=== PATIENT | female | born 1950 | race Caucasian/White ===

== ENCOUNTER 2022-09-27 14:12 | Emergency (ER) | payer MEDICARE, SELFPAY ==
[2022-09-27 14:19] VITALS: BP 157/81; PULSE 74; RESP 16; TEMP 36.3; O2SAT 100; BMI 39.0
--- NOTE | 2022-09-27 15:34 | ED_ITS ---
HPI - General Adult General Chief complaint: Unspecified Complaint, Adult Stated complaint: Sent from Urgent care, Concerned about EKG Time Seen by Provider: 09/27/22 14:20 History of Present Illness HPI narrative: This 72-year-old female comes here from urgent care. She presented to urgent care because of a rash in the right hip region. For some reason she had an EKG done, possibly because her blood pressure was elevated at that visit. She was sent here for further evaluation. The patient states that she feels normal and has no chest pain, no shortness of breath, no nausea, vomiting, lightheadedness, or diaphoresis. She does not report any exercise intolerance. There was no phone call from urgent care in regard to the reason for presenting to the emergency department. I did attempt to look for a copy of the EKG that was done and this was not available. 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 She had a thorough battery of tests the returned negative. I did look back in her record and saw an EKG 6 years ago that showed a right bundle sera block. Related Data Home Medications Medication Instructions Recorded Confirmed albuterol sulfate 90 mcg/actuation 2 inh inhalation Q4H PRN 02/11/22 09/27/22 breath activated powder inhaler aspirin 81 mg tablet,delayed 81 mg PO QDAY 02/11/22 09/27/22 release (Adult Low Dose Aspirin) cholecalciferol (vitamin D3) 125 125 mcg PO QDAY 02/11/22 09/27/22 mcg (5,000 unit) capsule cyanocobalamin (vitamin B-12) 1,000 mcg PO QDAY 02/11/22 09/27/22 1,000 mcg capsule fluticasone propionate 110 1 puff inhalation BID 02/11/22 09/27/22 mcg/actuation HFA aerosol inhaler hydroxychloroquine 200 mg tablet 200 mg PO QDAY 02/11/22 09/27/22 levothyroxine 150 mcg tablet 150 mcg PO QDAY 02/11/22 09/27/22 (Synthroid) linaclotide 145 mcg capsule 145 mcg PO QAM 02/11/22 09/27/22 (Linzess) omega-3 fatty acids 1,250 mg 1,250 mg PO QDAY 02/11/22 09/27/22 capsule rosuvastatin 10 mg tablet (Crestor) 10 mg PO QDAY 02/11/22 09/27/22 triamcinolone acetonide 0.1 % 1 applic topical TID 02/11/22 09/27/22 topical ointment atogepant 30 mg tablet (Qulipta) 30 mg PO QDAY 09/27/22 09/27/22 enoxaparin 60 mg/0.6 mL 60 mg subcut Q24H PRN 09/27/22 09/27/22 subcutaneous syringe Allergies Allergy/AdvReac Type Severity Reaction Status Date / Time galcanezumab-gnlm Allergy Severe Palpitation Verified 09/27/22 14:23 s tramadol Allergy Severe migraines Verified 09/27/22 14:23 butterbur Allergy Intermediate gi upset Verified 09/27/22 14:23 midazolam Allergy Intermediate paradoxial Verified 09/27/22 14:23 agitation cephalexin Allergy Mild Rash Verified 09/27/22 14:23 latex Allergy Mild dermatitis Verified 09/27/22 14:23 erythromycin base Allergy Unknown Verified 09/27/22 14:23 Penicillins Allergy Unknown Verified 09/27/22 14:23 timolol Allergy Unknown Verified 09/27/22 14:23 gabapentin Allergy Verified 09/27/22 14:23 Common paper wasp venom Allergy Uncoded 09/27/22 13:04 protein Review of Systems Status of ROS: Reports: 10 or more systems reviewed and unremarkable except as noted in History and below Narrative: Constitutional: No fevers, no weight gain or loss. Eyes: No discharge. No vision changes. HENT: No congestion, no sore throat, no ear pain. Cardiovascular: No chest pain, no palpitations. Respiratory: No shortness of breath, no wheezes, no cough. Gastrointestinal: No abdominal pain, no vomiting, no diarrhea. Genitourinary: No dysuria, no hematuria. Musculoskeletal: Normal range of motion. Skin: No pruritis. She reports a rash on her right hip. Neurological: No dizziness, weakness, sensory change, speech change. Endo/Heme/Allergies: No bruising or bleeding. No polydipsia. Pysch: no suicidality, no anxiety, no insomnia. All other systems reviewed and are negative. [facility] Medical History (Updated 09/27/22 @ 15:42 by Ken Gandara MD) Encounter for follow-up Hypertension Surgical History (Updated 03/05/22 @ 13:46 by Myra Martinez) History of bunionectomy of both great toes History of hysterectomy History of repair of hiatal hernia History of sinus surgery History of tonsillectomy History of total bilateral knee replacement Status post hysterectomy Family History (Updated 01/28/22 @ 15:54 by Myra Martinez) Father Stroke Other Cardiovascular disease Diabetes Psychiatric disorder Social History (Updated 01/28/22 @ 15:54 by Myra Martinez) Narrative: Non-smoker Smoking Status: Never smoker How often do you have a drink containing alcohol: monthly or less AUDIT-C Alcohol total score: 1 Non-prescribed substance use: denies use Exam Narrative: Exam Narrative: Constitutional: Well-developed, well-nourished, no acute distress. HEENT: Normocephalic, atraumatic. Neck: Normal range of motion. Nontender. Supple. Heart: Regular. No murmurs. Normal rate. Intact distal pulses. Lungs: Clear to auscultation. No chest discomfort. No wheezes, rhonchi, or rales. Abdomen: Normal bowel sounds. Nontender. No rebound tenderness. Genitalia: Deferred. Back: No midline tenderness. Normal range of motion. Extremities: Normal range of motion. No injury. She is wearing bracing on both ankles. Skin: Intact. No rash. Warm. No erythema or pallor. Neurologic: No altered sensation. No weakness. Alert and oriented. Psychiatric: No suicidality. No anxiety or depression. No insomnia. Nursing notes and vitals signs are reviewed. Const: Vital Signs, click to edit/add: Vital Signs - 24 hr 09/27/22 14:19 Temperature 97.3 F L Pulse Rate [Left P ulse Oximeter] 74 Respiratory Rate 16 Blood Pressure [Ri ght Upper Arm] 157/81 H Pulse Oximetry 100 Oxygen Delivery Me thod Room Air Course Vital Signs Vital signs: Initial Vital Signs Temperature 97.3 F L 09/27/22 14:19 Temperature Source Temporal Artery Scan 09/27/22 14:19 Pulse Rate 74 09/27/22 14:19 Respiratory Rate 16 09/27/22 14:19 Blood Pressure 157/81 H 09/27/22 14:19 Blood Pressure Mean 106 09/27/22 14:19 Blood Pressure Position Sitting 09/27/22 14:19 Pulse Oximetry 100 09/27/22 14:19 Oxygen Delivery Method 09/27/22 14:19 Vital Signs Temperature 97.3 F L 09/27/22 14:19 Pulse Rate 74 09/27/22 14:19 Respiratory Rate 16 09/27/22 14:19 Blood Pressure 157/81 H 09/27/22 14:19 Pulse Oximetry 100 09/27/22 14:19 Oxygen Delivery Method 09/27/22 14:19 Temperature 97.3 F L 09/27/22 14:19 Pulse Rate 74 09/27/22 14:19 Respiratory Rate 16 09/27/22 14:19 Blood Pressure 157/81 H 09/27/22 14:19 Pulse Oximetry 100 09/27/22 14:19 Oxygen Delivery Method 09/27/22 14:19 Medical Decision Making MDM Narrative Medical decision making narrative: This patient states that she feels normal and was sent here for evaluation of elevated blood pressure which was reported to be initially at around 190-200 for systolic value. Repeat blood pressure decreased to around 160. Her EKG today shows normal sinus rhythm with no ST or T-wave abnormalities. She does have a right bundle branch block. This is very similar to what was seen on EKG in her record from about 6 years ago. I did discuss diagnostic and treatment parameters regarding blood pressure and indicated importance of following up with her primary physician in this regard. She will be able to check her blood pressure at home and record these readings. At the time of discharge the patient appears safe for outpatient management. The treatment plan is reviewed along with written and verbal return precautions. Reasons to return and the importance of close followup were also reviewed. ECG Data Attestation: I personally reviewed and interpreted this ECG as follows: Interpretation: Normal sinus rhythm. Rate is 74 beats per minute. There are no ST or T-wave abnormalities. Right bundle branch block. Discharge Plan Discharge Clinical Impression: Elevated blood pressure reading Patient Disposition: Home, Self-Care Condition: Stable Additional Instructions: Continue current plans. Check blood pressure and record these for follow-up appointment with primary physician. Return if worsening Prescriptions: No Action hydroxychloroquine 200 mg tablet 200 mg PO QDAY rosuvastatin [Crestor] 10 mg tablet 10 mg PO QDAY albuterol sulfate 90 mcg/actuation aerosol powdr breath activated 2 inh inhalation Q4H PRN cholecalciferol (vitamin D3) 125 mcg (5,000 unit) capsule 125 mcg PO QDAY Linzess 145 mcg capsule 145 mcg PO QAM omega-3 fatty acids 1,250 mg capsule 1,250 mg PO QDAY triamcinolone acetonide 0.1 % ointment 1 applic topical TID aspirin [Adult Low Dose Aspirin] 81 mg tablet,delayed release (DR/EC) 81 mg PO QDAY cyanocobalamin (vitamin B-12) 1,000 mcg capsule 1,000 mcg PO QDAY levothyroxine [Synthroid] 150 mcg tablet 150 mcg PO QDAY fluticasone propionate 110 mcg/actuation HFA aerosol inhaler 1 puff inhalation BID enoxaparin 60 mg/0.6 mL syringe 60 mg subcut Q24H PRN Qulipta 30 mg tablet 30 mg PO QDAY Follow Up/Referrals: Meka Perez MD [Primary Care Provider] - Stand Alone Forms: [facility] Info Instructions
== END 2022-09-27 16:12 | disposition home or self-care (01) ==
PROVIDERS: Emergency Provider Emergency Medicine Emergency Medical Services; PCP Family Medicine
DX: I10 Essential (primary) hypertension (principal)
CPT/HCPCS: 93005; 99283; 99284

== ENCOUNTER 2022-11-09 12:58 | Emergency (ER) | payer MEDICARE, SELFPAY ==
[2022-11-09 13:07] VITALS: BP 194/93; PULSE 85; TEMP 36.2; O2SAT 98; BMI 41.1
--- NOTE | 2022-11-09 13:11 | ED.ABDPAIN ---
HPI - Abdominal Pain General Time Seen by Provider: 13:11 Date Seen: 11/09/22 Chief Complaint: Abdominal Pain Stated Complaint: Abdominal Pain Time Seen by Provider: 11/09/22 12:59 Source: patient and RN notes reviewed Mode of arrival: ambulatory Limitations: no limitations History of Present Illness HPI narrative: Patient is a 72-year-old female with onset of intermittent severe left-sided abdominal pain. She feels it from the left upper quadrant down to about the mid left abdomen. When it comes it is severe. She states she cannot eat anything, feels as if she ate anything she would explode. She is feeling bloated. No fevers. Denies any nausea or vomiting however. She has a history of constipation. She states in August she was having some right-sided abdominal pain, worked with Dr. Perez. She did MiraLax 3 times a day for 3 days, had had minimal clean out. Did a 2 day colonoscopy prep for clean out with mild improvement per report. She is on Linzess as well. She does not want any pain medicines as she states will just make her constipation worse. She is wondering if this is constipation. She has had a hiatal hernia repair, hysterectomy. 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 No urinary symptoms. Patient notes she has been burping a lot today. Related Data Patient : No Home Medications Medication Instructions Recorded Confirmed albuterol sulfate 90 mcg/actuation 2 inh inhalation Q4H PRN 02/11/22 09/27/22 breath activated powder inhaler aspirin 81 mg tablet,delayed 81 mg PO QDAY 02/11/22 09/27/22 release (Adult Low Dose Aspirin) cholecalciferol (vitamin D3) 125 125 mcg PO QDAY 02/11/22 09/27/22 mcg (5,000 unit) capsule cyanocobalamin (vitamin B-12) 1,000 mcg PO QDAY 02/11/22 09/27/22 1,000 mcg capsule levothyroxine 150 mcg tablet 150 mcg PO QDAY 02/11/22 09/27/22 (Synthroid) linaclotide 145 mcg capsule 145 mcg PO QAM 02/11/22 09/27/22 (Linzess) omega-3 fatty acids 1,250 mg 1,250 mg PO QDAY 02/11/22 09/27/22 capsule rosuvastatin 10 mg tablet (Crestor) 10 mg PO QDAY 02/11/22 09/27/22 triamcinolone acetonide 0.1 % 1 applic topical TID 02/11/22 09/27/22 topical ointment atogepant 30 mg tablet (Qulipta) 30 mg PO QDAY 09/27/22 09/27/22 enoxaparin 60 mg/0.6 mL 60 mg subcut Q24H PRN 09/27/22 09/27/22 subcutaneous syringe Allergies Allergy/AdvReac Type Severity Reaction Status Date / Time galcanezumab-gnlm Allergy Severe Palpitation Verified 09/27/22 14:23 s tramadol Allergy Severe migraines Verified 09/27/22 14:23 butterbur Allergy Intermediate gi upset Verified 09/27/22 14:23 midazolam Allergy Intermediate paradoxial Verified 09/27/22 14:23 agitation cephalexin Allergy Mild Rash Verified 09/27/22 14:23 latex Allergy Mild dermatitis Verified 09/27/22 14:23 erythromycin base Allergy Unknown Verified 09/27/22 14:23 Penicillins Allergy Unknown Verified 09/27/22 14:23 timolol Allergy Unknown Verified 09/27/22 14:23 gabapentin Allergy Verified 09/27/22 14:23 Common paper wasp venom Allergy Uncoded 09/27/22 13:04 protein Review of Systems Status of ROS Reports: 6 or more systems reviewed and unremarkable except as noted in History and below PFSH PFS Medical History (Updated 11/09/22 @ 17:38 by Rebeca Rodriguez MD) Encounter for follow-up ?Z09 - Encounter for follow-up examination after completed treatment for conditions other than malignant neoplasm (ICD-10) Hypertension ?I10 - Essential (primary) hypertension (ICD-10) Surgical History (Updated 03/05/22 @ 13:46 by Myra Martinez) History of bunionectomy of both great toes ?Z98.890 - Other specified postprocedural states (ICD-10) History of hysterectomy ?Z90.710 - Acquired absence of both cervix and uterus (ICD-10) History of repair of hiatal hernia ?Z98.890 - Other specified postprocedural states (ICD-10) ?Z87.19 - Personal history of other diseases of the digestive system (ICD-10) History of sinus surgery ?Z98.890 - Other specified postprocedural states (ICD-10) History of tonsillectomy ?Z90.89 - Acquired absence of other organs (ICD-10) History of total bilateral knee replacement ?Z96.653 - Presence of artificial knee joint, bilateral (ICD-10) Status post hysterectomy ?Z90.710 - Acquired absence of both cervix and uterus (ICD-10) Family History (Updated 01/28/22 @ 15:54 by Myra Martinez) Father Stroke Other Cardiovascular disease Diabetes Psychiatric disorder Social History (Updated 01/28/22 @ 15:54 by Myra Martinez) Narrative: Non-smoker Smoking Status: Never smoker How often do you have a drink containing alcohol: monthly or less AUDIT-C Alcohol total score: 1 Non-prescribed substance use: denies use Exam Const: Vital Signs, click to edit/add: Vital Signs - 24 hr 11/09/22 13:07 11/09/22 14:20 11/09/22 16:00 Temperature 97.2 F L Pulse Rate [Pulse Oximeter] 85 77 87 Blood Pressure [Ri ght Upper Arm] 194/93 H 192/97 H 185/83 H Pulse Oximetry 98 99 98 Oxygen Delivery Me thod Room Air Room Air Room Air Documenting provider has reviewed patient's vital signs: yes Other: Patient was initially on the edge of the bed time her gown when I came in. She did have a wave of pain that happened while I was in there that was certainly short-lived, probably maybe 30 seconds. She hunched over further when she had the pain. After pain abated, was able to lie back on the ER cart without any difficulty. Baseline, she is alert interactive no apparent distress. Overweight. Well kept. HENMT: Common normals: normocephalic, head/scalp atraumatic and hearing grossly normal bilaterally Head and scalp: normocephalic and atraumatic Eye: Common normals: PERRL, EOMs intact bilaterally, conjunctivae normal and no scleral icterus Conjunctiva: conjunctiva(e) normal Pupil: PERRL Neck & C-Spine: Common normals: full ROM, no lymphadenopathy and supple Resp: Common normals: normal respiratory effort, no retractions, no use of accessory muscles and clear to auscultation bilaterally Auscultation: clear to auscultation bilaterally Cardio: Common normals: regular rate, regular rhythm, S1 normal heart sound, S2 normal heart sound, no gallops, no clicks and no murmurs Rate: regular rate Rhythm: regular rhythm Heart sounds: S1 normal and S2 normal GI: Common normals: Normal to inspection, nondistended, normoactive bowel sounds present, soft to palpation, non-tender, no hepatosplenomegaly and no masses Palpation: soft and no hepatosplenomegaly Other: Note patient's abdomen was palpated when she was not having any discomfort. Really has a soft benign palpating abdomen and at this time. Course Course Hospital Course: Patient is declining any pain medicine. Will start with basic lab work and a flat and upright. She understands that we may need to proceed with more advanced imaging depending outcome of testing. Certainly constipation is well within the differential, need to consider other entities such as possibly diverticulitis. Seems not to be consistent with such as disease as gastritis or stomach problems. We will see where her labs and plain films lead us. Reevaluation(s) Reevaluation #1: Reviewed lab results and x-ray results with patient. She states right now she is feeling okay but the pain is still coming and going, quite severe when it does come. This certainly could be contractions of her bowel. We discussed cyst next steps. She ultimately decided to proceed with CT imaging to ensure that we are not missing any underlying pathology. If CT comes back without any other etiology, will likely proceed with constipation as our diagnosis. Time: 15:05 Reevaluation #2: Reviewed CT findings. Patient thinks that she has had this right ovarian cyst monitored before. Have asked her to just take the CT report back to her primary care doctor Dr. Perez just to ensure that no further workup is needed. As for her constipation, she would like to try something here. Will order Enemeez. Time: 16:36 Reevaluation #3: Patient has absolutely no urge for defecation despite the Enemeez awhile ago. Unfortunately, I think she is going to need to work from above as she did before earlier this year. She is in no distress, no significant pain at this time. We are going to allow her to discharge to home with oral clears and she can start with MiraLax tonight, consider obtaining GoLYTELY for a clean out tomorrow. Time: 17:35 Vital Signs Vital signs: Initial Vital Signs Temperature 97.2 F L 11/09/22 13:07 Temperature Source Temporal Artery Scan 11/09/22 13:07 Pulse Rate 85 11/09/22 13:07 Blood Pressure 194/93 H 11/09/22 13:07 Blood Pressure Mean 126 11/09/22 13:07 Blood Pressure Position Sitting 11/09/22 13:07 Pulse Oximetry 98 11/09/22 13:07 Oxygen Delivery Method Room Air 11/09/22 13:07 Vital Signs Temperature 97.2 F L 11/09/22 13:07 Pulse Rate 85 11/09/22 13:07 Blood Pressure 194/93 H 11/09/22 13:07 Pulse Oximetry 98 11/09/22 13:07 Oxygen Delivery Method Room Air 11/09/22 13:07 Temperature 97.2 F L 11/09/22 13:07 Pulse Rate 87 11/09/22 16:00 Blood Pressure 185/83 H 11/09/22 16:00 Pulse Oximetry 98 11/09/22 16:00 Oxygen Delivery Method Room Air 11/09/22 16:00 MDM - Abdominal Pain Lab Data Attestation: I reviewed the patient's lab results. Labs: Lab Results 11/09/22 Range/Units 13:40 WBC 5.09 (4.50-11.00) K/uL RBC 3.80 L (4.00-5.20) m/uL Hgb 11.9 L (12.0-16.0) gm/dL Hct 37.0 (33.0-51.0) % MCV 97 (80-100) fL MCH 31 (26-34) pg MCHC 32 (32-36) gm/dL RDW Coeff of Boaz 11.9 (11.5-15.5) % Plt Count 192 (140-440) K/uL Neut % (Auto) 52.5 (42.0-72.0) % Lymph % (Auto) 32.4 (20-44) % [place] % (Auto) 10.2 (0.0-11.0) % Eos % (Auto) 4.5 (0.0-7.0) % Baso % (Auto) 0.4 (0.0-3.0) % Neut # (Auto) 2.67 (1.7-7.0) K/uL Lymph # (Auto) 1.65 (0.90-2.90) K/uL [place] # (Auto) 0.50 (0.00-0.90) K/UL Eos # (Auto) 0.23 (0.00-0.50) K/uL Baso # (Auto) 0.02 (0.00-0.30) K/uL Sodium 136 (135-149) mmol/L Potassium 4.0 (3.6-5.1) mmol/L Chloride 107 (96-114) mmol/L Carbon Dioxide 27 (20-32) mmol/L BUN 15 (7-30) mg/dL Creatinine 0.5 (0.5-1.5) mg/dL Estimated Creat Clear 40.83 Estimated GFR 98 ml/min Glucose 101 (60-115) mg/dL Lactate 0.6 (0.5-1.9) mmol/L Calcium 9.5 (8.4-10.6) mg/dL Total Bilirubin 0.6 (0.1-1.5) mg/dL AST 24 (12-35) U/L ALT 20 (4-35) U/L Alkaline Phosphatase 71 (40-150) U/L C-Reactive Protein < 0.5 L (0.5-1.0) mg/dL Total Protein 6.8 (6.0-8.3) g/dL Albumin 4.0 (3.3-5.0) g/dL Lipase 64 (23-300) U/L Imaging Data Abdominal x-ray: Attestation: I have reviewed the pertinent imaging results. Radiologist's impression: Patient: PAOLA MORFIN Facility:?[facility] Patient ID:?[id number] Site Patient ID:?[id number]. Site :?[id number] Study:?XRay Abdomen 2V-11/09/2022 1:57:20 PM Ordering Physician:Joe Jose Final Report: Indication: Constipation Technique: Three view KUB Comparison: No comparison Findings: Abundant stool in the colon. The bowel gas pattern is nonobstructive. Mild gas osseous distension of the colon. Dictated by Chrissy Alcantara MD @ 11/09/2022 2:22:59 PM (Electronic Signature) CT scan - abdomen: Attestation: I have reviewed the pertinent imaging results. Radiologist's impression: Patient: PAOLA MORFIN Facility:?[facility] Patient ID:?[id number] Site Patient ID:?[id number]. Site :?[id number] Study:?CT Abdomen/Pelvis 98cc ISOVUE 370-11/09/2022 3:48:42 PM Ordering Physician:Joe Jose Final Report: HISTORY: Abdominal pain. TECHNIQUE: Intravenous contrast enhanced CT of the abdomen and pelvis. 98 mL Isovue-370 intravenous contrast administered. COMPARISON: 08/25/2018. FINDINGS: Sub cm probable cyst within the lateral segment left hepatic lobe on image #38 appears mildly enlarged from the prior CT. No other focal liver parenchymal abnormality. No biliary ductal dilatation. Gallbladder does not appear excessively distended. The spleen and adrenal glands are normal. There are a few low-density renal lesions on the right which are too small to characterize but likely represent small cysts. 2 mm intrarenal calculus within the interpolar region right kidney is unchanged. No hydronephrosis. No ureteral calculus. The urinary bladder is mildly distended. Small locule of gas within urinary bladder could relate to recent catheterization. Patient is status post hysterectomy. 2.7 cm cystic right adnexal structure on image #96 of series 2 has enlarged from prior CT where it measured approximately 1.8 cm in size. Pelvic calcifications likely represent phleboliths. - Patient maybe status post fundoplication procedure. There is no small bowel obstruction. No diverticulitis or definite colitis. The appendix is not definitively seen. Note is made of a probable rectocele, unchanged. - No abdominal aortic aneurysm. No adenopathy. - No consolidation within the lung bases nor pleural effusion. - Degenerative changes of the spine. No acute fractures. Degenerative changes of the sacroiliac joints and hips. IMPRESSION: 1. No specific identified cause of the patient`s abdominal pain. 2. Enlargement of a cystic right adnexal lesion which could reflect a non functional postmenopausal cyst. Given the relatively mild enlargement, continued surveillance could be performed. 3. No bowel obstruction, diverticulitis or colitis. 4. Nonobstructive calculus right kidney. No ureteral calculus or hydronephrosis. Dictated by Andrew Banda MD @ 11/09/2022 4:19:04 PM Please note that all CT scans at this facility use dose modulation, iterative reconstruction, and/or weight-based dosing when appropriate to reduce radiation dose to as low as reasonably achievable. Dictated by: Andrew Banda MD @ 11/09/2022 16:19:08 (Electronic Signature) Critical Care Time Critical Care Time Critical Care Time: No Discharge Plan Discharge Clinical Impression: Constipation Patient Disposition: Home, Self-Care Condition: Stable Instructions: Constipation (ED), High Fiber Diet (ED) Additional Instructions: Need to try to stay with clear liquids until you have had some stool results. Consider increasing back up on your MiraLax until you can get GoLYTELY prep. Would recommend consideration of GoLYTELY prep tomorrow to work from above to clean out the constipation. 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 If you should have severe increasing your abdominal pain, have vomiting or fevers associated with it, need to be re-evaluated. Prescriptions: No Action rosuvastatin [Crestor] 10 mg tablet 10 mg PO QDAY albuterol sulfate 90 mcg/actuation aerosol powdr breath activated 2 inh inhalation Q4H PRN cholecalciferol (vitamin D3) 125 mcg (5,000 unit) capsule 125 mcg PO QDAY Linzess 145 mcg capsule 145 mcg PO QAM omega-3 fatty acids 1,250 mg capsule 1,250 mg PO QDAY triamcinolone acetonide 0.1 % ointment 1 applic topical TID aspirin [Adult Low Dose Aspirin] 81 mg tablet,delayed release (DR/EC) 81 mg PO QDAY cyanocobalamin (vitamin B-12) 1,000 mcg capsule 1,000 mcg PO QDAY levothyroxine [Synthroid] 150 mcg tablet 150 mcg PO QDAY enoxaparin 60 mg/0.6 mL syringe 60 mg subcut Q24H PRN Qulipta 30 mg tablet 30 mg PO QDAY Follow Up/Referrals: Meka Perez MD [Primary Care Provider] - Stand Alone Forms: [employer] Info Instructions
--- NOTE | 2022-11-09 13:19 | CRLHL7_ITS ---
For Patients: As a result of the Century Cures Act, medical imaging exams and procedure reports are released immediately into your electronic medical record. You may view this report before your referring provider. If you have questions, please contact your health care provider. Indication: Constipation Technique: Three view KUB Comparison: No comparison Findings: Abundant stool in the colon. The bowel gas pattern is nonobstructive. Mild gas osseous distension of the colon. Dictated by Chrissy Alcantara MD @ 11/09/2022 2:22:59 PM (Electronically Signed)
[2022-11-09 13:43] LABS: Lactate* 0.6 mmol/L (0.5-1.9)
[2022-11-09 13:44] LABS: Basophils Absolute Auto 0.02 K/uL (0.00-0.30); Basophils Percent Auto 0.4 % (0.0-3.0); Eosinophils Absolute Auto 0.23 K/uL (0.00-0.50); Eosinophils Percent Auto 4.5 % (0.0-7.0); Hemoglobin* 11.9 gm/dL (12.0-16.0); Lymphocytes Absolute Auto 1.65 K/uL (0.90-2.90); Lymphocytes Percent Auto 32.4 % (20-44); Mean Corpuscular HGB Conc 32 gm/dL (32-36); Mean Corpuscular Hemoglobin 31 pg (26-34); Mean Corpuscular Volume 97 fL (80-100); Monocytes Percent Auto 10.2 % (0.0-11.0); Neutrophils Absolute Auto 2.67 K/uL (1.7-7.0); Neutrophils Percent Auto 52.5 % (42.0-72.0); Platelet Count* 192 K/uL (140-440); RDW Coefficient of Variation % 11.9 % (11.5-15.5); White Blood Count* 5.09 K/uL (4.50-11.00)
[2022-11-09 13:45] LABS: Slide Review Reflex No
[2022-11-09 14:09] LABS: Chloride* 107 mmol/L (96-114); Sodium* 136 mmol/L (135-149)
[2022-11-09 14:12] LABS: Alkaline Phosphatase* 71 U/L (40-150); Aspartate Amino Transferase* 24 U/L (12-35); Bilirubin Total* 0.6 mg/dL (0.1-1.5); Carbon Dioxide* 27 mmol/L (20-32); Creatinine* 0.5 mg/dL (0.5-1.5); Est. Creatinine Clearance* 40.83; Estimated Glomerular Filt Rate 98 ml/min; Total Protein* 6.8 g/dL (6.0-8.3)
[2022-11-09 14:13] LABS: Alanine Aminotransferase* 20 U/L (4-35); Blood Urea Nitrogen* 15 mg/dL (7-30); Calcium* 9.5 mg/dL (8.4-10.6); Glucose* 101 mg/dL (60-115); Lipase* 64 U/L (23-300)
[2022-11-09 14:17] LABS: C Reactive Protein* < 0.5 mg/dL (0.5-1.0)
[2022-11-09 14:20] VITALS: BP 192/97; PULSE 77; O2SAT 99
--- NOTE | 2022-11-09 15:06 | CRLHL7_ITS ---
For Patients: As a result of the Century Cures Act, medical imaging exams and procedure reports are released immediately into your electronic medical record. You may view this report before your referring provider. If you have questions, please contact your health care provider. HISTORY: Abdominal pain. TECHNIQUE: Intravenous contrast enhanced CT of the abdomen and pelvis. 98 mL Isovue-370 intravenous contrast administered. COMPARISON: 08/25/2018. FINDINGS: Sub cm probable cyst within the lateral segment left hepatic lobe on image #38 appears mildly enlarged from the prior CT. No other focal liver parenchymal abnormality. No biliary ductal dilatation. Gallbladder does not appear excessively distended. The spleen and adrenal glands are normal. There are a few low-density renal lesions on the right which are too small to characterize but likely represent small cysts. 2 mm intrarenal calculus within the interpolar region right kidney is unchanged. No hydronephrosis. No ureteral calculus. The urinary bladder is mildly distended. Small locule of gas within urinary bladder could relate to recent catheterization. Patient is status post hysterectomy. 2.7 cm cystic right adnexal structure on image #96 of series 2 has enlarged from prior CT where it measured approximately 1.8 cm in size. Pelvic calcifications likely represent phleboliths. - Patient maybe status post fundoplication procedure. There is no small bowel obstruction. No diverticulitis or definite colitis. The appendix is not definitively seen. Note is made of a probable rectocele, unchanged. - No abdominal aortic aneurysm. No adenopathy. - No consolidation within the lung bases nor pleural effusion. - Degenerative changes of the spine. No acute fractures. Degenerative changes of the sacroiliac joints and hips. IMPRESSION: 1. No specific identified cause of the patient`s abdominal pain. 2. Enlargement of a cystic right adnexal lesion which could reflect a non functional postmenopausal cyst. Given the relatively mild enlargement, continued surveillance could be performed. 3. No bowel obstruction, diverticulitis or colitis. 4. Nonobstructive calculus right kidney. No ureteral calculus or hydronephrosis. Dictated by Andrew Banda MD @ 11/09/2022 4:19:04 PM Please note that all CT scans at this facility use dose modulation, iterative reconstruction, and/or weight-based dosing when appropriate to reduce radiation dose to as low as reasonably achievable. Dictated by: Andrew Banda MD @ 11/09/2022 16:19:08 (Electronically Signed)
[2022-11-09 16:00] VITALS: BP 185/83; PULSE 87; O2SAT 98
[2022-11-09] MEDS: DOCUSATE SODIUM/BENZOCAINE 5 ML ENEMA PR (16:50)
--- NOTE | 2022-11-09 17:33 | ED.NURSE ---
is sitting on the commode. [facility] aware.
--- NOTE | 2022-11-09 17:50 | ED.NURSE ---
did have results on commode. had small brown stool with more constipated returns. did want to go home. understands dc instructions. is able to ambulate well.
== END 2022-11-09 17:55 | disposition home or self-care (01) ==
PROVIDERS: Emergency Provider Family Medicine; PCP Family Medicine
DX: K59.00 Constipation, unspecified (principal)
CPT/HCPCS: 36415; 74019; 74177; 80053; 83605; 83690; 85025; 86140; 99283; 99284; A9270; Q9967

== ENCOUNTER 2022-11-17 09:28 | Outpatient (CLI) | payer MEDICARE, SELFPAY ==
--- NOTE | 2022-11-17 11:21 | P.ANES_ITS ---
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
== END 2022-11-17 09:29 | disposition home or self-care (01) ==
PROVIDERS: PCP Family Medicine; Visit Provider Internal Medicine Gastroenterology
DX: R13.10 Dysphagia, unspecified (principal); K31.89 Other diseases of stomach and duodenum; Z98.890 Other specified postprocedural states
CPT/HCPCS: 00731; 43239; 88305; 99100; J2704; J3490

== ENCOUNTER 2023-04-30 10:21 | Outpatient (CLI) | payer MEDICARE, SELFPAY ==
--- OUTSIDE RECORDS SUMMARY | 2023-05-02 16:07 | XMS_ITS | Continuity of Care Document ---
Author Name [facility] Care Team Providers Care Cook Fishing Vessel Name Role Phone [facility] Unavailable Unavailable Consultation Notes Results Value Date [...] Cap, Refills: 0, Route to Pharmacy Electronically, [facility] [id number] predniSONE 20 mg oral tablet, 2 Tab Tab, PO, qDay, 5 Day, Qty: 10 Tab, Route to Pharmacy Electronically, [facility] [id number] Problem List/Past Medical History Chronic Arthritis Chronic [...] Employment/School Retired Exercise Exercise duration: 0. Home/Environment Sabianist restrictions/concerns: None. Lives with Significant other. Living [...] Co Signature By: Modified Signature By: 08/19/2017 [facility]
--- OUTSIDE RECORDS SUMMARY | 2023-05-02 16:07 | XMS_ITS | Continuity of Care Document ---
Author Name Unknown Organization [facility] Address [address] [address] [place] [address] Phone Care Team Providers Care Financial Cost Analyst Name Role Phone Avelino Angel MD, Micky Unavailable Unavailabl e Allergies, Adverse Reactions, Alerts Substance Reaction Status Criticality erythromycin base inflammation of liver Active N o Information ampicillin Rash Active No Information erythromycin base toxic hepatitis Active No Info rmation PROPRANOLOL HCL agitation Active No Informati on adhesive tape Rash Active No Information latex Rash Active No Information erythromycin base Adverse reaction Active No Inf ormation PENICILLIN RashJoint pain Active No Informatio n Medications Medication Instructions Dosage Effective Dates (start - stop) Status Comments Linzess 145 mcg capsule take 1 capsule b y oral route every day on an empty stomach at least 30 minutes before 1st meal of the day 145 MCG - Active Vitamin B-12 1,000 mcg tablet take 1 by Oral route every day 1 - Active Flovent HFA 110 mcg/actuation aerosol inhaler inhale 2 puff by inhalation route 2 times every day 220 MCG - Active Ubrelvy 100 mg tablet take 1 tablet by oral route once may repeat dose once after 2 hours if needed, not to exceed 200 mg in24 hours 100 MG - Active enoxaparin 60 mg/0.6 mL subcutaneous syringe inject (1MG/KG) by subcutaneous route every 12 hours 1 MG/KG - Active polyethylene glycol 3350 17 gram oral powder packet take 1 packet by oral route every day mixed with 8 oz. water, juice, soda, coffee or tea as needed 17 G - Active Linzess 72 mcg capsule take 1 capsule by oral route every day on an empty stomach at least 30 minutes before 1st meal of the day 72 MCG - Active omeprazole 20 mg capsule,delayed release take 1 capsule (20MG) by ORAL route every day before a meal - Active Needs office visit for further refill. albuterol sulfate HFA 90 mcg/actuation aerosol inhaler inhale 2 puff by inhalation route every 4 - 6 hours as needed - Active prednisone 10 mg tablet take 3 Tablet by oral route every day for seven days as needed - Active estradiol 0.01% (0.1 mg/gram) vaginal cream insert (0.5 G) by vaginal route two times a week - Active Flonase Allergy Relief 50 mcg/actuation nasal spray,suspension inhale 2 spray by intranasal route every day in each nostril 100 MCG - Active Synthroid 125 mcg tablet take 1 tablet b y oral route every day 125 MCG - Active triamcinolone acetonide 0.1 % topical ointment apply by topical route 2 times every day a thin layer to the affected area(s) 0.00 - Active prochlorperazine maleate 5 mg tablet take 1 tablet by oral route every 4 hours as needed for nausea and vomiting 5 MG - Active aspirin 81 mg chewable tablet chew 1 tablet by oral route every morning 81 MG - Active Fish Oil Concentrate 1,000 mg capsule take 2 tablet by oral route every day 2 tablet - Active Vitamin D3 125 mcg (5,000 unit) tablet take 1 Capsule by Oral route every day 1 Capsule - Active Co Q-10 100 mg capsule take 1 Capsule by Oral route every day 1 Capsule - Active hydroxychloroquine 400 mg tablet take 1 tablet by oral route every day 400 MG - Active rosuvastatin 10 mg tablet take 1 tablet by oral route every day 10 MG - Active Nurtec ODT [address] 1 tablet by translingual route on top of tongue, allow to dissolve then swallow once as needed for migraine; max 1 dose/24 hrs 75 MG - Active Procedures Procedure Date Established Level 4 Colonoscopy Flex; Dx (sep Pro) Established Level 3 Offic/outpt E&m Estab Mod-hi 2 Offic/outpt E&m Estab Mod-hi 4 Telephone E&M III 21-30 Min RODRIGO Advance Directives Directive Yes / No Effective Date File Name No Information Encounters Encounter Description Practice Location Reason(s) For Visit Diagnoses Date Provider Providers Copied on Encounter [facility], [address] [address], [place], [place], [id number], [place] tel:[phone] [facility] No Information 2 Avelino Weeks. [address] [facility], [facility] [address], [facility] [place], [address] , [place]. tel: [phone] Established Level 4 [facility], [address] [address], [place], [place], [address], [place] tel:[phone] [facility] GI Symptoms or Concerns (chief complaint) Slow transit constipationConst ipation, unspecified 2 Candido Roth. [address] [facility], [facility] [place], [address] , [place]. tel: [phone] Referring Provider: Referral Self. [facility], [address] [address], [place], [place], [address], [place] tel:[phone] [facility] No Information 2 Avelino Weeks. [address] [facility], [address], [facility] [place], [place], [id number] , [place]. tel: [phone] [facility], [address] [address], [place], [address], [place] tel:[phone] [facility] GI Symptoms or Concerns (chief complaint) Constipation, unspecifiedDivert iculosis of colon without diverticulitisCon stipation, unspecified 2 Candido Roth. [address] [facility], [place], [place], [address] , [place]. tel: [phone] Referring Provider: Referral Self. [facility], [address] [address], [place], [address], [place] tel:[phone] [facility] No Information 2 Efren Rendon. [address] [facility], [address], [place], [place], [address] , [place]. tel: [phone] Established Level 3 [facility], [address] [address], [place], [address], [place] tel:[phone] [facility] GI Symptoms or Concerns (chief complaint) Constipation, unspecified constipation type 2 Efren Rendon. [address] [facility], [address], [place], [address] , [place]. tel: [phone] Referring Provider: Referral Self. [facility], [address] [address], [place], [address], [place] tel:[phone] [facility] No Information 2 Avelino Weeks. [address] [facility], [place], [place], [address] , [place]. tel: [phone] [facility], [address] [address], [place], [place], [address], [place] tel:[phone] [facility] No Information 2 Candido Roth. [address] [facility], [address], [place], [address] , [place]. tel: [phone] Offic/outpt E&m Estab Mod-hi 2 [facility], [address] [address], [place], [address], [place] tel:[phone] [facility] GI Symptoms or Concerns (chief complaint) Constipation, unspecified constipation typeChest pain, unspecified type 1 Candido Roth. [address] [facility], [place], [address] , [place]. tel: [phone] Referring Provider: Referral Self. [facility], [address] [address], [place], [place], [address], [place] tel:[phone] [facility] GI Symptoms or Concerns (chief complaint) No Information 1 Candido Roth. [address] [place] [address] [address], [place], [place], [address] , [place]. tel: [phone] [facility], [address] [address], [place], [place], [address], [place] tel:[phone] [facility] No Information 1 Candido Roth. [address] [place] [address], [place], [address] , [place]. tel: [phone] Offic/outpt E&m Estab Mod-hi 4 [facility], [address] [address], [place], [address], [place] tel:[phone] [facility] GI Symptoms or Concerns (chief complaint) Constipation, unspecified constipation type 1 Candido Roth. [address] [place] [address], [place], [address] , [place]. tel: [phone] Referring Provider: Mandi Palacios, [address] [facility], [place], [address]. tel:[phone] Telephone E&M III 21-30 Min RODRIGO [facility], [address] [address], [place], [place], [address], [place] tel:[phone] [facility] GI Symptoms or Concerns (chief complaint) Slow transit constipation 1 Live Deleon. [address] [place] [address], [facility] [address], [place], [place], [address] , [place]. tel: [phone] Referring Provider: Referral Self. [facility], [address] [address], [place], [address], [place] tel:[phone] [facility] No Information 1 Live ERNESTO Adrienne. [address] [facility], [address], [place], [id number] , [place]. tel: [phone] [facility], [address] [address], [place], [id number], [place] tel:[phone] [facility] No Information 0 Kaye Lui. [address] [facility], [place], [address] , [place]. tel: [phone] Family History Family Member Type Diagnosis Age At Onset Daughter Problem (finding) asthma Father Problem (finding) Pancreatitis Father Problem (finding) gallbladder disease Sister Problem (finding) gallbladder disease Mother Problem (finding) gallbladder disease Sister Problem (finding) malignant neop lasm of breast in first degree relative Sister Problem (finding) Thyroid disorder Father Problem (finding) Pancreatitis Mother Problem (finding) Thyroid disorder Sister Problem (finding) asthma Mother Problem (finding) asthma Mother Problem (finding) Colon polyps Daughter Problem (finding) Thyroid disorder Daughter Problem (finding) GERD Sister Problem (finding) malignant neoplasm of c ervix uteri Sister Problem (finding) GERD Mother Problem (finding) cancer of colon Daughter Problem (finding) gallbladder disease Son Problem (finding) asthma Immunizations Vaccine Date Status Comments influenza, seasonal vaccine, quadrivalent, adjuvanted, .5mL dose, preservative free administered Note: [facility] bi-di rectional interface ; Source: Other Registry SARS-COV-2 (COVID-19) vaccin e, mRNA, spike protein, LNP, bivalent booster, preservative free, 50 mcg/0.5 mL or 25 mcg/0.25 mL dose administered Note: [facility] bi-direct ional interface ; Source: Other Registry tetanus toxoid, reduced diphtheria toxoid, and acellular pertussis vaccine, adsorbed administered Note: [facility] b i-directional interface ; Source: Other Registry SARS-COV-2 (COVID-19) vaccin e, mRNA, spike protein, LNP, preservative free, 100 mcg/0.5mL dose or 50 mcg/0.25mL dose administered Note: [facility] bi -directional interface ; Source: Other Registry SARS-COV-2 (COVID-19) vaccin e, mRNA, spike protein, LNP, preservative free, 100 mcg/0.5mL dose or 50 mcg/0.25mL dose administered Note: [facility] bi -directional interface ; Source: Other Registry influenza, high-dose seasona l, quadrivalent, .7mL dose, preservative free administered Note: [facility] bi-direct ional interface ; Source: Other Registry SARS-COV-2 (COVID-19) vaccin e, mRNA, spike protein, LNP, preservative free, 30 mcg/0.3mL dose administered Note: [facility] bi-direct ional interface ; Source: Other Registry SARS-COV-2 (COVID-19) vaccin e, mRNA, spike protein, LNP, preservative free, 30 mcg/0.3mL dose administered Note: [facility] bi-direct ional interface ; Source: Other Registry SARS-COV-2 (COVID-19) vaccin e, mRNA, spike protein, LNP, preservative free, 30 mcg/0.3mL dose administered Note: [facility] bi-direct ional interface ; Source: Other Registry influenza, seasonal vaccine, quadrivalent, adjuvanted, .5mL dose, preservative free administered Note: [facility] bi-di rectional interface ; Source: Other Registry zoster vaccine recombinant administered N ote: [facility] bi-directional interface ; Source: Other Registry Seasonal trivalent influenza vaccine, adjuvanted, preservative free administered Note: [facility] bi-direct ional interface ; Source: Other Registry zoster vaccine recombinant administered N ote: [facility] bi-directional interface ; Source: Other Registry influenza, high dose seasona l, preservative-free administered Note: [facility] bi-direct ional interface ; Source: Other Registry influenza, high dose seasona l, preservative-free administered Note: [facility] bi-direct ional interface ; Source: Other Registry influenza, high dose seasona l, preservative-free administered Note: [facility] bi-direct ional interface ; Source: Other Registry influenza, high dose seasona l, preservative-free administered Note: [facility] bi-direct ional interface ; Source: Other Registry Prevnar administered Note: [facility] bi-d irectional interface ; Source: Other Registry Influenza, seasonal, injecta ble, preservative free administered Note: [facility] bi-direct ional interface ; Source: Other Registry Influenza, seasonal, injecta ble, preservative free administered Note: [facility] bi-direct ional interface ; Source: Other Registry Influenza, seasonal, injectable administe red Note: [facility] bi- directional interface ; Source: Other Registry tetanus toxoid, reduced diphtheria toxoid, and acellular pertussis vaccine, adsorbed administered Note: [facility] b i-directional interface ; Source: Other Registry influenza virus vaccine, unspecified formulation administered Note: [facility] bi-di rectional interface ; Source: Other Registry zoster vaccine, live administered Note: [facility] bi-directional interface ; Source: Other Registry influenza virus vaccine, unspecified formulation administered Note: [facility] bi-di rectional interface ; Source: Other Registry influenza virus vaccine, unspecified formulation administered Note: [facility] bi-di rectional interface ; Source: Other Registry influenza virus vaccine, unspecified formulation administered Note: [facility] bi-di rectional interface ; Source: Other Registry influenza virus vaccine, unspecified formulation administered Note: [facility] bi-di rectional interface ; Source: Other Registry influenza virus vaccine, unspecified formulation administered Note: [facility] bi-di rectional interface ; Source: Other Registry tetanus and diphtheria toxoi ds, adsorbed, preservative free, for adult use (2 Lf of tetanus toxoid and 2 Lf of diphtheria toxoid) administered Note: [facility] bi-direct ional interface ; Source: Other Registry influenza virus vaccine, unspecified formulation administered Note: [facility] bi-di rectional interface ; Source: Other Registry Influenza, seasonal, injectable administe red Note: [facility] bi- directional interface ; Source: Other Registry Influenza, seasonal, injectable administe red Note: [facility] bi- directional interface ; Source: Other Registry Influenza, seasonal, injectable administe red Note: [facility] bi- directional interface ; Source: Other Registry Influenza, seasonal, injectable administe red Note: [facility] bi- directional interface ; Source: Other Registry diphtheria and tetanus toxoi ds, adsorbed for pediatric use administered Note: [facility] bi -directional interface ; Source: Other Registry Payers Payer name Insurance type Covered constitution party ID Authoriza tion(s) No Information Social History Type Description Quantity Date Captured Comments Sex Female Smoking Status No Information Chief Complaint And Reason For Visit No Information Reason For Referral Reason For Referral No Information History Of Present Illness Encounter Date Complaint History Of Prese nt Illness GI Symptoms or Concerns 71-year- old female with history of Rosie-Danlos syndrome, status post Tamia, rectocele status post repair presenting for follow-up of constipation. Her current medications include Linzess 145 micrograms in the evening and MiraLax 1 cap full at night. She has just increased 1 day ago from a half capful MiraLax daily which she started 5 days ago. When she takes the Linzess in the morning either the 145 or 72 microgram doses, she has significant diarrhea and urgency in the evening. She finds this is less so with changing the Linzess to the evening time. Her most recent colonoscopy was in March of this year and was normal. She is also meeting with a dietitian that recommended an 800 calorie morning meal, 600 calorie noon meal, and 300 calorie evening meal. GI Symptoms or Concerns GI Symptoms or Concerns The marie ent is a 71-year-old female who was seen by Dr. Rey on 12/31/2020 for constipation and suspected reflux. She does have a history of Rosie-Danlos syndrome. She has also had rectocele repair. She goes greater than 7 days without having a bowel movement went on her own. In the past, she had used MiraLax twice daily with improvement of her symptoms, but this did cause abdominal pain. She started using Citrucel instead. She did not have any abdominal pain with that. At the time of her last visit, she was to increase the Citrucel up.She states that she had surgery on her cervical spine on January 15. With that, she has been on oxycodone and a muscle relaxant. Her last dose of oxycodone was January 20. This has caused her increased constipation. She tried a suppository yesterday with some results. She had an abdominal x-ray for feeding tube, which showed significant stool. Currently, she is on MiraLax 17 g daily and senna 8.6 mg twice daily. She has also seen a gastroenter GI Symptoms or Concerns Shayy is a 70-year-old female with a history of Rosie-Danlos syndrome, rectocele status post repair, presenting for followup of constipation. She would have fairly severe constipation going greater than 7 days without having a bowel movement, a sense of incomplete evacuation, as well as abdominal pain. She was started on MiraLax twice a day by Adrienne Mancini and had improvement in her symptoms. Due to abdominal pain, she eventually weaned off the MiraLax and started using Citrucel instead. With that, she does not have any abdominal pain. She is having narrow soft stool every day. She has on a rare occasion had accidental bowel leakage of narrow stool.She has a history of chest pain, which is worse with constipation. She has had cardiac evaluation, which she reports is negative. The pain is not a burning sensation, but she does have associated dysphagia.In other health updates, she may be diagnosed with antiphospholipid antibody syndrome.PAST MEDICAL HISTORYStatus GI Symptoms or Concerns GI Symptoms or Concerns Bianca is a 70-year-old female with history of Ehler-Danlos syndrome and rectocele repair presenting for constipation. She would have fairly severe constipation going greater than 7 days without having a bowel movement, sensation of incomplete evacuation, as well as abdominal pain. The pain was in her left upper quadrant, right upper quadrant, as well as right lower quadrant. She was started on daily MiraLax twice a day by Adrienne Mancini, and has had an improvement in her symptoms. She will go to the bathroom multiple times a day, although has no stools. She goes to the bathroom multiple times a day now, and will on occasion have loss of control with 1 teaspoon to 1 tablespoon of soft solid stool in her underwear without any preceding urgency. She has also noticed that the abdominal pain decreases.Her rectocele repair was in [address] Sonu Reyez. [facility]. I am not one of the physicians before that surgery, although ju[facility] GI Symptoms or Concerns This is a 70-year-old female who I am seeing today via tele visit. She was self-referred for evaluation of constipation. Her past medical history is significant for Rosie-Danlos syndrome, hypermobility type, migraine headaches, lymphedema, hypothyroidism, and notalgia paresthetica. Her past surgical history is significant for rectocele repair x2 and also a cystocele repair.She has a long history of constipation. Reportedly, her last colonoscopy was in 2016. I do not have this report, but she tells me she has a history of adenomatous polyps. She describes her stool pattern as passing a pencil thin stool every 4 days and then every 8 or 9 days, she will have loose stool. If she has not moved her bowels by day 8 or 9, she will use a laxative but usually does not get to this point. She has a sense of incomplete evacuation. There is no black or bloody stools. She has tried fiber without benefit. Years ago, she tried MiraLax 1 capful daily and does not recall this being benefi Functional Status Date Functional Assessmen t No Information Instructions Date Instruction Additional Infor dhara Diverticulosis/Diverticulitis Re lated to Diverticulosis of colon without diverticulitis Colon Cancer Prevention Related to Diverticulosis of colon without diverticulitis Diverticulosis/Diverticulitis Re lated to Constipation, unspecified High Fiber Diet Related to Const ipation, unspecified Colon Cancer Prevention Related to Constipation, unspecified 1. Colonoscopy recom mended, hopefully this can be done sometime this year.2. Start MiraLax 2 to 3 capfuls daily.3. Not noted above is her TSH has been normal at her primary clinic.4. Consider pelvic floor workup.5. Follow up with Dr. Rey as previously scheduled in September. Related to Slow transit constipation Assessments Type Assessment Date No Information Patient Care Teams Name Effective Dates (start - stop) Status Members No Information
--- OUTSIDE RECORDS SUMMARY | 2023-05-02 16:07 | XMS_ITS | Continuity of Care Document ---
Author Name Unknown Organization [facility] Address [address] [address] [place] [address] Care Team Providers Care Wreath Inspector Name Role Phone [place], [place] Unavailable Unav ailable Procedures Procedure Date Colono Pt Doc Pt W/o Advance Directives Directive Yes / No Effective Date File Name No Information Encounters Encounter Description Practice Location Reason(s) For Visit Diagnoses Date Provider Providers Copied on Encounter [facility], [address] [address], [place], [place], [id number], [facility] No Information [facility]. [address] [address], [place], [place], [address], . tel:[phone] Referring Provider: Ira Rey MD, [address] [facility] [address], [place], [address] . tel:[phone] Family History Family Member Type Diagnosis Age At Onset No Information Payers Payer name Insurance type Covered green party ID Authoriza tion(s) Medicare NGS MB [id number] [id number] Social History Type Description Quantity Date Captured Comments Sex Female Smoking Status No Information Chief Complaint And Reason For Visit No Information Reason For Referral Reason For Referral No Information History Of Present Illness Encounter Date Complaint History Of Prese nt Illness No Information Functional Status Date Functional Assessmen t No Information Instructions Date Instruction Additional Infor mation No Information Assessments Type Assessment Date No Information Patient Care Teams Name Effective Dates (start - stop) Status Members No Information
== END 2023-04-30 10:22 | disposition home or self-care (01) ==
LOC: AMB 05-02 16:05
PROVIDERS: PCP Family Medicine; Visit Provider Emergency Medicine
DX: R41.82 Altered mental status, unspecified (principal); R53.1 Weakness
CPT/HCPCS: A0425; A0427

== ENCOUNTER 2023-04-30 10:41 | Emergency (ER) | payer MEDICARE, SELFPAY ==
[2023-04-30 10:50] VITALS: BP 171/87; PULSE 86; RESP 16; TEMP 36.3; O2SAT 100; BMI 38.8
[2023-04-30 11:00] VITALS: BP 149/75; PULSE 80; RESP 16; O2SAT 98
--- NOTE | 2023-04-30 11:17 | CRLHL7_ITS ---
For Patients: As a result of the Century Cures Act, medical imaging exams and procedure reports are released immediately into your electronic medical record. You may view this report before your referring provider. If you have questions, please contact your health care provider. INDICATION: Word-finding difficulty. TECHNIQUE: Multiplanar multisequence noncontrast MR images acquired through the brain. COMPARISON: None. FINDINGS: The ventricles and sulci are within normal limits for patient age. No mass effect or midline shift. Scattered FLAIR hyperintensities in the supratentorial white matter, typical for mild chronic microvascular ischemic changes. No diffusion restriction to suggest acute infarction. No intracranial hemorrhage or pathologic extra-axial fluid collection. The major arterial flow voids of the skullbase are preserved. The globes are symmetric. Mild ethmoid sinus mucosal thickening. Trace left mastoid fluid. IMPRESSION: 1. No acute infarction, mass effect, or intracranial hemorrhage. 2. Mild chronic microvascular ischemic changes. Dictated by Jered Booker MD @ 04/30/2023 1:39:44 PM (Electronically Signed)
--- NOTE | 2023-04-30 11:22 | ED.GENADULT ---
HPI - General Adult General Time Seen by Provider: 11:22 Date Seen: 04/30/23 Chief complaint: Weakness Stated complaint: Weakness Time Seen by Provider: 04/30/23 10:48 Source: EMS History of Present Illness HPI narrative: Bianca is a 72-year-old female past medical history includes hypothyroidism, GERD, hypertension presents emerged department via EMS with generalized weakness. Patient states that since January had her Synthroid adjusted, this has been changed from 150 mcg, to 137 mcg to 125 mcg, she had her TSH checked last week, it was 0.1, previously it was 0.17, since her her med adjustment there has not been any proof min, she has had generalized weakness, intermittent confusion and hard time finding her words, she denies any nausea vomiting, no history of any CAD or stroke, no headache, lightheadedness, visual changes or dizziness, no focal weakness, she denies any shortness of breath or chest pain, no urinary complaints or diarrhea. Patient has become more cranky as well. Symptoms have progressively got worse over the last week. Related Data Home Medications Medication Instructions Recorded Confirmed albuterol sulfate 90 mcg/actuation 2 inh inhalation Q4H PRN 02/11/22 04/30/23 breath activated powder inhaler aspirin 81 mg tablet,delayed 81 mg PO QDAY 02/11/22 04/30/23 release (Adult Low Dose Aspirin) cholecalciferol (vitamin D3) 125 125 mcg PO QDAY 02/11/22 04/30/23 mcg (5,000 unit) capsule cyanocobalamin (vitamin B-12) 1,000 mcg PO QDAY 02/11/22 04/30/23 1,000 mcg capsule levothyroxine 150 mcg tablet 150 mcg PO QDAY 02/11/22 04/30/23 (Synthroid) linaclotide 145 mcg capsule 145 mcg PO QAM 02/11/22 09/27/22 (Linzess) omega-3 fatty acids 1,250 mg 1,250 mg PO QDAY 02/11/22 04/30/23 capsule rosuvastatin 10 mg tablet (Crestor) 10 mg PO QDAY 02/11/22 04/30/23 triamcinolone acetonide 0.1 % 1 applic topical TID 02/11/22 04/30/23 topical ointment atogepant 30 mg tablet (Qulipta) 30 mg PO QDAY 09/27/22 04/30/23 enoxaparin 60 mg/0.6 mL 60 mg subcut Q24H PRN 09/27/22 04/30/23 subcutaneous syringe Previous Rx's Medication Instructions Recorded levothyroxine 100 mcg tablet 100 mcg PO DAILY #14 tabs 04/30/23 (Synthroid) Allergies Allergy/AdvReac Type Severity Reaction Status Date / Time galcanezumab-gnlm Allergy Severe Palpitation Verified 04/30/23 11:01 s tramadol Allergy Severe migraines Verified 04/30/23 11:01 butterbur Allergy Intermediate gi upset Verified 04/30/23 11:01 midazolam Allergy Intermediate paradoxial Verified 04/30/23 11:01 agitation cephalexin Allergy Mild Rash Verified 04/30/23 11:01 latex Allergy Mild dermatitis Verified 04/30/23 11:01 erythromycin base Allergy Unknown Verified 04/30/23 11:01 Penicillins Allergy Unknown Verified 04/30/23 11:01 timolol Allergy Unknown Verified 04/30/23 11:01 chlorhexidine Allergy Verified 04/30/23 11:01 gabapentin Allergy Verified 04/30/23 11:01 propranolol Allergy Verified 04/30/23 11:01 silicone Allergy Verified 04/30/23 11:01 topiramate Allergy Verified 04/30/23 11:01 trazodone Allergy Verified 04/30/23 11:01 Common paper wasp venom Allergy Uncoded 09/27/22 13:04 protein Review of Systems Status of ROS: Reports: 10 or more systems reviewed and unremarkable except as noted in History and below [facility] Medical History Hypertension ?I10 - Essential (primary) hypertension (ICD-10) Encounter for follow-up ?Z09 - Encounter for follow-up examination after completed treatment for conditions other than malignant neoplasm (ICD-10) Surgical History (Updated 03/05/22 @ 13:46 by Myra Martinez) Status post hysterectomy ?Z90.710 - Acquired absence of both cervix and uterus (ICD-10) History of total bilateral knee replacement ?Z96.653 - Presence of artificial knee joint, bilateral (ICD-10) History of tonsillectomy ?Z90.89 - Acquired absence of other organs (ICD-10) History of sinus surgery ?Z98.890 - Other specified postprocedural states (ICD-10) History of repair of hiatal hernia ?Z98.890 - Other specified postprocedural states (ICD-10) ?Z87.19 - Personal history of other diseases of the digestive system (ICD-10) History of hysterectomy ?Z90.710 - Acquired absence of both cervix and uterus (ICD-10) History of bunionectomy of both great toes ?Z98.890 - Other specified postprocedural states (ICD-10) Family History (Updated 01/28/22 @ 15:54 by Myra Martinez) Father Stroke Other Cardiovascular disease Diabetes Psychiatric disorder Social History (Updated 01/28/22 @ 15:54 by Myra Martinez) Narrative: Non-smoker Smoking Status: Never smoker How often do you have a drink containing alcohol: monthly or less AUDIT-C Alcohol total score: 1 Non-prescribed substance use: denies use Exam Narrative: Exam Narrative: General: No obvious distress sitting comfortably nontoxic in appearance HEENT: Pupils equal round reactive to light, extraocular muscles intact Tympanic membranes within normal limits Neck: Supple full range of motion Heart: Normal sinus rhythm S1-S2 Lungs: CTA bilaterally Abdomen: Soft nontender Neuro alert awake and oriented x3, cranial nerves 2-12 grossly intact, no focal deficits on exam Const: Vital Signs, click to edit/add: Vital Signs - 24 hr 04/30/23 10:50 04/30/23 11:00 04/30/23 11:30 Temperature 97.4 F L Pulse Rate [Pulse Oximeter] 86 80 86 Respiratory Rate 16 16 16 Blood Pressure [Ri ght Upper Arm] 171/87 H 149/75 H 149/98 H Pulse Oximetry 100 98 100 Oxygen Delivery Me thod Room Air Room Air Room Air 04/30/23 12:00 04/30/23 13:15 Temperature Pulse Rate [Pulse Oximeter] 81 77 Respiratory Rate 16 18 Blood Pressure [Ri ght Upper Arm] 137/62 139/65 Pulse Oximetry 97 99 Oxygen Delivery Me thod Room Air Room Air Course Course ED Course: 11:00 AM: AIDET performed. Vitals show mildly elevated blood pressure will continue to monitor, otherwise stable, workup will include EKG, point of care troponin, TSH with reflex to T4, CBC, CMP, urinalysis and MR brain without contrast, this is a chronic issue. No new focal deficits on exam. Differential diagnosis include but not limited to CVA, CAD, viral illness, pneumonia, urinary tract infection, metabolic abnormalities including hyponatremia, hypernatremia, hypoglycemia and hyperglycemia, dehydration, peripheral neuropathy, hyper and hypo thyroidism well as other etiologies. Reevaluation(s) Time of Reevaluation #1: 14:20 Reevaluation #1: Blood pressure improved. EKG showed a sinus rhythm with occasional premature ventricular complexes, left axis deviation, bpm 86, inferior infarct age undetermined but seen on previous, right bundle-branch block seen on previous, no acute changes compared to 10/2022. CBC showed no leukocytosis, no anemia, metabolic panel within normal limits, urinalysis showed no signs of infection, point of care troponin negative, patient's blood pressure improved during her stay, she was ambulating to and from the bathroom with no difficulty. Time of Reevaluation #2: 14:31 Reevaluation #2: MR brain without contrast: IMPRESSION: 1. No acute infarction, mass effect, or intracranial hemorrhage. 2. Mild chronic microvascular ischemic changes. Reevaluation #3: Patient was updated on her imaging results, plan would be to discharge, she should follow up with primary care provider as scheduled in the next 7-10 days. reasons to return given. Vital Signs Vital signs: Initial Vital Signs Temperature 97.4 F L 04/30/23 10:50 Temperature Source Temporal Artery Scan 04/30/23 10:50 Pulse Rate 86 04/30/23 10:50 Pulse Rhythm Regular 04/30/23 10:50 Respiratory Rate 16 04/30/23 10:50 Blood Pressure 171/87 H 04/30/23 10:50 Blood Pressure Mean 115 H 04/30/23 10:50 Blood Pressure Position Sitting 04/30/23 10:50 Pulse Oximetry 100 04/30/23 10:50 Oxygen Delivery Method Room Air 04/30/23 10:50 Vital Signs Temperature 97.4 F L 04/30/23 10:50 Pulse Rate 86 04/30/23 10:50 Respiratory Rate 16 04/30/23 10:50 Blood Pressure 171/87 H 04/30/23 10:50 Pulse Oximetry 100 04/30/23 10:50 Oxygen Delivery Method Room Air 04/30/23 10:50 Temperature 97.4 F L 04/30/23 10:50 Pulse Rate 77 04/30/23 13:15 Respiratory Rate 13 04/30/23 15:00 Blood Pressure 139/65 04/30/23 15:00 Pulse Oximetry 97 04/30/23 15:00 Oxygen Delivery Method Room Air 04/30/23 15:00 Medical Decision Making Lab Data Labs: Lab Results 04/30/23 04/30/23 04/30/23 Range/Units 11:18 11:30 12:00 WBC 4.98 (4.50-11.00) K/uL RBC 3.88 L (4.00-5.20) m/uL Hgb 12.0 (12.0-16.0) gm/dL Hct 37.2 (33.0-51.0) % MCV 96 (80-100) fL MCH 31 (26-34) pg MCHC 32 (32-36) gm/dL RDW Coeff of Boaz 12.4 (11.5-15.5) % Plt Count 186 (140-440) K/uL Neut % (Auto) 65.5 (42.0-72.0) % Lymph % (Auto) 21.1 (20-44) % [place] % (Auto) 10.2 (0.0-11.0) % Eos % (Auto) 2.6 (0.0-7.0) % Baso % (Auto) 0.6 (0.0-3.0) % Neut # (Auto) 3.26 (1.7-7.0) K/uL Lymph # (Auto) 1.05 (0.90-2.90) K/uL [place] # (Auto) 0.50 (0.00-0.90) K/UL Eos # (Auto) 0.13 (0.00-0.50) K/uL Baso # (Auto) 0.03 (0.00-0.30) K/uL Abs Immat Gran (auto) 0.00 (0.00-0.30) K/uL Imm/Tot Granulo (auto) 0.0 % Sodium 137 (135-149) mmol/L Potassium 4.0 (3.6-5.1) mmol/L Chloride 105 (96-114) mmol/L Carbon Dioxide 26 (20-32) mmol/L Anion Gap 6 L (7-15) mEq/L BUN 19 (7-30) mg/dL Creatinine 0.6 (0.5-1.5) mg/dL Estimated Creat Clear 42.62 Estimated GFR 94 ml/min Glucose 99 (60-115) mg/dL Calcium 9.8 (8.4-10.6) mg/dL RBC Magnesium 5.4 (3.6-7.5) mg/dL Total Bilirubin 0.5 (0.1-1.5) mg/dL AST 26 (12-35) U/L ALT 22 (4-35) U/L Alkaline Phosphatase 77 (40-150) U/L Troponin I < 0.01 L (0.01-0.04) ng/mL Total Protein 6.8 (6.0-8.3) g/dL Albumin 4.1 (3.3-5.0) g/dL TSH 0.065 L (0.270-4.200) uIU/mL Free T4 2.11 H (0.70-1.85) ng/dL Urine Color Yellow (Yellow) Urine Appearance Clear (Clear) Urine pH 6.0 (5.0-8.5) Ur Specific [place] 1.010 (1.000-1.030) Urine Protein Negative (Negative) Urine Glucose (UA) Negative (Negative) Urine Ketones Negative (Negative) Urine Blood Trace-lysed A (Negative) Urine Nitrite Negative (Negative) Urine Bilirubin Negative (Negative) Urine Urobilinogen 0.2 (0.2-1.0) Ur Leukocyte Esterase Trace A (Negative) Urine RBC 0-2 (0-2) Urine WBC 2-5 (0-5) Urine WBC Clumps None (None) Ur Squamous Epith Cells Few (None-Few) Urine Bacteria Few A (None) Discharge Plan Discharge Clinical Impression: Generalized weakness, Low TSH level Patient Disposition: Home, Self-Care Condition: Improved Instructions: Weakness (ED) Additional Instructions: follow up appt for thyroid issues on Thursday05/08/23 at 12:[address] Perez at [facility] Prescriptions: New levothyroxine [Synthroid] 100 mcg tablet 100 mcg PO DAILY Qty: 14 0RF No Action rosuvastatin [Crestor] 10 mg tablet 10 mg PO QDAY albuterol sulfate 90 mcg/actuation aerosol powdr breath activated 2 inh inhalation Q4H PRN cholecalciferol (vitamin D3) 125 mcg (5,000 unit) capsule 125 mcg PO QDAY Linzess 145 mcg capsule 145 mcg PO QAM omega-3 fatty acids 1,250 mg capsule 1,250 mg PO QDAY triamcinolone acetonide 0.1 % ointment 1 applic topical TID aspirin [Adult Low Dose Aspirin] 81 mg tablet,delayed release (DR/EC) 81 mg PO QDAY cyanocobalamin (vitamin B-12) 1,000 mcg capsule 1,000 mcg PO QDAY levothyroxine [Synthroid] 150 mcg tablet 150 mcg PO QDAY enoxaparin 60 mg/0.6 mL syringe 60 mg subcut Q24H PRN Qulipta 30 mg tablet 30 mg PO QDAY Follow Up/Referrals: Meka Perez MD [Primary Care Provider] - Stand Alone Forms: [facility] Info Instructions
--- OUTSIDE RECORDS SUMMARY | 2023-04-30 11:28 | XMS_ITS | Continuity of Care Document ---
Author Name [facility] Care Team Providers Care Marinator Name Role Phone [facility] Unavailable Unavailable Consultation Notes Results Value Date Source Family Medicine Office/Clinic Note Patient: PAOLA MORFIN Age: 67 years Sex: F : 1950 Admitting MD: Location: Pav UC: Pav WR: Author: Jennifer Smith MD Chief Complaint cough x 1 week History of Present Illness Patient is a 67-year-old female who presents with a one-week history of productive cough and wheezing. She has never smoked. She has never been hospitalized with pneumonia. She denies fever or chills. Today she reports feeling somewhat better. Review of Systems 10 systems were reviewed and are negative with exception of HPI. Physical Exam Vitals and Measurements T: 36.6 C (Oral) HR: 90 RR: 16 BP: 159/101 SpO2: 96% WT: 110 kg WT: 242 lb GENERAL: Nontoxic, no acute distress, alert, oriented x 3 HEENT: Normocephalic, atraumatic, no scleral icterus or conjunctival injection. Both tympanic membranes are intact. Pharynx is clear w/o erythema or exudate. NECK: supple, no rigidity. No lymphadenopathy, bruits, or thyromegaly. LUNGS: Wheezes bilaterally. No crackles or wheezes. CV: RRR, normal S1/S2, no gallops. PMI not displaced. No jugular venous distention. GI: soft, nontender, normoactive bowel sounds, no rebound, guarding or masses, no hepatomegaly or splenomegaly, no pulsatile mass or bruit. : no suprapubic or CVA tenderness. BACK: no spinal or paraspinal tenderness. EXT: No cyanosis, clubbing or distal pitting edema, well perfused. SKIN: warm and dry, no ulcerations. NEURO: Cranial nerves 2-12 grossly intact. Motor strength is 5/5 symmetrical bilaterally. Assessment/Plan 1. Upper respiratory disease J39.9 Patient has elements of reactive airway. Follow-up in 72 hours if there is no improvement in patient's symptoms, or sooner if symptoms worsen or patient has a fever. Ordered: Tessalon Perles 100 mg oral capsule, 2 Cap Cap, PO TID, PRN for cough, 5 Day, Qty: 30 Cap, Refills: 0, Route to Pharmacy Electronically, [facility] [id number] predniSONE 20 mg oral tablet, 2 Tab Tab, PO, qDay, 5 Day, Qty: 10 Tab, Route to Pharmacy Electronically, [facility] [id number] Problem List/Past Medical History Chronic Arthritis Chronic low back pain Colonic polyp GERD (gastroesophageal reflux disease) High cholesterol Hypothyroidism Migraine headache Osteopenia Ptosis of eyelid Historical Hiatal hernia Procedure/Surgical History Mammogram (01/2015) Colonoscopy (2011) DEXA - Dual energy X-ray photon absorptiometry (2011) History of total knee replacement.. (2008) 2nd toenail on rt and lt foot removed. Bunionectomy Endoscopy of nasal sinus with sphenoid sinusotomy H/O: hysterectomy.... History of tonsillectomy Ligation of varicose vein Nasal septoplasty Removal of toenail Medications cholecalciferol 5000 intl units oral tablet, PO clindamycin 300 mg oral capsule, 300 mg, 1 Cap, PO, q6hr Co Q-10 100 mg oral capsule, PO, qDay Imitrex 100 mg oral tablet, 100 mg, 1 Tab, PO, once, PRN levothyroxine 150 mcg (0.15 mg) oral tablet, 150 mcg, 1 Tab, PO, qDay magnesium oxide 500 mg oral tablet, 500 mg, 1 Tab, PO, Daily, PRN multivitamin, 1 Tab, PO, qDay omega-3- polyunsaturated fatty acids 1000 mg oral capsule, PO omeprazole, 20 mg, PO, qDay ondansetron 4 mg oral tablet, 4 mg, 1 Tab, PO, once predniSONE 20 mg oral tablet, 40 mg, 2 Tab, PO, qDay Tessalon Perles 100 mg oral capsule, 200 mg, 2 Cap, PO, TID, PRN Allergies Erythromycin Ethylsuccinate Reaction: None Documented TraZODone Hydrochloride Reaction: None Documented gabapentin Reaction: None Documented propranolol Reaction: None Documented cephalexin Reaction: None Documented penicillins Reaction: None Documented traMADol Reaction: None Documented Social History Alcohol Current, Wine, 1-2 times per year Employment/School Retired Exercise Exercise duration: 0. Home/Environment Gnosticist restrictions/concerns: None. Lives with Significant other. Living situation: Home/Independent. Nutrition/Health Caffeine intake amount: None. Other Substance Abuse Denies Tobacco Never used tobacco, Never used tobacco Family History Blood clots in membranes: Mother and Sister. Breast cancer: Sister. Cancer of colon...: Mother. Diabetes mellitus...: Mother and Sister. Heart disease...: Father and Sister. Hypertension...: Sister. Multiple sclerosis...: Sister. Parkinson disease...: Father. Stroke...: Father. Electronically Signed By: Jennifer Smith MD On 08/19/17 11:44 Co Signature By: Modified Signature By: 08/19/2017 [facility]
[2023-04-30 11:30] VITALS: BP 149/98; PULSE 86; RESP 16; O2SAT 100
[2023-04-30 11:48] LABS: Basophils Absolute Auto 0.03 K/uL (0.00-0.30); Basophils Percent Auto 0.6 % (0.0-3.0); Eosinophils Absolute Auto 0.13 K/uL (0.00-0.50); Eosinophils Percent Auto 2.6 % (0.0-7.0); Hematocrit 37.2 % (33.0-51.0); Lymphocytes Absolute Auto 1.05 K/uL (0.90-2.90); Lymphocytes Percent Auto 21.1 % (20-44); Mean Corpuscular HGB Conc 32 gm/dL (32-36); Mean Corpuscular Hemoglobin 31 pg (26-34); Mean Corpuscular Volume 96 fL (80-100); Monocytes Percent Auto 10.2 % (0.0-11.0); Neutrophils Absolute Auto 3.26 K/uL (1.7-7.0); Neutrophils Percent Auto 65.5 % (42.0-72.0); Platelet Count* 186 K/uL (140-440); RDW Coefficient of Variation % 12.4 % (11.5-15.5); Red Blood Count 3.88 m/uL (4.00-5.20); White Blood Count* 4.98 K/uL (4.50-11.00)
[2023-04-30 11:55] LABS: Albumin* 4.1 g/dL (3.3-5.0); Chloride* 105 mmol/L (96-114)
[2023-04-30 11:56] LABS: Slide Review Reflex No; Sodium* 137 mmol/L (135-149)
[2023-04-30 11:58] LABS: Alkaline Phosphatase* 77 U/L (40-150); Anion Gap 6 mEq/L (7-15); Aspartate Amino Transferase* 26 U/L (12-35); Bilirubin Total* 0.5 mg/dL (0.1-1.5); Blood Urea Nitrogen* 19 mg/dL (7-30); Carbon Dioxide* 26 mmol/L (20-32); Creatinine* 0.6 mg/dL (0.5-1.5); Est. Creatinine Clearance* 42.62; Estimated Glomerular Filt Rate 94 ml/min; Total Protein* 6.8 g/dL (6.0-8.3)
[2023-04-30 11:59] LABS: Alanine Aminotransferase* 22 U/L (4-35); Calcium* 9.8 mg/dL (8.4-10.6); Glucose* 99 mg/dL (60-115)
[2023-04-30 12:00] VITALS: BP 137/62; PULSE 81; RESP 16; O2SAT 97
[2023-04-30 12:10] LABS: Troponin I* < 0.01 ng/mL (0.01-0.04)
[2023-04-30 12:11] LABS: Appearance Urine Clear (Clear); Bilirubin Urine Negative (Negative); Blood Urine Trace-lysed (Negative); Color Urine Yellow (Yellow); Glucose Urine Negative (Negative); Ketones Urine Negative (Negative); Leukocyte Esterase Urine Trace (Negative); Nitrite Urine Negative (Negative); Protein Urine Negative (Negative); Urobilinogen Urine 0.2 (0.2-1.0)
[2023-04-30 12:17] LABS: RBC Urine 0-2 (0-2)
[2023-04-30 12:18] LABS: Bacteria Urine Few; Squamous Epithelial Cell Urine Few (None-Few)
[2023-04-30 13:15] VITALS: BP 139/65; PULSE 77; RESP 18; O2SAT 99
[2023-04-30] MEDS: 0.9 % SODIUM CHLORIDE 500 ML 500 ML IV (13:32)
--- NOTE | 2023-04-30 14:22 | ED.NURSE ---
Up to the bathroom ambulatory and is c/o pain in the right shoulder. have ice on the area. wondering about Tylenol for pain.
[2023-04-30] MEDS: ACETAMINOPHEN 500 MG TABLET 1000 MG PO (14:35)
--- NOTE | 2023-04-30 14:39 | ED.NURSE ---
patient is c/o visual issues like floaters updated Dr. Islas of this and is aware. patient is concerned of getting a migraine and decreased the lights as fluorescent lights is a trigger.
[2023-04-30 15:00] VITALS: BP 139/65; RESP 13; O2SAT 97
[2023-04-30 15:37] LABS: TSH With Reflex to FT4* 0.065 uIU/mL (0.270-4.200)
--- NOTE | 2023-04-30 16:11 | ED.NURSE ---
patient is feeling better and sitting up in the bed. Daughter is present in the room.
[2023-04-30 16:17] LABS: Free T4 Free Thyroxine* 2.11 ng/dL (0.70-1.85)
== END 2023-04-30 16:40 | disposition home or self-care (01) ==
PROVIDERS: Emergency Provider Student in an Organized Health Care Education/Training Program; PCP Family Medicine
DX: R53.1 Weakness (principal); R94.6 Abnormal results of thyroid function studies
CPT/HCPCS: 36415; 70551; 80053; 81003; 81015; 83735; 84439; 84443; 84484; 85025; 87086; 93005; 96360; 96361; 99283; 99284; 99285; A9270; J7120

== ENCOUNTER 2023-05-12 14:42 | Outpatient (CLI) | payer MEDICARE, SELFPAY ==
--- OUTSIDE RECORDS SUMMARY | 2023-05-12 14:46 | XMS_ITS | Continuity of Care Document ---
Author Name [employer] [facility] [employer] Care Team Providers Care Chief Counsel Name Role Phone [employer] Unavailable Unavailable Consultation Notes Results Value Date [...] Cap, Refills: 0, Route to Pharmacy Electronically, [facility] [id number] predniSONE 20 mg oral tablet, 2 Tab Tab, PO, qDay, 5 Day, Qty: 10 Tab, Route to Pharmacy Electronically, [facility] [id number] Problem List/Past Medical History Chronic Arthritis Chronic [...] Employment/School Retired Exercise Exercise duration: 0. Home/Environment Quaker restrictions/concerns: None. Lives with Significant other. Living [...] Co Signature By: Modified Signature By: 08/19/2017 [facility]
--- NOTE | 2023-05-12 15:00 | CRLHL7_ITS ---
For Patients: As a result of the Century Cures Act, medical imaging exams and procedure reports are released immediately into your electronic medical record. You may view this report before your referring provider. If you have questions, please contact your health care provider. CLINICAL HISTORY: TRANSIENT NEUROLOGIC EPISODE TECHNIQUE: The carotid circulations and the vertebral arteries in the neck were examined with mantilla-scale ultrasound, color-flow and Doppler spectral analysis. Degrees of stenosis were determined using SRU 2002 Consensus Panel Criteria. FINDINGS: Sonographic images demonstrate bilateral atherosclerotic plaque formation without suspicious soft tissue mass. There was antegrade blood flow demonstrated within the vertebral arteries and the subclavian arteries demonstrated a biphasic waveform. The spectral Doppler tracings of the common carotid, internal and external carotid arteries demonstrate no abnormal turbulence or spectral broadening. There was no significant elevation of peak systolic blood flow which would indicate a hemodynamically-significant stenosis by SRU criteria. The ICA/CCA peak systolic velocity ratio measures 0.8 on the right and 1.2 on the left. IMPRESSION: Less than 50 percent stenosis of the internal carotid arteries bilaterally. Dictated by Shin Silvestre MD @ 05/13/2023 8:49:46 AM (Electronically Signed)
--- NOTE | 2023-05-12 16:00 | CRLHL7_ITS ---
For Patients: As a result of the Century Cures Act, medical imaging exams and procedure reports are released immediately into your electronic medical record. You may view this report before your referring provider. If you have questions, please contact your health care provider. INDICATION: Hypothyroidism COMPARISON: none TECHNIQUE: Macedo scale and color Doppler images were acquired of the thyroid gland. FINDINGS: The thyroid gland demonstrates diffusely heterogeneous echogenicity and has a smooth outer contour. The right lobe measures 3.9 x 0.9 x 0.8 cm and the left lobe measures 3.4 x 0.8 x 1.2 cm in size. There are no suspicious masses or nodules. The color Doppler images demonstrate decreased vascularity. There is no evidence of cervical lymphadenopathy or parathyroid mass. IMPRESSION: Atrophied, hypervascular and heterogeneous thyroid gland without nodule. Dictated by Shin Silvestre MD @ 05/13/2023 10:29:31 AM (Electronically Signed)
== END 2023-05-12 14:43 | disposition home or self-care (01) ==
LOC: US 14:43
PROVIDERS: PCP Family Medicine; Visit Provider Family Medicine
DX: E03.9 Hypothyroidism, unspecified (principal); R47.89 Other speech disturbances; I65.23 Occlusion and stenosis of bilateral carotid arteries; R29.90 Unspecified symptoms and signs involving the nervous system; Z82.3 Family history of stroke
CPT/HCPCS: 76536; 93880

== ENCOUNTER 2023-12-05 20:31 | Outpatient (CLI) | payer MEDICARE, SELFPAY ==
--- OUTSIDE RECORDS SUMMARY | 2023-12-12 08:16 | XMS_ITS | Continuity of Care Document ---
Author Name Unknown Organization [facility] Address [address] [address] [place] [address] Care Team Providers Care Medical Surgery Nurse Name Role Phone [place], [place] Unavailable Unav ailable Procedures Procedure Date Colono Pt Doc Pt W/o Advance Directives Directive Yes / No Effective Date File Name No Information Encounters Encounter Description Practice Location Reason(s) For Visit Diagnoses Date Provider Providers Copied on Encounter [facility], [address] [address], [place], [place], [id number], [facility] No Information [facility]. [address] [address], [place], [place], [id number], . tel:[phone] Referring Provider: Ira Rey MD, [address] [facility] [address], [place], [address] . tel:[phone] Family History Family Member Type Diagnosis Age At Onset No Information Payers Payer name Insurance type Covered democrat ID Authoriza tion(s) Medicare NGS MB [id number] [id number] Social History Type Description Quantity Date Captured [...]
--- OUTSIDE RECORDS SUMMARY | 2023-12-12 08:16 | XMS_ITS | Encounter Summary ---
Author Name Unknown Organization [facility] Address [address] [place] [address]. [place] [address] Care Team Providers Care Composite Assembler Name Role Phone Mandi Bullard MD Primary Care Provider [phone] Mallory Cuadra MD Unavailable [phone] Encounter Details Date Type Department Care Team (Late st Contact Info) Description 03/30/2020 [facility] Medical Advice [facility] Neurology [address] [place] [address] [address] [place] [address] Mallory Cuadra MD [address] [place] [address] Social History Tobacco Use Types Packs/Day Years Used Date Smoking Tobacco: Never Smokeless Tobacco: Never Alcohol Use Standard Drinks/Week Comments Yes 0 (1 standard drink = 0.6 oz pur e alcohol) rare PHQ-2 Answer Date Recorded PHQ-2 Score 5 10/03/2019 Sex and Gender Information Value Date Recorded Sex Assigned at Female 09/30/2019 12:38 PM PRODUCT MARKETING ANALYST Gender Identity Female 09/30/2019 12:38 PM PRODUCT MARKETING ANALYST Sexual Orientation Straight 09/30/2019 12 :38 PM PRODUCT MARKETING ANALYST documented as of this encounter Plan of Treatment Not on file documented as of this encounter Visit Diagnoses Not on filedocumented in this encounter Additional Health Concerns Assessment Noted Time PHQ-9 Depression Total Score: 14 020 12:18 PM PRODUCT MARKETING ANALYST documented as of this encounter Care Teams Composite Assembler Relationship Specialty Start Date End Date Mandi Bullard MD PCP - General Internal Medicine 10/30/17 Mallory Cuadra MD [address] [place] [address] Assigned Neuroscience Provider 06/08/20 02/21/22 documented as of this encounter
--- OUTSIDE RECORDS SUMMARY | 2023-12-12 08:16 | XMS_ITS | Encounter Summary ---
Author Name Unknown Organization [facility] Address [address] [place] [address]. [place] [address] Care Team Providers Care Mattress Packer Name Role Phone Mandi Bullard MD Primary Care Provider [phone] Encounter Details Date Type Department Care Team ([facility] st Contact Info) Description 05/08/2023 Telephone [facility] [address] [facility] [address] [place] [address] Marbin Malone MD [address] [place] [address] Social History Tobacco Use Types Packs/Day Years Used Date Smoking Tobacco: Never Smokeless Tobacco: Never Alcohol Use Standard Drinks/Week Comments Yes 0 (1 standard drink = 0.6 oz pur e alcohol) rare PHQ-2 Answer Date Recorded PHQ-2 Score 5 10/03/2019 Adolescent Education Answer Date Record ed Getting School Help Needed Not on file 05/09 Sex and Gender Information Value Date Recorded Sex Assigned at Female 09/30/2019 12:38 PM GRAVEL WHEELER Gender Identity Female 09/30/2019 12:38 PM GRAVEL WHEELER Sexual Orientation Straight 09/30/2019 12 :38 PM GRAVEL WHEELER documented as of this encounter Miscellaneous Notes * Telephone Encounter - Marbin Malone MD - 05/08/2023 4:47 PM CDT Nasra, is this message directed towards the [facility]? If so please contact our front sight attacher team([phone]) as I don't believe I have seen this patient. Thank you. -Will Faisal COLEY * Telephone Encounter - Sally Plasencia - 05/08/2023 2:17 PM CDT What is the concern that needs to be addressed by a nurse? Bianca's doctor is asking she gets in STAT. Dr. Meka Perez [facility] - [phone] May a detailed message be left on [employer] yes Date of last office visit: Message routed to: mincep documented in this encounter Plan of Treatment Not on file documented as of this encounter Visit Diagnoses Not on filedocumented in this encounter Additional Health Concerns Assessment Noted Time PHQ-9 Depression Total Score: 14 020 12:18 PM GRAVEL WHEELER documented as of this encounter Care Teams Mattress Packer Relationship Specialty Start Date End Date Mandi Bullard MD PCP - General Internal Medicine 10/30/17 documented as of this encounter
--- OUTSIDE RECORDS SUMMARY | 2023-12-12 08:16 | XMS_ITS | Encounter Summary ---
Author Name Unknown Organization [facility] Address [address] [place] [address]. [place] [address] Care Team Providers Care Data Lead Name Role Phone Mandi Bullard MD Primary Care Provider Mallory Cuadra MD Unavailable [phone] Reason for Visit * Reason Onset Date Comments Medication Question 10/24/2019 Received mariangel nk emgality prescription. She did get the 2 page form Encounter Details Date Type Department Care Team (Late st Contact Info) Description 10/24/2019 Telephone [facility] Neurology [address] [place] [address] [address] [place] [address] Mallory Cuadra MD [address] [place] [address] Medication Question (Received blank emgality prescription. She did get the 2 page form ) Social History Tobacco Use Types Packs/Day Years Used Date Smoking Tobacco: Never Smokeless Tobacco: Never Alcohol Use Standard Drinks/Week Comments Yes 0 (1 standard drink = 0.6 oz pur e alcohol) rare PHQ-2 Answer Date Recorded PHQ-2 Score 5 10/03/2019 Sex and Gender Information Value Date Recorded Sex Assigned at Female 09/30/2019 12:38 PM LOOPING MACHINE OPERATOR Gender Identity Female 09/30/2019 12:38 PM LOOPING MACHINE OPERATOR Sexual Orientation Straight 09/30/2019 12 :38 PM LOOPING MACHINE OPERATOR documented as of this encounter Miscellaneous Notes * Telephone Encounter - Sara Gupta - 10/24/2019 2:42 PM CDT [facility] Phone Message May a detailed message be left on voicemail: no Reason for Call: Medication Question or concern regarding medication Prescription Clarification Name of Medication: galcanezumab-gnlm (EMGALITY) 120 MG/ML injection 2 pen 1 10/03/2019 -- Sig: Inject 240 mg (2 syringes) the first month and then 120 mg (1 syringe) each month after Prescribing Provider: Mallory Jaramillo MD [id number] [place] [address] [facility] [address] What on the order needs clarification? Received the 2 forms sent and 3rd page was blank. Please resend the Emgality again. Action Taken: Message routed to: [facility] Neurology Travel Screening: Not Applicable documented in this encounter Plan of Treatment Not on file documented as of this encounter Visit Diagnoses Not on filedocumented in this encounter Additional Health Concerns Assessment Noted Time PHQ-9 Depression Total Score: 14 020 12:18 PM LOOPING MACHINE OPERATOR documented as of this encounter Care Teams Data Lead Relationship Specialty Start Date End Date Mandi Bullard MD PCP - General Internal Medicine 10/30/17 Mallory Cuadra MD [address] [place] [address] Assigned Neuroscience Provider 06/08/20 02/21/22 documented as of this encounter
--- OUTSIDE RECORDS SUMMARY | 2023-12-12 08:16 | XMS_ITS | Referral Summary ---
Author Name Unknown Organization [facility] Address [address] [place] [address] Care Team Providers Care Claims Adjuster Supervisor Name Role Phone Mandi Bullard MD Primary Care Provider [phone] Allergies Active Allergy Reactions Criticality Noted Date Comments Cephalexin Rash Low 10/30/2017 Erythromycin 10/30/2017 Toxic hepatitis Gabapentin GI Disturbance 10/30/2017 Penicillins Rash Low 10/30/2017 Joint swelling Propranolol 10/30/2017 aggitation Tramadol 10/30/2017 Increase in migraine Trazodone 10/30/2017 Increase in migraines Wasp Venom Protein 10/30/2017 Medications Medication Sig Dispensed Refills Start Date End Date Status Levothyroxine Sodium (SYNTHROID PO) Take 125 mcg by mouth Active Estradiol (ESTRACE PO) Active OMEPRAZOLE PO Take 20 mg by mouth daily Active ONDANSETRON PO Take 4 mg by mouth every 8 hours as needed Active Cholecalciferol (D3 ADULT PO) Take 5,000 Units by mouth four times a week Active Magnesium 400 MG TABS Active multivitamin, therapeutic (THERA-VIT) TABS tablet Take 1 tablet by mouth daily Active omega 3 1000 MG CAPS Take 2 capsules by mouth daily Active aspirin 81 MG EC tablet Take 81 mg by mouth daily Active prochlorperazine (COMPAZINE) 10 MG tabletIndications:I ntractable chronic migraine without aura and without status migrainosus Take 0.5 tablets (5 mg) by mouth every 6 hours as needed for nausea or vomiting 30 tablet 3 10/03/2019 Active albuterol (PROAIR HFA/PROVENTIL HFA/VENTOLIN HFA) 108 (90 Base) MCG/ACT inhaler Inhale 1-2 puffs into the lungs every 4 hours as needed 02/08/2020 Active FLOVENT HFA 110 MCG/ACT inhaler Inhale 1 puff into the lungs as needed 07/16/2020 Active triamcinolone (KENALOG) 0.1 % external lotion Apply 1 Application topically daily 06/18/2020 Active SUMAtriptan (IMITREX) 100 MG tabletIndications:M igraine without aura and without status migrainosus, not intractable Take 1 tablet (100 mg) by mouth at onset of headache for migraine (may repeat after 2 hours. May take half to one tablet at a time) 12 tablet 11 08/20/2020 Active melatonin 1 MG TABS tablet Take 1 mg by mouth nightly as needed Active Rimegepant Sulfate (NURTEC) 75 MG TBDPIndications:Chr onic migraine w/o aura, not intractable, w/o stat migr Take 75 mg by mouth daily as needed (migraines) 8 tablet 11 02/27/2021 Active Active Problems Problem Noted Date Diagnosed Date Chronic migraine w/o aura, not intractable, w/o stat migr Social History Tobacco Use Types Packs/Day Years [...] Sex Assigned at Female 09/30/2019 12:38 PM AGRICULTURE EXTENSION SPECIALIST Gender Identity Female 09/30/2019 12:38 PM AGRICULTURE EXTENSION SPECIALIST Sexual Orientation Straight 09/30/2019 12 :38 PM AGRICULTURE EXTENSION SPECIALIST Last Filed Vital Signs Vital Sign Reading Time Taken Comments Blood Pressure 148/85 10/03/2019 12:13 PM AGRICULTURE EXTENSION SPECIALIST Pulse 86 10/03/2019 12:13 PM AGRICULTURE EXTENSION SPECIALIST Temperature 36.7 ??C (98 ??F) 10/30/2017 4:15 PM CDT Respiratory Rate 18 10/30/2017 10:1 5 PM CDT Oxygen Saturation 96% 10/03/2019 12: 13 PM AGRICULTURE EXTENSION SPECIALIST Inhaled Oxygen Concentration - - Weight 113.4 kg (250 lb 1.6 oz) 020 12:13 PM AGRICULTURE EXTENSION SPECIALIST Height - - Body Mass Index - - Plan of Treatment Not on file Procedures Procedure Name Priority Date/Time Associated Diagnosis Comments COMPREHENSIVE METABOLIC PANEL STAT 10/30/2017 4:16 PM CDT HIM COLONOSCOPY SCAN Routine 02/23/2017 from Last 3 Months or Most Recently Relevant to Health Maintenance Results * Comprehensive metabolic panel (10/30/2017 4:16 PM CDT) Sodium 140 133 - 144 mmol/L 10/30/2017 4:52 PM T [facility] Potassium 4.2 3.4 - 5.3 mmol/L 10/30/2017 4:52 PM [facility] Chloride 108 94 - 109 mmol/L 10/30/2017 4:52 PM [facility] Carbon Dioxide 28 20 - 32 mmol/L 10/30/2017 4:52 PM [facility] Anion Gap 4 3 - 14 mmol/L 10/30/2017 4:52 PM [facility] Glucose 91 70 - 99 mg/dL 10/30/2017 4:52 PM [facility] Urea Nitrogen 22 7 - 30 mg/dL 10/30/2017 4:52 PM [facility] Creatinine 0.66 0.52 - 1.04 mg/dL 10/30/2017 4:52 PM [facility] GFR Estimate 88 >60 mL/min/1.7 m2 10/30/2017 4:52 PM [facility] Comment:Non GFR Calc GFR Estimate If Black >90 >60 mL/min/1.7 m2 10/30/2017 4:52 PM [facility] Comment: GFR Calc Calcium 9.3 8.5 - 10.1 mg/dL 10/30/2017 4:52 PM [facility] Bilirubin Total 0.4 0.2 - 1.3 mg/dL 10/30/2017 4:52 PM [facility] Albumin 3.9 3.4 - 5.0 g/dL 10/30/2017 4:52 PM [facility] Protein Total 7.4 6.8 - 8.8 g/dL 10/30/2017 4:52 PM CDT [facility] Alkaline Phosphatase 74 40 - 150 U/L 10/30/2017 4:52 PM CDT [facility] ALT 26 0 - 50 U/L 10/30/2017 4:52 PM CDT [facility] AST 22 0 - 45 U/L 10/30/2017 4:52 PM CDT [facility] Blood specimen (specimen) 10/30/2017 4:16 PM CDT 10/30/2017 4:24 PM CDT Sarah Luque MD LAB - BLOOD ORDERABL ES [facility] [address] [place] [id number] [phone] * - HIM Screen Colonoscopy Scan (02/23/2017) Narrative Chelle Baltazar OIL AND GAS LEASE PUMPER - 02/23/2017 Result Narrative Patient Name: Bianca Titus Procedure Date: 02/23/2017 3:12 PM Date of : 1950 Admit Type: Outpatient Age: 66 Gender: Female Note Status: Finalized Attending MD: Erick Wise MD Procedure: ? Colonoscopy Indications: ? Surveillance: Personal history of ? adenomatous polyps on last ? colonoscopy 5 years ago, Last ? colonoscopy: November 2011 Providers: ? Erick Wise MD, Rhiannon Platt RN Referring MD: ?Erick Wise MD Medicines: ? Midazolam 4 mg IV, Fentanyl 200 ? micrograms IV Complications: ? No immediate complications. Estimated ? blood loss: Minimal. Procedure: ? After I obtained informed consent, ? the scope was passed under direct ? vision. Throughout the procedure, the ? patient's blood pressure, pulse, and ? oxygen saturations were monitored ? continuously. The [id number] was ? introduced through the anus and ? advanced to the cecum, identified by ? the appendiceal orifice, ileocecal ? valve and palpation. The colonoscopy ? was performed without difficulty. The ? patient tolerated the procedure well. ? The quality of the bowel preparation ? was good. Findings: ? A 2 mm polyp was found in the transverse colon. The ? polyp was sessile. The polyp was removed with a cold ? biopsy forceps. Resection and retrieval were ? complete. Verification of patient identification for ? the specimen was done by the physician and nurse ? using the patient's name and date. Estimated ? blood loss was minimal. ? The retroflexed view of the distal rectum and anal ? verge was normal and showed no anal or rectal ? abnormalities. ? The exam was otherwise without abnormality. Impression: ?- One 2 mm polyp in the transverse ? colon, removed with a cold biopsy ? forceps. Resected and retrieved. ? - The distal rectum and anal verge ? are normal on retroflexion view. ? - The examination was otherwise ? normal. The colon was long and ? redundant. Recommendation: ?- Discharge patient to home. ? - Await pathology results. Procedure Code(s): ?? --- Professional --- ? 31836, Colonoscopy, flexible; with ? biopsy, single or multiple Diagnosis Code(s): ?? --- Professional --- ? 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 flexure) ? Z86.010, Personal history of colonic ? polyps CPT copyright 2016 [employer]. All rights reserved. The codes documented in this report are preliminary and upon application security specialist review may be revised to meet current compliance requirements. Erick Wise MD 02/23/2017 4:28:55 PM This document has been electronically signed. Number of Addenda: 0 Note Initiated On: 02/23/2017 3:12 PM ? Endoscopy Report Other Result Information Mike, Card Results In - 02/23/2017 ??4:29 PM CDT Patient Name: Bianca Titus Procedure Date: 02/23/2017 3:12 PM Date of : 1950 Admit Type: Outpatient Age: 66 Gender: Female Note Status: Finalized Attending MD: Erick Wise MD Procedure: ? Colonoscopy Indications: ? Surveillance: Personal history of ? adenomatous polyps on last ? colonoscopy 5 years ago, Last ? colonoscopy: November 2011 Providers: ? Erick Wise MD, Rhiannon Platt RN Referring MD: ?Erick Wise MD Medicines: ? Midazolam 4 mg IV, Fentanyl 200 ? micrograms IV Complications: ? No immediate complications. Estimated ? blood loss: Minimal. Procedure: ? After I obtained informed consent, ? the scope was passed under direct ? vision. Throughout the procedure, the ? patient's blood pressure, pulse, and ? oxygen saturations were monitored ? continuously. The [id number] was ? introduced through the anus and ? advanced to the cecum, identified by ? the appendiceal orifice, ileocecal ? valve and palpation. The colonoscopy ? was performed without difficulty. The ? patient tolerated the procedure well. ? The quality of the bowel preparation ? was good. Findings: ? A 2 mm polyp was found in the transverse colon. The ? polyp was sessile. The polyp was removed with a cold ? biopsy forceps. Resection and retrieval were ? complete. Verification of patient identification for ? the specimen was done by the physician and nurse ? using the patient's name and date. Estimated ? blood loss was minimal. ? The retroflexed view of the distal rectum and anal ? verge was normal and showed no anal or rectal ? abnormalities. ? The exam was otherwise without abnormality. Impression: ?- One 2 mm polyp in the transverse ? colon, removed with a cold biopsy ? forceps. Resected and retrieved. ? - The distal rectum and anal verge ? are normal on retroflexion view. ? - The examination was otherwise ? normal. The colon was long and ? redundant. Recommendation: ?- Discharge patient to home. ? - Await pathology results. Procedure Code(s): ?? --- Professional --- ? 90622, Colonoscopy, flexible; with ? biopsy, single or multiple Diagnosis Code(s): ?? --- Professional --- ? 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 flexure) ? Z86.010, Personal history of colonic ? polyps CPT copyright 2016 [employer]. All rights reserved. The codes documented in this report are preliminary and upon application security specialist review may be revised to meet current compliance requirements. Erick Wise MD 02/23/2017 4:28:55 PM This document has been electronically signed. Number of Addenda: 0 Note Initiated On: 02/23/2017 3:12 PM ? Endoscopy Report Provider Outside PROCEDURES from Last 3 Months or Most Recently Relevant to Health Maintenance Care Teams Claims Adjuster Supervisor Relationship Specialty Start Date End Date Mandi Bullard MD PCP - General Internal Medicine 10/30/17
--- OUTSIDE RECORDS SUMMARY | 2023-12-12 08:16 | XMS_ITS | Clinical Summary ---
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, not intractable, w/o stat migr Family History Medical History Relation Comments Migraines Daughter Migraines Maternal Grandmother Migraines Mother Migraines Sister Relation Status Comments Daughter Maternal Grandmother Mother Sister Social History Tobacco Use Types Packs/Day Years [...] Sex Assigned at Female 09/30/2019 12:38 PM TYPE BAR AND SEGMENT ASSEMBLER Gender Identity Female 09/30/2019 12:38 PM TYPE BAR AND SEGMENT ASSEMBLER Sexual Orientation Straight 09/30/2019 12 :38 PM TYPE BAR AND SEGMENT ASSEMBLER Last Filed Vital Signs Vital Sign Reading Time Taken Comments Blood Pressure 148/85 10/03/2019 12:13 PM TYPE BAR AND SEGMENT ASSEMBLER Pulse 86 10/03/2019 12:13 PM TYPE BAR AND SEGMENT ASSEMBLER Temperature 36.7 ??C (98 ??F) 10/30/2017 4:15 PM CDT Respiratory Rate 18 10/30/2017 10:1 5 PM CDT Oxygen Saturation 96% 10/03/2019 12: 13 PM TYPE BAR AND SEGMENT ASSEMBLER Inhaled Oxygen Concentration - - Weight 113.4 kg (250 lb 1.6 oz) 020 12:13 PM TYPE BAR AND SEGMENT ASSEMBLER Height - - Body Mass Index - - Plan of Treatment Health Maintenance Due Date Last Done Comments ADVANCE CARE PLANNING 1950 ANNUAL REVIEW OF HM ORDERS 1948 CT COLONOGRAPHY 1948 DEXA 1948 FIT 1948 FLEX SIG 1948 TSH W/FREE T4 REFLEX 1948 sDNA (Cologuard) 1948 HEPATITIS C SCREENING 1966 IPV IMMUNIZATION (2 of 3 - Adult catch-up series) 05/19/1985 04/21/1985 LIPID 1988 RSV VACCINE ( & 60+) (1 - 1-dose 60+ series) 2008 Pneumococcal Vaccine: 65+ Years (2 of 2 - PPSV23 or PCV20) 12/29/2015 12/28/2014 MEDICARE ANNUAL WELLNESS VISIT 01/13/2019 01/13/2018, 01/08/2017, 01/08/2016 FALL RISK ASSESSMENT 10/03/2020 10/03/2019, 10/03/19 20 GLUCOSE 10/30/2020 10/30/2017 COVID-19 Vaccine ( season) 2023 12/12/2022, 04/28/2022, 11/20/2021, Additional history exists INFLUENZA VACCINE (#1) 2023 , 05/25/2021, 05/22/2020, Additional history exists PHQ-2 (once per calendar year) 2023 10/03/2019, 10/03/2019, 10/03/2019 COLONOSCOPY 02/23/2027 02/23/2017 COLORECTAL CANCER SCREENING 02/23/2027 DTAP/TDAP/TD IMMUNIZATION (3 - Td or Tdap) 12/31/2031 12/30/2021, 12/04/2011, 01/22/2004 MAMMO SCREENING Discontinued 02/21/2019 ZOSTER IMMUNIZATION Completed 10/12/2019, 05/03/2019, 11/22/2009 HPV IMMUNIZATION Aged Out No longer e ligible based on patient's age to complete this topic MENINGITIS IMMUNIZATION Aged Out No l onger eligible based on patient's age to complete this topic RSV MONOCLONAL ANTIBODY Aged Out No l onger eligible based on patient's age to complete this topic Procedures Procedure Name Priority Date/Time Associated Diagnosis Comments COMPREHENSIVE METABOLIC PANEL STAT 10/30/2017 4:16 PM CDT HIM COLONOSCOPY SCAN Routine 02/23/2017 from Last 3 Months or Most Recently Relevant to Health Maintenance Results * Comprehensive metabolic panel (10/30/2017 4:16 PM CDT) Sodium 140 133 - 144 mmol/L 10/30/2017 4:[address] [facility] Potassium 4.2 3.4 - 5.3 mmol/L 10/30/2017 4:[address] [facility] Chloride 108 94 - 109 mmol/L 10/30/2017 4:[address] [facility] Carbon Dioxide 28 20 - 32 mmol/L 10/30/2017 4:[address] [facility] Anion Gap 4 3 - 14 mmol/L 10/30/2017 4:[address] [facility] Glucose 91 70 - 99 mg/dL 10/30/2017 4:[address] [facility] Urea Nitrogen 22 7 - 30 mg/dL 10/30/2017 4:[address] [facility] Creatinine 0.66 0.52 - 1.04 mg/dL 10/30/2017 4:[address] [facility] GFR Estimate 88 >60 mL/min/1.7 m2 10/30/2017 4:[address] [facility] Comment:Non GFR Calc GFR Estimate If Black >90 >60 mL/min/1.7 m2 10/30/2017 4:[address] [facility] Comment: GFR Calc Calcium 9.3 8.5 - 10.1 mg/dL 10/30/2017 4:[address] [facility] Bilirubin Total 0.4 0.2 - 1.3 mg/dL 10/30/2017 4:[address] [facility] Albumin 3.9 3.4 - 5.0 g/dL 10/30/2017 4:[address] [facility] Protein Total 7.4 6.8 - 8.8 g/dL 10/30/2017 4:52 PM CDT [facility] Alkaline Phosphatase 74 40 - 150 U/L 10/30/2017 4:52 PM CDT [facility] ALT 26 0 - 50 U/L 10/30/2017 4:52 PM CDT [facility] AST 22 0 - 45 U/L 10/30/2017 4:52 PM CDT [facility] Blood specimen (specimen) 10/30/2017 4:16 PM CDT 10/30/2017 4:24 PM CDT Sarah Luque MD LAB - BLOOD ORDERABL ES [facility] [address] [place], [place] [address] [phone] * - HIM Screen Colonoscopy Scan (02/23/2017) Narrative Chelle Baltazar, [facility] - 02/23/2017 Result Narrative Patient Name: Bianca [...] oxygen saturations were monitored ? continuously. The [id number] was ? introduced through the anus and [...] Procedure Code(s): ?? --- Professional --- ? 13835, Colonoscopy, flexible; with ? biopsy, single or multiple Diagnosis Code(s): ?? --- Professional --- ? 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 flexure) ? Z86.010, Personal history of colonic ? polyps CPT copyright 2016 [employer]. All rights reserved. The codes documented in this report are preliminary and upon manager food review may be revised to meet current [...] oxygen saturations were monitored ? continuously. The [id number] was ? introduced through the anus and [...] Procedure Code(s): ?? --- Professional --- ? 06888, Colonoscopy, flexible; with ? biopsy, single or multiple Diagnosis Code(s): ?? --- Professional --- ? 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 flexure) ? Z86.010, Personal history of colonic ? polyps CPT copyright 2016 [employer]. All rights reserved. The codes documented in this report are preliminary and upon manager food review may be revised to meet current compliance requirements. Erick Wise MD 02/23/2017 4:28:55 PM This document has been electronically signed. Number of Addenda: 0 Note Initiated On: 02/23/2017 3:12 PM ? Endoscopy Report Provider Outside PROCEDURES from Last 3 Months or Most Recently Relevant to Health Maintenance Care Teams Conversion Worker Relationship Specialty Start Date End Date Mandi Bullard MD PCP - General Internal Medicine 10/30/17
--- OUTSIDE RECORDS SUMMARY | 2023-12-12 08:16 | XMS_ITS | Encounter Summary ---
Author Name Unknown Organization [facility] Address [address] [place] [address]. [place] [address] Care Team Providers Care Emergency Vehicle Operator Name Role Phone Mandi Bullard MD Primary Care Provider [phone] Mallory Cuadra MD Unavailable [phone] Reason for Visit * Reason Onset Date Comments Nurtec 03/29/2021 TIME SENSITIVE-- pt needs call back TODAY, pt has vein procedure with [facility] this coming Thursday04/01/21 ... Encounter Details Date Type Department Care Team (Late st Contact Info) Description 03/29/2021 Telephone [facility]rology [facility] [address] [address] Mallory Cuadra MD [address] [place] [phone] [facility] (TIME SENSITIVE--pt needs call back TODAY, pt has vein procedure with [facility] this coming Thursday04/01/21 ...) Social History Tobacco Use Types Packs/Day Years Used Date Smoking Tobacco: Never Smokeless Tobacco: Never Alcohol Use Standard Drinks/Week Comments Yes 0 (1 standard drink = 0.6 oz pur e alcohol) rare PHQ-2 Answer Date Recorded PHQ-2 Score 5 10/03/2019 Sex and Gender Information Value Date Recorded Sex Assigned at Female 09/30/2019 12:38 PM PHOTOGRAPHS CURATOR Gender Identity Female 09/30/2019 12:38 PM PHOTOGRAPHS CURATOR Sexual Orientation Straight 09/30/2019 12 :38 PM PHOTOGRAPHS CURATOR documented as of this encounter Miscellaneous Notes * Telephone Encounter - Shereen Fontaine - 03/29/2021 3:33 PM CDT [facility] Phone Message May a detailed message be left on voicemail: yes Reason for Call: Other: Question form Mario vascular provider to Dr. Cuadra/team: pt reporting that her [facility] provider, Dr. Bk Altman wants to know IF pt is okay to take Nurtec? Pt will have light sedation on Sunday 04/01 at the [facility] procedure. Please call pt to let her know THIS AFTER NOON. Thank you. Action Taken: Message [place] [facility] [place] Screening: Not Applicable documented in this encounter Plan of Treatment Not on file documented as of this encounter Visit Diagnoses Not on filedocumented in this encounter Additional Health Concerns Assessment Noted Time PHQ-9 Depression Total Score: 14 020 12:18 PM PHOTOGRAPHS CURATOR documented as of this encounter Care Teams Emergency Vehicle Operator Relationship Specialty Start Date End Date Mandi Bullard MD PCP - General Internal Medicine 10/30/17 Mallory Cuadra MD [address] [place] [id number] Assigned Neuroscience Provider 06/08/20 02/21/22 documented as of this encounter
--- OUTSIDE RECORDS SUMMARY | 2023-12-12 08:16 | XMS_ITS | Encounter Summary ---
Author Name Unknown Organization [facility] Address [address] [place] [address]. [place] [address] Care Team Providers Care Circuit Design Engineer Name Role Phone Mandi Bullard MD Primary Care Provider Mallory Cuadra MD Unavailable [phone] Reason for Visit * Reason Onset Date Comments Medication Request 07/26/2020 galcanezumab- gnlm (EMGALITY) 120 MG/ML injection and sumatriptan 100 mg tablets generic for imitrex Encounter Details Date Type Department Care Team (Late st Contact Info) Description 07/26/2020 Telephone [facility] Neurology Clinic [address] 3[address] [place] [address] Mallory Cuadra MD [address] [place] [address] Medication Request (galcanezumab-gnlm (EMGALITY) 120 MG/ML injection and sumatriptan 100 mg tablets generic for imitrex) Social History Tobacco Use Types Packs/Day Years Used Date Smoking Tobacco: Never Smokeless Tobacco: Never Alcohol Use Standard Drinks/Week Comments Yes 0 (1 standard drink = 0.6 oz pur e alcohol) rare PHQ-2 Answer Date Recorded PHQ-2 Score 5 10/03/2019 Sex and Gender Information Value Date Recorded Sex Assigned at Female 09/30/2019 12:38 PM NUTRITION AIDE Gender Identity Female 09/30/2019 12:38 PM NUTRITION AIDE Sexual Orientation Straight 09/30/2019 12 :38 PM NUTRITION AIDE documented as of this encounter Miscellaneous Notes * Telephone Encounter - Jeffery Roa - 07/26/2020 11:36 AM CST [facility] Phone Message May a detailed message be left on voicemail: yes Reason for Call: Medication Question or concern regarding medication Prescription Clarification Name of Medication: galcanezumab-gnlm (EMGALITY) 120 MG/ML injection and Sumatriptan 100 mg tablets (generic for Imitrex) Prescribing Provider: Dr. Cuadra Pharmacy: Various What on the order needs clarification? Pt is requesting Rx for galcanezumab-gnlm (EMGALITY) 120 MG/ML injection be faxed to [facility] at phone [phone] and fax [phone]. We stated that she qualified for funding from this foundation for 2020 and they require a faxed Rx from MD that must be hand signed, no electronic signature or electronic submission will be accepted. According to chart, this was previously prescribed by Dr. Castellano, however, Pt stated that she had not seen Dr. Castellano. Pt is also requesting a new Rx for Sumatriptan 100 mg tablets (generic for Imitrex) 1/2 to 1 tabletby mouth PRN, quanity of 12 be electronically submitted or phoned in to: [facility] [address] [place] [address] She states this was previously prescribed by Dr. rTuman Wills at [facility]. Please call Pt with questions. Action Taken: Message routed to[facility] Neurology Travel Screening: Not Applicable ITION AIDE documented in this encounter Plan of Treatment Not on file documented as of this encounter Visit Diagnoses Not on filedocumented in this encounter Additional Health Concerns Assessment Noted Time PHQ-9 Depression Total Score: 14 020 12:18 PM NUTRITION AIDE documented as of this encounter Care Teams Circuit Design Engineer Relationship Specialty Start Date End Date Mandi Bullard MD PCP - General Internal Medicine 10/30/17 Mallory Cuadra MD [address] [place] [id number] Assigned Neuroscience Provider 06/08/20 02/21/22 documented as of this encounter
--- OUTSIDE RECORDS SUMMARY | 2023-12-12 08:16 | XMS_ITS | Encounter Summary ---
Author Name Unknown Organization [facility] Address [address] [place] [address]. [place] [address] Care Team Providers Care Hr Receptionist Name Role Phone Mandi Bullard MD Primary Care Provider Mallory Cuadra MD Unavailable [phone] Encounter Details Date Type Department Care Team (Late st Contact Info) Description 03/01/2020 [facility] Medical Advice [facility] Neurology [address] [place] [address] [address] [place] [address] Mallory Cuadra MD [address] [place] [address] Social History Tobacco Use Types Packs/Day Years Used Date Smoking Tobacco: Never Smokeless Tobacco: Never Alcohol Use Standard Drinks/Week Comments Yes 0 (1 standard drink = 0.6 oz pur e alcohol) rare PHQ-2 Answer Date Recorded PHQ-2 Score 5 10/03/2019 Sex and Gender Information Value Date Recorded Sex Assigned at Female 09/30/2019 12:38 PM FEATHER TRIMMER Gender Identity Female 09/30/2019 12:38 PM FEATHER TRIMMER Sexual Orientation Straight 09/30/2019 12 :38 PM FEATHER TRIMMER documented as of this encounter Plan of Treatment Not on file documented as of this encounter Visit Diagnoses Not on filedocumented in this encounter Additional Health Concerns Assessment Noted Time PHQ-9 Depression Total Score: 14 020 12:18 PM FEATHER TRIMMER documented as of this encounter Care Teams Hr Receptionist Relationship Specialty Start Date End Date Mandi Bullard MD PCP - General Internal Medicine 10/30/17 Mallory Cuadra MD [address] [place] [address] Assigned Neuroscience Provider 06/08/20 02/21/22 documented as of this encounter
--- OUTSIDE RECORDS SUMMARY | 2023-12-12 08:16 | XMS_ITS | Encounter Summary ---
Author Name Unknown Organization [facility] Address [address] [place] [address] Care Team Providers Care Social Work Lecturer Name Role Phone Mandi Bullard MD Primary Care Provider [phone] Mallory Cuadra MD Unavailable [phone] Reason for Visit * Reason Onset Date Comments Medication Request 02/27/2020 galcanezumab- gnlm (EMGALITY) 120 MG/ML injection Encounter Details Date Type Department Care Team (Late st Contact Info) Description 02/27/[address] [place] [address] Mallory Cuadra MD [address] [place] [address] Medication Request (galcanezumab-gnlm (EMGALITY) 120 MG/ML injection ) Social History Tobacco Use Types Packs/Day Years Used Date Smoking Tobacco: Never Smokeless Tobacco: Never Alcohol Use Standard Drinks/Week Comments Yes 0 (1 standard drink = 0.6 oz pur e alcohol) rare PHQ-2 Answer Date Recorded PHQ-2 Score 5 10/03/2019 Sex and Gender Information Value Date Recorded Sex Assigned at Female 09/30/2019 12:38 PM SERICULTURIST Gender Identity Female 09/30/2019 12:38 PM SERICULTURIST Sexual Orientation Straight 09/30/2019 12 :38 PM SERICULTURIST documented as of this encounter Miscellaneous Notes * Telephone Encounter - Jordi Borges - 02/27/2020 12:21 PM CDT [facility] Phone Message May a detailed message be left on voicemail: yes Reason for Call: Medication Refill Request Has the patient contacted the pharmacy for the refill? Yes Name of medication being requested: galcanezumab-gnlm (EMGALITY) 120 MG/ML injection Provider who prescribed the medication: Dr. Cuadra Pharmacy: [facility] Date medication is needed: Oscar - Pt says the pharmacy has not received it. Please call in at # [phone], or fax to [phone]. Please try multiple times if there are issues, and call the pharmacy to confirm front desk receptionist. Pt is due and has been waiting some time for this to go out. Pt requests a call back. Action Taken: Message routed to: [facility] [place] Screening: Not Applicable documented in this encounter Plan of Treatment Not on file documented as of this encounter Visit Diagnoses Not on filedocumented in this encounter Additional Health Concerns Assessment Noted Time PHQ-9 Depression Total Score: 14 10/03/ 020 12:18 PM SERICULTURIST documented as of this encounter Care Teams Social Work Lecturer Relationship Specialty Start Date End Date Mandi Bullard MD PCP - General Internal Medicine 10/30/17 Mallory Cuadra MD [address] [place] [address] Assigned Neuroscience Provider 06/08/20 02/21/22 documented as of this encounter
--- OUTSIDE RECORDS SUMMARY | 2023-12-12 08:16 | XMS_ITS | Clinical Summary ---
Author Name Unknown Organization [facility] Address [place], [place] [address] Care Team Providers Care Linux Programmer Name Role Phone Meka Perez MD Primary Care Provider Allergies Active Allergy Reactions Criticality Noted Date Comments Adhesive Tape-Silicones Rash 04/08/2022 Butterbur GI Upset Low 09/13/2018 Abdominal pain Cephalexin Rash 05/11/2009 Chlorhexidine Rash Medium 01/15/2022 Erythromycin Hepatic Dysfunction,Other - Describe In Comment Field 05/11/2009 Severe abdominal pain with EM, hepatitis with EES Gabapentin 05/11/2009 Abdominal pain and heartburn Galcanezumab-Gnlm Palpitations,Rash 08/28/2020 Nortriptyline GI Upset Low 09/13/2018 Constipation; hx of pelvic floor surgery; unable to tolerate Penicillins 05/11/2009 Propranolol *Unknown 10/10/2009 agitation Timolol Other - Describe In Comment Field 09/13/2018 Fatigue, short of breath and heart pounding with exertion Topiramate GI Upset 09/13/2018 GI Tramadol 05/11/2009 Increased migraines Trazodone 05/11/2009 Increased migraines Venom-Wasp Other - Describe In Comment Field,*Unknown - Follow up needed 01/06/2017 Midazolam 05/11/2009 Paradoxical agitation Medications Medication Sig Dispensed Refills Start Date End Date Status aspirin (ECOTRIN) 81 mg enteric coated tablet Take 1 tablet by mouth once daily with a meal. 0 10/05/2019 Active triamcinolone (ARISTOCORT) 0.1 % ointment Apply topically to affected area(s) 3 times daily. 0 11/16/2020 Active triamcinolone (ARISTOCORT; KENALOG) 0.1 % cream Apply topically to affected area(s) 3 times daily. 80 g 11/16/2020 Active cholecalciferol, Vitamin D3, 5,000 unit tab tablet 1 capsule by mouth 4 times weekly 0 03/06/2021 Active inhalational spacing deviceIndications:Mo derate persistent asthma with exacerbation Antistatic valved holding chamber by boyd 1 Each 10/17/2021 Active acetaminophen (Tylenol Extra Strength) 500 mg tablet 01/20/2022 Active metoclopramide HCl (REGLAN) 10 mg tablet Take 10 mg by mouth once daily if needed. Active rosuvastatin (CRESTOR) 10 mg tabletIndications:Mi ld hyperlipidemia Take 1 Tablet (10 mg) by mouth at bedtime. 90 Tablet 3 01/19/2023 Active atogepant (Qulipta) 30 mg tab once daily. 0 01/23/2023 Active albuterol HFA (PRO-AIR; VENTOLIN; PROVENTIL) 90 mcg/actuation inhalerIndications:E hlers-Danlos disease Inhale 1-2 Puffs by mouth every 4 hours if needed for Shortness of Breath 1st choice or Wheezing 1st choice. 1 Each 3 06/12/2023 Active SF 5000 Plus 1.1 % crea 01/22/2023 Active linaCLOtide (Linzess) 145 mcg cap capsuleIndications:C hronic constipation Take 1 Capsule (145 mcg) by mouth before breakfast. 90 Capsule 3 09/03/2023 Active enoxaparin (LOVENOX) 60 mg/0.6 mL injectionIndications :Lupus anticoagulant positive As needed for DVT prophylaxis with presence of lupus anticoagulant when she is in situation when she needs prolong bed rest or on the airplane/car long thern 2 hour nonstop. 3 Each 09/16/2023 Active levothyroxine (SYNTHROID) 112 mcg tabletIndications:Hy pothyroidism (acquired) Take 1 Tablet (112 mcg) by mouth before breakfast. 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 4 Paroxysmal SVT (supraventricular tachycardia) Depression, major, in remission 10/20/2023 Hypothyroidism (acquired) 06/12/2023 Dysphagia 11/18/2022 Overview: EGD 11/2021 Tamia fundoplication, normal biopsies, dysphagia likely due to esophageal dysmotility Chronic constipation 11/11/2022 RBBB 11/11/2022 Cyst of right ovary 11/11/2022 Cervical myelopathy with cervical radiculopathy 08/26/2022 Obesity, morbid 08/26/2022 Supraventricular tachycardia 12/19/2021 Cervical stenosis of spinal canal 07/17/2021 Overview: Per MRI, neurosurgery consult Postoperative hemorrhage 05/24/2021 Palpitations 05/24/2021 Notalgia paresthetica 05/24/2021 Lymphedema 05/24/2021 History of total bilateral knee replacement 03/2021 History of hysterectomy 05/24/2021 Antiphospholipid antibody syndrome 02/21/2021 Autoimmune disorder 11/30/2020 Overview: Following with dermatology and rheumatology Chondrocalcinosis 11/30/2020 Overview: Of both wrists. 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 History of Tamia fundoplication 02/24/2017 [place]nard hump 02/27/2015 Varicose veins of lower extremity 09/16/2010 Overview: Overview: LW Modifier: surgery ; Varicose Veins w Pain LW Modifier: surgery ; Varicose Veins w Pain Added automatically from request for surgery [id number] Hypovitaminosis D 05/11/2009 Chronic back pain 05/11/2009 Slow transit constipation 05/11/2009 Abdominal pain, unspecified site 05/11/2009 Unspecified hypothyroidism 05/11/2009 Osteoarthritis of multiple joints 10/04/2008 Overview: Overview: DJD Multiple Sites DJD Multiple Sites Diaphragmatic hernia 07/20/2008 Overview: Overview: Hernia Hiatal Hernia Hiatal Esophageal reflux 01/21/2003 Overview: Overview: LW Modifier: s/p Aiden fundoplication ; Gastroesophageal Reflux Disease LW Modifier: s/p Aiden fundoplication ; Gastroesophageal Reflux Disease Mild hyperlipidemia 01/21/2003 Obesity 01/21/2003 Resolved Problems Problem Noted Date Diagnosed Date Resolved Date Acute left ankle pain 08/22/20222023 Erythromelalgia 06/27/2022 09/16/2023 Chronic migraine w/o aura, n ot intractable, w/o stat migr 08/28/2020 11/30/2020 Connective tissue disorder 05/28/2017 0 11/30/2020 History of uterine prolapse 05/28/2017 11/30/2020 Closed nondisplaced fracture of right patella 02/25/20 17 09/16/2023 Family history of genetic disorder 01/14/2017 11/30/2020 Low vitamin D level 01/08/2017 12/01/19 21 Other malaise and fatigue 05/11/2009 Migraines 05/11/2009 11/30/2020 Derangement of meniscus 07/20/200811/15 Overview: Overview: LW Modifier: s/p surg left knee ; Meniscus Tear Knee Degenerative Rectocele 07/20/2008 11/30/2020 Overview: Overview: LW Modifier: s/p repair Impaired glucose tolerance test 07/15/2007 11/30/2020 Overview: Overview: Glucose Intolerance (Impaired Tolerance) Encounters Date Type Department Care Team Description 12/08/2023 3:45 PM CDT Office Visit [facility] [address] [place] [address] Frank Vora MD Sinus Problem (Left front tooth ache with warm liquids, seen by dentist. But its not the tooth. Xrays done by dentist office. Occasional post nasal drip left side of face, left cheek tenderness. Right sided sinus surgery 20+ years ago, staph infection. CT done in January.) 12/08/2023 Travel 10/29/2023 3:20 PM CDT Ancillary Procedure [facility] [address] [place] [address] 10/29/2023 Telephone [facility] [address] [place] [address] Meka Perez MD SUPPLIES/ADDENDUM/L IMB LAB 10/29/2023 Travel 10/23/2023 9:30 AM ASSEMBLER 1ST SHIFT Office Visit [facility] [address] [place] [address] Jacob Gaol MD Follow Up (Palpitations) 10/23/2023 Travel 10/22/2023 Telephone [facility] [address] [place] [address] Meka Perez MD Health Maintenance Update 10/20/2023 2:00 PM ASSEMBLER 1ST SHIFT Office Visit [facility] [address] [place] [address] Meka Perez MD Medication Management 10/19/2023 3:15 PM ASSEMBLER 1ST SHIFT Orders Only [facility] [address] [place] [address] Lab, [place] Lab 10/19/2023 Travel 09/16/2023 1:35 PM ASSEMBLER 1ST SHIFT Office Visit [facility] [address] [place] [address] Meka Perez MD DME Supply (Needing order for new AFO ankle braces) 09/16/2023 Travel from Last 3 Months Immunizations Name Administration Dates Next Due COVID-19 vaccine (Moderna 100mcg/0.5mL) PF, MDV 11/20/2021 COVID-19 vaccine (Moderna 50 mcg/0.5mL) 12YO+ BIVALENT PF, MDV 12/12/2022 COVID-19 vaccine (Cozy-Bio NTech 30mcg/0.3mL) PF, MDV 10/26/2020,10/04/2020 DT (Age < 7 years) 02/14/1985 Influenza Virus, Unspecified 04/28/2012, 05/15/2010,05/01/2009,06/26,06/24/2007,07/06/2006,05/28/2005 ,05/09/2004,06/09/2003,05/27/2002,01/2001,08/03/2000,07/08/1999 Influenza, High-dose Inactivated 06/01/2018,04/17,04/17/2016 Influenza, IIV3 (Age 6-35 mos) 04/21/2014,2012 Influenza, Inactivated AIIV4 (Age 65+ Years) Preserv Free 05/08/2023,04/30/2022,05/22/2020 Influenza, Inactivated IIV3 (Age 65+ Years) Preserv Free 05/25/2021,05/06/2019 Oral Polio Vaccine 04/21/1985 Pneumococcal conj 13-Valent (Prevnar 13) 12/28/2014 RSV, Recombinant ADJ Reconst ituted (Arexvy 120MCG/0.5mL) 05/18/2023 Td (Age >=7 Years) 01/22/2004 Tdap 12/30/2021,12/04/2011 Zoster (Shingrix-RZV, recombinant) 10/12/2019, Zoster (Zostavax-ZVL, live) 11/22/2009 Family History Medical History Relation Name Comments Arthritis Father Diabetes Father Other Father TIA's, parkinso n's Psychiatric illness Father anxiety, depression Allergies Mother Anesthesia Problem Mother Arthritis Mother Asthma Mother Cancer-colon Mother GI Disease Mother Heart Disease Mother Hyperlipidemia Mother Other Mother possible Addiso n's disease, blood clots x 3 Thyroid Disease Mother Allergies Sister 1 Anesthesia Problem Sister 2 Arthritis Sister 3 Cancer-breast Sister 4 Diabetes Sister 5 Hypertension Sister 6 Hyperlipidemia Sister 7 Psychiatric illness Sister 8 depressi on Other Sister 9 coagulopathy, i mmune deficiency Multiple sclerosis Sister 10 Cancer-ovarian No Family History Relation Name Status Comments Daughter Alive coagulopathy, e jonathon onset arthritis, CP Father (Age 84) Mother (Age 86) Sister 1 Sister 2 Sister 3 Sister 4 Sister 5 Sister 6 Sister 7 Sister 8 Sister 9 Sister 10 Social History Tobacco Use Types Packs/Day Years Used Date Smoking Tobacco: Never Smokeless Tobacco: Never Tobacco Cessation:Counseling Given: Yes Alcohol Use Standard Drinks/Week Comments Yes 0 (1 standard drink = 0.6 oz pure alcohol) rare or very infrequent alcohol PHQ-2 Answer Date Recorded PHQ-2 TOTAL SCORE 1 12/19/2021 Social Connections Answer Date Recorded Frequency of Communication with Friends and Fami ly 0 01/07/2023 Financial Resource Strain Answer Date R ecorded Difficulty of Paying Living Expenses 3 01/07/2023 Difficulty of Paying Living Expenses Not on file 01/07/2023 Food Insecurity Answer Date Recorded Worried About Running Out of Food in the Last Ye ar 1 01/07/2023 Transportation Needs Answer Date Record ed Lack of Transportation (Medical) 1 01/07/2023 Housing Stability Answer Date Recorded Unable to Pay for Housing in the Last Year 1 01/07/2023 Sex and Gender Information Value Date Recorded Sex Assigned at Not on file Gender Identity Not on file Sexual Orientation Not on file Obstetrics History Last Filed Vital Signs Vital Sign Reading Time Taken Comments Blood Pressure 132/78 10/23/2023 8:26 AM ASSEMBLER 1ST SHIFT Pulse 74 10/23/2023 8:26 AM ASSEMBLER 1ST SHIFT Temperature 36.8 ??C (98.3 ??F) 01/12/2023 9:04 AM CD T Respiratory Rate 16 10/23/2023 8:26 AM ASSEMBLER 1ST SHIFT Oxygen Saturation 100% 10/23/2023 8:26 AM ASSEMBLER 1ST SHIFT Inhaled Oxygen Concentration - - Weight 101.2 kg (223 lb 1.6 oz) 10/23/2023 8:26 AM ASSEMBLER 1ST SHIFT Height 162.6 cm (5' 4) 07/17/2023 2:21 PM ASSEMBLER 1ST SHIFT Body Mass Index 38.3 07/17/2023 2:21 PM ASSEMBLER 1ST SHIFT Plan of Treatment Upcoming Encounters Date Type Department Care Team (Late st Contact Info) Description 12/16/2023 1:00 PM CDT Ancillary Procedure [facility] [address] [place] [facility] [place] [address] 12/22/2023 3:40 PM CDT Office Visit [facility] [address] [place] [address] Meka Perez MD [address] [place] [address] 12/28/2023 2:00 PM CDT Orders Only [facility] [address] [place] [facility] [place] [address] Lab, [place] 03/14/2024 2:30 PM CDT Office Visit [facility] [address] [place] [address] Dieter Delgado MD [address] [place] [address] 05/03/2024 1:10 PM CDT Office Visit [facility] [address] [place] [address] Meka Perez MD [address] [place] [address] Health Maintenance Due Date Last Done Comments Pneumococcal series for age 65+ (2 of 2 - PPSV23 or PCV20) 02/22/2015 12/28/2014 Depression screening for age 12+ 12/19/2022 12/19/2021, 11/30/2020 Medicare Wellness for age 65+ 12/20/2022 12/19/2021 Influenza for age 65+ 04/17/2024 05/08/2023 , 04/30/2022, 05/25/2021, Additional history exists BMI (ht and wt on same day) for age 18+ 07/17/2024 07/17/2023, 01/27/2023, 11/11/2022, Additional history exists Lipids for age 45-75 12/19/2026 12/19/2021, 09/25/2021, 01/07/2018 (Verified in Care Everywhere or Patient Record) Colonoscopy through age 75 04/16/202704/16, 02/23/2017 (Verified in Care Everywhere or Patient Record) Tetanus booster 12/31/2031 12/30/2021, 11/15, 01/22/2004 Hepatitis C screening for age 18-79 Addressed 01/07/2018 (Verified in Care Everywhere or Patient Record) Overridden with the intention of not completing the topic DEXA/DXA scan for age 65+ Addressed 2018 (Verified in Care Everywhere or Patient Record) Overridden with the intention of not completing the topic Zoster (shingles) series for age 50+ Completed 10/12/2019, 05/03/2019, 11/22/2009 Tdap Completed 12/30/2021, 12/04/2011 COVID-19 vaccine series Completed 05/22/20, 12/12/2022, 04/28/2022, Additional history exists Procedures Procedure Name Priority Date/Time Associated Diagnosis Comments XR MAMMO BRAYDEN BILAT SCREEN Routine 10/29/2023 3:24 PM CDT Visit for screening mammogram T4,FREE Routine 10/19/2023 3:23 PM ASSEMBLER 1ST SHIFT Hypothyroidism (acquired) TSH Routine 10/19/2023 3:23 PM ASSEMBLER 1ST SHIFT Hypothyroidism (acquired) SCAN-COLONOSCOPY 04/16/2022 11:0 0 AM CDT LIPID PANEL Routine 12/19/2021 10:30 AM CDT Mild hyperlipidemia from Last 3 Months or Most Recently Relevant to Health Maintenance Results * XR MAMMO BRAYDEN BILAT SCREEN (10/29/2023 3:24 PM CDT) Anatomical Region Laterality Modality BREASTS, Breast Left, Breast Right Bilateral Mammography Impressions 10/29/2023 3:46 PM CDT ??There is no radiographic evidence for malignancy. ??Recommend annual mammograms. MAMMOGRAM ASSESSMENT: ??ACR 1 Negative PATIENTS: You will also receive a letter with your examination results in an easy to read format. ??If you have questions about your results, please contact your referring provider. Narrative 10/29/2023 3:46 PM CDT For Patients: As a result of the Cures Act, medical imaging exams and procedure reports are released immediately into your electronic medical record. You may view this report before your referring provider. If you have questions, please contact your health care provider. XR MAMMO BRAYDEN BILAT SCREEN [[id number]] CLINICAL HISTORY: ??This is an asymptomatic 73 y.o. patient. INDICATION FOR EXAM: Mammogram Screening. TECHNIQUE: CC & MLO views were obtained. ??This study was evaluated with the assistance of Computer-Aided Detection. Breast Tomosynthesis was used in interpretation. COMPARISON FILM: Yes [facility]15/22 [facility] FINDINGS: ??The breasts have scattered areas of fibroglandular density. There are no dominant masses, suspicious micro calcifications or areas of architectural distortion. Meka Perez MD MAMMO * (ABNORMAL) TSH (10/19/2023 3:23 PM ASSEMBLER 1ST SHIFT) TSH 4.82(H) 0.27 - 4.20 uIU/mL 10/19/2023 10:09 PM ASSEMBLER 1ST SHIFT [facility] Blood BLOOD SPECIMEN / Unknown Venipuncture / Unknown 10/19/2023 3:23 PM ASSEMBLER 1ST SHIFT 10/19/2023 3:23 PM ASSEMBLER 1ST SHIFT Narrative [facility] - 10/19/2023 10:09 PM ASSEMBLER 1ST SHIFT In Adults, TSH values between 5.00 and 10.00 uIU/ml do not necessarily indicate the presence of Hypothyroidism. Correlation with clinical findings such as presence of goiter and/or Thyroperoxidase (TPO) Antibody may be helpful. For more information please refer to REGINA 2004; 291: 228-238. Meka Perez MD CHEMISTRY Performing Organization Address City/[facility]/ZIP Co de Phone Number [facility] [address] [address], * T4,FREE (10/19/2023 3:23 PM ASSEMBLER 1ST SHIFT) T4,FREE 1.43 0.93 - 1.70 ng/dL 10/19/2023 10:09 PM ASSEMBLER 1ST SHIFT [facility] Blood BLOOD SPECIMEN / Unknown Venipuncture / Unknown 10/19/2023 3:23 PM ASSEMBLER 1ST SHIFT 10/19/2023 3:23 PM ASSEMBLER 1ST SHIFT Meka Perez MD CHEMISTRY Performing Organization Address [facility] Co de Phone Number [facility] [address] [address], [place] * SCAN-COLONOSCOPY (04/16/2022 11:00 AM CDT) Narrative Procedure Note Ira Rey MD - 04/16/2022 9:59 AM CDT [facility], [address], [address], [place] [address] Patient Name: Bianca Titus Gender: Female Exam Date: 04/16/2022 Visit Number: [id number] Age: 71 Years 9 Months Date of : 1950 Attending MD: Ira Rey MD Medical Record#: [id number] ----- Procedure: Colonoscopy Indications: Constipation Referring MD: Referral Self Primary MD: Meka Perez MD Medications: Admitting Medications: Lactated Ringers Intra Procedure Medications: Patient received monitored anesthesia care. Complications: No immediate complications Procedure: An examination of the heart and lungs was performed and found to be withinacceptable limits. The patient was therefore deemed a reasonablecandidate for endoscopy and monitored anesthesia care. The risks and benefits of the procedure were explained to the patient.After obtaining informed consent, the patient received monitoredanesthesia care and I passed the scope without difficulty via the rectum to the ileum. The appendiceal orificeand ic valve were identified. The scope was retroflexed during theexamination The quality of the prep was good (Miralax/Gatorade/2 tabletsBisacodyl/Magnesium Citrate). This was a complete examination throughout the entire colon. Findings: Normal finding. Location - ileum. Normal finding. Location - entire colon. Diverticulosis. Location: - descending colon - sigmoid. Quantity:few. No inflammation present. Impression: Constipation, unspecified constipation type Diverticulosis of colon without diverticulitis Plan The [place] Preventive Services Task Force recommends againstroutine screening for colorectal cancer in adults age 76 to 85 years.There may be considerations that support colorectal cancer screening in anindividual patient. Electronically signed by: Ira Rey MD 04/16/2022 Medications: Medication Dose Sig Description PRN Status PRN Reason Comments albuterol sulfate HFA 90 mcg/actuation aerosol inhaler 90 mcg inhale 2puff by inhalation route every 4 - 6 hours as needed N aspirin 81 mg chewable tablet 81 mg chew 1 tablet by oral route everymorning N Citrucel UNKNOWN take 1 by Oral route two times a day N Co Q-10 100 mg capsule 100 mg take 1 Capsule by Oral route every day N docusate sodium 100 mg capsule 100 mg take 2 Capsule by oral route everyday N enoxaparin 60 mg/0.6 mL subcutaneous syringe 60 mg/0.6 mL inject (1MG/KG)by subcutaneous route every 12 hours N estradiol 0.01% (0.1 mg/gram) vaginal cream 0.01 % insert (0.5 G) byvaginal route two times a week N Fish Oil Concentrate 1,000 mg capsule 1,000 mg take 2 tablet by oral routeevery day N Flonase Allergy Relief 50 mcg/actuation nasal spray,suspension 50mcg/actuation inhale 2 spray by intranasal route every day in eachnostril N Flovent HFA 110 mcg/actuation aerosol inhaler 110 mcg/actuation inhale 2puff by inhalation route 2 times every day N hydroxychloroquine 400 mg tablet 400 mg take 1 tablet by oral route everyday N Linzess 72 mcg capsule 72 mcg take 1 capsule by oral route every day lidia empty stomach at least 30 minutes before 1st meal of the day N Nurtec ODT 75 mg disintegrating tablet [address] 1 tablet bytranslingual route on top of tongue, allow to dissolve then swallow onceas needed for migraine; max 1 dose/24 hrs N omeprazole 20 mg capsule,delayed release 20 mg take 1 capsule (20MG) byORAL route every day before a meal N polyethylene glycol 3350 17 gram oral powder packet 17 gram take 1 packetby oral route every day mixed with 8 oz. water, juice, soda, coffee ortea as needed N prednisone 10 mg tablet 10 mg take 3 Tablet by oral route every day days as needed N prochlorperazine maleate 5 mg tablet 5 mg take 1 tablet by oral routeevery 4 hours as needed for nausea and vomiting N rosuvastatin 10 mg tablet 10 mg take 1 tablet by oral route every day N Synthroid 125 mcg tablet 125 mcg take 1 tablet by oral route every day N Synthroid 125 mcg tablet 125 mcg take 1 tablet by oral route every day N triamcinolone acetonide 0.1 % topical ointment 0.1 % apply by topicalroute 2 times every day a thin layer to the affected area(s) N Ubrelvy 100 mg tablet 100 mg take 1 tablet by oral route once may repeatdose once after 2 hours if needed, not to exceed 200 mg in24 hours N Vitamin D3 125 mcg (5,000 unit) tablet 125 mcg (5,000 unit) take 1 Capsuleby Oral route every day N Allergies: Medication Name Ingredient Reaction Comment ERYTHROMYCIN BASE Adverse reaction toxic hepatitis PENICILLIN Rash; Joint pain AMPICILLIN Rash Erythomycin ERYTHROMYCIN BASE toxic hepatitis Inderal PROPRANOLOL HCL agitation LATEX Rash ADHESIVE TAPE Rash Vital Signs: Date Time Systolic Diastolic Height Weight BMI 04/16/2022 1027 AM 174 90 64 in 219.99 37.80 04/16/2022 1027 AM 174 90 64 in 219.99 37.80 Smoking Status: Use Status Type Smoking Status Usage Per Day Years Used Total Pack Years no/never Never smoker no/never Never smoker Race: White Preferred Language: Portuguese cc: Meka Perez MD [facility] [phone] Ira Rey MD OTHER * LIPID PANEL (12/19/2021 10:30 AM CDT) [facility] CHOLESTEROL,TOTAL 158 100 - 199 mg/dL 12/20/2021 12:11 PM T [facility] TRIGLYCERIDES 40 <150 mg/dL 12/20/2021 12:11 PM T [facility] HDL CHOLESTEROL 77 >40 mg/dL 12:11 PM T [facility] NON-HDL CHOLESTEROL 81 <145 mg/dl 12/20/2021 12:11 PM [facility] CHOL/HDL RATIO 2.05 <4.50 12/20/2021 12:11 PM T [facility] LDL CHOLESTEROL 73 <=130 mg/dL 12/20/2021 12:11 PM T [facility] VLDL CHOLESTEROL 8 <=30 mg/dL 12/20/2021 12:11 PM T [facility] PROVIDER ORDERED STATUS RANDOM 12/20/2021 12:11 PM [facility] Blood BLOOD SPECIMEN / Unknown Venipuncture / Unknown 12/19/2021 10:30 AM CDT 12/19/2021 10:30 AM CDT Jacob Galo MD CHEMISTRY [facility] [address] [place] [address], [place] from Last 3 Months or Most Recently Relevant to Health Maintenance Care Teams Linux Programmer Relationship Specialty Start Date End Date Meka Perez MD [address] [place] [address] PCP - General Family Practice 11/30/20
--- OUTSIDE RECORDS SUMMARY | 2023-12-12 08:16 | XMS_ITS | Continuity of Care Document ---
Author Name Unknown Organization [facility] Address [address] [address] [place] [address] Phone Care Team Providers Care Network Applications Specialist Name Role Phone Avelino Angel MD, Micky [...] [facility], [address] [address], [place], [id number], [place] tel:[phone] [facility] No Information 2 Avelino Weeks. [address], [facility] [address], [facility] [place], [id number] , [place]. tel: [phone] Established Level 4 [facility], [address] [address], [place], [id number], [place] tel:[phone] [facility] Symptoms or Concerns (chief complaint) Slow transit constipationConst ipation, unspecified 2 Candido Roth. [address], [facility] [place], [place], [id number] , [place]. tel:[phone] Referring Provider: Referral Self, USE FOR SELF REFERRALS. [facility], [address] [address], [place], [id number], [place] tel:[phone] [facility] No Information 2 Avelino Weeks. [address], [facility] [place], [id number] , [place]. tel:[phone] [facility], [address] [address], [place], [address], [place] tel:[phone] [facility] GI Symptoms or Concerns (chief complaint) Constipation, unspecifiedDivert iculosis of colon without diverticulitisCon stipation, unspecified 2 Candido Roth. [address], [place], [place], [address] , [place]. tel: [phone] Referring Provider: Referral Self, USE FOR SELF REFERRALS. [facility], [address] [address], [place], [address], [place] tel:[phone] [facility] No Information 2 Efren Rendon. [address], [place], [place], [address] , [place]. tel: [phone] Established Level 3 [facility], [address] [address], [place], [id number], [place] tel:[phone] [facility] GI Symptoms or Concerns (chief complaint) Constipation, unspecified constipation type 2 Efren Rendon. [address], [facility] [address], [place], [place], [address] , [place]. tel: [phone] Referring Provider: Referral Self, USE FOR SELF REFERRALS. [facility], [address] [address], [place], [address], [place] tel:[phone] [facility] No Information 2 Avelino Weeks. [address], [place], [id number] , [place]. tel: [phone] [facility], [address] [address], [place], [address], [place] tel:[phone] [facility] No Information 2 Candido Roth. [address], [place], [place], [address] , [place]. tel: [phone] Offic/outpt E&m Estab Mod-hi 2 [facility], [address] [address], [place], [id number], [place] tel:[phone] [facility] GI Symptoms or Concerns (chief complaint) Constipation, unspecified constipation typeChest pain, unspecified type 1 Candido Roth. [address], [place], [address] , [place]. [phone] Referring Provider: Referral Self, USE FOR SELF REFERRALS. [facility], [address] [address], [place], [address], [place] tel:[phone] [facility] GI Symptoms or Concerns (chief complaint) No Information 1 Candido Rtoh. [address], [address], [place], [place], [address] , [place]. tel:[phone] [facility], [address] [address], [place], [address], [place] tel:[phone] [facility] No Information 1 Candido Roth. [address], [facility] [address], [place], [address] , [place]. tel:[phone] Offic/outpt E&m Estab Mod-hi 4 [facility], [address] [address], [place], [address], [place] tel:[phone] [facility] GI Symptoms or Concerns (chief complaint) Constipation, unspecified constipation type Fe 1 Candido Roth. [address], [place], [address] , [place]. [phone] Referring Provider: Mandi Palacios, [address] [place], [address]. tel:[phone] Telephone E&M III 21-30 Min RODRIGO [facility], [address] [address], [place], [address], [place] tel:[phone] [facility] GI Symptoms or Concerns (chief complaint) Slow transit constipation 1 Live Deleon. [address], [address], [place], [address] , [place]. [phone] Referring Provider: Referral Self, USE FOR SELF REFERRALS. [facility], [address] [address], [place], [address], [place] tel:[phone] [facility] No Information 1 Live OROZCO Adrienne. [address], [facility] [address], [place], [id number] , [place]. tel: [phone] [place] [facility], [address] [address], [place], [address], [place] tel:[phone] [facility] No Information 0 Kaye Lui. [address], [place], [id number] , [place]. tel: [phone] Family History Family Member Type Diagnosis Age [...] ional interface ; Source: Other Registry Prevnar 13 administered Note: [facility] bi-d irectional interface ; [...] Registry Payers Payer name Insurance type Covered green party ID Authoriza tion(s) No Information Social [...]
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
--- OUTSIDE RECORDS SUMMARY | 2023-12-12 08:17 | XMS_ITS | Encounter Summary ---
Author Name Unknown Organization [facility] Address [address] [place] [address] Care Team Providers Care Software Support Technician Name Role Phone Found, No Pcp Primary Care Provider Unavailab le Reason for Visit * Reason Comments COVID Questions Encounter Details Date Type Department Care Team (Late st Contact Info) Description 10/28/2019 Nurse Triage [facility] [address] [place], [place] [id number] Mandi Bullard MD [address] [place] [address] COVID Questions Social History Tobacco Use Types Packs/Day Years Used Date Smoking Tobacco: Never Smokeless Tobacco: Never Alcohol Use Standard Drinks/Week Comments Not Currently 0 (1 standard drink = 0.6 oz pur e alcohol) Rare if ever PHQ-2 Answer Date Recorded PHQ-2 Score 0 12/11/2018 Sex and Gender Information Value Date Recorded Sex Assigned at Not on file Gender Identity Not on file Sexual Orientation Not on file documented as of this encounter Nursing Notes * Amie Chamberlain LPN - 10/29/2019 9:38 AM CDT Spoke to patient, read message, patient has no questions. * Mandi Bullard MD - 10/29/2019 9:12 AM CDT Yes, I do recommend that she increase her Flovent. I recommend that she talk to vascular surgery regarding the question about delaying surgery * Anna Mendieta, RN - 10/28/2019 4:20 PM CDT Clinician Action: Input needed regarding Medication- Flovent. OK for PCP Thursday10/31/2019 Clinician Next Step: Route to [facility] to follow up and Patient IS expecting a call back from care team Specific Request(s): 1. Patient is wondering if she should increase her Flovent inhaler back to 2x/day, with the Covid-19 around? States she decreased to one/day, and PCP aware. Still on med list as 2x/day. 2. Patient is wondering if she should delay her US and possible vein surgery? States the news storytoday mentioned delaying any unnecessary appointments, to free up hospital beds. Last OV with PCP: 09/28/2019 * Sasha Valdez - 10/28/2019 1:52 PM CDT Symptoms Describe your symptoms (if pain, include location): Cough, sinus drainage When did they start? About 3 weeks ago Additional comments (related to the above concern): Pt is requesting to discuss dosing of flovent inhaler. As she has read it increases chance of getting covid-19. If a prescription is needed, patient would like it filled at the pharmacy listed in Meds & Orders. (Verify the pharmacy patient would like to use for this request is highlighted in blue in Pharmacy Selection under Meds & Orders) Is it okay to leave a detailed message on your voicemail? Yes (Advise caller that the PN call back number will end with [phone] or unknown) For urgent symptoms: Please route and transfer to: Triage Pool (high priority) For routine symptoms: Please route to: Triage Pool (only transfer if caller insists) Miscellaneous Questions & FYI's - Question/Concern (DO NOT use for billing and coding concerns see BEST care reporting system) What is your question or concern? Pt states she also has a consultation for varicose vein surgery and she would like to discuss if she should postpone this until after the coronavirus calms down Is it okay to leave a detailed message on your voicemail? Yes (Advise caller that the PN call back number will end with [phone] or unknown) Please route to: Appropriate pool per call routing grid documented in this encounter Plan of Treatment Upcoming Encounters Date Type Department Care Team (Late st Contact Info) Description 04/19/2024 11:30 AM CDT Appointment [facility] [address] [place] [address] Zaria Le MD [address] [place] [address] documented as of this encounter Visit Diagnoses Not on filedocumented in this encounter Care Teams Software Support Technician Relationship Specialty Start Date End Date Found, No PcpMD [address] [place] [address] PCP - General 04/07/22 documented as of this encounter
--- OUTSIDE RECORDS SUMMARY | 2023-12-12 08:17 | XMS_ITS | Encounter Summary ---
Author Name Unknown Organization [facility] Address [address] [place] [address] Care Team Providers Care Angledozer Operator Name Role Phone Found, No Pcp MD Primary Care Provider Unavailab le Reason for Visit * Reason Comments CONSTIPATION Encounter Details Date Type Department Care Team (Late st Contact Info) Description 02/24/2019 Nurse Triage [facility] [address] [place], [place] [address] Mandi Bullard MD [address] [place] [address] CONSTIPATION Social History Tobacco Use Types Packs/Day Years [...] as of this encounter Nursing Notes * Mago Elizabeth LPN - 02/24/2019 2:27 PM CDT Patient called and advised. * Mandi Bullard MD - 02/24/2019 12:39 PM CDT Continue to use the dulcolax and Miralax daily. Drink 8 glasses of water daily. Add 1 tsp of metamucil daily * Karoline Guillaume, RN - 02/24/2019 12:30 PM CDT Clinician Action: Input needed regarding ongoing symptoms Clinician Next Step: Route to [facility] to follow up and Patient IS expecting a call back from care team Specific Request(s): 1. Pt calling about telephone note from 02/21 regarding her constipation. She has been taking the Dulolax and the Miralax daily. She had one small stool the next morning (02/23). Nothing since. She is asking if she should continue plan. If so for how long. She states she is leaving Thursday for 11 days in a remote area of [facility], wanted to make sure she had this under control until then * Jonnathan Conner - 02/24/2019 12:19 PM CDT Symptoms Describe your symptoms (if pain, include location): Chronic constipation When did they start? 02/12/19 Additional comments (related to the above concern): If a prescription is needed, patient would [...] Triage Pool (only transfer if caller insists) documented in this encounter Plan of Treatment Upcoming Encounters Date Type Department Care Team (Late st Contact Info) Description 04/19/2024 11:30 AM CDT Appointment [address] [address] Zaria Le MD [address] [place] [address] documented as of this encounter Visit Diagnoses Not on filedocumented in this encounter Care Teams Angledozer Operator Relationship Specialty Start Date End Date Found, No Pcp, [address] [place] [address] PCP - General 04/07/22 documented as of this encounter
== END 2023-12-05 20:32 | disposition home or self-care (01) ==
LOC: AMB 12-12 08:14
PROVIDERS: PCP Family Medicine; Visit Provider Family Medicine
DX: S99.912A Unspecified injury of left ankle, initial encounter (principal); W01.0XXA Fall on same level from slipping, tripping and stumbling without subsequent striking against object, initial encounter; Y92.039 Unspecified place in apartment as the place of occurrence of the external cause
CPT/HCPCS: A0998

== ENCOUNTER 2024-03-21 08:38 | Emergency (ER) | payer MEDICARE, SELFPAY ==
[2024-03-21 08:47] VITALS: BP 177/89; PULSE 87; RESP 18; TEMP 36.6; O2SAT 100; BMI 38.1
--- NOTE | 2024-03-21 09:13 | ED_ITS ---
HPI - Back Pain/Injury General Date Seen: 03/21/24 Chief Complaint: Back Injury/Pain Stated Complaint: back pain Time Seen by Provider: 03/21/24 08:42 Source: patient Mode of arrival: ambulatory Limitations: no limitations History of Present Illness HPI Narrative: Patient is a 73-year-old female with a history of austen-danlos syndrome, chronic balance issues and dizziness presenting to the emergency department for left-sided low back pain. She states she was doing some home PT exercises and this is the 1st time she ever did these exercises. She did 1 step up onto a step when she felt pain in her left low back. This happened on Thursday. Pain has been getting worse all weekend. She tried to get an appointment but was told by [facility] to come to the ED. states she has been constantly having pain and Aleve has only minimally improved her symptoms. Denies saddle anesthesia, urinary retention, incontinence, fevers, chills. Denies back pain like this before. Denies any midline back pain and states that it is all located in her left lower back. Related Data Home Medications ?Medication ?Instructions ?Recorded ?Confirmed albuterol sulfate 90 mcg/actuation 2 inh inhalation Q4H PRN 02/11/22 04/30/23 breath activated powder inhaler aspirin 81 mg tablet,delayed 81 mg PO QDAY 02/11/22 04/30/23 release (Adult Low Dose Aspirin) cholecalciferol (vitamin D3) 125 125 mcg PO QDAY 02/11/22 04/30/23 mcg (5,000 unit) capsule rosuvastatin 10 mg tablet (Crestor) 10 mg PO QDAY 02/11/22 04/30/23 triamcinolone acetonide 0.1 % 1 applic topical TID 02/11/22 04/30/23 topical ointment atogepant 30 mg tablet (Qulipta) 30 mg PO QDAY 09/27/22 04/30/23 enoxaparin 60 mg/0.6 mL 60 mg subcut Q24H PRN 09/27/22 04/30/23 subcutaneous syringe linaclotide 145 mcg capsule 72 mcg PO QAM 07/24/23 07/24/23 (Linzess) Previous Rx's ?Medication ?Instructions ?Recorded levothyroxine 100 mcg tablet 100 mcg PO DAILY #14 tabs 04/30/23 (Synthroid) cyclobenzaprine 10 mg tablet 10 mg PO TID PRN muscle spasm #15 03/21/24 tabs oxycodone 5 mg tablet 5 mg PO Q6H PRN pain #12 tabs 03/21/24 Allergies Allergy/AdvReac Type Severity Reaction Status Date / Time galcanezumab-gnlm Allergy Severe Palpitation Verified 07/24/23 08:25 s tramadol Allergy Severe migraines Verified 07/24/23 08:25 butterbur Allergy Intermediate gi upset Verified 07/24/23 08:25 midazolam Allergy Intermediate paradoxial Verified 07/24/23 08:25 agitation cephalexin Allergy Mild Rash Verified 07/24/23 08:25 latex Allergy Mild dermatitis Verified 07/24/23 08:25 erythromycin base Allergy Unknown Verified 07/24/23 08:25 Penicillins Allergy Unknown Verified 07/24/23 08:25 timolol Allergy Unknown Verified 07/24/23 08:25 chlorhexidine Allergy Verified 07/24/23 08:25 gabapentin Allergy Verified 07/24/23 08:25 propranolol Allergy Verified 07/24/23 08:25 silicone Allergy Verified 07/24/23 08:25 topiramate Allergy Verified 07/24/23 08:25 trazodone Allergy Verified 07/24/23 08:25 Common paper wasp venom Allergy Uncoded 07/24/23 08:25 protein Review of Systems Narrative: Pertinent systems reviewed and were negative unless stated HPI PFSH [facility] Medical History Hypertension ?I10 - Essential (primary) hypertension (ICD-10) Encounter for follow-up ?Z09 - Encounter for follow-up examination after completed treatment for conditions other than malignant neoplasm (ICD-10) Surgical History Status post hysterectomy ?Z90.710 - Acquired absence of both cervix and uterus (ICD-10) History of total bilateral knee replacement ?Z96.653 - Presence of artificial knee joint, bilateral (ICD-10) History of tonsillectomy ?Z90.89 - Acquired absence of other organs (ICD-10) History of sinus surgery ?Z98.890 - Other specified postprocedural states (ICD-10) History of repair of hiatal hernia ?Z98.890 - Other specified postprocedural states (ICD-10) ?Z87.19 - Personal history of other diseases of the digestive system (ICD-10) History of hysterectomy ?Z90.710 - Acquired absence of both cervix and uterus (ICD-10) History of bunionectomy of both great toes ?Z98.890 - Other specified postprocedural states (ICD-10) Family History Father Stroke Other Cardiovascular disease Diabetes Psychiatric disorder Social History Narrative: Non-smoker Smoking Status: Never smoker Do you use any of these nicotine containing products: None How often do you have a drink containing alcohol: monthly or less How often do you have six or more drinks on one occasion: Never AUDIT-C Alcohol total score: 1 Non-prescribed substance use: denies use service: No Exam Narrative: Exam Narrative: Const: Well-nourished, Well-developed, in mild distress Eyes: PERRL, no conjunctival injection, and symmetrical lids HENT: Atraumatic external nose and ears. Moist mucous membranes. MSK:Extremities w/o deformity, Normal Active ROM, tenderness left lower paraspinal muscles. No midline tenderness of her lumbar spine or tenderness over the ilium Skin: Warm, Dry. No rashes or lesions. Neuro: Normal Muscle tone, No focal neurological deficits. Psych: Awake, Alert, & Oriented x3. Appropriate mood and affect. Const: Vital Signs, click to edit/add: Vital Signs - 24 hr 03/21/24 08:47 Temperature 98 F Pulse Rate [Left P ulse Oximeter] 87 Respiratory Rate 18 Blood Pressure [Ri ght Forearm] 177/89 H Pulse Oximetry 100 Oxygen Delivery Me thod Room Air Course Vital Signs Vital signs: Initial Vital Signs Temperature 98 F 03/21/24 08:47 Temperature Source Temporal Artery Scan 03/21/24 08:47 Pulse Rate 87 03/21/24 08:47 Pulse Rhythm Regular 03/21/24 08:47 Pulse Strength 3+ Normal 03/21/24 08:47 Respiratory Rate 18 03/21/24 08:47 Blood Pressure 177/89 H 03/21/24 08:47 Blood Pressure Mean 118 H 03/21/24 08:47 Blood Pressure Position Supine 03/21/24 08:47 Pulse Oximetry 100 03/21/24 08:47 Oxygen Delivery Method Room Air 03/21/24 08:47 Vital Signs Temperature 98 F 03/21/24 08:47 Pulse Rate 87 03/21/24 08:47 Respiratory Rate 18 03/21/24 08:47 Blood Pressure 177/89 H 03/21/24 08:47 Pulse Oximetry 100 03/21/24 08:47 Oxygen Delivery Method Room Air 03/21/24 08:47 Temperature 98 F 03/21/24 08:47 Pulse Rate 87 03/21/24 08:47 Respiratory Rate 18 03/21/24 08:47 Blood Pressure 177/89 H 03/21/24 08:47 Pulse Oximetry 100 03/21/24 08:47 Oxygen Delivery Method Room Air 03/21/24 08:47 MDM - Back Pain/Injury MDM Narrative Medical decision making narrative: Patient is a 73-year-old female presenting for low back pain. Pain is in the left paraspinal muscles. No midline tenderness. No bony tenderness over the hip. Seems most likely to be muscle strain. I spoke to her about in x-ray in explained I think this is unlikely to be any fracture related injury at this time she agreed on passing up on the x-ray. I will give her some Flexeril to see if it helps with her pain. She states the pain improved at rest but when she tried to get up again she was having large amount of pain again. She was able to set up though. I will give her a dose of oxycodone. She states she has had oxycodone before without issue. She is otherwise looking well and I will discharge her at this time. Will give her prescriptions for Flexeril and oxycodone. She is agreeable to this plan. Discharge Plan Discharge Clinical Impression: Strain of lumbar region Qualifiers: Encounter type: initial encounter Qualified Code(s): S39.012A - Strain of muscle, fascia and tendon of lower back, initial encounter Patient Disposition: Home, Self-Care Condition: Stable Instructions: Back Pain (ED) Additional Instructions: You can continue take Tylenol and Aleve for your back pain. It as not working tried Flexeril and after that you can try the oxycodone. Of note both Flexeril oxycodone increase your fall risk so be careful when you takes them. If you require further pain medication after these prescriptions ran out you will need to follow-up the primary care provider as we will be unable to give a 2nd prescription through the emergency department. Prescriptions: New cyclobenzaprine 10 mg tablet 10 mg PO TID PRN (Reason: muscle spasm) Qty: 15 0RF oxycodone 5 mg tablet 5 mg PO Q6H PRN (Reason: pain) Qty: 12 0RF No Action rosuvastatin [Crestor] 10 mg tablet 10 mg PO QDAY albuterol sulfate 90 mcg/actuation aerosol powdr breath activated 2 inh inhalation Q4H PRN cholecalciferol (vitamin D3) 125 mcg (5,000 unit) capsule 125 mcg PO QDAY triamcinolone acetonide 0.1 % ointment 1 applic topical TID aspirin [Adult Low Dose Aspirin] 81 mg tablet,delayed release (DR/EC) 81 mg PO QDAY enoxaparin 60 mg/0.6 mL syringe 60 mg subcut Q24H PRN Linzess 145 mcg capsule 72 mcg PO QAM Qulipta 30 mg tablet 30 mg PO QDAY levothyroxine [Synthroid] 100 mcg tablet 100 mcg PO DAILY Qty: 14 0RF Follow Up/Referrals: Meka Perez MD [Primary Care Provider] - Stand Alone Forms: [employer] Info Instructions
--- OUTSIDE RECORDS SUMMARY | 2024-03-21 09:35 | XMS_ITS | Clinical Summary ---
Author Organization [email or web address] Address [place], [place] [address] Care Team Providers Care Emt/Paramedic Name Role Phone Meka Perez MD Primary [...] mouth once daily with a meal. 0 0 Active triamcinolone (ARISTOCORT) 0.1 % ointment Apply topically to affected area(s) 3 times daily. 0 1 Active triamcinolone (ARISTOCORT; KENALOG) 0.1 % cream Apply topically to affected area(s) 3 times daily. 80 g 1 Active cholecalciferol, Vitamin D3, 5,000 unit tab tablet 1 capsule by mouth 4 times weekly 0 1 Active inhalational spacing deviceIndications:M oderate persistent asthma with exacerbation Antistatic valved holding chamber by boyd 1 Each 2 Active acetaminophen (Tylenol Extra Strength) 500 mg tablet 2 Active atogepant (Qulipta) 30 mg tab once daily. 0 3 Active albuterol HFA (PRO-AIR; VENTOLIN; PROVENTIL) 90 mcg/actuation inhalerIndications: Rosie-Danlos disease Inhale 1-2 Puffs by mouth every 4 hours if needed for Shortness of Breath 1st choice or Wheezing 1st choice. 1 Each 3 3 Active SF 5000 Plus 1.1 % crea 3 Active linaCLOtide (Linzess) 145 mcg cap capsuleIndications: Chronic constipation Take 1 Capsule (145 mcg) by mouth before breakfast. 90 Capsule 3 4 Active enoxaparin (LOVENOX) 60 mg/0.6 mL injectionIndication s:Lupus anticoagulant positive As needed for DVT prophylaxis with presence of lupus anticoagulant when she is in situation when she needs prolong bed rest or on the airplane/car long thern 2 hour nonstop. 3 Each 4 Active rosuvastatin (CRESTOR) 10 mg tabletIndications:M ild hyperlipidemia Take 1 Tablet (10 mg) by mouth at bedtime. 90 Tablet 3 4 Active metoclopramide HCl (REGLAN) 5 mg tabletIndications:H /O motion sickness Take 1 Tablet (5 mg) by mouth once daily if needed for Nausea/Vomiting. 5 Tablet 4 Active levothyroxine (SYNTHROID) 112 mcg tabletIndications:H ypothyroidism (acquired) Take 1 Tablet (112 mcg) by mouth before breakfast. 90 Tablet 3 4 Active cyanocobalamin (Vitamin B-12) 1,000 mcg tabletIndications:V itamin B 12 deficiency Take 1 Tablet (1,000 mcg) by mouth once daily. 90 Tablet 3 4 Active polyethylene glycoL (MIRALAX) 17 gram/scoop powderIndications:C hronic constipation Mix 1 scoop (17 g) in liquid then take by mouth once daily. 1700 g 3 4 Active levothyroxine (SYNTHROID) 112 mcg tabletIndications:H ypothyroidism (acquired) Take 1 Tablet (112 mcg) by mouth before breakfast. 4 03/01/20 24 Discontinu ed(Reorder (E-cancel not sent)) cyanocobalamin (Vitamin B-12) 1,000 mcg tabletIndications:V itamin B 12 deficiency Take 1 Tablet (1,000 mcg) by mouth once daily. 90 Tablet 3 4 03/01/20 24 Discontinu ed(Reorder (E-cancel not sent)) Active Problems Problem Noted Date Diagnosed Date NAVYA 11/05/2021 AHI- 6.5 02/24/2024 Paroxysmal SVT (supraventricular tachycardia) Depression, major, in [...] syndrome 05/28/2017 History of Tamia fundoplication 02/24/2017 [place] hump 02/27/2015 Varicose veins of lower extremity 09/16/2010 Overview: Overview: LW Modifier: surgery ; Varicose Veins w Pain LW Modifier: surgery ; Varicose Veins w Pain Added automatically from request for surgery [id number] Hypovitaminosis D 05/11/2009 Chronic back pain 05/11/2009 [...] Encounters Date Type Department Care Team Description 03/21/2024 Nurse Triage [facility] [address] [place] [address] Meka Perez MD Lower Back Pain 03/08/2024 Telephone [facility] [address] [place] [address] Meka Perez MD Questions (Questions) 03/01/2024 2:00 PM CDT Office Visit [facility] [address] [place] [address] Meka Perez MD Follow Up (B12); Medication Management (Discuss linzness/) 03/01/2024 Travel 02/24/2024 11:00 AM CDT Office Visit [facility] [address] [facility] [place] [address] Dieter Delgado MD Sleep Consult (Cpap-transferring care) 02/23/2024 10:00 AM CDT Office Visit [address] [place] [address] 02/23/2024 9:20 AM CDT Office Visit [facility] [place] [facility] [address] [place] [address] Maximiliano Beauchamp MD Follow Up (Follow up after MRI 12/24/23 and discuss medications ) 02/23/2024 8:45 AM CDT Orders Only [facility] [address] [place] [place] [address] Lab, [facility] 02/23/2024 Travel 02/22/2024 Travel 01/26/2024 1:10 PM CDT Phone Office Visit [facility] [address] [facility] [place] [address] Meka Perez MD Medication Management (Zofran) 01/26/2024 Travel 01/20/2024 Telephone [facility] [address] [facility] [place] [address] Meka Perez MD Medication Management (metoclopramide HCl (REGLAN) 10 mg tablet) 01/13/[address] [place] [address] Jacob Galo MD Questions 12/24/2023 9:45 AM CDT Ancillary Procedure [facility] [id number] [place] [address] [address] [place] [address] 12/24/2023 Telephone [facility] [address] [facility] [place] [address] Meka Perez MD Referral (transfer referral) 12/23/2023 Travel 12/23/2023 Telephone [facility] [address] [place] [address] Meka Perez MD 12/22/2023 3:40 PM CDT Office Visit [facility] [address] [facility] [place] [address] Meka Perez MD Follow Up 12/22/2023 1:00 PM CDT Office Visit [facility] [place] [facility] [address] [place] [address] Maximiliano Beauchamp MD Follow Up (Follow up, having some dizziness, unsteadiness, trouble walking/tripping, confusion, hand tremors, and pain. Patient is wondering if this could be side effects from medications. ) 12/21/2023 Travel from Last 3 Months Immunizations Name Administration Dates Next Due COVID-19 vaccine (Moderna 100mcg/0.5mL) PF, MDV 11/20/2021 COVID-19 vaccine (Moderna 50 mcg/0.5mL) 12YO+ BIVALENT PF, MDV 12/12/2022 COVID-19 vaccine (Pfizer-Bio NTech 30mcg/0.3mL) PF, MDV 10/26/2020,10/04/2020 DT (Age [...] of Communication with Friends and Fami ly Not on file 01/13/2024 Financial Resource Strain Answer Date R ecorded [...] Sign Reading Time Taken Comments Blood Pressure 130/80 03/01/2024 2:17 PM CDT Pulse 68 03/01/2024 2:17 PM CDT Temperature 36.8 ??C (98.3 ??F) 01/12/2023 9:04 AM CD T Respiratory Rate 16 10/23/2023 8:26 AM MOBILE DEVELOPER Oxygen Saturation 100% 03/01/2024 2:17 PM CDT Inhaled Oxygen Concentration - - Weight 101.2 kg (223 lb 3.2 oz) 12/22/2023 3:42 PM CDT Height 162.6 cm (5' 4) 07/17/2023 2:21 PM MOBILE DEVELOPER Body Mass Index 38.31 07/17/2023 2:21 PM MOBILE DEVELOPER Plan of Treatment Upcoming Encounters Date Type Department Care Team (Late st Contact Info) Description 04/01/2024 2:00 PM CDT Ancillary Procedure [facility] [id number] [place] [address] [address] [place] [address] 05/03/2024 1:10 PM CDT Office Visit [facility] [address] [place] [address] Meka Perez MD [address] [place] [address] Health Maintenance Due Date Last Done Comments Pneumococcal series for age 65+ (2 of 2 - PPSV23 or PCV20) 12/29/2015 12/28/2014 Depression screening for age 12+ 12/19/2022 12/19/2021, 11/30/2020 Medicare Wellness for age 65+ 12/20/2022 12/19/2021 COVID-19 vaccine series ( season) 2023 05/22/2023, 12/12/2022, 04/28/2022, Additional history exists Influenza for age 65+ 04/17/2024 05/08/2023 , [...] 10/12/2019, 05/03/2019, 11/22/2009 Tdap Completed 12/30/2021, 12/04/2011 Procedures Procedure Name Priority Date/Time Associated Diagnosis Comments EXTENDED HOLTER Routine 03/21/2024 12:00 AM CDT TIA (transient ischemic attack) VITAMIN B12 Routine 02/23/2024 8:40 AM CDT Vitamin B 12 deficiency T4,FREE Routine 02/23/2024 8:40 AM CDT Hypothyroidism (acquired) TSH Routine 02/23/2024 8:40 AM CDT Hypothyroidism (acquired) MR HEAD BRAIN STROKE WWO MR ANGIO HEAD WO NECK WWO DIOGENES 12/24/2023 10:44 AM CDT TIA (transient ischemic attack) CBC WITH AUTO DIFFERENTIAL Routine 12/22/2023 4:30 PM CDT Hypothyroidism (acquired) Depression, major, in remission (HC) VITAMIN B12 Routine 12/22/2023 4:30 PM CDT Obesity, morbid (HC) T4,FREE Routine 12/22/2023 4:30 PM CDT Hypothyroidism (acquired) PHOSPHORUS Routine 12/22/2023 4:30 PM CDT Peripheral sensory neuropathy MAGNESIUM Routine 12/22/2023 4:30 PM CDT Peripheral sensory neuropathy FOLIC ACID Routine 12/22/2023 4:30 PM CDT Peripheral sensory neuropathy VITAMIN D 25 (DEFICIENCY) Routine 12/22/2023 4:30 PM CDT Obesity, morbid (HC) CBC WITH AUTO DIFFERENTIAL Routine 12/22/2023 4:30 PM CDT Hypothyroidism (acquired) Depression, major, in remission (HC) COMP METABOLIC PANEL Routine 12/22/2023 4:30 PM CDT HTN (hypertension) TSH Routine 12/22/2023 4:30 PM CDT Hypothyroidism (acquired) SCAN-COLONOSCOPY 04/16/2022 11:0 0 AM CDT LIPID PANEL Routine 12/19/2021 10:30 AM CDT Mild hyperlipidemia from Last 3 Months or Most Recently Relevant to Health Maintenance Results * TSH (02/23/2024 8:40 AM CDT) Only the most recent of2 resultswithin the time period is included. TSH 2.19 0.27 - 4.20 uIU/mL 02/23/2024 7:34 PM CDT [facility] Blood BLOOD SPECIMEN / Unknown Butterfly / Unknown 02/23/2024 8:40 AM CDT 02/23/2024 8:48 AM CDT [facility] - 02/23/2024 7:34 PM CDT In Adults, TSH values between 5.00 and 10.00 uIU/ml do not necessarily indicate the presence of Hypothyroidism. Correlation with clinical findings such as presence of goiter and/or Thyroperoxidase (TPO) Antibody may be helpful. For more information please refer to REGINA 2004; 291: 228-238. Meka Perez MD CHEMISTRY Performing Organization Address [facility] Co de Phone Number [facility] [address] * T4,FREE (02/23/2024 8:40 AM CDT) Only the most recent of2 resultswithin the time period is included. T4,FREE 1.68 0.93 - 1.70 ng/dL 02/23/2024 7:34 PM CDT [facility] Blood BLOOD SPECIMEN / Unknown Butterfly / Unknown 02/23/2024 8:40 AM CDT 02/23/2024 8:48 AM CDT Meka Perez MD CHEMISTRY Performing Organization Address [facility] Phone Number [facility] [address] [place] [address], * VITAMIN B12 (02/23/2024 8:40 AM CDT) Only the most recent of2 resultswithin the time period is included. VITAMIN B12 596 232 - 1,245 pg/mL 02/23/2024 7:34 PM CDT [facility] Blood BLOOD SPECIMEN / Unknown Butterfly / Unknown 02/23/2024 8:40 AM CDT 02/23/2024 8:48 AM CDT Narrative [facility] - 02/23/2024 7:34 PM CDT Biotin supplements may cause clinically significant interference for this test assay. ??If interference is suspected, it is strongly recommended that biotin is discontinued for at least one week prior to retesting. Meka Perez MD CHEMISTRY Performing Organization Address [facility] Co de Phone Number [facility] [address] [address], * MR HEAD BRAIN WWO MR ANGIO HEAD WO NECK WWO (12/24/2023 10:44 AM CDT) Anatomical Region Laterality Modality NECK, CAROTID, HEAD Magnetic Res onance 12/24/2023 10:5 6 AM CDT Addenda Addendum by Acacia Birmingham DO on 12/24/2023 10:57 AM CDT For Patients: ??As a result of the Cures Act, medical imaging exams and procedure reports are released immediately into your electronic medical record. ??You may view this report before your referring provider. ?? If you have questions, please contact your health care provider. Indication: Transient ischemic attack with transient neurologic disturbance Technique: MRI Head: performed before and after IV contrast. MRA Head: performed without IV contrast. MRA Neck: performed before and after IV contrast. Gadolinium-based contrast agent: 20 mL Clariscan IV contrast. Comparison: MRI brain 04/30/2023. Findings: MRI Head: No evidence for recent infarct or hemorrhage. No intracranial mass effect. No ventricular obstruction. Scattered FLAIR hyperintense foci throughout the supratentorial white matter, typical of mild chronic microangiopathy. No suspicious susceptibility or pathologic intracranial enhancement. Unremarkable bone marrow signal. No paranasal sinus air-fluid level or mastoid effusion. Unremarkable orbits. MRA Head: The intracranial segments of the internal carotid arteries and basilar artery are widely patent. The anterior, middle and posterior cerebral arteries and proximal branches are unremarkable. No evidence of an aneurysm over 3 mm. No high-flow AV malformation. No high-grade stenosis. MRA Neck: The bilateral common carotid arteries, internal and external carotid arteries are widely patent. No stenosis near the common carotid bifurcations. Bilateral vertebral arteries also appear widely patent. Impression: MRI Head: 1. No acute pathology identified. No evidence for mass, hemorrhage or recent infarct. 2. Mild chronic microangiopathy changes. MRA Head: 1. No proximal arterial occlusion, high-grade stenosis, aneurysm, dissection, or vascular malformation. MRA Neck: 1. No evidence for hemodynamically significant ICA stenosis by NASCET criteria. 2. No evidence for carotid or vertebral artery dissection in the neck. Dictated by Acacia Birmingham MD @ 12/24/2023 10:57:41 AM (Electronically Signed) Addendum by Acacia Birmingham DO on 12/24/2023 10:57 AM CDT For Patients: ??As a result of the Cures Act, medical imaging exams and procedure reports are released immediately into your electronic medical record. ??You may view this report before your referring provider. ?? If you have questions, please contact your health care provider. Indication: Transient ischemic attack with transient neurologic disturbance Technique: MRI Head: performed before and after IV contrast. MRA Head: performed without IV contrast. MRA Neck: performed before and after IV contrast. Gadolinium-based contrast agent: 20 mL Clariscan IV contrast. Comparison: MRI brain 04/30/2023. Findings: MRI Head: No evidence for recent infarct or hemorrhage. No intracranial mass effect. No ventricular obstruction. Scattered FLAIR hyperintense foci throughout the supratentorial white matter, typical of mild chronic microangiopathy. No suspicious susceptibility or pathologic intracranial enhancement. Unremarkable bone marrow signal. No paranasal sinus air-fluid level or mastoid effusion. Unremarkable orbits. MRA Head: The intracranial segments of the internal carotid arteries and basilar artery are widely patent. The anterior, middle and posterior cerebral arteries and proximal branches are unremarkable. No evidence of an aneurysm over 3 mm. No high-flow AV malformation. No high-grade stenosis. MRA Neck: The bilateral common carotid arteries, internal and external carotid arteries are widely patent. No stenosis near the common carotid bifurcations. Bilateral vertebral arteries also appear widely patent. Impression: MRI Head: 1. No acute pathology identified. No evidence for mass, hemorrhage or recent infarct. 2. Mild chronic microangiopathy changes. MRA Head: 1. No proximal arterial occlusion, high-grade stenosis, aneurysm, dissection, or vascular malformation. MRA Neck: 1. No evidence for hemodynamically significant ICA stenosis by NASCET criteria. 2. No evidence for carotid or vertebral artery dissection in the neck. Dictated by Acacia Birmingham MD @ 12/24/2023 10:57:10 AM (Electronically Signed) Narrative 12/24/2023 10:56 AM CDT For Patients: ??As a result of the Cures Act, medical imaging exams and procedure reports are released immediately into your electronic medical record. ??You may view this report before your referring provider. ??If you have questions, please contact your health care provider. Indication: Transient ischemic attack with transient neurologic disturbance Technique: MRI Head: performed before and after IV contrast. MRA Head: performed without IV contrast. MRA Neck: performed before and after IV contrast. Gadolinium-based contrast agent: 20 mL Clariscan IV contrast. Comparison: MRI brain 04/30/2023. Findings: MRI Head: No evidence for recent infarct or hemorrhage. No intracranial mass effect. No ventricular obstruction. Scattered FLAIR hyperintense foci throughout the supratentorial white matter, typical of mild chronic microangiopathy. No suspicious susceptibility or pathologic intracranial enhancement. Unremarkable bone marrow signal. No paranasal sinus air-fluid level or mastoid effusion. Unremarkable orbits. MRA Head: The intracranial segments of the internal carotid arteries and basilar artery are widely patent. The anterior, middle and posterior cerebral arteries and proximal branches are unremarkable. No evidence of an aneurysm over 3 mm. No high-flow AV malformation. No high-grade stenosis. MRA Neck: The bilateral common carotid arteries, internal and external carotid arteries are widely patent. No stenosis near the common carotid bifurcations. Bilateral vertebral arteries also appear widely patent. Impression: MRI Head: 1. No acute pathology identified. No evidence for mass, hemorrhage or recent infarct. 2. Mild chronic microangiopathy changes. MRA Head: 1. No proximal arterial occlusion, high-grade stenosis, aneurysm, dissection, or vascular malformation. MRA Neck: 1. No evidence for hemodynamically significant ICA stenosis by NASCET criteria. 2. No evidence for carotid or vertebral artery dissection in the neck. Dictated by Acacia Birmingham MD @ 12/24/2023 10:56:36 AM (Electronically Signed) Procedure Note Acacia Birmingham DO - 12/24/2023 For Patients: As a result of the 21st Century Cures Act, medical imagingexams and procedure reports are released immediately into your electronicmedical record. You may view this report before your referring provider.If you have questions, please contact your health care provider. Indication: Transient ischemic attack with transient neurologic disturbance Technique: MRI Head: performed before and after IV contrast. MRA Head: performed without IV contrast. MRA Neck: performed before and after IV contrast. Gadolinium-based contrast agent: 20 mL Clariscan IV contrast. Comparison: MRI brain 04/30/2023. Findings: MRI Head: No evidence for recent infarct or hemorrhage. No intracranial mass effect.No ventricular obstruction. Scattered FLAIR hyperintense foci throughoutthe supratentorial white matter, typical of mild chronic microangiopathy.No suspicious susceptibility or pathologic intracranial enhancement.Unremarkable bone marrow signal. No paranasal sinus air-fluid level ormastoid effusion. Unremarkable orbits. MRA Head: The intracranial segments of the internal carotid arteries and basilarartery are widely patent. The anterior, middle and posterior cerebralarteries and proximal branches are unremarkable. No evidence of ananeurysm over 3 mm. No high-flow AV malformation. No high-gradestenosis. MRA Neck: The bilateral common carotid arteries, internal and external carotidarteries are widely patent. No stenosis near the common carotidbifurcations. Bilateral vertebral arteries also appear widely patent. Impression: MRI Head: 1. No acute pathology identified. No evidence for mass, hemorrhage orrecent infarct. 2. Mild chronic microangiopathy changes. MRA Head: 1. No proximal arterial occlusion, high-grade stenosis, aneurysm,dissection, or vascular malformation. MRA Neck: 1. No evidence for hemodynamically significant ICA stenosis by NASCETcriteria. 2. No evidence for carotid or vertebral artery dissection in the neck. Dictated by Acacia Birmingham MD @ 12/24/2023 10:56:36 AM (Electronically Signed) Maximiliano Beauchamp MD MR * (ABNORMAL) CBC WITH AUTO DIFFERENTIAL (12/22/2023 4:30 PM CDT) [facility] WHITE BLOOD COUNT 6.6 4.5 - 11.0 thou/cu mm 12/22/2023 4:37 PM CDT [facility] RED BLOOD COUNT 3.78(L) 4.00 - 5.20 mil/cu mm 12/22/2023 4:37 PM CDT [facility] HEMOGLOBIN 12.3 12.0 - 16.0 g/dL 12/22/2023 4:37 PM CDT [facility] HEMATOCRIT 37.1 33.0 - 51.0 % 12/22/2023 4:37 PM CDT [facility] MCV 98 80 - 100 fL 12/22/2023 4:37 PM CDT [facility] MCH 32.5 26.0 - 34.0 pg 12/22/2023 4:37 PM CDT [facility] MCHC 33.2 32.0 - 36.0 g/dL 12/22/2023 4:37 PM CDT [facility] RDW 12.9 11.5 - 15.5 % 12/22/2023 4:37 PM CDT [facility] PLATELET COUNT 205 140 - 440 thou/cu mm 12/22/2023 4:37 PM CDT [facility] MPV 11.5(H) 6.5 - 11.0 fL 12/22/2023 4:37 PM CDT [facility] % NEUT 64.7 % 12/22/2023 4:37 PM CDT [facility] % LYMPH 24.3 % 12/22/2023 4:37 PM CDT [facility] % MONO 8.9 % 12/22/2023 4:37 PM CDT [facility] % EOS 1.8 % 12/22/2023 4:37 PM CDT [facility] % BASO 0.3 % 12/22/2023 4:37 PM CDT [facility] ABSOLUTE NEUTROPHILS 4.2 1.7 - 7.0 thou/cu mm 12/22/2023 4:37 PM CDT [facility] ABSOLUTE LYMPHOCYTES 1.6 0.9 - 2.9 thou/cu mm 12/22/2023 4:37 PM CDT [facility] ABSOLUTE MONOCYTES 0.6 <0.9 thou/cu mm 12/22/2023 4:37 PM CDT [facility] ABSOLUTE EOSINOPHILS 0.1 <0.5 thou/cu mm 12/22/2023 4:37 PM CDT [facility] ABSOLUTE BASOPHILS 0.0 <0.3 thou/cu mm 12/22/2023 4:37 PM CDT [facility] Blood BLOOD SPECIMEN / Unknown Butterfly / Unknown 12/22/2023 4:30 PM CDT 12/22/2023 4:34 PM CDT Meka Perez MD HEMATOLOGY [facility] [address] [place] [address], [place] [phone] * VITAMIN D 25 (DEFICIENCY) (12/22/2023 4:30 PM CDT) VITAMIN D TOTAL 49.4 20.0 - 80.0 ng/mL 12/23/2023 3:02 PM CDT [facility] Blood BLOOD SPECIMEN / Unknown Butterfly / Unknown 12/22/2023 4:30 PM CDT 12/22/2023 4:34 PM CDT Narrative [facility] - 12/23/2023 3:02 PM CDT ? Vitamin D Status Deficiency: ? <20 ng/mL Insufficiency: ?20-29 ng/mL Sufficiency: ?30-80 ng/mL Possible Toxicity: ??>80 ng/mL Based on [place] of [facility] recommendations Biotin supplements may cause clinically significant interference for this test assay. ??If interference is suspected, it is strongly recommended that biotin is discontinued for at least one week prior to retesting. Meka Perez MD SEND OUTS Performing Organization Address [facility] de Phone Number [facility] [address] [place] [place] [id number], [place] * PHOSPHATE (12/22/2023 4:30 PM CDT) Pathologist [facility] PHOSPHORUS 3.9 2.5 - 4.5 mg/dL 12/23/2023 2:30 PM CDT [facility] Blood BLOOD SPECIMEN / Unknown Butterfly / Unknown 12/22/2023 4:30 PM CDT 12/22/2023 4:34 PM CDT Meka Perez MD CHEMISTRY Performing Organization Address [facility] Co de Phone Number [facility] [address] [place] [address], [place] * MAGNESIUM (12/22/2023 4:30 PM CDT) MAGNESIUM 2.0 1.6 - 2.4 mg/dL 12/23/2023 2:30 PM CDT [facility] Blood BLOOD SPECIMEN / Unknown Butterfly / Unknown 12/22/2023 4:30 PM CDT 12/22/2023 4:34 PM CDT Meka Perez MD CHEMISTRY Performing Organization Address [facility] Co de Phone Number [facility] [address] [place] [address], * FOLIC ACID (12/22/2023 4:30 PM CDT) FOLIC ACID 8.0 4.6 - 34.8 ng/mL 12/23/2023 3:02 PM CDT [facility] Blood BLOOD SPECIMEN / Unknown Butterfly / Unknown 12/22/2023 4:30 PM CDT 12/22/2023 4:34 PM CDT Narrative [facility] - 12/23/2023 3:02 PM CDT Biotin supplements may cause clinically significant interference for this test assay. ??If interference is suspected, it is strongly recommended that biotin is discontinued for at least one week prior to retesting. Meka Perez MD CHEMISTRY Performing Organization Address [facility] de Phone Number [facility] [address] [place] [address], * (ABNORMAL) COMP METABOLIC PANEL (12/22/2023 4:30 PM CDT) SODIUM 142 136 - 145 mmol/L 12/23/2023 2:30 PM CDT [facility] POTASSIUM 4.8 3.5 - 5.1 mmol/L 12/23/2023 2:30 PM CDT [facility] CHLORIDE 105 98 - 107 mmol/L 12/23/2023 2:30 PM CDT [facility] CO2,TOTAL 28 22 - 29 mmol/L 12/23/2023 2:30 PM CDT [facility] ANION GAP 9 5 - 18 12/23/2023 2:30 PM T [facility] GLUCOSE 90 70 - 99 mg/dL 12/23/2023 2:30 PM T [facility] CALCIUM 9.8 8.8 - 10.2 mg/dL 12/23/2023 2:30 PM T [facility] BUN 24(H) 8 - 23 mg/dL 12/23/2023 2:30 PM T [facility] CREATININE 0.80 0.50 - 0.90 mg/dL 12/23/2023 2:30 PM [facility] BUN/CREAT RATIO 30(H) 10 - 20 2:30 PM [facility] eGFR 77(L) >90 mL/min/1.7 3m2 12/23/2023 2:30 PM [facility] Comment:As of 2021, eG FR is calculated by the CKD-EPI creatinine equation without race adjustment. ??eGFR can be influenced by muscle mass, exercise, and diet. ??The reported eGFR is an estimation only and is only applicable if the renal function is stable. ALBUMIN 4.3 4.0 - 4.9 g/dL 12/23/2023 2:30 PM T [facility] PROTEIN,TOTAL 6.3 6.0 - 8.0 g/dL 12/23/2023 2:30 PM [facility] BILIRUBIN,TOTAL 0.3 0.0 - 1.2 mg/dL 12/23/2023 2:30 PM [facility] ALK PHOSPHATASE 82 35 - 104 IU/L 12/23/2023 2:30 PM T [facility] ALT (SGPT) 13 10 - 35 IU/L 12/23/2023 2:30 PM T [facility] AST (SGOT) 21 10 - 35 IU/L 12/23/2023 2:30 PM CDT [facility] Blood BLOOD SPECIMEN / Unknown Butterfly / Unknown 12/22/2023 4:30 PM CDT 12/22/2023 4:34 PM CDT Meka Perez MD CHEMISTRY [facility] [address] [place] [address], [place] * SCAN-COLONOSCOPY (04/16/2022 11:00 AM CDT) Narrative Procedure Note Ira Rey MD - 04/16/2022 9:59 AM CDT [facility], [facility] [address] [place] [address], [address], [place] [address] Patient Name: Bianca Titus Gender: Female Exam Date: 04/16/2022 Visit Number: [id number] Age: 71 Years 9 Months Date of : 1950 Attending MD: Ira Rey MD Medical Record#: [id number] ----- Procedure: Colonoscopy Indications: Constipation Referring MD: [...] 3 Tablet by oral route every day forseven days as needed N prochlorperazine maleate 5 [...] no/never Never smoker Race: White Preferred Language: Korean cc: Meka Perez MD [facility] [phone] Ira Rey MD OTHER * LIPID PANEL (12/19/2021 10:30 AM CDT) CHOLESTEROL,TOTAL 158 100 - 199 mg/dL 12/20/2021 12:11 PM CDT [facility] [employer] [facility] TRIGLYCERIDES 40 <150 mg/dL 12/20/2021 12:[address] [facility] [employer] [facility] HDL CHOLESTEROL 77 >40 mg/dL 12:[address] [facility] [employer] NON-HDL CHOLESTEROL 81 <145 mg/dl 12/20/2021 12:[address] [facility] [employer] [facility] CHOL/HDL RATIO 2.05 <4.50 12/20/2021 12:[address] [facility] [employer] LDL CHOLESTEROL 73 <=130 mg/dL 12/20/2021 12:[address] [facility] [employer] [facility] VLDL CHOLESTEROL 8 <=30 mg/dL 12/20/2021 12:11 PM CDT [facility] PROVIDER ORDERED STATUS RANDOM 12/20/2021 12:11 PM CDT [facility] Blood BLOOD SPECIMEN / Unknown Venipuncture / Unknown 12/19/2021 10:30 AM CDT 12/19/2021 10:30 AM CDT Jacob Galo MD CHEMISTRY [facility] [employer] [facility] [address] [place] [address], [place] from Last 3 Months or Most Recently Relevant to Health Maintenance Care Teams Emt/Paramedic Relationship Specialty Start Date End Date Meka Perez MD [address] [place] [address] PCP - General Family Practice 11/30/20
--- OUTSIDE RECORDS SUMMARY | 2024-03-21 09:36 | XMS_ITS | Encounter Summary ---
Author Organization [place] Address [address] [place] [address] Care Team Providers Care Outdoor Advertising Leasing Agent Name Role Phone Mandi Bullard MD Primary Care Provider [phone] Mallory Cuadra MD Unavailable [phone] Encounter Details Date Type Department Care Team (Late st Contact Info) Description 02/27/2020 [facility] Medical Advice [facility] Neurology [address] [place] [id number] Roxy Mahan RN Social History Tobacco Use Types Packs/Day Years Used Date Smoking Tobacco: Never Smokeless Tobacco: Never Alcohol Use Standard Drinks/Week Comments Yes 0 (1 standard drink = 0.6 oz pur e alcohol) rare PHQ-2 Answer Date Recorded PHQ-2 Score 5 10/03/2019 Sex and Gender Information Value Date Recorded Sex Assigned at Female 09/30/2019 12:38 PM MANAGER FRENCH Gender Identity Female 09/30/2019 12:38 PM MANAGER FRENCH Sexual Orientation Straight 09/30/2019 12 :38 PM MANAGER FRENCH documented as of this encounter Plan of Treatment Not on file documented as of this encounter Visit Diagnoses Not on filedocumented in this encounter Additional Health Concerns Assessment Noted Time PHQ-9 Depression Total Score: 14 020 12:18 PM MANAGER FRENCH documented as of this encounter Care Teams Outdoor Advertising Leasing Agent Relationship Specialty Start Date End Date Mandi Bullard MD PCP - General Internal Medicine 10/30/17 Mallory Cuadra MD [address] [place] [address] Assigned Neuroscience Provider 06/08/20 02/21/22 documented as of this encounter
--- OUTSIDE RECORDS SUMMARY | 2024-03-21 09:36 | XMS_ITS | Clinical Summary ---
Author Organization [place] Address [address] [place] [address] Care Team Providers Care Patient Services Specialist Name Role Phone Mandi Bullard MD Primary Care Provider [phone] Allergies Active Allergy Reactions Criticality Noted Date [...] Sex Assigned at Female 09/30/2019 12:38 PM CORING MACHINE OPERATOR Gender Identity Female 09/30/2019 12:38 PM CORING MACHINE OPERATOR Sexual Orientation Straight 09/30/2019 12 :38 PM CORING MACHINE OPERATOR Last Filed Vital Signs Vital Sign Reading Time Taken Comments Blood Pressure 148/85 10/03/2019 12:13 PM CORING MACHINE OPERATOR Pulse 86 10/03/2019 12:13 PM CORING MACHINE OPERATOR Temperature 36.7 ??C (98 ??F) 10/30/2017 4:15 PM CDT Respiratory Rate 18 10/30/2017 10:1 5 PM CDT Oxygen Saturation 96% 10/03/2019 12: 13 PM CORING MACHINE OPERATOR Inhaled Oxygen Concentration - - Weight 113.4 kg (250 lb 1.6 oz) 020 12:13 PM CORING MACHINE OPERATOR Height - - Body Mass Index - [...] 2 - PPSV23 or PCV20) 12/29/2015 12/28/2014 FALL RISK ASSESSMENT 10/03/2020 10/03/2019, 10/03/19 20 GLUCOSE 10/30/2020 10/30/2017 COVID-19 Vaccine ( season) 2023 12/12/2022, 04/28/2022, 11/20/2021, Additional history exists PHQ-2 (once per calendar year) 2023 10/03/2019, 10/03/2019, 10/03/2019 INFLUENZA VACCINE (#1) 2024 2, 05/25/2021, 05/22/2020, Additional history exists COLONOSCOPY 02/23/2027 02/23/2017 COLORECTAL CANCER SCREENING 02/23/2027 [...] 133 - 144 mmol/L 10/30/2017 4:52 PM [facility] Potassium 4.2 3.4 - 5.3 mmol/L 10/30/2017 4:52 PM [facility] Chloride 108 94 - 109 mmol/L 10/30/2017 4:52 PM [facility] Carbon Dioxide 28 20 - 32 mmol/L 10/30/2017 4:52 PM [facility] Anion Gap 4 3 - 14 mmol/L 10/30/2017 4:52 PM [facility] Glucose 91 70 - 99 mg/dL 10/30/2017 4:52 PM [facility] Urea Nitrogen 22 7 - 30 mg/dL 10/30/2017 4:52 PM [facility] Creatinine 0.66 0.52 - 1.04 mg/dL 10/30/2017 4:52 PM [facility] GFR Estimate 88 >60 mL/min/1.7 m2 10/30/2017 4:52 PM [facility] Comment:Non GFR Calc GFR Estimate If Black >90 >60 mL/min/1.7 m2 10/30/2017 4:52 PM [facility] Comment: GFR Calc Calcium 9.3 8.5 - 10.1 mg/dL 10/30/2017 4:52 PM [facility] Bilirubin Total 0.4 0.2 - 1.3 mg/dL 10/30/2017 4:52 PM [facility] Albumin 3.9 3.4 - 5.0 g/dL 10/30/2017 4:52 PM [facility] Protein Total 7.4 6.8 - 8.8 g/dL 10/30/2017 4:52 PM [facility] Alkaline Phosphatase 74 40 - 150 U/L 10/30/2017 4:52 PM CDT [facility] ALT 26 0 - 50 U/L 10/30/2017 4:52 PM CDT [facility] AST 22 0 - 45 U/L 10/30/2017 4:52 PM CDT [facility] Blood specimen (specimen) 10/30/2017 4:16 PM CDT 10/30/2017 4:24 PM CDT Sarah Luque MD LAB - BLOOD ORDERABL ES [facility] [address] [phone] * - HIM Screen Colonoscopy Scan (02/23/2017) Narrative Chelle Baltazar COMMUNICATIONS ADMINISTRATOR - 02/23/2017 Result Narrative Patient Name: Bianca [...] oxygen saturations were monitored ? continuously. The [id number] was ? introduced through the anus and [...] Procedure Code(s): ?? --- Professional --- ? 44815, Colonoscopy, flexible; with ? biopsy, single or multiple Diagnosis Code(s): ?? --- Professional --- ? 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 flexure) ? Z86.010, Personal history of colonic ? polyps CPT copyright 2016 [employer] [place] [employer]. All rights reserved. The codes documented in this report are preliminary and upon wine steward/stewardess review may be revised to meet current [...] oxygen saturations were monitored ? continuously. The [id number] was ? introduced through the anus and [...] Procedure Code(s): ?? --- Professional --- ? 68780, Colonoscopy, flexible; with ? biopsy, single or multiple Diagnosis Code(s): ?? --- Professional --- ? 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 flexure) ? Z86.010, Personal history of colonic ? polyps CPT copyright 2016 [employer] [place] [employer]. All rights reserved. The codes documented in this report are preliminary and upon wine steward/stewardess review may be revised to meet current compliance requirements. Erick Wise MD 02/23/2017 4:28:55 PM This document has been electronically signed. Number of Addenda: 0 Note Initiated On: 02/23/2017 3:12 PM ? Endoscopy Report Provider Outside PROCEDURES from Last 3 Months or Most Recently Relevant to Health Maintenance Care Teams Patient Services Specialist Relationship Specialty Start Date End Date Mandi Bullard MD PCP - General Internal Medicine 10/30/17
--- OUTSIDE RECORDS SUMMARY | 2024-03-21 09:36 | XMS_ITS | Encounter Summary ---
Author Organization [place] Address [address] [place] [address]. [place] [address] Care Team Providers Care Fitness Studies Teacher Name Role Phone Mandi Bullard MD Primary Care Provider [phone] Mallory Cuadra MD Unavailable [phone] Reason for Visit * Reason Onset Date Comments Refill Request 08/01/2020 SUMATRIPTAN SUCC INATE PO Encounter Details Date Type Department Care Team (Late st Contact Info) Description 08/01/2020 Telephone [facility] [address] [place] [address] Mallory Cuadra MD [address] [place] [address] Refill Request (SUMATRIPTAN SUCCINATE PO) Social History Tobacco Use Types Packs/Day Years Used Date Smoking Tobacco: Never Smokeless Tobacco: Never Alcohol Use Standard Drinks/Week Comments Yes 0 (1 standard drink = 0.6 oz pur e alcohol) rare PHQ-2 Answer Date Recorded PHQ-2 Score 5 10/03/2019 Sex and Gender Information Value Date Recorded Sex Assigned at Female 09/30/2019 12:38 PM APPRENTICE STYLIST Gender Identity Female 09/30/2019 12:38 PM APPRENTICE STYLIST Sexual Orientation Straight 09/30/2019 12 :38 PM APPRENTICE STYLIST documented as of this encounter Miscellaneous Notes * Telephone Encounter - Vinny Castro - 08/01/2020 10:04 AM APPRENTICE STYLIST [facility] Phone Message May a detailed message be left on voicemail: yes Reason for Call: Medication Refill Request Has the patient contacted the pharmacy for the refill? Yes Name of medication being requested: SUMATRIPTAN SUCCINATE PO Provider who prescribed the medication: Previous Neurologist Pharmacy: [facility] Date medication is needed: as soon as possible Please call pt back when Rx has been sent. Action Taken: Message routed to: [facility] neuro Travel Screening: Not Applicable ENTICE STYLIST documented in this encounter Plan of Treatment Not on file documented as of this encounter Visit Diagnoses Not on filedocumented in this encounter Additional Health Concerns Assessment Noted Time PHQ-9 Depression Total Score: 14 020 12:18 PM APPRENTICE STYLIST documented as of this encounter Care Teams Fitness Studies Teacher Relationship Specialty Start Date End Date Mandi Bullard MD PCP - General Internal Medicine 10/30/17 Mallory Cuadra MD [address] [place] [address] Assigned Neuroscience Provider 06/08/20 02/21/22 documented as of this encounter
--- OUTSIDE RECORDS SUMMARY | 2024-03-21 09:36 | XMS_ITS | Encounter Summary ---
Author Organization [place] Address [address] [place] [address]. [place] [address] Care Team Providers Care Psychiatric Nurse Practitioner Name Role Phone Mandi Bullard MD Primary Care Provider Mallory Cuadra MD Unavailable [phone] Reason for Visit * Reason Onset Date Comments Nurtec 03/29/2021 TIME SENSITIVE-- pt needs call back TODAY, pt has vein procedure with [facility] this coming Thursday04/01/21 ... Encounter Details Date Type Department Care Team (Late st Contact Info) Description 03/29/2021 Telephone [facility] [address] [address] Mallory Cuadra MD [address] [place] [address] [facility]pt needs call back TODAY, pt [...] Sex Assigned at Female 09/30/2019 12:38 PM EXECUTIVE VICE PRESIDENT AND CHIEF FINANCIAL OFFICER Gender Identity Female 09/30/2019 12:38 PM EXECUTIVE VICE PRESIDENT AND CHIEF FINANCIAL OFFICER Sexual Orientation Straight 09/30/2019 12 :38 PM EXECUTIVE VICE PRESIDENT AND CHIEF FINANCIAL OFFICER documented as of this encounter Miscellaneous Notes * Telephone Encounter - Shereen Fontaine - 03/29/2021 3:33 PM CDT [facility] Phone Message May a detailed message be left on voicemail: yes Reason for Call: Other: Question form Mario vascular provider to Dr. Cuadra/team: pt reporting that her [facility] provider, Dr. Bk Altman wants to know IF pt is okay to take Nurtec? Pt will have light sedation on Sunday 04/01 at the [facility] procedure. Please call pt to let her know THIS AFTER NOON. Thank you. Action Taken: Message sent to [facility] [place] Travel Screening: Not Applicable documented in this encounter Plan of Treatment Not on file documented as of this encounter Visit Diagnoses Not on filedocumented in this encounter Additional Health Concerns Assessment Noted Time PHQ-9 Depression Total Score: 14 020 12:18 PM EXECUTIVE VICE PRESIDENT AND CHIEF FINANCIAL OFFICER documented as of this encounter Care Teams Psychiatric Nurse Practitioner Relationship Specialty Start Date End Date Mandi Bullard MD PCP - General Internal Medicine 10/30/17 Mallory Cuadra MD [address] [place] [address] Assigned Neuroscience Provider 06/08/20 02/21/22 documented as of this encounter
--- OUTSIDE RECORDS SUMMARY | 2024-03-21 09:36 | XMS_ITS | Encounter Summary ---
Author Organization [place] Address [address] [place] [address] Care Team Providers Care Milk Powder Grinder Name Role Phone Mandi Bullard MD Primary Care Provider Mallory Cuadra MD Unavailable [phone] Reason for Visit * Reason Onset Date Comments Medication Request 02/27/2020 galcanezumab- gnlm (EMGALITY) 120 MG/ML injection Encounter Details Date Type Department Care Team (Late st Contact Info) Description 02/27/[address] [address] Mallory Cuadra MD [address] [place] [address] Medication Request (galcanezumab-gnlm (EMGALITY) 120 MG/ML injection ) Social History Tobacco Use Types Packs/Day Years Used Date Smoking Tobacco: Never Smokeless Tobacco: Never Alcohol Use Standard Drinks/Week Comments Yes 0 (1 standard drink = 0.6 oz pur e alcohol) rare PHQ-2 Answer Date Recorded PHQ-2 Score 5 10/03/2019 Sex and Gender Information Value Date Recorded Sex Assigned at Female 09/30/2019 12:38 PM SPECIALIZED LANGUAGE INSTRUCTOR Gender Identity Female 09/30/2019 12:38 PM SPECIALIZED LANGUAGE INSTRUCTOR Sexual Orientation Straight 09/30/2019 12 :38 PM SPECIALIZED LANGUAGE INSTRUCTOR documented as of this encounter Miscellaneous Notes * Telephone Encounter - Jordi Borges - 02/27/2020 12:21 PM CDT [facility] Phone [...] received it. Please call in at # [phone], or fax to [phone]. Please try multiple times if there are issues, and call the pharmacy to confirm nurse receptionist. Pt is due and has been waiting some time for this to go out. Pt requests a call back. Action Taken: Message routed to: [facility] Travel Screening: Not Applicable documented in this encounter Plan of Treatment Not on file documented as of this encounter Visit Diagnoses Not on filedocumented in this encounter Additional Health Concerns Assessment Noted Time PHQ-9 Depression Total Score: 14 10/03/ 020 12:18 PM SPECIALIZED LANGUAGE INSTRUCTOR documented as of this encounter Care Teams Milk Powder Grinder Relationship Specialty Start Date End Date Mandi Bullard MD PCP - General Internal Medicine 10/30/17 Mallory Cuadra MD [address] [place] [address] Assigned Neuroscience Provider 06/08/20 02/21/22 documented as of this encounter
--- OUTSIDE RECORDS SUMMARY | 2024-03-21 09:36 | XMS_ITS | Encounter Summary ---
Author Organization [place] Address [address] [place] [address] Care Team Providers Care Waste Management Recycling Technician Name Role Phone Mandi Bullard MD Primary Care Provider Mallory Cuadra MD Unavailable [phone] Encounter Details Date Type Department Care Team (Late st Contact Info) Description 03/01/2020 [facility] Medical Advice [facility] Neurology [address] [place] [address] 3rd [place] [address] Mallory Cuadra MD [address] [place] [address] Social History Tobacco Use Types Packs/Day Years Used Date Smoking Tobacco: Never Smokeless Tobacco: Never Alcohol Use Standard Drinks/Week Comments Yes 0 (1 standard drink = 0.6 oz pur e alcohol) rare PHQ-2 Answer Date Recorded PHQ-2 Score 5 10/03/2019 Sex and Gender Information Value Date Recorded Sex Assigned at Female 09/30/2019 12:38 PM TUBING MILL SETTER Gender Identity Female 09/30/2019 12:38 PM TUBING MILL SETTER Sexual Orientation Straight 09/30/2019 12 :38 PM TUBING MILL SETTER documented as of this encounter Plan of Treatment Not on file documented as of this encounter Visit Diagnoses Not on filedocumented in this encounter Additional Health Concerns Assessment Noted Time PHQ-9 Depression Total Score: 14 020 12:18 PM TUBING MILL SETTER documented as of this encounter Care Teams Waste Management Recycling Technician Relationship Specialty Start Date End Date Mandi Bullard MD PCP - General Internal Medicine 10/30/17 Mallory Cuadra MD [address] [place] [address] Assigned Neuroscience Provider 06/08/20 02/21/22 documented as of this encounter
--- OUTSIDE RECORDS SUMMARY | 2024-03-21 09:36 | XMS_ITS | Encounter Summary ---
Author Organization [place] Address [address] [place] [address] Care Team Providers Care Blind Installer Name Role Phone Mandi Bullard MD Primary Care Provider Mallory Cuadra MD Unavailable [phone] Reason for Visit * Reason Onset Date Comments Medication Question 10/24/2019 Received mariangel nk emgality prescription. She did get the 2 page form Encounter Details Date Type Department Care Team (Late st Contact Info) Description 10/24/2019 Telephone [facility] Neurology [address] [facility] [address] [place] [address] Mallory Cuadra MD [address] [place] [address] Medication Question (Received blank emgality prescription. [...] Sex Assigned at Female 09/30/2019 12:38 PM CREDIT CONTROL CLERK Gender Identity Female 09/30/2019 12:38 PM CREDIT CONTROL CLERK Sexual Orientation Straight 09/30/2019 12 :38 PM CREDIT CONTROL CLERK documented as of this encounter Miscellaneous Notes * Telephone Encounter - Sara Gupta - 10/24/2019 2:42 PM CDT [facility] Phone [...] after Prescribing Provider: Mallory Jaramillo MD Pharmacy: [id number] [place] [address] [facility] [address] What on [...] Depression Total Score: 14 020 12:18 PM CREDIT CONTROL CLERK documented as of this encounter Care Teams Blind Installer Relationship Specialty Start Date End Date Mandi Bullard MD PCP - General Internal Medicine 10/30/17 Mallory Cuadra MD [address] [place] [address] Assigned Neuroscience Provider 06/08/20 02/21/22 documented as of this encounter
--- OUTSIDE RECORDS SUMMARY | 2024-03-21 09:36 | XMS_ITS | Referral Summary ---
Author Organization [facility] Address [address] [place] [address] Care Team Providers Care Airport Operations Crew Member Name Role Phone Mandi Bullard MD Primary Care Provider [phone] Allergies Active Allergy Reactions Criticality Noted Date [...] Sex Assigned at Female 09/30/2019 12:38 PM LOGISTICS OPERATIONS MANAGER Gender Identity Female 09/30/2019 12:38 PM LOGISTICS OPERATIONS MANAGER Sexual Orientation Straight 09/30/2019 12 :38 PM LOGISTICS OPERATIONS MANAGER Last Filed Vital Signs Vital Sign Reading Time Taken Comments Blood Pressure 148/85 10/03/2019 12:13 PM LOGISTICS OPERATIONS MANAGER Pulse 86 10/03/2019 12:13 PM LOGISTICS OPERATIONS MANAGER Temperature 36.7 ??C (98 ??F) 10/30/2017 4:15 PM CDT Respiratory Rate 18 10/30/2017 10:1 5 PM CDT Oxygen Saturation 96% 10/03/2019 12: 13 PM LOGISTICS OPERATIONS MANAGER Inhaled Oxygen Concentration - - Weight 113.4 kg (250 lb 1.6 oz) 020 12:13 PM LOGISTICS OPERATIONS MANAGER Height - - Body Mass Index - [...] 133 - 144 mmol/L 10/30/2017 4:52 PM [facility] Potassium 4.2 3.4 - 5.3 mmol/L 10/30/2017 4:52 PM [facility] Chloride 108 94 - 109 mmol/L 10/30/2017 4:52 PM [facility] Carbon Dioxide 28 20 - 32 mmol/L 10/30/2017 4:52 PM [facility] Anion Gap 4 3 - 14 mmol/L 10/30/2017 4:52 PM [facility] Glucose 91 70 - 99 mg/dL 10/30/2017 4:52 PM [facility] Urea Nitrogen 22 7 - 30 mg/dL 10/30/2017 4:52 PM [facility] Creatinine 0.66 0.52 - 1.04 mg/dL 10/30/2017 4:52 PM [facility] GFR Estimate 88 >60 mL/min/1.7 m2 10/30/2017 4:52 PM [facility] Comment:Non GFR Calc GFR Estimate If Black >90 >60 mL/min/1.7 m2 10/30/2017 4:52 PM [facility] Comment: GFR Calc Calcium 9.3 8.5 - 10.1 mg/dL 10/30/2017 4:52 PM [facility] Bilirubin Total 0.4 0.2 - 1.3 mg/dL 10/30/2017 4:52 PM [facility] Albumin 3.9 3.4 - 5.0 g/dL 10/30/2017 4:52 PM [facility] Protein Total 7.4 6.8 - 8.8 g/dL 10/30/2017 4:52 PM CDT [facility] Alkaline Phosphatase 74 40 - 150 U/L 10/30/2017 4:52 PM CDT [facility] ALT 26 0 - 50 U/L 10/30/2017 4:52 PM CDT [facility] AST 22 0 - 45 U/L 10/30/2017 4:52 PM CDT [facility] Blood specimen (specimen) 10/30/2017 4:16 PM CDT 10/30/2017 4:24 PM CDT Sarah Luque MD LAB - BLOOD ORDERABL ES [facility] [address] [place], [place] [address] [phone] * - HIM Screen Colonoscopy Scan (02/23/2017) Narrative Chelle Baltazar CMA - 02/23/2017 Result Narrative Patient Name: Bianca [...] oxygen saturations were monitored ? continuously. The [id number] was ? introduced through the anus and [...] Procedure Code(s): ?? --- Professional --- ? 22853, Colonoscopy, flexible; with ? biopsy, single or multiple Diagnosis Code(s): ?? --- Professional --- ? 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 flexure) ? Z86.010, Personal history of colonic ? polyps CPT copyright 2016 [employer] [place] [employer]. All rights reserved. The codes documented in this report are preliminary and upon sales effectiveness manager review may be revised to meet current [...] oxygen saturations were monitored ? continuously. The [id number] was ? introduced through the anus and [...] Procedure Code(s): ?? --- Professional --- ? 89403, Colonoscopy, flexible; with ? biopsy, single or multiple Diagnosis Code(s): ?? --- Professional --- ? 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 flexure) ? Z86.010, Personal history of colonic ? polyps CPT copyright 2016 [employer] [place] [employer]. All rights reserved. The codes documented in this report are preliminary and upon sales effectiveness manager review may be revised to meet current compliance requirements. Erick Wise MD 02/23/2017 4:28:55 PM This document has been electronically signed. Number of Addenda: 0 Note Initiated On: 02/23/2017 3:12 PM ? Endoscopy Report Provider Outside PROCEDURES from Last 3 Months or Most Recently Relevant to Health Maintenance Care Teams Airport Operations Crew Member Relationship Specialty Start Date End Date Mandi Bullard MD PCP - General Internal Medicine 10/30/17
--- OUTSIDE RECORDS SUMMARY | 2024-03-21 09:36 | XMS_ITS | Encounter Summary ---
Author Organization [facility] Address [address] [place] [address]. [place] [address] Care Team Providers Care Cloth Folder Hand Name Role Phone Mandi Bullard MD Primary Care Provider [phone] Encounter Details Date Type Department Care Team ([facility] st Contact Info) Description 05/08/2023 Telephone [facility] [address] [address] Marbin Malone MD [address] [place] [address] Social History Tobacco Use Types Packs/Day [...] Sex Assigned at Female 09/30/2019 12:38 PM ACADEMIC SUPPORT SPECIALIST Gender Identity Female 09/30/2019 12:38 PM ACADEMIC SUPPORT SPECIALIST Sexual Orientation Straight 09/30/2019 12 :38 PM ACADEMIC SUPPORT SPECIALIST documented as of this encounter Miscellaneous Notes * Telephone Encounter - Marbin Malone MD - 05/08/2023 4:47 PM CDT Nasra, is this message directed towards the [facility]? If so please contact our bowling or skating front desk clerk team([phone]) as I don't believe I have seen this patient. Thank you. -Will Faisal COLEY * Telephone Encounter - Sally Plasencia - 05/08/2023 2:17 PM CDT What is the concern that needs to be addressed by a nurse? Bianca's doctor is asking she gets in STAT. Dr. Meka Perez [facility] - [phone] May a detailed message be left on [facility]? yes Date of last office visit: Message routed to: mincep documented in this encounter Plan of Treatment Not on file documented as of this encounter Visit Diagnoses Not on filedocumented in this encounter Additional Health Concerns Assessment Noted Time PHQ-9 Depression Total Score: 14 020 12:18 PM ACADEMIC SUPPORT SPECIALIST documented as of this encounter Care Teams Cloth Folder Hand Relationship Specialty Start Date End Date Mandi Bullard MD PCP - General Internal Medicine 10/30/17 documented as of this encounter
--- OUTSIDE RECORDS SUMMARY | 2024-03-21 09:36 | XMS_ITS | Clinical Summary ---
Author Organization [facility] Address [address] [place] [address] Care Team Providers Care Lunchroom Aide Name Role Phone Found, No Pcp MD [...] for each transition of care or referral. [facility] Allergies Active Allergy Reactions Criticality Noted Date [...] Overview: Added automatically from request for surgery [id number] Chronic migraine w/o aura, not intractable, w/o [...] 09/16/2005 01/11/2014 Overview: LW Modifier: normal echo 2005 LW Onset: 2000 ; ECG Abnormal Sleep apnea 01/21/2003 08/28/2020 Overview: LW Modifier: negative sleep study 2009 On AutoPAP 6-16 cmH20, PNic ; Obstructive Sleep Apnea Hypopnea Immunizations Name Administration Dates Next Due DT Ped 02/14/1985 Flu Vac Preserv Free (3+yrs) 04/21/2014, 05/04/2013,04/28/2012,2009,05/01/2009,06/26/2008,06/24/2007,1 09/05/2005,05/28/2005,05/09/2004 H1n1 Miv Sanofi 3+ Yr (Injected) 07/20/2009 Influenza (Fluad) 05/06/2019 Influenza IIV3 (Trivalent) F luzone Highdose, 65+ Yrs ([id number]) 06/01/2018,05/02/2017,04/17/2016 Influenza IIV4 (Quadrivalent ) Fluad, 65+ [...] T Respiratory Rate 20 10/13/2020 11:09 AM CLINICAL RESEARCH MANAGEMENT ASSOCIATE Oxygen Saturation 98% 10/13/2020 11:09 AM CLINICAL RESEARCH MANAGEMENT ASSOCIATE Inhaled Oxygen Concentration - - Weight 98.9 kg (218 lb) 08/24/2022 2:54 PM CLINICAL RESEARCH MANAGEMENT ASSOCIATE Height 162.6 cm (5' 4) 08/24/2022 2:54 PM CLINICAL RESEARCH MANAGEMENT ASSOCIATE Body Mass Index 37.42 08/24/2022 2:54 PM CLINICAL RESEARCH MANAGEMENT ASSOCIATE Plan of Treatment Upcoming Encounters Date Type Department Care Team (Late st Contact Info) Description 04/19/2024 11:30 AM CDT Appointment [facility] [address] [place] [address] Zaria Le MD [address] [place] [id number] 06/14/2024 3:30 PM CDT Appointment [facility] [address] [place] [address] Tri Brandt MD [address] [place] [id number] Health Maintenance Due Date Last Done Comments Pneumococcal 65+ Yrs (2 - PPSV23 or PCV20) 12/29/2015 12/28/2014 Prediabetes: HGBA1C 01/26/2020 01/25/2019, 01/07/2018, 01/08/2017, Additional history exists Medicare Annual Wellness Visit 02/07/2021 02/08/2020, 01/13/2018, 01/08/2016 Dexa 07/07/2021 07/07/2019, 07/07/2019 Colonoscopy 02/23/2022 02/23/2017, 11/15 (Completed), 12/07/2006 COVID-19 Vaccine ( season) 2023 12/12/2022, 04/28/2022, 11/20/2021, Additional history exists Influenza (#1) 2024 05/08/2023, 04/17, 05/25/2021, Additional history exists Mammogram 10/28/2024 10/29/2023, 08/19, 09/12/2021 (Completed), Additional history exists DTaP/Tdap/Td (5 - Tdap) 12/31/2031 12/31/19 22, 12/04/2011, 01/22/2004, Additional history exists IPV (Polio) Aged Out 04/21/1985 No longer eligi ble based on patient's age to complete this topic Cholesterol Discontinued 01/07/2018, 12/16, 01/08/2016, Additional history exists Hep C Screening (Preventive Services) Completed 01/07/2018 Zoster/Shingles Completed 10/12/2019, 04/17, 11/22/2009 HepA Aged Out No longer eligi ble [...] BONE DENSITY SPINE/HIP Routine 07/07/2019 2:43 PM CLINICAL RESEARCH MANAGEMENT ASSOCIATE Post-menopause HGB A1C Routine 01/25/2019 3:07 PM [...] DEXA Bone Density Spine/Hip (07/07/2019 2:43 PM CLINICAL RESEARCH MANAGEMENT ASSOCIATE) Anatomical Region Laterality Modality Lower Extremity, Spine, Hip, L-Spine Radiographic Imaging Narrative 07/08/2019 6:35 AM [facility] DXA REPORT Patient Name: ??Bianca Titus [place]: ??Maximiliano Hargrove MD Densitometer: ??[employer] P3800 Bone Density Tech P3800 BONE3 OSTEOPOROSIS [...] trabecular bone, and is derived from the [id number] changes of bone density embedded in the [...] * Hgb A1C (01/25/2019 3:07 PM CDT) [facility] Hemoglobin A1C 5.5 <=5.6 % 01/26/2019 12:10 AM CDT [facility] Blood Venipuncture / Unknown 01/25/2019 3:07 PM CDT 01/25/2019 3:08 PM CDT Mandi Bullard MD LAB_1 [facility] [address] [employer] [address] * Hepatitis C PCR Quantitative (01/07/2018 9:06 AM CDT) HCV Quant Interp Not Detected Not Detected PN SOFT Comment: Test Performed by Real Time PCR This result has been reported to the [facility] Department of Health. CLIA Number [id number] HCV Quant iu/ml <12 IU/ml PN SOFT Comment:CLIA Number [id number] HCV Quant Log iu/ml <1.08 Log IU/ml PN SOFT Comment: Performed at [facility], [address] [place] [address] ??[id number] CLIA Number [id number] 01/07/2018 9:06 AM CDT 01/07/2018 12:08 PM CDT Narrative PN SOFT - 01/12/2018 1:41 PM CDT .Results faxed to [phone], 01/08/2018,14:34, by PL.Results faxed to ,[phone] Dr. Truman Wills C:, 01/08/2018,14:04, by PL.Results faxed to [phone] Dr. Truman Wills, 01/07/2018,14:09, by VERONICA.Results faxed to [phone] Dr. Truman Wills, 01/07/2018,13:12, by VERONICA Parminder Jackson MD LAB_1 [facility] [address] [place], [place] [id number] * (ABNORMAL) Lipid Panel and Direct LDL(If [...] - 01/07/2018 9:40 AM CDT Performed at [facility], [address] [address] [id number] Mandi Bullard MD LAB_1 [facility] [address] [place] [address] * Endoscopy, colon, diagnostic (02/23/2017 3:12 PM [...] oxygen saturations were monitored ? continuously. The [id number] was ? introduced through the anus and [...] Procedure Code(s): ?? --- Professional --- ? 55375, Colonoscopy, flexible; with ? biopsy, single or multiple Diagnosis Code(s): ?? --- Professional --- ? 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 flexure) ? Z86.010, Personal history of colonic ? polyps CPT copyright 2016 [employer]. All rights reserved. The codes documented in this report are preliminary and upon back tacker review may be revised to meet current [...] and oxygen saturations were monitored continuously. The [id number] was introduced through the anus and advanced [...] pathology results. Procedure Code(s): --- Professional --- 64900, Colonoscopy, flexible; with biopsy, single or multiple Diagnosis Code(s): --- Professional --- D12.3, Benign neoplasm of transverse colon (hepatic flexure or splenic flexure) Z86.010, Personal history of colonic polyps CPT copyright 2016 [employer]. All rights reserved. The codes documented in this report are preliminary and upon back tacker review may be revised to meet current compliance requirements. Erick Wise MD 02/23/2017 4:28:55 PM This document has been electronically signed. Number of Addenda: 0 Note Initiated On: 02/23/2017 3:12 PM Endoscopy Report Erick Wise MD PN GI PROCEDURE [facility] Organization Address City/State/ZIP Co de Phone Number GI (PROVATION) [place], [place] from Last 3 Months or Most Recently Relevant to Health Maintenance Advance Directives * Full Code (Latest Code Status on File) Date Activated Date Inactivated Comments 07/28/2013 9:52 AM 07/29/2013 12:22 PM Care Teams Lunchroom Aide Relationship Specialty Start Date End Date Found, No Pcp, [address] [place] [address] PCP - General 04/07/22
--- OUTSIDE RECORDS SUMMARY | 2024-03-21 09:36 | XMS_ITS | Encounter Summary ---
Author Organization [facility] Address [address] [place] [address] Care Team Providers Care Shaker Out Name Role Phone Mandi Bullard MD Primary Care Provider Mallory Cuadra MD Unavailable [phone] Reason for Visit * Reason Onset Date Comments Medication Request 07/26/2020 galcanezumab- gnlm (EMGALITY) 120 MG/ML injection and sumatriptan 100 mg tablets generic for imitrex Encounter Details Date Type Department Care Team (Late st Contact Info) Description 07/26/2020 Telephone [facility] [address] [place] [address] Mallory Cuadra MD [address] [place] [address] Medication Request (galcanezumab-gnlm (EMGALITY) 120 MG/ML [...] Sex Assigned at Female 09/30/2019 12:38 PM ELECTRON MICROPROBE OPERATOR Gender Identity Female 09/30/2019 12:38 PM ELECTRON MICROPROBE OPERATOR Sexual Orientation Straight 09/30/2019 12 :38 PM ELECTRON MICROPROBE OPERATOR documented as of this encounter Miscellaneous Notes * Telephone Encounter - Jeffery Roa - 07/26/2020 11:36 AM CST [facility] Phone Message May a detailed message [...] 120 MG/ML injection be faxed to [facility] at phone [phone] and fax [phone]. We stated that she qualified for funding [...] be electronically submitted or phoned in to: [facility] [address] [place] [address] She states this was previously prescribed by Dr. Truman Wills at [facility]. Please call Pt with questions. Action Taken: Message routed to: [facility] Neurology Travel Screening: Not Applicable TRON MICROPROBE OPERATOR documented in this encounter Plan of Treatment Not on file documented as of this encounter Visit Diagnoses Not on filedocumented in this encounter Additional Health Concerns Assessment Noted Time PHQ-9 Depression Total Score: 14 020 12:18 PM ELECTRON MICROPROBE OPERATOR documented as of this encounter Care Teams Shaker Out Relationship Specialty Start Date End Date Mandi Bullard MD PCP - General Internal Medicine 10/30/17 Mallory Cuadra MD [address] [place] [address] Assigned Neuroscience Provider 06/08/20 02/21/22 documented as of this encounter
--- OUTSIDE RECORDS SUMMARY | 2024-03-21 09:36 | XMS_ITS | Encounter Summary ---
Author Organization [facility] Address [address] [place] [address] Care Team Providers Care Mental Hygiene Consultant Name Role Phone Mandi Bullard MD Primary Care Provider Mallory Cuadra MD Unavailable [phone] Encounter Details Date Type Department Care Team (Late st Contact Info) Description 03/30/2020 [facility] Medical Advice [facility] Neurology [address] [place] [address] 3[address] [place] [address] Mallory Cuadra MD [address] [place] [address] Social History Tobacco Use Types Packs/Day Years Used Date Smoking Tobacco: Never Smokeless Tobacco: Never Alcohol Use Standard Drinks/Week Comments Yes 0 (1 standard drink = 0.6 oz pur e alcohol) rare PHQ-2 Answer Date Recorded PHQ-2 Score 5 10/03/2019 Sex and Gender Information Value Date Recorded Sex Assigned at Female 09/30/2019 12:38 PM DOCTOR NATUROPATHIC Gender Identity Female 09/30/2019 12:38 PM DOCTOR NATUROPATHIC Sexual Orientation Straight 09/30/2019 12 :38 PM DOCTOR NATUROPATHIC documented as of this encounter Plan of Treatment Not on file documented as of this encounter Visit Diagnoses Not on filedocumented in this encounter Additional Health Concerns Assessment Noted Time PHQ-9 Depression Total Score: 14 020 12:18 PM DOCTOR NATUROPATHIC documented as of this encounter Care Teams Mental Hygiene Consultant Relationship Specialty Start Date End Date Mandi Bullard MD PCP - General Internal Medicine 10/30/17 Mallory Cuadra MD [address] [place] [address] Assigned Neuroscience Provider 06/08/20 02/21/22 documented as of this encounter
--- OUTSIDE RECORDS SUMMARY | 2024-03-21 09:37 | XMS_ITS | Encounter Summary ---
Author Organization [facility] Address [address] [place] [address] Care Team Providers Care Tea Blender Name Role Phone Found, No Pcp MD Primary Care Provider Unavailab le Reason for Visit * Reason Comments COVID Questions Encounter Details Date Type Department Care Team (Late st Contact Info) Description 10/28/2019 Nurse Triage [facility] [address] [place], [place] [phone] Mandi Bullard MD [address] [place] [address] COVID Questions Social History Tobacco [...] PCP Thursday10/31/2019 Clinician Next Step: Route to [facility] to follow up and Patient IS [...] Info) Description 04/19/2024 11:30 AM CDT Appointment [facility] [address] [place] [address] [place] [address] [place] [address] 06/14/2024 3:30 PM CDT Appointment [facility] [address] [place] [address] Tri Brandt MD [address] [place], [place] [phone] documented as of this encounter Visit Diagnoses Not on filedocumented in this encounter Care Teams Tea Blender Relationship Specialty Start Date End Date Found, No PcpMD [address] [place] [address] PCP - General 04/07/22 documented as of this encounter
--- OUTSIDE RECORDS SUMMARY | 2024-03-21 09:37 | XMS_ITS | Encounter Summary ---
Author Organization [facility] Address [address] [place] [address] Care Team Providers Care Mortgage Analyst Name Role Phone Found, No Pcp MD Primary Care Provider Unavailab le Reason for Visit * Reason Comments CONSTIPATION Encounter Details Date Type Department Care Team (Late st Contact Info) Description 02/24/2019 Nurse Triage [facility] [address] [place], [place] [phone] Mandi Bullard MD [address] [place] [address] CONSTIPATION Social History Tobacco Use [...] ongoing symptoms Clinician Next Step: Route to [facility] to follow up and Patient [...] 11 days in a remote area of [facility], wanted to make sure she had [...] Info) Description 04/19/2024 11:30 AM CDT Appointment [facility] [address] [place] [address] Zaria Le MD [address] [place] [address] 06/14/2024 3:30 PM CDT Appointment [facility] [address] [place] [address] Tri Brandt MD [address] [place], [place] [phone] documented as of this encounter Visit Diagnoses Not on filedocumented in this encounter Care Teams Mortgage Analyst Relationship Specialty Start Date End Date Found, No Pcp, [address] [place] [address] PCP - General 04/07/22 documented as of this encounter
== END 2024-03-21 10:42 | disposition home or self-care (01) ==
PROVIDERS: Emergency Provider Student in an Organized Health Care Education/Training Program; PCP Family Medicine
DX: S39.012A Strain of muscle, fascia and tendon of lower back, initial encounter (principal)
CPT/HCPCS: 99282; 99283

== ENCOUNTER 2024-05-25 15:26 | Emergency (ER) | payer MEDICARE, SELFPAY ==
[2024-05-25 15:35] VITALS: BP 131/73; PULSE 90; RESP 16; TEMP 37.6; O2SAT 99; BMI 37.6
--- NOTE | 2024-05-25 15:55 | ED.GENADULT ---
HPI - General Adult General Time Seen by Provider: 15:56 Date Seen: 05/25/24 Chief complaint: Extremity Pain/Injury, Upper Stated complaint: R thumb turning purple Time Seen by Provider: 05/25/24 15:55 Source: patient and RN notes reviewed Mode of arrival: ambulatory Limitations: no limitations History of Present Illness HPI narrative: This 73-year-old female with some underlying Rosie-Danlos syndrome, positive antibodies for anti phospholipid but no history of blood clot is coming in with right thumb pain and discoloration. She noted bruising to her right thumb on the palmar surface a couple of days ago. She picked up a pencil in touch the area of the thumb noted there was pain, noted some bruising. She is unsure what she may have injured on but does note that she will just get spontaneous bleeding and bruising in her lower extremities. She is on an 81 mg aspirin daily, will use prophylactic Lovenox with travel. She does not have a history of a DVT prior. Up today over the last 3 hours she notes that the right thumb has been turning completely purple, will be more painful, will have intermittent numbness and tingling. She has noted no loss of ability of movement, none of the other fingers, the hand, the arm are affected. She also notes that she has been diagnosed with Raynaud's phenomenon. Right now, the symptoms have gone away. This has been cycling intermittently over the last 3 hours, symptoms went away on her drive over here. 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 They told her to come to the ER. Patient is not exhibiting any shortness of breath, no chest pain or chest symptoms, she has had no fevers or chills. He is not aware of any definitive trauma. Related Data Home Medications ?Medication ?Instructions ?Recorded ?Confirmed albuterol sulfate 90 mcg/actuation 2 inh inhalation Q4H PRN 02/11/22 05/25/24 breath activated powder inhaler aspirin 81 mg tablet,delayed 81 mg PO QDAY 02/11/22 05/25/24 release (Adult Low Dose Aspirin) cholecalciferol (vitamin D3) 125 125 mcg PO QDAY 02/11/22 05/25/24 mcg (5,000 unit) capsule rosuvastatin 10 mg tablet (Crestor) 10 mg PO QDAY 02/11/22 05/25/24 triamcinolone acetonide 0.1 % 1 applic topical TID 02/11/22 05/25/24 topical ointment atogepant 30 mg tablet (Qulipta) 30 mg PO QDAY 09/27/22 05/25/24 enoxaparin 60 mg/0.6 mL 60 mg subcut Q24H PRN 09/27/22 05/25/24 subcutaneous syringe levothyroxine 100 mcg tablet 112 mcg PO DAILY 05/25/24 05/25/24 (Synthroid) Previous Rx's ?Medication ?Instructions ?Recorded cyclobenzaprine 10 mg tablet 10 mg PO TID PRN muscle spasm #15 03/21/24 tabs Allergies Allergy/AdvReac Type Severity Reaction Status Date / Time galcanezumab-gnlm Allergy Severe Palpitation Verified 05/25/24 15:45 s tramadol Allergy Severe migraines Verified 05/25/24 15:45 butterbur Allergy Intermediate gi upset Verified 05/25/24 15:45 midazolam Allergy Intermediate paradoxial Verified 05/25/24 15:45 agitation cephalexin Allergy Mild Rash Verified 07/24/23 08:25 latex Allergy Mild dermatitis Verified 05/25/24 15:45 erythromycin base Allergy Unknown Verified 05/25/24 15:45 Penicillins Allergy Unknown Verified 05/25/24 15:45 timolol Allergy Unknown Verified 05/25/24 15:45 chlorhexidine Allergy Verified 05/25/24 15:45 gabapentin Allergy Verified 05/25/24 15:45 propranolol Allergy Verified 05/25/24 15:45 silicone Allergy Verified 05/25/24 15:45 topiramate Allergy Verified 05/25/24 15:45 trazodone Allergy Verified 05/25/24 15:45 Common paper wasp venom Allergy Uncoded 07/24/23 08:25 protein Review of Systems Status of ROS: Reports: 6 or more systems reviewed and unremarkable except as noted in History and below [facility] Medical History Hypertension ?I10 - Essential (primary) hypertension (ICD-10) Encounter for follow-up ?Z09 - Encounter for follow-up examination after completed treatment for conditions other than malignant neoplasm (ICD-10) Surgical History Status post hysterectomy ?Z90.710 - Acquired absence of both cervix and uterus (ICD-10) History of total bilateral knee replacement ?Z96.653 - Presence of artificial knee joint, bilateral (ICD-10) History of tonsillectomy ?Z90.89 - Acquired absence of other organs (ICD-10) History of sinus surgery ?Z98.890 - Other specified postprocedural states (ICD-10) History of repair of hiatal hernia ?Z98.890 - Other specified postprocedural states (ICD-10) ?Z87.19 - Personal history of other diseases of the digestive system (ICD-10) History of hysterectomy ?Z90.710 - Acquired absence of both cervix and uterus (ICD-10) History of bunionectomy of both great toes ?Z98.890 - Other specified postprocedural states (ICD-10) Family History Father Stroke Other Cardiovascular disease Diabetes Psychiatric disorder Social History Narrative: Non-smoker Smoking Status: Never smoker Do you use any of these nicotine containing products: None How often do you have a drink containing alcohol: monthly or less How often do you have six or more drinks on one occasion: Never AUDIT-C Alcohol total score: 1 Non-prescribed substance use: denies use service: No Exam Const: Vital Signs, click to edit/add: Vital Signs - 24 hr 05/25/24 15:35 Temperature 99.6 F Pulse Rate [Pulse Oximeter] 90 Respiratory Rate 16 Blood Pressure [Le ft Upper Arm] 131/73 Pulse Oximetry 99 Oxygen Delivery Me thod Room Air This 73-year-old female is alert, interactive, no apparent distress. She is ambulatory into the ED of her own accord. Symmetrical facial function, speech normal. Lungs are clear, good air entry, no wheezing or crackles. CV regular rate and rhythm no murmur. On inspection of both of her hands, she has a patch of mild ecchymosis along the palmar surface of the proximal phalanx of the thumb. All planes of range of motion of the thumb are preserved, all planes of strength are preserved throughout this thumb including flexion extension with in the thumb. She has full range of motion throughout the thumb, normal cap refill of the thumb, normal light touch sensation at this time. Patient notes she is not feeling that the thumb is numb or tingly at this time. There is no extension of the bruising into the hand, the rest of her extremity on the right arm including the rest of the hand and the fingers are fully mobile, no bruising, no neurologic change. The skin of the right thumb has the isolated bruising on examination but the skin itself is warm and dry, has normal temperature and feels the same as her other digits. Documenting provider has reviewed patient's vital signs: yes Course Course ED Course: Patient and I discussed the limitation of her symptoms right now. We did discuss that she has history with Rosie Danlos and connective tissue issues that make her more risk for bruising and traumatic change. Bruising and swelling can be irritating to the local nerves and can cause some numbness tingling. We did discuss with her antiphospholipid for issue that that does put her at risk for blood clotting. We did discuss deep venous thrombosis, there is no way to diagnose veinous thrombosis in the small veins within the fingers or the hand, reviewed that we do not ultrasound for blood clots within the hand or the fingers. If symptoms do extend into the forearm, we can start diagnosis sing DVTs within the arm itself but not hand or finger. We did discuss arterial occlusion and this is very unlikely to present with intermittent symptoms. We reviewed signs and symptoms of arterial ischemia. She is asymptomatic at this time, we do not possess the ability to do CT of extremities with runoff via angiogram. We discussed watching her for a while here to see if the purplish discoloration of the whole thumb might happen so that I could visualize it. It is possible that it could be the Raynaud's but is not typical in my opinion with just her thumb, the whole thumb, the underlying bruising of the proximal palmar thumb x-ray imaging is not needed as there is no pain with range of motion or anything clinical on exam that would suggest underlying traumatic change to cause a fracture in a bone. Her range of motion is completely nontender/nonpainful at this time. Reevaluation(s) Time of Reevaluation #1: 16:56 Reevaluation #1: The patient has been here an hour and a half, no return of her symptoms. She remains intact for neurologic and vascular function of this thumb. There is no advancement or increased appearance of the bruising. Range of motion remains intact. Discussed discharge for ongoing observation. Signs and symptoms for return were reviewed. Vital Signs Vital signs: Initial Vital Signs Temperature 99.6 F 05/25/24 15:35 Temperature Source Temporal Artery Scan 05/25/24 15:35 Pulse Rate 90 05/25/24 15:35 Respiratory Rate 16 05/25/24 15:35 Blood Pressure 131/73 05/25/24 15:35 Blood Pressure Mean 92 05/25/24 15:35 Blood Pressure Position Sitting 05/25/24 15:35 Pulse Oximetry 99 05/25/24 15:35 Oxygen Delivery Method Room Air 05/25/24 15:35 Vital Signs Temperature 99.6 F 05/25/24 15:35 Pulse Rate 90 05/25/24 15:35 Respiratory Rate 16 05/25/24 15:35 Blood Pressure 131/73 05/25/24 15:35 Pulse Oximetry 99 05/25/24 15:35 Oxygen Delivery Method Room Air 05/25/24 15:35 Temperature 99.6 F 05/25/24 15:35 Pulse Rate 90 05/25/24 15:35 Respiratory Rate 16 05/25/24 15:35 Blood Pressure 131/73 05/25/24 15:35 Pulse Oximetry 99 05/25/24 15:35 Oxygen Delivery Method Room Air 05/25/24 15:35 Discharge Plan Discharge Clinical Impression: Contusion of right thumb Patient Disposition: Home, Self-Care Condition: Stable Instructions: Contusion in Adults (ED) Additional Instructions: Continue on your 81 mg aspirin at this time. Can try to put some ice on the thumb area where the bruising is. If ice to the finger does precipitate your Raynaud's, may have to forego ice to the finger. Minimize use inactivity of the thumb to help decrease bleeding and irritation. Swelling and bruising can cause localized irritation to nerve endings within the finger. If you note that this some does become dusky and painful and is not resolving like a Raynaud's episode, may need to seek evaluation add a larger emergency room where they have the capacity to check for CT angiography of an extremity. If you start noting swelling or pain into the forearm, do recommend that an ultrasound be considered, can return here to the ER for that evaluation if there are these concerns. Activity Level: Activity as Tolerated Prescriptions: No Action rosuvastatin [Crestor] 10 mg tablet 10 mg PO QDAY albuterol sulfate 90 mcg/actuation aerosol powdr breath activated 2 inh inhalation Q4H PRN cholecalciferol (vitamin D3) 125 mcg (5,000 unit) capsule 125 mcg PO QDAY triamcinolone acetonide 0.1 % ointment 1 applic topical TID aspirin [Adult Low Dose Aspirin] 81 mg tablet,delayed release (DR/EC) 81 mg PO QDAY enoxaparin 60 mg/0.6 mL syringe 60 mg subcut Q24H PRN Qulipta 30 mg tablet 30 mg PO QDAY cyclobenzaprine 10 mg tablet 10 mg PO TID PRN (Reason: muscle spasm) Qty: 15 0RF Hold Instructions: no longer needed levothyroxine [Synthroid] 100 mcg tablet 112 mcg PO DAILY Follow Up/Referrals: Meka Perez MD [Primary Care Provider] - Stand Alone Forms: MyHealth Info Instructions
--- OUTSIDE RECORDS SUMMARY | 2024-05-25 16:52 | XMS_ITS | Encounter Summary ---
Author Organization [facility] Address [address] [place] [address]. [place] [address] Care Team Providers Care Pta Name Role Phone Mandi Bullard MD Primary Care Provider [phone] Mallory Cuadra MD Unavailable [phone] Reason for Visit * Reason Onset Date Comments Refill Request 08/01/2020 SUMATRIPTAN SUCC INATE PO Encounter Details Date Type Department Care Team (Late st Contact Info) Description 08/01/2020 Telephone [facility] [address] [place] [address] Mallory Cuadra MD [address] [place] [address] Refill Request (SUMATRIPTAN SUCCINATE PO) Social History Tobacco Use Types Packs/Day Years Used Date Smoking Tobacco: Never Smokeless Tobacco: Never Alcohol Use Standard Drinks/Week Comments Yes 0 (1 standard drink = 0.6 oz pur e alcohol) rare PHQ-2 Answer Date Recorded PHQ-2 Score 5 10/03/2019 Sex and Gender Information Value Date Recorded Sex Assigned at Female 09/30/2019 12:38 PM SUPERVISOR BLOOD Gender Identity Female 09/30/2019 12:38 PM SUPERVISOR BLOOD Sexual Orientation Straight 09/30/2019 12 :38 PM SUPERVISOR BLOOD documented as of this encounter Miscellaneous Notes * Telephone Encounter - Vinny Castro - 08/01/2020 10:04 AM SUPERVISOR BLOOD [facility] Phone Message May a detailed message be left on voicemail: yes Reason for Call: Medication Refill Request Has the patient contacted the pharmacy for the refill? Yes Name of medication being requested: SUMATRIPTAN SUCCINATE PO Provider who prescribed the medication: Previous Neurologist Pharmacy: [facility] Date medication is needed: as soon as possible Please call pt back when Rx has been sent. Action Taken: Message routed to: [facility] neuro Travel Screening: Not Applicable RVISOR BLOOD documented in this encounter Plan of Treatment Not on file documented as of this encounter Visit Diagnoses Not on filedocumented in this encounter Additional Health Concerns Assessment Noted Time PHQ-9 Depression Total Score: 14 020 12:18 PM SUPERVISOR BLOOD documented as of this encounter Care Teams Pta Relationship Specialty Start Date End Date Mandi Bullard MD PCP - General Internal Medicine 10/30/17 Mallory Cuadra MD [address] [place] [address] Assigned Neuroscience Provider 06/08/20 02/21/22 documented as of this encounter
--- OUTSIDE RECORDS SUMMARY | 2024-05-25 16:52 | XMS_ITS | Encounter Summary ---
Author Organization [facility] Address [address] [place] [address]. [place] [address] Care Team Providers Care Barker Peeler Name Role Phone Mandi Bullard MD Primary Care Provider [phone] Encounter Details Date Type Department Care Team ([facility] st Contact Info) Description 05/08/2023 Telephone [facility] [address] [address] Marbin Malone MD [address] [place] [address] Social History Tobacco Use Types Packs/Day [...] Sex Assigned at Female 09/30/2019 12:38 PM SIGNAL SYSTEM TESTING MAINTAINER Gender Identity Female 09/30/2019 12:38 PM SIGNAL SYSTEM TESTING MAINTAINER Sexual Orientation Straight 09/30/2019 12 :38 PM SIGNAL SYSTEM TESTING MAINTAINER documented as of this encounter Miscellaneous Notes * Telephone Encounter - Marbin Malone MD - 05/08/2023 4:47 PM CDT Nasra, is this message directed towards the [facility]? If so please contact our front office representative team([phone]) as I don't believe I have seen this patient. Thank you. -Will Faisal COLEY * Telephone Encounter - Sally Plasencia - 05/08/2023 2:17 PM CDT What is the concern that needs to be addressed by a nurse? Bianca's doctor is asking she gets in STAT. Dr. Meka Perez [facility] - [phone] May a detailed message be left on [employer]? yes Date of last office visit: Message routed to: [facility] documented in this encounter Plan of Treatment Not on file documented as of this encounter Visit Diagnoses Not on filedocumented in this encounter Additional Health Concerns Assessment Noted Time PHQ-9 Depression Total Score: 14 020 12:18 PM SIGNAL SYSTEM TESTING MAINTAINER documented as of this encounter Care Teams Barker Peeler Relationship Specialty Start Date End Date Mandi Bullard MD PCP - General Internal Medicine 10/30/17 documented as of this encounter
--- OUTSIDE RECORDS SUMMARY | 2024-05-25 16:52 | XMS_ITS | Encounter Summary ---
Author Organization [facility] Address [address] [place] [address] Care Team Providers Care Van Owner Operator Name Role Phone Mandi Bullard MD Primary Care Provider Mallory Cuadra MD Unavailable [phone] Encounter Details Date Type Department Care Team (Late st Contact Info) Description 03/01/2020 [facility] Medical Advice [facility] Neurology [address] [place] [address] [address] [place] [address] Mallory Cuadra MD [address] [place] [address] Social History Tobacco Use Types Packs/Day Years Used Date Smoking Tobacco: Never Smokeless Tobacco: Never Alcohol Use Standard Drinks/Week Comments Yes 0 (1 standard drink = 0.6 oz pur e alcohol) rare PHQ-2 Answer Date Recorded PHQ-2 Score 5 10/03/2019 Sex and Gender Information Value Date Recorded Sex Assigned at Female 09/30/2019 12:38 PM RACING SECRETARY Gender Identity Female 09/30/2019 12:38 PM RACING SECRETARY Sexual Orientation Straight 09/30/2019 12 :38 PM RACING SECRETARY documented as of this encounter Plan of Treatment Not on file documented as of this encounter Visit Diagnoses Not on filedocumented in this encounter Additional Health Concerns Assessment Noted Time PHQ-9 Depression Total Score: 14 020 12:18 PM RACING SECRETARY documented as of this encounter Care Teams Van Owner Operator Relationship Specialty Start Date End Date Mandi Bullard MD PCP - General Internal Medicine 10/30/17 Mallory Cuadra MD [address] [place] [address] Assigned Neuroscience Provider 06/08/20 02/21/22 documented as of this encounter
--- OUTSIDE RECORDS SUMMARY | 2024-05-25 16:52 | XMS_ITS | Encounter Summary ---
Author Organization [facility] Address [address] [place] [address] Care Team Providers Care Hospitality Coordinator Name Role Phone Mandi Bullard MD Primary Care Provider Mallory Cuadra MD Unavailable [phone] Reason for Visit * Reason Onset Date Comments Medication Request 07/26/2020 galcanezumab- gnlm (EMGALITY) 120 MG/ML injection and sumatriptan 100 mg tablets generic for imitrex Encounter Details Date Type Department Care Team (Late st Contact Info) Description 07/26/2020 Telephone [facility] Neurology Clinic [address] [place] [address] Mallory Cuadra MD [address] [place] [address] Medication Request (galcanezumab-gnlm (EMGALITY) 120 MG/ML [...] Assigned at Female 09/30/2019 12:38 PM MANAGER LAND Gender Identity Female 09/30/2019 12:38 PM MANAGER LAND Sexual Orientation Straight 09/30/2019 12 :38 PM MANAGER LAND documented as of this encounter Miscellaneous Notes * Telephone Encounter - Jeffery Roa - 07/26/2020 11:36 AM CST [facility] Phone Message May a detailed message [...] 120 MG/ML injection be faxed to [facility] at phone [phone] and fax [phone]. We stated that she qualified for funding [...] be electronically submitted or phoned in to: [facility] [address] [place] [address] She states this was previously prescribed by Dr. Truman Wills at [facility]. Please call Pt with questions. Action Taken: Message routed to: [facility] Neurology Travel Screening: Not Applicable GER LAND documented in this encounter Plan of Treatment Not on file documented as of this encounter Visit Diagnoses Not on filedocumented in this encounter Additional Health Concerns Assessment Noted Time PHQ-9 Depression Total Score: 14 020 12:18 PM MANAGER LAND documented as of this encounter Care Teams Hospitality Coordinator Relationship Specialty Start Date End Date Mandi Bullard MD PCP - General Internal Medicine 10/30/17 Mallory Cuadra MD [address] [place] [address] Assigned Neuroscience Provider 06/08/20 02/21/22 documented as of this encounter
--- OUTSIDE RECORDS SUMMARY | 2024-05-25 16:52 | XMS_ITS | Encounter Summary ---
Author Organization [facility] Address [address] [place] [address]. [place] [address] Care Team Providers Care Rn Referral Name Role Phone Mandi Bullard MD Primary Care Provider [phone] Mallory Cuadra MD Unavailable [phone] Reason for Visit * Reason Onset Date Comments Nurtec 03/29/2021 TIME SENSITIVE-- pt needs call back TODAY, pt has vein procedure with [facility] this coming Thursday04/01/21 ... Encounter Details Date Type Department Care Team (Late st Contact Info) Description 03/29/2021 Telephone [facility] Neurology Clinic [address] [address] Mallory Cuadra MD [address] [place] [address] [facility] (TIME SENSITIVE--pt needs call back TODAY, pt [...] Sex Assigned at Female 09/30/2019 12:38 PM WEB APPLICATIONS PROGRAMMER Gender Identity Female 09/30/2019 12:38 PM WEB APPLICATIONS PROGRAMMER Sexual Orientation Straight 09/30/2019 12 :38 PM WEB APPLICATIONS PROGRAMMER documented as of this encounter Miscellaneous Notes [...] Thank you. Action Taken: Message sent to [facility] Neurology Travel Screening: Not Applicable documented in this encounter Plan of Treatment Not on file documented as of this encounter Visit Diagnoses Not on filedocumented in this encounter Additional Health Concerns Assessment Noted Time PHQ-9 Depression Total Score: 14 020 12:18 PM WEB APPLICATIONS PROGRAMMER documented as of this encounter Care Teams Rn Referral Relationship Specialty Start Date End Date Mandi Bullard MD PCP - General Internal Medicine 10/30/17 Mallory Cuadra MD [address] [place] [address] Assigned Neuroscience Provider 06/08/20 02/21/22 documented as of this encounter
--- OUTSIDE RECORDS SUMMARY | 2024-05-25 16:52 | XMS_ITS | Referral Summary ---
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 Gender Identity Female 09/30/2019 12:38 PM HELICOPTER REPAIRER Sexual Orientation Straight 09/30/2019 12 :38 PM HELICOPTER REPAIRER Last Filed Vital Signs Vital Sign Reading Time Taken Comments Blood Pressure 148/85 10/03/2019 12:13 PM [employer]IC[employer] REPAIR[employer] Pulse 86 10/03/2019 12:13 PM HELICOPTER REPAIRER Temperature 36.7 ??C (98 ??F) 10/30/2017 4:15 PM CDT Respiratory Rate 18 10/30/2017 10:1 5 PM CDT Oxygen Saturation 96% 10/03/2019 12: 13 PM HELICOPTER REPAIRER Inhaled Oxygen Concentration - - Weight 113.4 kg (250 lb 1.6 oz) 020 12:13 PM HELICOPTER REPAIRER Height - - Body Mass Index - [...] 133 - 144 mmol/L 10/30/2017 4:52 PM [facility] Potassium 4.2 3.4 - 5.3 mmol/L 10/30/2017 4:52 PM [facility] Chloride 108 94 - 109 mmol/L 10/30/2017 4:52 PM [facility] Carbon Dioxide 28 20 - 32 mmol/L 10/30/2017 4:52 PM [facility] Anion Gap 4 3 - 14 mmol/L 10/30/2017 4:52 PM [facility] Glucose 91 70 - 99 mg/dL 10/30/2017 4:52 PM [facility] Urea Nitrogen 22 7 - 30 mg/dL 10/30/2017 4:52 PM [facility] Creatinine 0.66 0.52 - 1.04 mg/dL 10/30/2017 4:52 PM [facility] GFR Estimate 88 >60 mL/min/1.7 m2 10/30/2017 4:52 PM [facility] Comment:Non GFR Calc GFR Estimate If Black >90 >60 mL/min/1.7 m2 10/30/2017 4:52 PM [facility] Comment: GFR Calc Calcium 9.3 8.5 - 10.1 mg/dL 10/30/2017 4:52 PM [facility] Bilirubin Total 0.4 0.2 - 1.3 mg/dL 10/30/2017 4:52 PM [facility] Albumin 3.9 3.4 - 5.0 g/dL 10/30/2017 4:52 PM [facility] Protein Total 7.4 6.8 - 8.8 g/dL 10/30/2017 4:52 PM CDT [facility] Alkaline Phosphatase 74 40 - 150 U/L 10/30/2017 4:52 PM CDT [facility] ALT 26 0 - 50 U/L 10/30/2017 4:52 PM CDT [facility] AST 22 0 - 45 U/L 10/30/2017 4:52 PM CDT [facility] Blood specimen (specimen) 10/30/2017 4:16 PM CDT 10/30/2017 4:24 PM CDT Sarah Luque MD LAB - BLOOD ORDERABL ES [facility] [address] [place], [place] [address] [phone] * - HIM Screen Colonoscopy Scan (02/23/2017) [...] oxygen saturations were monitored ? continuously. The [id number] was ? introduced through the anus and [...] Procedure Code(s): ?? --- Professional --- ? 62848, Colonoscopy, flexible; with ? biopsy, single or multiple Diagnosis Code(s): ?? --- Professional --- ? 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 flexure) ? Z86.010, Personal history of colonic ? polyps CPT copyright 2016 [employer]. All rights reserved. The codes documented in this report are preliminary and upon automotive diagnostic technician review may be revised to meet current [...] oxygen saturations were monitored ? continuously. The [id number] was ? introduced through the anus and [...] Procedure Code(s): ?? --- Professional --- ? 70387, Colonoscopy, flexible; with ? biopsy, single or multiple Diagnosis Code(s): ?? --- Professional --- ? 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 flexure) ? Z86.010, Personal history of colonic ? polyps CPT copyright 2016 [employer]. All rights reserved. The codes documented in this report are preliminary and upon automotive diagnostic technician review may be revised to meet current compliance requirements. Erick Wise MD 02/23/2017 4:28:55 PM This document has been electronically signed. Number of Addenda: 0 Note Initiated On: 02/23/2017 3:12 PM ? Endoscopy Report Provider Outside PROCEDURES from Last 3 Months or Most Recently Relevant to Health Maintenance Care Teams Shock Absorption Floor Layer Relationship Specialty Start Date End Date Mandi Bullard MD PCP - General Internal Medicine 10/30/17
--- OUTSIDE RECORDS SUMMARY | 2024-05-25 16:52 | XMS_ITS | Continuity of Care Document ---
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 [address] [address], [place], [place], [id number], . tel:[phone] Referring Provider: Ira Rey MD, [facility] [address], [place], [address] . tel:[phone] Family History Family Member Type Diagnosis Age At Onset No Information Payers Payer name Insurance type Covered alliance party ID Authoriza tion(s) Medicare NGS MB [id number] [facility] [id number] Social History Type Description Quantity Date Captured [...]
--- OUTSIDE RECORDS SUMMARY | 2024-05-25 16:52 | XMS_ITS | Clinical Summary ---
Author Organization [employer] [facility] Address [place], [place] [address] Care Team Providers Care Thrasher Feeder Name Role Phone Meka Perez MD Primary [...] area(s) 3 times daily. 0 1 Active cholecalciferol, Vitamin D3, 5,000 unit tab tablet 1 capsule by mouth 4 times weekly 0 1 Active inhalational spacing deviceIndications:M oderate persistent asthma with exacerbation Antistatic valved holding chamber by deb 1 Each 2 Active acetaminophen (Tylenol Extra [...] 5000 Plus 1.1 % crea 3 Active enoxaparin (LOVENOX) 60 mg/0.6 mL injectionIndication [...] once daily. 1700 g 3 4 Active predniSONE (DELTASONE) 10 mg tablet As needed for a pseudgout attack: 30 mg all at once once a day x 7 days then stop. 4 Active triamcinolone (ARISTOCORT; KENALOG) 0.1 % cream Apply topically to affected area(s) 3 times daily. 80 g 1 05/17/20 Discontinu ed(*Patien t states no longer taking) linaCLOtide (Linzess) 145 mcg cap capsuleIndications: Chronic constipation Take 1 Capsule (145 mcg) by mouth before breakfast. 90 Capsule 3 4 05/16/20 24 Discontinu ed(*Patien t states no longer taking) Active Problems Problem Noted Date Diagnosed Date NAVYA 11/05/2021 AHI- 6.5 02/24/2024 Paroxysmal SVT (supraventricular tachycardia) Depression, major, in remission 10/20/2023 Hypothyroidism (acquired) 06/12/2023 Dysphagia 11/18/2022 Overview (11/18/2022): EGD 11/2021 Tamia fundoplication, normal biopsies, dysphagia likely due to esophageal dysmotility Chronic constipation 11/11/2022 RBBB 11/11/2022 Cyst of right ovary 11/11/2022 Cervical myelopathy with cervical radiculopathy 08/26/2022 Obesity, morbid 08/26/2022 Supraventricular tachycardia 12/19/2021 Cervical stenosis of spinal canal 07/17/2021 Overview (10/10/2021): Per MRI, neurosurgery consult Postoperative hemorrhage 05/24/2021 Palpitations 05/24/2021 Notalgia paresthetica 05/24/2021 Lymphedema 05/24/2021 History of total bilateral knee replacement 03/2021 History of hysterectomy 05/24/2021 Antiphospholipid antibody syndrome 02/21/2021 Autoimmune disorder 11/30/2020 Overview (11/30/2020): Following with dermatology and rheumatology Chondrocalcinosis 11/30/2020 Overview (11/30/2020): Of both wrists. 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 History of Tamia fundoplication 02/24/2017 [place] hump 02/27/2015 Varicose veins of lower extremity 09/16/2010 Overview (11/30/2020): Overview: LW Modifier: surgery ; Varicose Veins w Pain LW Modifier: surgery ; Varicose Veins w Pain Added automatically from request for surgery [id number] Hypovitaminosis D 05/11/2009 Chronic back pain 05/11/2009 Slow transit constipation 05/11/2009 Abdominal pain, unspecified site 05/11/2009 Unspecified hypothyroidism 05/11/2009 Osteoarthritis of multiple joints 10/04/2008 Overview (11/30/2020): Overview: DJD Multiple Sites DJD Multiple Sites Diaphragmatic hernia 07/20/2008 Overview (11/30/2020): Overview: Hernia Hiatal Hernia Hiatal Esophageal reflux 01/21/2003 Overview (11/30/2020): Overview: LW Modifier: s/p Aiden fundoplication ; [...] Migraines 05/11/2009 11/30/2020 Derangement of meniscus 07/20/200811/15 Overview (11/30/2020): Overview: LW Modifier: s/p surg left knee ; Meniscus Tear Knee Degenerative Rectocele 07/20/2008 11/30/2020 Overview (11/30/2020): Overview: LW Modifier: s/p repair Impaired glucose tolerance test 07/15/2007 11/30/2020 Overview (11/30/2020): Overview: Glucose Intolerance (Impaired Tolerance) Encounters Date Type Department Care Team Description 05/23/2024 Travel 05/17/2024 2:40 PM CDT Office Visit [facility] [address] [place] [address] Lee Roth MD Musculoskeletal Problem (Consultation for RIGHT foot pain - middle toe / injury/DOI November or December 2023) 05/16/2024 2:15 PM CDT Ancillary Procedure [facility] [address] [place] [address] 05/16/2024 1:45 PM CDT Office Visit [facility] [address] [facility] [place] [address] Sulema Conrad NP Edema (Patient presents with right foot swelling- says had a couple of falls back in February, since by the end of the day would swell up[ and be tender- the last x3 days have become worse- has a marker for blood clotting disorder/); Blood Pressure (Also has concerns for high blood pressure) 05/16/2024 Travel 05/16/2024 Nurse Triage [facility] [address] [facility] [place] [address] Meka Perez MD Foot Injury 04/21/2024 10:50 AM CDT Office Visit [facility] [address] [place] [address] Meka Perez MD Follow Up (Lab results); Medication Management 04/21/2024 Travel 04/19/2024 2:15 PM CDT Orders Only [facility] [address] [place] [place] [address] Lab, [place] [facility] (j) 04/19/2024 Travel 04/15/2024 Telephone [facility] [address] [facility] [place] [address] Meka Perez MD Lab 04/08/[address] [place] [address] Jacob Galo MD Results 04/06/2024 Travel 04/06/2024 Telephone [facility] [address] [facility] [place] [address] Meka Perez MD 04/05/2024 Telephone [facility] [address] [place] [address] Jacob Galo MD Results 04/01/2024 2:00 PM CDT Ancillary Procedure [facility] [address] [place] [address] 04/01/2024 Travel 03/28/2024 Telephone [facility] [address] [facility] [address] [place] [id number] Staci Frazier MD Results (ZIO Patch) 03/22/2024 2:00 PM CDT Office Visit [facility] [address] [place] [address] Meka Perez MD ER Follow up ([facility] ER 03/21/2024, left sided back pain) 03/22/2024 Travel 03/22/[address] [address] Meka Perez MD DEANNA 03/21/[address] [address] Meka Perez MD Referral 03/21/2024 Nurse Triage [address] [address] Meka Perez MD Lower Back Pain 03/08/[address] [address] Meka Perez MD Questions (Questions) 03/01/2024 2:00 PM CDT Office Visit [address] [address] Meka Perez MD Follow Up (B12); Medication Management (Discuss linzness/) 03/01/2024 Travel 02/24/2024 11:00 AM CDT Office Visit [facility] [address] [place] [address] Dieter Delgado MD Sleep Consult (Cpap-transferring care) 02/23/2024 10:00 AM CDT Office Visit [address] [place] [address] 02/23/2024 9:20 AM CDT Office Visit [facility] [place] [facility] [address] [place] [address] Staci Frazier MD Follow Up (Follow up after MRI 12/24/23 and discuss medications ) 02/23/2024 8:45 AM CDT Orders Only [facility] [address] [place] [address] Lab, [place] [facility] 02/23/2024 Travel from Last 3 Months Immunizations Name [...] on file Sexual Orientation Not on file Travel History Travel Start Travel End [place] 05/12/2024 05/15/2024 Obstetrics History Last Filed Vital Signs Vital Sign Reading Time Taken Comments Blood Pressure 124/75 05/17/2024 2:43 PM CDT Pulse 78 05/17/2024 2:43 PM CDT Temperature 36.4 ??C (97.6 ??F) 05/16/2024 1:48 PM CD T Respiratory Rate 16 05/16/2024 1:48 PM CDT Oxygen Saturation 100% 05/17/2024 2:43 PM CDT Inhaled Oxygen Concentration - - Weight 99.1 kg (218 lb 6.4 oz) 05/16/2024 1:48 P M CDT Height 162.6 cm (5' 4) 07/17/2023 2:21 PM MCAT TUTOR Body Mass Index 37.49 07/17/2023 2:21 PM MCAT TUTOR Plan of Treatment Upcoming Encounters Date Type Department Care Team (Late st Contact Info) Description 05/26/2024 11:15 AM CDT Ancillary Procedure [facility] [address] [address] 06/22/2024 2:45 PM MCAT TUTOR Office Visit [facility] [address] [place] [address] Jona Martins DPM [address] [place] [address] Health Maintenance Due Date Last Done Comments [...] 07/17/2024 07/17/2023, 01/27/2023, 11/11/2022, Additional history exists Colonoscopy through age 75 04/16/202704/16, 02/23/2017 (Verified in Care Everywhere or Patient Record) Lipids for age 45-75 04/19/2029 04/19/2024, 12/19/2021, 09/25/2021, Additional history exists Tetanus booster 12/31/2031 12/30/2021, 11/15, 01/22/2004 Hepatitis [...] 10/12/2019, 05/03/2019, 11/22/2009 Tdap Completed 12/30/2021, 12/04/2011 RSV vaccine for adults or Completed 05/18/2023 COVID-19 vaccine series Completed 04/23/20 24, 05/22/2023, 12/12/2022, Additional history exists Procedures Procedure Name Priority Date/Time Associated Diagnosis Comments URINE ALBUMIN TO CREATININE RATIO, RANDOM Routine 05/16/2024 3:03 PM CDT Elevated blood pressure reading without diagnosis of hypertension XR FOOT 3 VIEWS RIGHT STAT 05/16/2024 2:26 PM CDT Foot pain, right T4,FREE Routine 04/19/2024 2:48 PM CDT Hypothyroidism (acquired) TSH Routine 04/19/2024 2:48 PM CDT Hypothyroidism (acquired) BASIC METABOLIC PANEL Routine 04/19/2024 2:48 PM CDT HTN (hypertension) LIPID PANEL W REFLEX MEASURED LDL Routine 04/19/2024 2:48 PM CDT Mild hyperlipidemia ECHO TTE COMPLETE WO CONTRAST Routine 04/01/2024 3:21 PM CDT TIA (transient ischemic attack) URINALYSIS MICROSCOPIC Routine 03/22/2024 2:35 PM CDT Acute left-sided low back pain with left-sided sciatica UA W/ SEDIMENT EXAM REFLEXED PER CRITERIA Routine 03/22/2024 2:35 PM CDT Acute left-sided low back pain with left-sided sciatica EXTENDED HOLTER Routine 03/21/2024 12:00 AM CDT TIA (transient ischemic attack) VITAMIN B12 Routine 02/23/2024 8:40 AM CDT Vitamin B 12 deficiency T4,FREE Routine 02/23/2024 8:40 AM CDT Hypothyroidism (acquired) TSH Routine 02/23/2024 8:40 AM CDT Hypothyroidism (acquired) SCAN-COLONOSCOPY 04/16/2022 11:0 0 AM CDT from Last 3 Months or Most Recently Relevant to Health Maintenance Results * URINE ALBUMIN TO CREATININE RATIO, RANDOM (05/16/2024 3:03 PM CDT) CREATININE, RANDOM URINE 30 20 - 275 mg/dL Stefania Law ALBUMIN, URINE 0.5 See Note: mg/dL [facility] Comment: Reference Range: Reference Range Not established ALBUMIN/CREATININE RATIO, RANDOM URINE 17 <30 mg/g creat Stefania Law Comment: The ADA defines abnormalities in albumin excretion as follows: Albuminuria Category ?Result (mg/g creatinine) Normal to Mildly increased ?? <30 Moderately increased ? 30-299 Severely increased ? > OR = 300 The ADA recommends that at least two of three specimens collected within a 3-6 month period be abnormal before considering a patient to be within a diagnostic category. Urine URINE SPECIMEN / Unknown 05/16/2024 3:03 PM CDT 05/16/2024 3:03 PM CDT Sulema Conrad NP URINE [facility] [address] [place] [address], [facility] [address] [place] [address] * XR FOOT 3 VIEWS RIGHT (05/16/2024 2:26 PM CDT) Anatomical Region Laterality Modality FEET, FOOT R Digital Radiogra phy 05/16/2024 2:26 PM CDT Impressions 05/16/2024 2:31 PM CDT Postoperative changes to the first metatarsal with mild degenerative change at the first MTP joint. No evidence for acute fracture. Hammertoe deformities. Plantar calcaneal spurring. Narrative 05/16/2024 2:31 PM CDT For Patients: As a result of the Cures Act, medical imaging exams and procedure reports are released immediately into your electronic medical record. You may view this report before your referring provider. If you have questions, please contact your health care provider. EXAM: XR FOOT 3 VIEWS RIGHT LOCATION: [facility] DATE: 05/16/2024 INDICATION: Foot Pain, Right COMPARISON: None. Procedure Note Malcom Davidson MD - 05/16/2024 For Patients: As a result of the Cures Act, medical imagingexams and procedure reports are released immediately into your electronicmedical record. You may view this report before your referring provider.If you have questions, please contact your health care provider. EXAM: XR FOOT 3 VIEWS RIGHT LOCATION: [facility] DATE: 05/16/2024 INDICATION: Foot Pain, Right COMPARISON: None. IMPRESSION: Postoperative changes to the first metatarsal with mild degenerativechange at the first MTP joint. No evidence for acute fracture. Hammertoedeformities. Plantar calcaneal spurring. Sulema Conrad NP GENERAL IMAGING * LIPID PANEL W REFLEX MEASURED LDL (04/19/2024 2:48 PM CDT) CHOLESTEROL,TOTAL 164 100 - 199 mg/dL 04/19/2024 11:43 PM CDT [facility] Comment: Cholesterol, Total Reference Ranges Desirable <200 mg/dL Borderline 200-239 mg/dL High >=240 mg/dL TRIGLYCERIDES 58 <150 mg/dL 04/19/2024 11:43 PM CDT [facility] HDL CHOLESTEROL 72 >40 mg/dL 11:43 PM CDT [facility] NON-HDL CHOLESTEROL 92 <145 mg/dl 04/19/2024 11:43 PM CDT [facility] CHOL/HDL RATIO 2.28 <4.50 04/19/2024 11:43 PM CDT [facility] LDL CHOLESTEROL 80 <=130 mg/dL 04/19/2024 11:43 PM CDT [facility] VLDL CHOLESTEROL 12 <=30 mg/dL 04/19/2024 11:43 PM CDT [facility] PROVIDER ORDERED STATUS RANDOM 04/19/2024 11:43 PM CDT [facility] Blood BLOOD SPECIMEN / Unknown Venipuncture / Unknown 04/19/2024 2:48 PM CDT 04/19/2024 2:49 PM CDT Meka Perez MD CHEMISTRY [facility] [address] [place] [address], * TSH (04/19/2024 2:48 PM CDT) Only the most recent of2 resultswithin the time period is included. TSH 1.94 0.27 - 4.20 uIU/mL 04/19/2024 11:43 PM CDT [facility] Blood BLOOD SPECIMEN / Unknown Venipuncture / Unknown 04/19/2024 2:48 PM CDT 04/19/2024 2:49 PM CDT Narrative [facility] - 04/19/2024 11:43 PM CDT In Adults, TSH values between 5.00 and 10.00 uIU/ml do not necessarily indicate the presence of Hypothyroidism. Correlation with clinical findings such as presence of goiter and/or Thyroperoxidase (TPO) Antibody may be helpful. For more information please refer to REGINA 2004; 291: 228-238. Meka Perez MD CHEMISTRY Performing Organization Address City/[facility] [address]/ZIP Co de Phone Number [facility] [address] [place], [place] [id number], * T4,FREE (04/19/2024 2:48 PM CDT) Only the most recent of2 resultswithin the time period is included. T4,FREE 1.58 0.93 - 1.70 ng/dL 04/19/2024 11:43 PM CDT [facility] Blood BLOOD SPECIMEN / Unknown Venipuncture / Unknown 04/19/2024 2:48 PM CDT 04/19/2024 2:49 PM CDT Meka Perez MD CHEMISTRY Performing Organization Address [facility] [address]/[facility] Co de Phone Number [facility] [address] [place] [address], * (ABNORMAL) BASIC METABOLIC PANEL (04/19/2024 2:48 PM CDT) SODIUM 137 136 - 145 mmol/L 04/19/2024 11:43 PM CDT [facility] POTASSIUM 4.4 3.5 - 5.1 mmol/L 04/19/2024 11:43 PM CDT [facility] CHLORIDE 101 98 - 107 mmol/L 04/19/2024 11:43 PM CDT [facility] CO2,TOTAL 26 22 - 29 mmol/L 04/19/2024 11:43 PM CDT [facility] ANION GAP 10 5 - 18 04/19/2024 11:43 PM CDT [facility] GLUCOSE 124(H) 70 - 99 mg/dL 04/19/2024 11:43 PM CDT [facility] CALCIUM 9.6 8.8 - 10.2 mg/dL 04/19/2024 11:43 PM CDT [facility] BUN 17 8 - 23 mg/dL 04/19/2024 11:43 PM CDT [facility] CREATININE 0.65 0.50 - 0.90 mg/dL 04/19/2024 11:43 PM CDT [facility] BUN/CREAT RATIO 26(H) 10 - 20 11:43 PM CDT [facility] eGFR >90 >90 mL/min/1.7 3m2 04/19/2024 11:43 PM CDT [facility] Comment:As of 2021, eG FR is calculated by the CKD-EPI creatinine equation without race adjustment. ??eGFR can be influenced by muscle mass, exercise, and diet. ??The reported eGFR is an estimation only and is only applicable if the renal function is stable. Blood BLOOD SPECIMEN / Unknown Venipuncture / Unknown 04/19/2024 2:48 PM CDT 04/19/2024 2:49 PM CDT Meka Perez MD CHEMISTRY [facility] [address] [place] [address], * ECHO TTE COMPLETE WO CONTRAST (04/01/2024 3:21 PM CDT) AORTIC VALVE MEAN PG 13 mmHg EJECTION FRACTION 65 % PEAK TR VELOCITY 2.4 m/s LVEDD 4.1 cm EJECTION FRACTION 60 - 65% Anatomical Region Laterality Modality Ultrasound 04/01/2024 2:02 PM CDT Narrative 04/01/2024 4:21 PM CDT ECHOCARDIOGRAM PAOLA MORFIN ?Accession#: ?? [id number] : ?1950 73 years Study Date: ?? 04/01/2024 2:02:02 PM Gender: F ? BP: ? 160/86 mmHg Height: 162.56 cm ? BSA: ?2.05 m? ? ? Weight: 101.15 kg ? Tech: ? HMG ?Referring MD: STACI FRAZIER Site: ? [facility] Reading Location: Mobile OP Patient Location: Outpatient. Procedure: 2D, Color Doppler and Spectral Doppler. Indication for study: TIA Cardiac Rhythm: Normal sinus.Study quality: Fair. Final Impressions: 1. Normal LV size, normal wall thickness, normal global systolic function with an estimated EF of 60 - 65%. 2. Moderately enlarged left atrium. 3. Right ventricular cavity size is normal, global systolic RV function is normal. 4. The aortic valve is sclerotic, mild stenosis and no regurgitation. 5. The mitral valve is sclerotic, trace mitral regurgitation. 6. Agitated saline injection not done. 7. Normal estimated pulmonary pressures by tricuspid regurgitation velocity and right atrial pressure (23 mmHg plus RAP). Chamber Sizes and Function Normal left ventricular size, normal wall thickness, normal global systolic function with an estimated EF of 60 - 65%. Left atrial size is moderately enlarged. Right ventricular cavity size is normal, global systolic RV function is normal. RV wall thickness is normal. The right atrium is mildly enlarged. The pulmonary artery is not well visualized. The sinus of Valsalva is normal sized. The ascending aorta is normal sized. Valves, RV Pressures and Diastolic Function The aortic valve is sclerotic, mild stenosis and no regurgitation. The mitral valve is sclerotic, trace mitral regurgitation. Indeterminate pattern of LV diastolic filling. The tricuspid valve is normal in structure. Tricuspid regurgitation is trace regurgitation. The tricuspid regurgitant velocity is 2.4 m/s, the estimated right ventricular systolic pressure is 23 mmHg plus right atrial pressure. There is normal estimated pulmonary pressure by tricuspid regurgitation velocity and right atrial pressure. The pulmonic valve is not well visualized. Trace pulmonary regurgitation. Masses, Effusion, Shunts There is no pericardial effusion. The inferior vena cava is not well visualized, respiratory size variation not well visualized. Agitated saline injection not done. No left to right shunting was detected by limited color flow Doppler interrogation of the interatrial septum. MEASUREMENTS AND CALCULATIONS 2-D Measurements and LV Function: LVID (d) 4.1 cm LV FS% (2D) ?? 46 % LVID (s) 2.2 cm LVOT diameter 2.2 cm IVS (d) ??1.0 cm HR ?70 bpm LVPW (d) 0.8 cm LA Vol index ??42 ml/m2 Ao Sinus 3.6 cm RV Max 4C (d) 2.9 cm Asc Ao ?? 3.2 cm Diastology: Mitral ?Tissue Doppler E Peak 1.0 m/s ??e', Septum ? 0.07 m/s A Peak 1.1 m/s ??e', Lateral ?0.07 m/s E/A ?0.9 ?E/e' Average ?? 14.30 DT ? 220 msec Aortic Valve: Vmax ? 2.4 m/s ??ENMANUEL (V) ?? 1.69 cm? ? ? VTI ?0.55 m ?? ENMANUEL (I) ?? 1.73 cm? ? ? LVOT V max 1.1 m/s ??Max PG ?23 mmHg LVOT VTI ?? 0.25 m ?? Mean PG ?? 13 mmHg SV ? 95 ml ?Dim Index 0.46 SV index ?? 46 ml/m? ? ? CO ?6.7 l/min ?CI ?3.2 l/min/m? ? ? Mitral Valve: MVA ?3.4 cm? ? ? MV P 1/2 64 msec Tricuspid Valve and estimated PA pressures: TR Vmax 2.4 m/s TAPSE 2.9 cm TR maxG 23 mmHg . This study was interpreted by an [facility] accredited facility. ??Final ?? Procedure Note Shin Rosado MD - 04/01/2024 ECHOCARDIOGRAM PAOLA MORFIN : 1950 73 years Study Date: 04/01/2024 2:02:02 PM Gender: F BP: 160/86 mmHg Height: 162.56 cm BSA: 2.05 m? ? ? Weight: 101.15 kg Tech: [facility] Referring MD: STACI FRAZIER Site: [facility] Reading Location: [place] OP Patient Location: Outpatient. Procedure: 2D, Color Doppler and Spectral Doppler. Indication for study: TIA Cardiac Rhythm: Normal sinus.Study quality: Fair. Final Impressions: 1. Normal LV size, normal wall thickness, normal global systolic functionwith an estimated EF of 60 - 65%. 2. Moderately enlarged left atrium. 3. Right ventricular cavity size is normal, global systolic RV functionis normal. 4. The aortic valve is sclerotic, mild stenosis and no regurgitation. 5. The mitral valve is sclerotic, trace mitral regurgitation. 6. Agitated saline injection not done. 7. Normal estimated pulmonary pressures by tricuspid regurgitationvelocity and right atrial pressure (23 mmHg plus RAP). Chamber Sizes and Function Normal left ventricular size, normal wall thickness, normal globalsystolic function with an estimated EF of 60 - 65%. Left atrial size ismoderately enlarged. Right ventricular cavity size is normal, globalsystolic RV function is normal. RV wall thickness is normal. The rightatrium is mildly enlarged. The pulmonary artery is not well visualized.The sinus of Valsalva is normal sized. The ascending aorta is normalsized. Valves, RV Pressures and Diastolic Function The aortic valve is sclerotic, mild stenosis and no regurgitation. Themitral valve is sclerotic, trace mitral regurgitation. Indeterminatepattern of LV diastolic filling. The tricuspid valve is normal instructure. Tricuspid regurgitation is trace regurgitation. The tricuspidregurgitant velocity is 2.4 m/s, the estimated right ventricular systolicpressure is 23 mmHg plus right atrial pressure. There is normal estimatedpulmonary pressure by tricuspid regurgitation velocity and right atrialpressure. The pulmonic valve is not well visualized. Trace pulmonaryregurgitation. Masses, Effusion, Shunts There is no pericardial effusion. The inferior vena cava is not wellvisualized, respiratory size variation not well visualized. Agitatedsaline injection not done. No left to right shunting was detected bylimited color flow Doppler interrogation of the interatrial septum. MEASUREMENTS AND CALCULATIONS 2-D Measurements and LV Function: LVID (d) 4.1 cm LV FS% (2D) 46 % LVID (s) 2.2 cm LVOT diameter 2.2 cm IVS (d) 1.0 cm HR 70 bpm LVPW (d) 0.8 cm LA Vol index 42 ml/m2 Ao Sinus 3.6 cm RV Max 4C (d) 2.9 cm Asc Ao 3.2 cm Diastology: Mitral Tissue Doppler E Peak 1.0 m/s e', Septum 0.07 m/s A Peak 1.1 m/s e', Lateral 0.07 m/s E/A 0.9 E/e' Average 14.30 DT 220 msec Aortic Valve: Vmax 2.4 m/s ENMANUEL (V) 1.69 cm? ? ? VTI 0.55 m ENMANUEL (I) 1.73 cm? ? ? LVOT V max 1.1 m/s Max PG 23 mmHg LVOT VTI 0.25 m Mean PG 13 mmHg SV 95 ml Dim Index 0.46 SV index 46 ml/m? ? ? CO 6.7 l/min CI 3.2 l/min/m? ? ? Mitral Valve: MVA 3.4 cm? ? ? MV P 1/2 64 msec Tricuspid Valve and estimated PA pressures: TR Vmax 2.4 m/s TAPSE 2.9 cm TR maxG 23 mmHg . This study was interpreted by an [facility] accredited facility. Final Staci Frazier MD ECHO ORD * URINALYSIS MICROSCOPIC (03/22/2024 2:35 PM CDT) RBC 0-2 0-2, None Seen /HPF 03/22/2024 2:43 PM CDT [facility] WBC 0-2 0-2, 3-5, None Seen /HPF 03/22/2024 2:43 PM CDT [facility] BACTERIA Rare None Seen, Rare, Few Bacteria/H PF 03/22/2024 2:43 PM CDT [facility] EPITHELIAL CELLS Few None Seen, Few Epi/HPF 03/22/2024 2:43 PM CDT [facility] [facility] Urine URINE SPECIMEN / Unknown Non-Blood / Unknown 03/22/2024 2:35 PM CDT 03/22/2024 2:36 PM CDT Meka Perez MD URINE [facility] [address] [place] [address], * (ABNORMAL) UA W/ SEDIMENT EXAM REFLEXED PER CRITERIA (03/22/2024 2:35 PM CDT) COLOR Yellow Yellow Color 03/22/2024 2:43 PM CDT [facility] CLARITY Clear Clear Clarity 03/22/2024 2:43 PM CDT [facility] SPECIFIC GRAVITY,URINE 1.010 1.010, 1.015, 1.020, 1.025 03/22/2024 2:43 PM CDT [facility] PH,URINE 5.5 6.0, 7.0, 8.0, 5.5, 6.5, 7.5, 8.5 03/22/2024 2:43 PM CDT [facility] UROBILINOGEN, QUALITATIVE Normal Normal EU/dl 03/22/2024 2:43 PM CDT [facility] PROTEIN, URINE Negative Negative mg/dL 03/22/2024 2:43 PM CDT [facility] GLUCOSE, URINE Negative Negative mg/dL 03/22/2024 2:43 PM CDT [facility] KETONES,URINE Negative Negative mg/dL 03/22/2024 2:43 PM CDT [facility] BILIRUBIN,URI NE Negative Negative 03/22/2024 2:43 PM CDT [facility] OCCULT BLOOD,URINE Trace(A) Negative 03/22/2024 2:43 PM CDT [facility] NITRITE Negative Negative 03/22/2024 2:43 PM CDT [facility] LEUKOCYTE ESTERASE Negative Negative 03/22/2024 2:43 PM CDT [facility] Urine URINE SPECIMEN / Unknown Non-Blood / Unknown 03/22/2024 2:35 PM CDT 03/22/2024 2:36 PM CDT Meka Perez MD URINE [facility] [address] [place] [address], * EXTENDED HOLTER (03/21/2024 12:00 AM CDT) Staci Frazier MD CARDIAC SERVICES ORD * VITAMIN B12 (02/23/2024 8:40 AM CDT) Pathologist [facility] VITAMIN B12 596 232 - 1,245 pg/mL 02/23/2024 7:34 PM CDT [facility] Blood BLOOD SPECIMEN / Unknown Butterfly / Unknown 02/23/2024 8:40 AM CDT 02/23/2024 8:48 AM CDT Narrative [facility] - 02/23/2024 7:34 PM CDT Biotin supplements may cause clinically significant interference for this test assay. ??If interference is suspected, it is strongly recommended that biotin is discontinued for at least one week prior to retesting. Meka Perez MD CHEMISTRY [facility] [address] [place] [address], [place] * SCAN-COLONOSCOPY (04/16/2022 11:00 AM CDT) Narrative Procedure Note Ira Rey MD - 04/16/2022 9:59 AM CDT [facility], [address], [address], [place] [address] Patient Name: Paola Morfin Gender: Female Exam Date: 04/16/2022 Visit Number: [id number] Age: 71 Years 9 Months Date of : 1950 Attending MD: Ira Rey MD Medical Record#: [id number] ----- Procedure: Colonoscopy Indications: Constipation Referring MD: [...] no/never Never smoker Race: White Preferred Language: Lithuanian cc: Meka Perez MD [facility] [phone] Ira Rey MD OTHER from Last 3 Months or Most Recently Relevant to Health Maintenance Care Teams Thrasher Feeder Relationship Specialty Start Date End Date Meka Perez MD [address] [place] [address] PCP - General Family Practice 11/30/20
--- OUTSIDE RECORDS SUMMARY | 2024-05-25 16:52 | XMS_ITS | Clinical Summary ---
Author Organization [facility] Address [address] [place] [address] Care Team Providers Care Seasonal Recruiter Name Role Phone Mandi Bullard MD Primary Care Provider [phone] Allergies Active Allergy Reactions Criticality Noted Date [...] Sex Assigned at Female 09/30/2019 12:38 PM CABINETMAKER HELPER Gender Identity Female 09/30/2019 12:38 PM CABINETMAKER HELPER Sexual Orientation Straight 09/30/2019 12 :38 PM CABINETMAKER HELPER Last Filed Vital Signs Vital Sign Reading Time Taken Comments Blood Pressure 148/85 10/03/2019 12:13 PM CABINETMAKER HELPER Pulse 86 10/03/2019 12:13 PM CABINETMAKER HELPER Temperature 36.7 ??C (98 ??F) 10/30/2017 4:15 PM CDT Respiratory Rate 18 10/30/2017 10:1 5 PM CDT Oxygen Saturation 96% 10/03/2019 12: 13 PM CABINETMAKER HELPER Inhaled Oxygen Concentration - - Weight 113.4 kg (250 lb 1.6 oz) 020 12:13 PM CABINETMAKER HELPER Height - - Body Mass Index - - Plan of Treatment Health Maintenance Due Date Last Done Comments ADVANCE CARE PLANNING 1950 ANNUAL REVIEW OF HM ORDERS [address] CT COLONOGRAPHY 1950 DEXA 1950 FIT 1950 FLEX SIG 1950 TSH W/FREE T4 REFLEX 1950 sDNA (Cologuard) 1950 HEPATITIS C SCREENING 1966 LIPID 1988 Pneumococcal Vaccine: 65+ Years (2 of 2 - PPSV23 or PCV20) 12/29/2015 12/28/2014 FALL RISK ASSESSMENT 10/03/2020 10/03/2019, 10/03/19 20 GLUCOSE 10/30/2020 10/30/2017 RSV VACCINE (1 - 1-dose 75+ series) 2023 PHQ-2 (once per calendar year) 2023 10/03/2019, 10/03/2019, 10/03/2019 COVID-19 Vaccine ( season) 2024 12/12/2022, 04/28/2022, 11/20/2021, Additional history exists INFLUENZA VACCINE (#1) 2024 , 05/25/2021, 05/22/2020, Additional history exists COLONOSCOPY 02/23/2027 [...] 133 - 144 mmol/L 10/30/2017 4:52 PM [facility] Potassium 4.2 3.4 - 5.3 mmol/L 10/30/2017 4:52 PM [facility] Chloride 108 94 - 109 mmol/L 10/30/2017 4:52 PM [facility] Carbon Dioxide 28 20 - 32 mmol/L 10/30/2017 4:52 PM [facility] Anion Gap 4 3 - 14 mmol/L 10/30/2017 4:52 PM [facility] Glucose 91 70 - 99 mg/dL 10/30/2017 4:52 PM [facility] Urea Nitrogen 22 7 - 30 mg/dL 10/30/2017 4:52 PM [facility] Creatinine 0.66 0.52 - 1.04 mg/dL 10/30/2017 4:52 PM [facility] GFR Estimate 88 >60 mL/min/1.7 m2 10/30/2017 4:52 PM [facility] Comment:Non GFR Calc GFR Estimate If Black >90 >60 mL/min/1.7 m2 10/30/2017 4:52 PM [facility] Comment: GFR Calc Calcium 9.3 8.5 - 10.1 mg/dL 10/30/2017 4:52 PM [facility] Bilirubin Total 0.4 0.2 - 1.3 mg/dL 10/30/2017 4:52 PM [facility] Albumin 3.9 3.4 - 5.0 g/dL 10/30/2017 4:52 PM [facility] Protein Total 7.4 6.8 - 8.8 g/dL 10/30/2017 4:52 PM [facility] Alkaline Phosphatase 74 40 - 150 U/L 10/30/2017 4:52 PM [facility] ALT 26 0 - 50 U/L 10/30/2017 4:52 PM CDT [facility] AST 22 0 - 45 U/L 10/30/2017 4:52 PM CDT [facility] Blood specimen (specimen) 10/30/2017 4:16 PM CDT 10/30/2017 4:24 PM CDT Sarah Luque MD LAB - BLOOD ORDERABL ES [facility] [address] [place] [address], [facility] [phone] * - HIM Screen Colonoscopy Scan (02/23/2017) [...] oxygen saturations were monitored ? continuously. The [id number] was ? introduced through the anus and [...] Procedure Code(s): ?? --- Professional --- ? 94703, Colonoscopy, flexible; with ? biopsy, single or multiple Diagnosis Code(s): ?? --- Professional --- ? 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 flexure) ? Z86.010, Personal history of colonic ? polyps CPT copyright 2016 [employer]. All rights reserved. The codes documented in this report are preliminary and upon paper cleaner review may be revised to meet current [...] oxygen saturations were monitored ? continuously. The [id number] was ? introduced through the anus and [...] Procedure Code(s): ?? --- Professional --- ? 55271, Colonoscopy, flexible; with ? biopsy, single or multiple Diagnosis Code(s): ?? --- Professional --- ? 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 flexure) ? Z86.010, Personal history of colonic ? polyps CPT copyright 2016 [employer]. All rights reserved. The codes documented in this report are preliminary and upon paper cleaner review may be revised to meet current compliance requirements. Erick Wise MD 02/23/2017 4:28:55 PM This document has been electronically signed. Number of Addenda: 0 Note Initiated On: 02/23/2017 3:12 PM ? Endoscopy Report Provider Outside PROCEDURES from Last 3 Months or Most Recently Relevant to Health Maintenance Care Teams Seasonal Recruiter Relationship Specialty Start Date End Date Mandi Bullard MD PCP - General Internal Medicine 10/30/17
--- OUTSIDE RECORDS SUMMARY | 2024-05-25 16:52 | XMS_ITS | Continuity of Care Document ---
Author Organization [facility] Address [address] [address] [place] [address] Phone Care Team Providers Care Stippler Name Role Phone Avelino Angel MD, Micky [...] Mod-hi 2 Offic/outpt E&m Estab Mod-hi 4 21 Telephone E&M III 21-30 Min RODRIGO Advance Directives Directive Yes / No Effective Date File Name No Information Encounters Encounter Description Practice Location Reason(s) For Visit Diagnoses Date Provider Providers Copied on Encounter [facility], [address] [address], [place], [place], [id number], [place] tel:[phone] [facility] No Information 2 Avelino Weeks. [address] [facility], [facility] [place], [id number] , [place]. tel: [phone] Established Level 4 [facility], [address] [address], [place], [place], [id number], [place] tel:[phone] [facility] GI Symptoms or Concerns (chief complaint) Slow transit constipationConst ipation, unspecified 2 Candido Roth. [address] [facility], [place], [place], [address] , [place]. tel: [phone] Referring Provider: Referral Self, USE FOR SELF REFERRALS. [facility], [address] [address], [place], [place], [address], [place] tel:[phone] [facility] No Information 2 Avelino Weeks. [address] [facility], [facility] [place], [id number] , [place]. tel: [phone] [facility], [address] [address], [place], [place], [address], [place] tel:[phone] [facility] GI Symptoms or Concerns (chief complaint) Constipation, unspecifiedDivert iculosis of colon without diverticulitisCon stipation, unspecified 2 Candido Roth. [address] [facility], [place], [place], [address] , [place]. tel: [phone] Referring Provider: Referral Self, USE FOR SELF REFERRALS. [facility], [address] [address], [place], [place], [address], [place] tel:[phone] [facility] No Information 2 Efren Rendon. [address] [facility], [place], [place], [address] , [place]. tel: [phone] Established Level 3 [facility], [address] [address], [place], [address], [place] tel:[phone] [facility] GI Symptoms or Concerns (chief complaint) Constipation, unspecified constipation type 2 Efren Rendon. [address] [facility], [facility] [address], [place], [place], [address] , [place]. tel: [phone] Referring Provider: Referral Self, USE FOR SELF REFERRALS. [facility], [address] [address], [place], [address], [place] tel:[phone] [facility] No Information 2 Avelino Weeks. [address] [facility], [place], [address] , [place]. tel: [phone] [facility], [address] [address], [place], [address], [place] tel:[phone] [facility] No Information 2 Candido Roth. [address] [facility], [place], [place], [address] , [place]. tel: [phone] Offic/outpt E&m Estab Mod-hi 2 [facility], [address] [address], [place], [address], [place] tel:[phone] [facility] GI Symptoms or Concerns (chief complaint) Constipation, unspecified constipation typeChest pain, unspecified type 1 Candido Roth. [address] [facility], [place], [place], [address] , [place]. [phone] Referring Provider: Referral Self, USE FOR SELF REFERRALS. [facility], [address] [address], [place], [place], [address], [place] tel:[phone] [facility] GI Symptoms or Concerns (chief complaint) No Information 1 Candido Roth. [address] [facility], [place], [address] , [place]. [phone] [facility], [address] [address], [place], [address], [place] tel:[phone] [facility] No Information 1 Candido Roth. [address] [facility], [facility] [address], [place], [place], [address] , [place]. tel:[phone] Offic/outpt E&m Estab Mod-hi 4 [facility], [address] [address], [place], [address], [place] tel:[phone] [facility] GI Symptoms or Concerns (chief complaint) Constipation, unspecified constipation type 1 Candido Roth. [address] [facility], [place], [address] , [place]. [phone] Referring Provider: Mandi Palacios, [address] [place], [address]. tel:[phone] Telephone E&M III 21-30 Min RODRIGO [facility], [address] [address], [place], [address], [place] tel:[phone] [facility] GI Symptoms or Concerns (chief complaint) Slow transit constipation 1 Live Deleon. [address] [facility], [place], [place], [address] , [place]. [phone] Referring Provider: Referral Self, USE FOR SELF REFERRALS. [facility], [address] [address], [place], [address], [place] tel:[phone] [facility] No Information 1 Live Deleon. [address] [facility], [facility] [address], [place], [id number] , [place]. tel: [phone] [facility], [address] [address], [place], [address], [place] tel:[phone] [facility] No Information 0 Kaye Lui. [address] [facility], [facility] [address], [place], [id number] , [place]. tel: [phone] Family History Family Member Type Diagnosis Age [...] Registry Payers Payer name Insurance type Covered republican ID Authoriza tion(s) No Information Social History [...]
--- OUTSIDE RECORDS SUMMARY | 2024-05-25 16:52 | XMS_ITS | Encounter Summary ---
Author Organization [facility] Address [address] [place] [address] Care Team Providers Care Neck Cutter Name Role Phone Mandi Bullard MD Primary Care Provider [phone] Mallory Cuadra MD Unavailable [phone] Encounter Details Date Type Department Care Team (Late st Contact Info) Description 03/30/2020 [facility] Neurology [address] [place] [address] 3rd [place] [address] Mallory Cuadra MD [address] [place] [address] Social History Tobacco Use Types Packs/Day Years Used Date Smoking Tobacco: Never Smokeless Tobacco: Never Alcohol Use Standard Drinks/Week Comments Yes 0 (1 standard drink = 0.6 oz pur e alcohol) rare PHQ-2 Answer Date Recorded PHQ-2 Score 5 10/03/2019 Sex and Gender Information Value Date Recorded Sex Assigned at Female 09/30/2019 12:38 PM CUTTING PRESSMAN Gender Identity Female 09/30/2019 12:38 PM CUTTING PRESSMAN Sexual Orientation Straight 09/30/2019 12 :38 PM CUTTING PRESSMAN documented as of this encounter Plan of Treatment Not on file documented as of this encounter Visit Diagnoses Not on filedocumented in this encounter Additional Health Concerns Assessment Noted Time PHQ-9 Depression Total Score: 14 020 12:18 PM CUTTING PRESSMAN documented as of this encounter Care Teams Neck Cutter Relationship Specialty Start Date End Date Mandi Bullard MD PCP - General Internal Medicine 10/30/17 Mallory Cuadra MD [address] [place] [address] Assigned Neuroscience Provider 06/08/20 02/21/22 documented as of this encounter
--- OUTSIDE RECORDS SUMMARY | 2024-05-25 16:53 | XMS_ITS | Encounter Summary ---
Author Organization [facility] Address [address] [place] [address] Care Team Providers Care Rotating Field Assembler Name Role Phone Found, No Pcp MD Primary Care Provider Unavailab le Reason for Visit * Reason Comments CONSTIPATION Encounter Details Date Type Department Care Team (Late st Contact Info) Description 02/24/2019 Nurse Triage [facility] [address] [place], [place] [phone] Mandi Bullard MD [address] [place] [address] CONSTIPATION Social History Tobacco Use [...] ongoing symptoms Clinician Next Step: Route to [facility] to follow up and Patient IS [...] 11 days in a remote area of [facility], wanted to make sure she had this [...] Care Team (Late st Contact Info) Description 06/14/2024 3:30 PM CDT Appointment [facility] [address] [place], [place] [address] Tri Brandt MD [address] [place] [address] 06/29/2024 10:10 AM YARN DYER Appointment [facility] [address] [place] [address] [place] [address] [place] [address] 04/25/2025 11:00 AM CDT Appointment Rheumatology at [facility] [address] [address] [address] [place] [address] Zaria Le MD [address] [place] [address] documented as of this encounter Visit Diagnoses Not on filedocumented in this encounter Care Teams Rotating Field Assembler Relationship Specialty Start Date End Date Found, No Pcp, [address] [place] [address] PCP - General 04/07/22 documented as of this encounter
--- OUTSIDE RECORDS SUMMARY | 2024-05-25 16:53 | XMS_ITS | Encounter Summary ---
Author Organization [facility] Address [address] [place] [address] Care Team Providers Care Pumper Head Name Role Phone Found, No Pcp MD Primary Care Provider Unavailab le Reason for Visit * Reason Comments QUESTIONS, GENERAL Encounter Details Date Type Department Care Team (Late st Contact Info) Description 05/17/2024 Telephone [facility] [address] [place] [address] [place] [address] [place] [address] QUESTIONS, GENERAL Social History Tobacco Use Types Packs/Day Years [...] as of this encounter Nursing Notes * Tia Lr RN - 05/17/2024 4:35 PM CDT Spoke w/ pt regarding records request. 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 Confirmed able to review PCP note from 03/22/24 and ER note from 03/21/24 was pending update. Pt stated she has access to her [facility] and [facility] records on [employer] which she plans to print and bring to appointment tomorrow as back up for record review. No further questions or concerns at this time. * Ratna Bacon - 05/17/2024 4:01 PM CDT GENERAL QUESTIONS How may we help you today? Pt requesting to speak to care team Describe your symptoms/concerns: Pt wanting to know if we received the records from [facility] and [facility] for her visit tomorrow When did the issue start: na Have you been seen for this recently?: No If we are unable to reach you can we leave a detailed message on your voicemail? No If we are unable to reach you can we send you a message in [place] [place]? No [Data Warehouse Specialist/Medical Csr: Relay to patient; We make every effort to get back to you sameday, however it may take 1-2 business days depending on the nature of the communication.] Future Appointments Date Time Provider Department Center 05/18/2024 9:50 AM Jered Bailey MD [facility] 05/24/2024 1:00 PM Tracey Lorenzo PsyD [facility] P3800 COU PN P3800 06/14/2024 3:30 PM Tri Brandt MD [facility] 06/29/2024 2:00 PM Tracey Lorenzo PsyD LP P3800 COU PN P3800 07/27/2024 10:00 AM Tracey Lorenzo PsyD, LP P3800 COU PN P3800 04/25/2025 11:00 AM aZria Le MD [facility] documented in this encounter Plan of Treatment Upcoming Encounters Date Type Department Care Team (Late st Contact Info) Description 06/14/2024 3:30 PM CDT Appointment [facility] [address] [place] [address] Tri Brandt MD [address] [place] [address] 06/29/2024 10:10 AM ARCHITECTURAL INTERN Appointment [facility] [address] [place] [address] [place] [address] [place] [address] 04/25/2025 11:00 AM CDT Appointment Rheumatology at [facility] [address] [address] [address] [place] [address] Zaria Le MD [address] [place] [address] documented as of this encounter Visit Diagnoses Not on filedocumented in this encounter Care Teams Pumper Head Relationship Specialty Start Date End Date Found, No Pcp, [address] [place] [address] PCP - General 04/07/22 documented as of this encounter
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
--- OUTSIDE RECORDS SUMMARY | 2024-05-25 16:53 | XMS_ITS | Encounter Summary ---
Author Organization [facility] Address [address] [place] [address] Care Team Providers Care Sap Portal Developer Name Role Phone Mandi Bullard MD Primary Care Provider Mallory Cuadra MD Unavailable [phone] Reason for Visit * Reason Onset Date Comments Medication Question 10/24/2019 Received mariangel nk emgality prescription. She did get the 2 page form Encounter Details Date Type Department Care Team (Late st Contact Info) Description 10/24/2019 Telephone [facility] Neurology [address] [facility] [address] [place] [address] Mallory Cuadra MD [address] [place] [address] Medication Question (Received blank emgality prescription. [...] Sex Assigned at Female 09/30/2019 12:38 PM CERTIFIED VETERINARY TECHNICIAN Gender Identity Female 09/30/2019 12:38 PM CERTIFIED VETERINARY TECHNICIAN Sexual Orientation Straight 09/30/2019 12 :38 PM CERTIFIED VETERINARY TECHNICIAN documented as of this encounter Miscellaneous Notes [...] after Prescribing Provider: Mallory Jaramillo MD Pharmacy: [id number] [place] [address] AT [facility] [address] What on [...] Depression Total Score: 14 020 12:18 PM CERTIFIED VETERINARY TECHNICIAN documented as of this encounter Care Teams Sap Portal Developer Relationship Specialty Start Date End Date Mandi Bullard MD PCP - General Internal Medicine 10/30/17 Mallory Cuadra MD [address] [place] [address] Assigned Neuroscience Provider 06/08/20 02/21/22 documented as of this encounter
--- OUTSIDE RECORDS SUMMARY | 2024-05-25 16:53 | XMS_ITS | Encounter Summary ---
Author Organization [employer] Address [address], [place] [address] Care Team Providers Care Maternity Floor Supervisor Name Role Phone Found, No Pcp Primary Care Provider Unavailab le Reason for Visit * Reason Comments REPORTING, NEW SYMPTOMS Encounter Details Date Type Department Care Team (Late st Contact Info) Description 05/25/2024 Telephone Rheumatology at [place] [address] [place] [address]. [place], [place] [phone] Zaria Le MD [address] [place] [phone] REPORTING, NEW SYMPTOMS Social History Tobacco Use Types Packs/Day Years [...] as of this encounter Nursing Notes * Venu Mcdonnell RN - 05/25/2024 3:06 PM CDT Pt denies any recent injury or trauma to her finger. Spoke with pt, given this information and verbalized understanding. Pt states her is picking her up and taking her to the ER now. * Tavia Rosario PA-C - 05/25/2024 3:00 PM CDT Please call the patient. Ask if she has had any recent injury or trauma to the finger? Would strongly advise that she be seen urgently in the emergency department. With her having lupus anticoagulantand elevated IgM beta 2 glycoprotein antibodies she needs to be evaluated for blood clot. * Venu Mcdonnell RN - 05/25/2024 2:51 PM CDT Pt calling to report that starting 3 hours ago, her thumb has turned purple. Pt states that she does have the marker for antiphospholipid antibody syndrome. Pt reports some numbness in her finger and states she is able to feel her fingernail on her thumb when she pushes on it. Advised pt that she should go to Urgent Care as she could experience a complete loss of blood flow to her fingers if there is a clot. Pt denies other symptoms. Please advise if you have any other recommendations. documented in this encounter Plan of Treatment Upcoming Encounters Date Type Department Care Team (Late st Contact Info) Description 06/14/2024 3:30 PM CDT Appointment [facility] [address] [place] [address] Tri Brandt MD [address] [place] [address] 06/29/2024 10:10 AM PRODUCT SAFETY SPECIALIST Appointment [facility] [address] [place] [phone] [place] [address] [address] [place] [address] 04/25/2025 11:00 AM CDT Appointment Rheumatology at [facility] [place] [address] [address] [address] [place], [place] [phone] Zaria Le MD [address] [place], [place] [phone] documented as of this encounter Visit Diagnoses Not on filedocumented in this encounter Care Teams Maternity Floor Supervisor Relationship Specialty Start Date End Date Found, No Pcp, [address] [facility] [address] PCP - General 04/07/22 documented as of this encounter
--- OUTSIDE RECORDS SUMMARY | 2024-05-25 16:53 | XMS_ITS | Encounter Summary ---
Author Organization [facility] Address [address] [place] [address] Care Team Providers Care Front Desk Representative Name Role Phone Mandi Bullard MD Primary Care Provider [phone] Mallory Cuadra MD Unavailable [phone] Reason for Visit * Reason Onset Date Comments Medication Request 02/27/2020 galcanezumab- gnlm (EMGALITY) 120 MG/ML injection Encounter Details Date Type Department Care Team (Late st Contact Info) Description 02/27/[address] [address] Mallory Cuadra MD [address] [place] [address] Medication Request (galcanezumab-gnlm (EMGALITY) 120 MG/ML injection ) Social History Tobacco Use Types Packs/Day Years Used Date Smoking Tobacco: Never Smokeless Tobacco: Never Alcohol Use Standard Drinks/Week Comments Yes 0 (1 standard drink = 0.6 oz pur e alcohol) rare PHQ-2 Answer Date Recorded PHQ-2 Score 5 10/03/2019 Sex and Gender Information Value Date Recorded Sex Assigned at Female 09/30/2019 12:38 PM MILK OF LIME SLAKER Gender Identity Female 09/30/2019 12:38 PM MILK OF LIME SLAKER Sexual Orientation Straight 09/30/2019 12 :38 PM MILK OF LIME SLAKER documented as of this encounter Miscellaneous Notes [...] received it. Please call in at # [phone], or fax to [phone]. Please try multiple times if there are issues, and call the pharmacy to confirm computer discovery teacher. Pt is due and has been waiting some time for this to go out. Pt requests a call back. Action Taken: Message routed to: [facility] Travel Screening: Not Applicable documented in this encounter Plan of Treatment Not on file documented as of this encounter Visit Diagnoses Not on filedocumented in this encounter Additional Health Concerns Assessment Noted Time PHQ-9 Depression Total Score: 14 10/03/ 020 12:18 PM MILK OF LIME SLAKER documented as of this encounter Care Teams Front Desk Representative Relationship Specialty Start Date End Date Mandi Bullard MD PCP - General Internal Medicine 10/30/17 Mallory Cuadra MD [address] [place] [address] Assigned Neuroscience Provider 06/08/20 02/21/22 documented as of this encounter
--- OUTSIDE RECORDS SUMMARY | 2024-05-25 16:53 | XMS_ITS | Encounter Summary ---
Author Organization [facility] Address [address] [address] Care Team Providers Care Ballast Inspector Name Role Phone Found, No Pcp Primary Care Provider Unavailab le Reason for Visit * Reason Comments PHONE CALL TO PATIENT Encounter Details Date Type Department Care Team (Late st Contact Info) Description 04/20/2024 Telephone Rheumatology at [place] [address] [place] [address]. [place] [address] Zaria Le MD [address] [place] [phone] PHONE CALL TO PATIENT Social History Tobacco Use Types Packs/Day Years [...] as of this encounter Nursing Notes * Paula Hanks RN - 04/21/2024 8:12 AM CDT Spoke with patient, given the providers message and they verbalized understanding. She agrees with this plan. * Zaria Le MD - 04/21/2024 7:57 AM CDT I do not see the necessity for her health by taking it. Since is unregulated and we do not know exactly what ingredients are in this product, I would recommend not to take it. * Damari Cummings RN - 04/20/2024 4:45 PM CDT Patient called stating her daughter bought some kefir (fermented milk) off of [employer] from someone who makes the product at home. Patient has had some of it and just wonders what your thoughts are on her taking it, especially if it is not a regulated product as she did not get it from a store and also because kefir has bacteria in it. Please advise. Okay for tomorrow. documented in this encounter Plan of Treatment Upcoming Encounters Date Type Department Care Team (Late st Contact Info) Description 06/14/2024 3:30 PM CDT Appointment [facility] [address] [place] [address] Tri Brandt MD [address] [place] [address] 06/29/2024 10:10 AM SENSITIZED PAPER TESTER Appointment [facility] [address] [place] [phone] [place] [address] [place] [address] 04/25/2025 11:00 AM CDT Appointment Rheumatology at [facility] [address] [address] [place] [address] Zaria Le MD [address] [place] [address] documented as of this encounter Visit Diagnoses Not on filedocumented in this encounter Care Teams Ballast Inspector Relationship Specialty Start Date End Date Found, No Pcp, [address] [place] [address] PCP - General 04/07/22 documented as of this encounter
--- OUTSIDE RECORDS SUMMARY | 2024-05-25 16:53 | XMS_ITS | Encounter Summary ---
Author Organization [facility] Address [address] [place] [address] Care Team Providers Care Regional Director Of Admissions Name Role Phone Found, No Pcp MD Primary Care Provider Unavailab le Reason for Visit * Reason Comments COVID Questions Encounter Details Date Type Department Care Team (Late st Contact Info) Description 10/28/2019 Nurse Triage [facility] [address] [place], [place] [phone] Mandi Bullard MD [address] [place] [address] COVID Questions Social History Tobacco [...] PCP Thursday10/31/2019 Clinician Next Step: Route to [facility] to follow up and Patient IS expecting [...] Info) Description 06/14/2024 3:30 PM CDT Appointment [facility] [address] [place] [address] Tri Brandt MD [address] [place] [address] 06/29/2024 10:10 AM TABLE MACHINE OPERATOR Appointment [facility] [address] [place] [phone] [place] [address] [place] [address] 04/25/2025 11:00 AM CDT Appointment Rheumatology at [facility] [place] [address] [address] [address] [place] [address] Zaria Le MD [address] [place] [address] documented as of this encounter Visit Diagnoses Not on filedocumented in this encounter Care Teams Regional Director Of Admissions Relationship Specialty Start Date End Date Found, No Pcp, [address] [place] [address] PCP - General 04/07/22 documented as of this encounter
--- OUTSIDE RECORDS SUMMARY | 2024-05-25 16:53 | XMS_ITS | Encounter Summary ---
Author Organization [facility] [employer] [employer] Address [address] [place] [address] Care Team Providers Care Publishing Director Name Role Phone Found, No Pcp Primary Care Provider Unavailab le Reason for Visit * Reason Comments Follow-up, NOS Entered automaticall y based on patient selection in [employer]. Encounter Details Date Type Department Care Team (Late st Contact Info) Description 05/19/2024 3:00 PM CDT E-Visit [facility] [address] [place] [phone] [place] [address] [place] [id number] Chief Comp: Follow-up, NOS Social History Tobacco Use Types Packs/Day Years [...] on file documented as of this encounter Plan of Treatment Upcoming Encounters Date Type Department Care Team (Late st Contact Info) Description 06/14/2024 3:30 PM CDT Appointment [facility] [address] [place], [place] [phone] Tri Brandt MD [address] [place] [address] 06/29/2024 10:10 AM GREY INSPECTOR Appointment [facility] [address] [place] [address] [place] [address] [place] [address] 04/25/2025 11:00 AM CDT Appointment Rheumatology at [facility] [place] [address] [address] [address] [place] [address] Zaria Le MD [address] [place] [address] documented as of this encounter Visit Diagnoses Not on filedocumented in this encounter Care Teams Publishing Director Relationship Specialty Start Date End Date Found, No Pcp, [address] [place] [address] PCP - General 04/07/22 documented as of this encounter
--- OUTSIDE RECORDS SUMMARY | 2024-05-25 16:53 | XMS_ITS | Encounter Summary ---
Author Organization [facility] [employer] Address [address], [place] [address] Care Team Providers Care Wind Projects Supervisor Name Role Phone Found, No Pcp Primary Care Provider Unavailab le Reason for Visit * Reason Comments Follow-up Encounter Details Date Type Department Care Team (Latest Contact Info) Description 04/19/2024 11:30 AM CDT Office Visit Rheumatology at [facility] [address] [address] [place] [address] Zaria Le MD [address] [place], [place] [phone] Chondrocalcinosis (Primary Dx); Osteoarthritis of multiple joints, unspecified osteoarthritis type; Lupus anticoagulant positive Social History Tobacco Use Types Packs/Day Years [...] on file documented as of this encounter Last Filed Vital Signs Vital Sign Reading Time Taken Comments Blood Pressure 139/81 04/19/2024 11:27 AM CDT Pulse 69 04/19/2024 11:27 AM CDT Temperature - - Respiratory Rate - - Oxygen Saturation - - Inhaled Oxygen Concentration - - Weight 100.2 kg (221 lb) 04/19/2024 11:27 AM CDT Height - - Body Mass Index 37.93 08/24/2022 2:54 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 History of present illness: It has been a year since I last saw her. She would like to have an updated prednisone to be used as needed if she has a pseudogout attack. Thankfully, this has not happened since I last saw her. She used to take hydroxychloroquine in the past but this was subsequently discontinued when the repeated skin biopsy of her right hand turned out to be eczema. Thankfully, she only needs triamcinolone cream as needed and that has seemed to be helpful to control the eczema. Although she has weakly positive anti PL 17 antibody, she has no clinical inflammatory myositis, inflammatory arthritis or interstitial lung disease. She takes low-dose baby aspirin 81 mg a day for what is considered oqgccbcddfda-rpth-qjcw antiphospholipid profile with persistently positive lupus anticoagulant and marginally elevated IgM beta 2 glycoprotein antibodies. When she has to be in a car or an airplane for longer than a few hours, she does use low-molecular weight heparin Lovenox 60 mg prophylactically before leaving on a trip. She has not had a blood clot since I last saw her. She has continued to do well for the past 1 year. She reported intermittent trouble swollen if she drinks cold drink. Otherwise, there is no significant dysphagia, shortness of breath, PND/orthopnea,swollen joint, paresthesia or muscle weakness, unusual skin rashes, diplopia. Past medical history, family and social history, current medications and adverse reactions were updated in EMR. Physical exams: BP 139/81 (BP Location: Right Forearm, BP Cuff Size: Regular) Pulse 69 Wt 221 lb (100.2 kg) BMI 37.93 kg/m?? General appearance: A middle-aged overweight female who was not in acute physical distress. Skin: No significant skin rashes or cutaneous manifestations of connective tissue disease includinglupus and dermatomyositis. Musculoskeletal exams: All 4 extremities were examined. No significant synovitis/inflammatory arthritis/dactylitis or effusion in any joints. Normal muscle power and tone. Assessment and plan: 1. Hand dermatitis. 2. Persistently present of lupus anticoagulant and marginally elevated IgM beta 2 glycoprotein antibodies without antiphospholipid syndrome. Irsudtnjkhar-qngg-iphe antiphospholipid antibody profile. 3. History of right wrist chondrocalcinosis and intermittent clinical pseudogout attack-quiescent. Pain is rated as 3. RAPID 3 score is 6.7. She is doing well. The hand dermatitis has subsided and under good control with only topical triamcinolone cream and she will continue that as needed. She has not had a pseudogout attack. Provided her with the updated prednisone to be used as needed. Similarly, I also provided her with Lovenox prescription to be used as needed if she is in the situation which requires her to be sedentary for longer than a few hours such as postoperative period or being on a trip when she has to be in the car oreye pain for longer than 4-5 hours. Follow up again in 1 year, earlier if needed. 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 SALESPERSON Appointment [facility] [address] [place] [phone] [place] [address] [address] [id number] 04/25/2025 11:00 AM CDT Appointment Rheumatology at [facility] [address] [address] Zaria Le MD [address] [place] [address] documented as of this encounter Visit Diagnoses Diagnosis Chondrocalcinosis- Primary Other disorder of calcium metabolism Osteoarthritis of multiple joints, unspecified osteoarthritis type Lupus anticoagulant positive Other and unspecified nonspecific immunological findings documented in this encounter Care Teams Wind Projects Supervisor Relationship Specialty Start Date End Date Found, No Pcp, [address] [place] [address] PCP - General 04/07/22 documented as of this encounter
--- OUTSIDE RECORDS SUMMARY | 2024-05-25 16:53 | XMS_ITS | Encounter Summary ---
Author Organization [facility] Address [address] [place] [address] Care Team Providers Care Systems Project Manager Name Role Phone Mandi Bullard MD Primary Care Provider [phone] Mallory Cuadra MD Unavailable [phone] Encounter Details Date Type Department Care Team (Late st Contact Info) Description 02/27/2020 [facility] Medical Advice [facility] Neurology [address] [place] [phone] Roxy Mahan RN Social History Tobacco Use Types Packs/Day Years Used Date Smoking Tobacco: Never Smokeless Tobacco: Never Alcohol Use Standard Drinks/Week Comments Yes 0 (1 standard drink = 0.6 oz pur e alcohol) rare PHQ-2 Answer Date Recorded PHQ-2 Score 5 10/03/2019 Sex and Gender Information Value Date Recorded Sex Assigned at Female 09/30/2019 12:38 PM AUDIO TECHNICIAN Gender Identity Female 09/30/2019 12:38 PM AUDIO TECHNICIAN Sexual Orientation Straight 09/30/2019 12 :38 PM AUDIO TECHNICIAN documented as of this encounter Plan of Treatment Not on file documented as of this encounter Visit Diagnoses Not on filedocumented in this encounter Additional Health Concerns Assessment Noted Time PHQ-9 Depression Total Score: 14 020 12:18 PM AUDIO TECHNICIAN documented as of this encounter Care Teams Systems Project Manager Relationship Specialty Start Date End Date Mandi Bullard MD PCP - General Internal Medicine 10/30/17 Mallory Cuadra MD [address] [place] [address] Assigned Neuroscience Provider 06/08/20 02/21/22 documented as of this encounter
--- OUTSIDE RECORDS SUMMARY | 2024-05-25 16:53 | XMS_ITS | Encounter Summary ---
Author Organization [facility] Address [address], [place] [address] Care Team Providers Care House Rn Name Role Phone Found, No Pcp MD Primary Care Provider Unavailab le Reason for Referral * (Routine) - New Request Specialty Diagnoses / Procedures Referred By Contac t Referred To Contact Diagnoses Greater trochanteric pain syndrome Procedures Triamcinolone Acet Inj Nos: (per 10 mg) [place] [address] [place] [address] Referral ID Status Reason Start Date Expiration Date V isits Requested Visits Authorized [id number] New Request 05/19/2024 08/18/2025 1 1 Reason for Visit * Reason Comments LEG PAIN Left leg, worsening recently, no clear injury Encounter Details Date Type Department Care Team (Late st Contact Info) Description 05/18/2024 9:50 AM CDT Office Visit [facility] [address] [facility] [place] [address] [place] [address] [place] [id number] Greater trochanteric pain syndrome (Primary Dx); It band syndrome, left Social History Tobacco Use Types Packs/Day Years [...] on file documented as of this encounter Patient Instructions * Patient Instructions* Amilcar Silveira, ATC - 05/18/2024 9:[address] Tray Blakely MD Primary Care Sports Medicine Thank you for choosing [facility] for your health care visit today. Diagnosis: Left Greater Trochanteric Pain Syndrome Left IT Band Syndrome Plan: Return to clinic in 6 week(s) with Dr. Blakely. Continue PT in [place] Injection(s): The left hip was injected with Kenalog-40 and lidocaine. You've just had a steroid (cortisone) injection: Steroid injections are among the most frequently used treatments in orthopedics. Steroid injectionsare used for a wide range of conditions from arthritis, to bursitis, to tennis elbow, etc. The two most common side-effects of steroid shots called ???steroid flare??? and ???steroid flush. Steroid flare can cause an increase in symptoms in the first 24-48 hours after a steroid injection.This will usually subside within a few days, and is a cause from the additional fluid in your joint, and the trauma to the joint lining from the injection. This pain usually subsides quickly and can be aided with an ice pack and over the counter anti-inflammatory medication. Steroid flush is a flushing sensation and redness of their face. This reaction is more common in women, but can occur in men as well, and is seen into up to 15 percent of patients. This can begin within a few hours of the injection and may last for a few days. It is not dangerous, and will resolve itself. Diabetic patients also can have their blood sugar levels affected. Patients with diabetes should carefully monitor their blood sugar as steroid can cause a temporary rise in their levels. Patients taking insulin should be especially careful, checking their blood sugar often and adjusting the insulin doses, if necessary. Steroid injections can only be repeated every 3 or 4 months. For some conditions there may also be a limited total number of times it is safe to repeat an injection. RISKS: Infection Whenever there is a break in the skin, like when a needle is used to administer steroid, there is achance of infection this is very unlikely to happen, usually would occur days after the injection. Signs and symptoms to watch for: fever, streaking redness, pus, drainage, foul odor, localized redness that continues to get worse, come to the office if symptoms are recognized during business hours, or proceed to the emergency room if symptoms are recognized after office hours. Skin Pigment Changes Patients should also be aware that steroid may cause skin around the injection site to lighten. This is not harmful or long lasting. Loss of Fatty Tissue This is one reason we limit the number of steroid injections administered. High doses of steroid can have detrimental effects on some tissues in the body, though due to the dosage we use the risk is extremely rare. When injected into fatty tissue, steroid can lead to a problem called fat atrophy. Fat atrophy causes loss of fatty tissue, which can lead to dimpling of the skin or the thinning out of fat. Skin will feel thin. Patients who get steroid injections in the heel to treat plantar fasciitis may find walking painful as fat that usually cushions their steps may thin out. Tendon Rupture Steroid can also cause weakening of tendons. This is one reason to limit the number of steroid injections administered. RESTRICTIONS: Avoid vigorous activity for the next 24 hours. Avoid submersion for next 24 hours; ok to shower. Advanced Imaging Scheduling: To schedule advanced imaging including MRI's, CT Scans, Ultrasounds and Fluoroscopic guided injections at a [facility] location please call [phone]. Medication Requests: Prescriptions are not filled on weekends or on weekdays after 3:00 PM. For all medication refills: Request a refill using St[facility] or contact your pharmacy. [facility] [employer] [address] [place] [address] (Phone) Email: [email or web address] What is Know Your Cost? Know Your Cost is a service for patients and patient/members to call and receive personalized cost information and estimates across our care group. The phone number is (COST) Thursday - Thursday 8 AM to 5 PM Release of Information: Radiology/Imaging Health Information Management [id number] [place] [address] [place] [address] (Phone) [phone] (Phone) Unified documented in this encounter Progress Notes * Tray Blakely MD - 05/18/2024 12:00 AM CDT NAME: PAOLA TITUS CSN: [id number] CLINIC NOTE DATE OF SERVICE: 05/18/2024 : 1950 Shayy Titus is a pleasant 73-year-old female with past medical history significant for Rosie-Danlos syndrome, depression, gastroparesis, and chronic migraine, here today for evaluation of left lateral hip pain, which has been ongoing since March of 2024. She notes that she was carrying a heavier pool bag to pool therapy at that time when she started getting more pain over the lateral aspect of the hip. She has been going to pool therapy for balance issues and notes that. Prior to this, she was doing land-based physical therapy with [facility] where they were focusing on hip strengthening exercises. This did seem to resolve her lateral hip pain, but the recent pool therapy has been more directed at balance. She has been trying to avoid any type of muscle relaxants or narcotic pain medications as she has a history of gastroparesis and notes that these medications can affect this. She also cannot take Aleve or Advil due to cardiac issues and notes that Tylenol has not been providing significant relief. She denies significant groin or buttock pain. She does have some radiation down the proximal IT band in the lateral thigh. She denies any symptoms traveling down below the knee. REVIEW OF SYSTEMS: Reviewed on patient's orthopedic intake form. PAST MEDICAL HISTORY: Reviewed in [facility]. SOCIAL HISTORY: Reviewed. She is retired. MEDICATIONS: Per Epic. ALLERGIES: PER EPIC. PHYSICAL EXAMINATION: Examination of the left hip, she is exquisitely tender to palpation over the left trochanteric bursa and left proximal IT band. No focal tenderness elsewhere in the leg. She has hip flexion to 120, hip internal rotation to 30, and hip external rotation 45 without pain. She has a negative FADIR, positive ROLANDO, negative Stinchfield, negative slump. Negative straight leg raise. IMAGING: Prior lumbar spine MRI from 01/01/2023 was reviewed as well as the films from 12/23/2022. Please see [facility] for official radiology review. Her x-rays do show mild degenerative changes of both hips without significant femoroacetabular joint space narrowing. ASSESSMENT/PLAN: 1. Left greater trochanteric pain syndrome. 2. Left IT band syndrome. We reviewed her symptoms on presentation and her pain all seems lateral mediated. We discussed possibilities for lateral hip pain and I recommended continued physical therapy including glute and hip abductor strengthening due to the pain that is making it difficult for her to tolerate the exercises. At this point, we did opt to proceed with a trochanteric bursa injection. Using sterile technique,9 mL of 1% lidocaine and 40 mg of triamcinolone were injected into the left trochanteric bursa areausing a side-lying approach. She tolerated this well without complication. She will follow up with me in 6 weeks for clinical recheck. If she is failing to see significant progress, we could consider advanced imaging of her hip or other treatment options. All the rest of her questions were answered. TRAY BLAKELY MD MWG/AQS /[id number] documented in this encounter Plan of Treatment Upcoming Encounters Date Type Department Care Team (Late st Contact Info) Description 06/14/2024 3:30 PM CDT Appointment [facility] [address] [place], [place] [address] Tri Brandt MD [address] [place] [id number] 06/29/2024 10:10 AM GARAGE SUPERVISOR Appointment [facility] [address] [place] [phone] [place] [address] [place] [address] 04/25/2025 11:00 AM CDT Appointment Rheumatology at [facility] [address] [address] [address] [place] [address] Zaria Le MD [address] [place], [place] [phone] documented as of this encounter Visit Diagnoses Diagnosis Greater trochanteric pain syndrome- Primary It band syndrome, left documented in this encounter Care Teams House Rn Relationship Specialty Start Date End Date Found, No Pcp, [address] [place] [address] PCP - General 04/07/22 documented as of this encounter
== END 2024-05-25 17:00 | disposition home or self-care (01) ==
LOC: ED 16:49
PROVIDERS: Emergency Provider Family Medicine; PCP Family Medicine
DX: S60.011A Contusion of right thumb without damage to nail, initial encounter (principal)
CPT/HCPCS: 99282

== ENCOUNTER 2024-09-30 12:50 | Outpatient (CLI) | payer MEDICARE, SELFPAY | END 2024-09-30 12:51 | disposition home or self-care (01) | LOC: US 12:54 | PROVIDERS: PCP Family Medicine; Visit Provider Obstetrics & Gynecology | DX: N94.89 Other specified conditions associated with female genital organs and menstrual cycle (principal); N83.291 Other ovarian cyst, right side | CPT/HCPCS: 76856 ==

== ENCOUNTER 2024-10-13 13:30 | Outpatient (RCR) | payer MEDICARE, SELFPAY | END 2024-10-14 08:20 | disposition home or self-care (01) | PROVIDERS: PCP Family Medicine; Visit Provider Emergency Medicine | DX: M25.532 Pain in left wrist (principal); M65.4 Radial styloid tenosynovitis [de Quervain]; M25.632 Stiffness of left wrist, not elsewhere classified; R53.1 Weakness; Z51.89 Encounter for other specified aftercare | CPT/HCPCS: 97035; 97110; 97140; 97165; 97530; X5282 ==

== ENCOUNTER 2025-01-23 16:00 | Outpatient (RCR) | payer MEDICARE, SELFPAY | END 2025-05-23 23:59 | disposition home or self-care (01) | PROVIDERS: PCP Family Medicine; Visit Provider Family Medicine | DX: R60.0 Localized edema (principal); I89.0 Lymphedema, not elsewhere classified; Z51.89 Encounter for other specified aftercare | CPT/HCPCS: 97110; 97140; 97165; 97530; 97535; X5282 ==

== ENCOUNTER 2025-02-06 10:19 | Emergency (ER) | payer MEDICARE, SELFPAY ==
--- OUTSIDE RECORDS SUMMARY | 2024-12-30 13:00 | XMS_ITS | Encounter Summary ---
Author Organization [facility] Address [address] [address] Care Team Providers Care Candy Rolling Machine Operator Name Role Phone Found, No Pcp MD Primary Care Provider Unavailab le Reason for Referral * Procedure/Equipment (Routine) - Incomplete Specialty Diagnoses / Procedures Referred By Contac t Referred To Contact Diagnoses Pain of left hip Procedures MR Pelvis WO IV Cont MR Pelvis W/WO IV Cont Rosie Espinal DO [address] [place] [address] Phone: tel: fax: Referral ID Status Reason Start Date Expiration Date V isits Requested Visits Authorized [id number] Incomplete 12/30/2024 03/31/2026 1 1 Reason for Visit * Reason Comments CONSULT * Consult/Transfer Care (Routine) - New Request Specialty Diagnoses / Procedures Referred By Contac t Referred To Contact Pain Management Diagnoses Greater trochanteric [place] [address] [place] [address] Phone: tel: fax: [facility] [address] [facility] [place] [address] Phone: tel: Referral ID Status Reason Start Date Expiration Date V isits Requested Visits Authorized [id number] New Request 11/22/2024 02/21/2026 1 1 Encounter Details Date Type Department Care Team (Late st Contact Info) Description 12/30/2024 1:00 PM CDT Office Visit [facility] [address] [place] [address] Rosie Espinal DO [address] [place] [address] Pain of left hip (Primary Dx); EDS [...] Consult Note Referred by: [place] [address] [place] [address] Chief Complaint: Chief Complaint Patient presents with [...] 09/15, 07/07, 06/29. Rheumatology 04/19. PMR 05/2018. [facility] Primary Care 10/05. [facility] Neurosurgery 07/2022. Medical history and workup: Medications the patient has tried: None Rehabilitation (PT/OT/Medx)? Yes; date 2023- (PT at [place] [facility] - notes in Media), 2020 (PT at [facility]), and Pool Therapy (date unknown). Behavioral health? Yes; date (Therapy) Other treatment modalities tried: healthcare prof; date 2007 and Injection; date 03/2018, tete PANG (unknown date). H/O anterior C4-5 C5-6 diskectomy and spinal cord decompression and foraminal decompression with fusion and plating 01/2022 at [facility]. H/O knee replacement x2. Imaging (MRI within the past 2 years for cervical thoracic, 5 years for lumbar): Lumbar 06/2024. Any red flags present? None Other information: Controlled substance agreement on file? n/a Patient???s insurance: Medicare [place] MASS SPECTROMETRY MANAGER: Reviewed 12/30/2024 Review of Systems: A 10-point [...] for her hip in the past. Medications: MASS SPECTROMETRY MANAGER reviewed the patient is reluctant to start medications. She can not take NSAIDs per her check scaler. She reports sensitivities to medications. Would recommend taking acetaminophen 1000 mg 3 times per day. She is currently using this once per day. Interventions: Hold for now Follow-up: 6-8 weeks or on an as-needed basis Billing based on: Time I spent a total of 75 minutes with the patient [id number] as well as time spent reviewing the patient???s medical chart on the day of this encounter. This includes reviewing and documenting available and pertinent imaging, labs, MASS SPECTROMETRY MANAGER and notes. Time was also spent counseling [...] Info) Description 02/24/2025 9:20 AM CDT Appointment [facility] [address] [place] [address] Rosie Espinal DO [address] [place], [place] [address] 04/28/2025 11:30 AM CDT Appointment Rheumatology at [facility] [address] [address] [address] [place] [address] Zaria Le MD [address] [place] [address] documented as of this encounter Results * [...] hip documented in this encounter Care Teams Candy Rolling Machine Operator Relationship Specialty Start Date End Date Found, No Pcp, [address] [place] [address] PCP - General 04/07/22 documented as of this encounter
--- OUTSIDE RECORDS SUMMARY | 2025-01-04 15:29 | XMS_ITS | Encounter Summary ---
[facility] Address [address], [place] [address] Care Team Providers Care Scientific Informatics Project Leader Name Role Phone Found, No Pcp MD Primary Care Provider Unavailab le Reason for Referral * Procedure/Equipment (Routine) - Incomplete Specialty Diagnoses / Procedures Referred By Contac t Referred To Contact Diagnoses Pain of left hip Procedures MR Pelvis WO IV Cont MR Pelvis W/WO IV Cont Rosie Espinal DO [address] [place] [address] Phone: tel: fax: Referral ID Status Reason Start Date Expiration Date V isits Requested Visits Authorized [id number] Incomplete 12/30/2024 03/31/2026 1 1 Reason for Visit * Procedure/Equipment (Routine) - Incomplete Specialty Diagnoses / Procedures Referred By Contac t Referred To Contact Diagnoses Pain of left hip Procedures MR Pelvis WO IV Cont MR Pelvis W/WO IV Cont Rosie Espinal DO [address] [place] [address] Phone: tel: fax: Referral ID Status Reason Start Date Expiration Date V isits Requested Visits Authorized [id number] Incomplete 12/30/2024 03/31/2026 1 1 Encounter Details Date Type Department Care Team (Late st Contact Info) Description 01/04/2025 3:29 PM CDT - 01/04/2025 11:59 PM CDT Hospital Encounter [facility] [address] [facility] [place] [address] Rosie Espinal, DO [address] [place] [address] Pain of left hip Discharge Disposition: Home [...] Info) Description 02/24/2025 9:20 AM CDT Appointment [facility] [address] [place] [address] Rosie Espinal DO [address] [place] [address] 04/28/2025 11:30 AM CDT Appointment Rheumatology at [facility] [place] [address] [address] [address] [place] [address] Zaria Le MD [address] [place], [place] [address] documented as of this encounter Procedures Procedure [...] hip documented in this encounter Care Teams Scientific Informatics Project Leader Relationship Specialty Start Date End Date Found, No Pcp, [address] [place] [address] PCP - General 04/07/22 documented as of this encounter
--- OUTSIDE RECORDS SUMMARY | 2025-02-06 10:22 | XMS_ITS | Encounter Summary ---
Author Organization [facility] Address [address] [place] [address] Care Team Providers Care Qualified Craft Worker Electrician Name Role Phone Mandi Bullard MD Primary Care Provider Mallory Cuadra MD Unavailable [phone] Encounter Details Date Type Department Care Team (Late st Contact Info) Description 03/01/2020 [facility] Medical Advice [facility] Neurology [address] [place] [address] [address] [place] [address] Mallory Cuadra MD [address] [place] [address] Social History Tobacco Use Types Packs/Day Years Used Date Smoking Tobacco: Never Smokeless Tobacco: Never Alcohol Use Standard Drinks/Week Comments Yes 0 (1 standard drink = 0.6 oz pur e alcohol) rare PHQ-2 Answer Date Recorded PHQ-2 Score 5 10/03/2019 Comments No Sex and Gender Information Value Date Recorded Sex Assigned at Female 09/30/2019 12:38 PM OPERATIONS RESEARCH SCIENTIST Legal Sex Female 5:04 AM OPERATIONS RESEARCH SCIENTIST Gender Identity Female 09/30/2019 12:38 PM OPERATIONS RESEARCH SCIENTIST Sexual Orientation Straight 09/30/2019 12 :38 PM OPERATIONS RESEARCH SCIENTIST documented as of this encounter Plan of Treatment Not on file documented as of this encounter Visit Diagnoses Not on filedocumented in this encounter Additional Health Concerns Assessment Noted Time PHQ-9 Depression Total Score: 14 020 12:18 PM OPERATIONS RESEARCH SCIENTIST documented as of this encounter Care Teams Qualified Craft Worker Electrician Relationship Specialty Start Date End Date Mandi Bullard MD PCP - General Internal Medicine 10/30/17 Mallory Cuadra MD [address] [place] [address] Assigned Neuroscience Provider 06/08/20 02/21/22 documented as of this encounter
--- OUTSIDE RECORDS SUMMARY | 2025-02-06 10:22 | XMS_ITS | Encounter Summary ---
Author Organization [facility] Address [address], [place] [address] Care Team Providers Care Warehouse Record Clerk Name Role Phone Found, No Pcp Primary Care Provider Unavailab le Reason for Visit * Reason Comments QUESTIONS, GENERAL Office Visit Notes Encounter Details Date Type Department Care Team (Late st Contact Info) Description 09/16/2024 Telephone [facility] at [address] [address] Kash Chopra MD [address] [place] [address] QUESTIONS, GENERAL (Office Visit Notes) Social History Tobacco Use Types Packs/Day Years [...] as of this encounter Nursing Notes * Katheryn Lares RN - 09/16/2024 11:00 AM CST MICHAEL note faxed to Mallory Barney [facility] [phone]. ICE MACHINE OPERATOR * Evon Buchanan - 09/16/2024 10:52 AM CST GENERAL QUESTIONS How may we help you today? Mallory is calling from [facility]. Patient is scheduled to see them on Thursday and they are requesting the last office visit note. Please fax to (f)[phone]. Describe your symptoms/concerns: Left wrist When did the issue start: NA Have you been seen for this recently?: Yes: Date: 09/15/2024 Provider: Kash Chopra MD If we are unable to reach you can we leave a detailed message on your voicemail? Yes If we are unable to reach you can we send you a message in [employer]? No [Unit Aide/Machine Bander And Cellophaner: Relay to patient; We make every effort to get back to you sameday, however it may take 1-2 business days depending on the nature of the communication.] ICE MACHINE OPERATOR documented in this encounter Plan of Treatment Upcoming Encounters Date Type Department Care Team (Late st Contact Info) Description 02/24/2025 9:20 AM CDT Appointment [facility] [address] [place] [address] Rosie Espinal DO [address] [place] [address] 04/28/2025 11:30 AM CDT Appointment Rheumatology at [facility] [address] [address] [place] [address] Zaria Le MD [address] [place] [address] documented as of this encounter Visit Diagnoses Not on filedocumented in this encounter Care Teams Warehouse Record Clerk Relationship Specialty Start Date End Date Found, No Pcp, [address] [place] [address] PCP - General 04/07/22 documented as of this encounter
--- OUTSIDE RECORDS SUMMARY | 2025-02-06 10:22 | XMS_ITS | Clinical Summary ---
Author Organization [facility] Address [address] [place] [address] Care Team Providers Care Envelope Cutter Name Role Phone Mandi Bullard MD Primary Care Provider [phone] Allergies Active Allergy Reactions Criticality Noted Date Comments Cephalexin Rash Low 10/30/2017 Erythromycin 10/30/2017 Toxic hepatitis Gabapentin GI Disturbance 10/30/2017 Penicillins Rash Low 10/30/2017 Joint swelling Propranolol 10/30/2017 aggitation Tramadol 10/30/2017 Increase in migraine Trazodone 10/30/2017 Increase in migraines Wasp Venom Protein 10/30/2017 Medications Levothyroxine Sodium (SYNTHROID PO) Take 125 mcg [...] mouth daily Active prochlorperazine (COMPAZINE) 10 MG tabletIndication s:Intractable chronic migraine without aura and without status migrainosus Take 0.5 tablets (5 mg) by mouth every 6 hours as needed for nausea or vomiting 30 tablet 3 0 Active albuterol (PROAIR HFA/PROVENTIL HFA/VENTOLIN HFA) 108 (90 Base) MCG/ACT inhaler Inhale 1-2 puffs into the lungs every 4 hours as needed 0 Active FLOVENT HFA 110 MCG/ACT inhaler Inhale 1 puff into the lungs as needed 0 Active triamcinolone (KENALOG) 0.1 % external lotion Apply 1 Application topically daily 0 Active SUMAtriptan (IMITREX) 100 MG tabletIndication s:Migraine without aura and without status migrainosus, not intractable Take 1 tablet (100 mg) by mouth at onset of headache for migraine (may repeat after 2 hours. May take half to one tablet at a time) 12 tablet 11 1 Active melatonin 1 MG TABS tablet Take 1 mg by mouth nightly as needed Active Rimegepant Sulfate (NURTEC) 75 MG TBDPIndications: Chronic migraine w/o aura, not intractable, w/o stat migr Take 75 mg by mouth daily as needed (migraines) 8 tablet 11 1 Active Active Problems Problem Noted Date Diagnosed [...] School Help Needed Not on file 05/09 Comments No Sex and Gender Information Value Date Recorded Sex Assigned at Female 09/30/2019 12:38 PM WREATH AND GARLAND MAKER HAND Legal Sex Female 5:04 AM WREATH AND GARLAND MAKER HAND Gender Identity Female 09/30/2019 12:38 PM WREATH AND GARLAND MAKER HAND Sexual Orientation Straight 09/30/2019 12 :38 PM WREATH AND GARLAND MAKER HAND Last Filed Vital Signs Vital Sign Reading Time Taken Comments Blood Pressure 148/85 10/03/2019 12:13 PM WREATH AND GARLAND MAKER HAND Pulse 86 10/03/2019 12:13 PM WREATH AND GARLAND MAKER HAND Temperature 36.7 C (98 F) 10/30/2017 4:15 PM CDT Respiratory Rate 18 10/30/2017 10:1 5 PM CDT Oxygen Saturation 96% 10/03/2019 12: 13 PM WREATH AND GARLAND MAKER HAND Inhaled Oxygen Concentration - - Weight 113.4 kg (250 lb 1.6 oz) 020 12:13 PM WREATH AND GARLAND MAKER HAND Height - - Body Mass Index - - Plan of Treatment Health Maintenance Due Date Last Done Comments ADVANCE CARE PLANNING 1950 ANNUAL REVIEW OF HM ORDERS 1950 TSH W/FREE T4 REFLEX 1948 HEPATITIS C SCREENING 1966 LIPID 1988 PNEUMOCOCCAL VACCINE 50+ YEARS (2 of 2 - PPSV23) 12/29/2015 12/28/2014 FALL RISK ASSESSMENT 10/03/2020 10/03/2019, 10/03/19 20 DIABETES SCREENING 10/30/2020 10/30/2017 RSV VACCINE (1 - 1-dose 75+ series) 2023 COVID-19 VACCINE ( season) 2024 12/12/2022, 04/28/2022, 11/20/2021, Additional history exists PHQ-2 (once per calendar year) 2024 10/03/2019, 10/03/2019, 10/03/2019 INFLUENZA VACCINE (Season Ended) 2025 04/30/2022, 05/25/2021, 05/22/2020, Additional history exists DTAP/TDAP/TD VACCINE (3 - Td or Tdap) 12/31/2031 12/30/2021, 12/04/2011, 01/22/2004 DEXA 07/07/2034 07/07/2019 COLONOSCOPY Discontinued 02/23/2017 COLORECTAL CANCER SCREENING Discontinued MAMMO SCREENING Discontinued 02/21/2019 ZOSTER VACCINE Completed 10/12/2019, 04/17, 11/22/2009 CT COLONOGRAPHY Discontinued FIT Discontinued FLEX SIG Discontinued HPV VACCINE Aged Out No longer eligi ble based on patient's age to complete this topic MENINGITIS VACCINE Aged Out No longer eligible based on patient's age to complete this topic sDNA (Cologuard) Discontinued Procedures Procedure Name Priority Date/Time Associated Diagnosis Comments COMPREHENSIVE METABOLIC PANEL STAT 10/30/2017 4:16 PM CDT HIM COLONOSCOPY SCAN Routine 02/23/2017 from Last 3 Months or Most Recently Relevant to Health Maintenance Results * Comprehensive metabolic panel (10/30/2017 4:16 PM T) Sodium 140 133 - 144 mmol/L 10/30/2017 4:52 PM [facility] Potassium 4.2 3.4 - 5.3 mmol/L 10/30/2017 4:52 PM [facility] Chloride 108 94 - 109 mmol/L 10/30/2017 4:52 PM [facility] Carbon Dioxide 28 20 - 32 mmol/L 10/30/2017 4:52 PM [facility] Anion Gap 4 3 - 14 mmol/L 10/30/2017 4:52 PM [facility] Glucose 91 70 - 99 mg/dL 10/30/2017 4:52 PM [facility] Urea Nitrogen 22 7 - 30 mg/dL 10/30/2017 4:52 PM [facility] Creatinine 0.66 0.52 - 1.04 mg/dL 10/30/2017 4:52 PM [facility] GFR Estimate 88 >60 mL/min/1.7 m2 10/30/2017 4:52 PM [facility] Comment:Non GFR Calc GFR Estimate If Black >90 >60 mL/min/1.7 m2 10/30/2017 4:52 PM [facility] Comment: GFR Calc Calcium 9.3 8.5 - 10.1 mg/dL 10/30/2017 4:52 PM [facility] Bilirubin Total 0.4 0.2 - 1.3 mg/dL 10/30/2017 4:52 PM [facility] Albumin 3.9 3.4 - 5.0 g/dL 10/30/2017 4:52 PM [facility] Protein Total 7.4 6.8 - 8.8 g/dL 10/30/2017 4:52 PM [facility] Alkaline Phosphatase 74 40 - 150 U/L 10/30/2017 4:52 PM [facility] ALT 26 0 - 50 U/L 10/30/2017 4:52 PM [facility] AST 22 0 - 45 U/L 10/30/2017 4:52 PM CDT [facility] Blood specimen (specimen) 10/30/2017 4:16 PM CDT 10/30/2017 4:24 PM CDT us Sarah Luque MD LAB - BLOOD ORDERABLES Final R esult [facility] [place] [address] [phone] * - HIM Screen Colonoscopy Scan (02/23/2017) Narrative Chelle Baltazar, BOTTLE WASHING MACHINE OPERATOR - 02/23/2017 Result Narrative Patient Name: Bianca [...] and oxygen saturations were monitored continuously. The [id number] was introduced through the anus and advanced [...] pathology results. Procedure Code(s): --- Professional --- 88498, Colonoscopy, flexible; with biopsy, single or multiple Diagnosis Code(s): --- Professional --- D12.3, Benign neoplasm of transverse colon (hepatic flexure or splenic flexure) Z86.010, Personal history of colonic polyps CPT copyright 2016 [employer]. All rights reserved. The codes documented in this report are preliminary and upon tool clerk review may be revised to meet current compliance requirements. Erick Wise MD 02/23/2017 4:28:55 PM This document has been electronically signed. Number of Addenda: 0 Note Initiated On: 02/23/2017 3:12 PM Endoscopy Report Other Result Information Mike, Card Results In - 02/23/2017 4:29 PM CDT Patient Name: Bianca Titus Procedure [...] and oxygen saturations were monitored continuously. The [id number] was introduced through the anus and advanced [...] pathology results. Procedure Code(s): --- Professional --- 35360, Colonoscopy, flexible; with biopsy, single or multiple Diagnosis Code(s): --- Professional --- D12.3, Benign neoplasm of transverse colon (hepatic flexure or splenic flexure) Z86.010, Personal history of colonic polyps CPT copyright 2016 [employer]. All rights reserved. The codes documented in this report are preliminary and upon tool clerk review may be revised to meet current compliance requirements. Erick Wise MD 02/23/2017 4:28:55 PM This document has been electronically signed. Number of Addenda: 0 Note Initiated On: 02/23/2017 3:12 PM Endoscopy Report us Provider Outside PROCEDURES Final Result from Last 3 Months or Most Recently Relevant to Health Maintenance Insurance MEDICARE [facility] MEDICARE [facility] Care Teams Envelope Cutter Relationship Specialty Start Date End Date Mandi Bullard MD PCP - General Internal Medicine 10/30/17
--- OUTSIDE RECORDS SUMMARY | 2025-02-06 10:22 | XMS_ITS | Encounter Summary ---
Author Organization [facility] Address [address] [address] Care Team Providers Care Decal Maker Name Role Phone Found, No Pcp MD Primary Care Provider Unavailab le Reason for Visit * Reason Comments COVID Questions Encounter Details Date Type Department Care Team (Late st Contact Info) Description 10/28/2019 Nurse Triage [facility] [address] [place], [place] [address] Mandi Bullard MD [address] [place] [address] COVID Questions Social History Tobacco Use Types Packs/Day Years Used Date Smoking Tobacco: Never Smokeless Tobacco: Never Alcohol Use Standard Drinks/Week Comments Not Currently 0 (1 standard drink = 0.6 oz pur e alcohol) Rare if ever PHQ-2 Answer Date Recorded PHQ-2 Score 0 12/11/2018 Comments No Sex and Gender Information Value [...] PCP Thursday10/31/2019 Clinician Next Step: Route to [facility] to follow up and Patient IS expecting [...] Info) Description 02/24/2025 9:20 AM CDT Appointment [facility] [address] [place] [address] Rosie Espinal DO [address] [place], [place] [address] 04/28/2025 11:30 AM CDT Appointment Rheumatology at [facility] [address] [address] [place] [address] Zaria Le MD [address] [place] [address] documented as of this encounter Visit Diagnoses Not on filedocumented in this encounter Care Teams Decal Maker Relationship Specialty Start Date End Date Found, No Pcp, [address] [place] [address] PCP - General 04/07/22 documented as of this encounter
--- OUTSIDE RECORDS SUMMARY | 2025-02-06 10:22 | XMS_ITS | Encounter Summary ---
Author Organization [facility] Address [address], [place] [address] Care Team Providers Care Foreign Student Adviser Name Role Phone Found, No Pcp MD Primary Care Provider Unavailab le Reason for Visit * Reason Comments CONSTIPATION Encounter Details Date Type Department Care Team (Late st Contact Info) Description 02/24/2019 Nurse Triage [facility] [address] [place], [place] [id number] Mandi Bullard MD [address] [place] [address] CONSTIPATION Social History Tobacco Use [...] ongoing symptoms Clinician Next Step: Route to [facility] to follow up and Patient IS expecting [...] days in a remote area of [facility], wanted to make sure she had [...] Info) Description 02/24/2025 9:20 AM CDT Appointment [facility] [address] [place] [address] Rosie Espinal DO [address] [place] [address] 04/28/2025 11:30 AM CDT Appointment Rheumatology at [facility] [address] [address] [place] [address] Zaria Le MD [address] [place] [address] documented as of this encounter Visit Diagnoses Not on filedocumented in this encounter Care Teams Foreign Student Adviser Relationship Specialty Start Date End Date Found, No PcpMD [address] [place] [address] PCP - General 04/07/22 documented as of this encounter
--- OUTSIDE RECORDS SUMMARY | 2025-02-06 10:22 | XMS_ITS | Clinical Summary ---
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 [employer] Allergies Active Allergy Reactions Criticality Noted Date [...] Other, see comments Medium 02/26/2005 Migraines Medications * This document contains information received from the source organization and may not represent a complete record from that organization. aspirin 81 MG tablet Take 1 Tablet (81 mg) by mouth daily. Active ALBUterol sulfate HFA 108 (90 Base) MCG/ACT inhaler Inhale 1-2 Puffs as needed. 1 Active triamcinolone acetonide (KENALOG) 0.1 % ointment APPLY TO RASH ON HANDS ONCE DAILY TO TWICE DAILY NEEDED 80 g 1 3 Active cholecalciferol (VITAMIN D3) 125 MCG (5000 UT) capsule Take 1 Capsule (5,000 Units) by mouth daily. Thursday through Active predniSONE (DELTASONE) 10 MG tablet As needed for a pseudgout attack: 30 mg all at once once a day x 7 days then stop. 21 Tablet 2 4 Active enoxaparin (LOVENOX) 60 MG/0.6ML prefilled syringe As needed for DVT prophylaxis with presence of lupus anticoagulant: 60 mg subcut when she is in situation when she needs prolong bed rest or on the airplane/car long thern 2 hour nonstop. 1 Each 3 4 Active Active Problems Problem Noted Date Diagnosed Date Varicose veins of both lower extremities with co mplications 11/16/2020 Overview (11/16/2020): Added automatically from request for surgery [id number] Chronic migraine w/o aura, not intractable, w/o [...] 01/11/2014 Overview (04/08/2017): LW Modifier: normal echo 2002, 2005 LW Onset: 2000 ; ECG Abnormal Sleep apnea 01/21/2003 08/28/2020 Overview (04/08/2017): LW Modifier: negative sleep study 2009 On AutoPAP 6-16 cmH20, PNic ; Obstructive Sleep Apnea Hypopnea Encounters * This document contains information received from the source organization and may not represent a complete record from that organization. Date Type Department Care Team Description 01/17/2025 Telephone [place] [address] [facility] [address] [facility] [place] [address] Rosie Espinal DO Follow-up (MRI results ) 01/04/2025 3:29 PM CDT - 01/04/2025 11:59 PM CDT Hospital Encounter [facility] [address] [facility] [place] [address] Rosie Espinal DO Pain of left hip Discharge Disposition: Home 12/30/2024 1:00 PM CDT Office Visit [facility] [address] [place] [address] Rosie Espinal DO Pain of left hip (Primary Dx); EDS (Rosie-Danlos syndrome); Antalgic gait; Impaired mobility; Other chronic pain 11/23/2024 Notes/Orders [place] [address] [facility] [address] [facility] [place] [address] Soheila Palacios RN 11/22/2024 8:50 AM CDT Office Visit [facility] [address] [place] [address] Jered Bailey MD Greater trochanteric pain syndrome (Primary Dx) 11/11/2024 Telephone [facility] [address] [place] [address] Jered Bailey MD QUESTIONS, GENERAL from Last 3 Months Immunizations Immunization Administration Dates Next Due DT Ped 02/14/1985 Flu Vac Preserv Free (3+yrs) 04/21/2014, 05/04/2013,04/28/2012,2009,05/01/2009,06/26/2008,06/24/2007,1 09/05/2005,05/28/2005,05/09/2004 H1n1 Miv Sanofi 3+ Yr (Injected) 07/20/2009 Influenza IIV3 (Trivalent) F rowena Highdose, 65+ Yrs (23379) 06/01/2018,05/02/2017,04/17/2016 Influenza IIV4 (Quadrivalent ) Fluad, 65+ [...] file Not on file Not on file Last Filed Vital Signs Vital Sign Reading Time Taken Comments Blood Pressure 139/81 04/19/2024 11:27 AM CDT Pulse 69 04/19/2024 11:27 AM CDT Temperature 36.8 C (98.3 F) 09/15/2024 3:04 PM SHOT PACKER Respiratory Rate 20 10/13/2020 11:09 AM SHOT PACKER Oxygen Saturation 98% 10/13/2020 11:09 AM SHOT PACKER Inhaled Oxygen Concentration - - Weight 100.7 kg (222 lb) 09/15/2024 3:04 PM SHOT PACKER Height 162.6 cm (5' 4) 08/24/2022 2:54 PM SHOT PACKER Body Mass Index 38.11 08/24/2022 2:54 PM SHOT PACKER Plan of Treatment Upcoming Encounters Date Type Department Care Team (Late st Contact Info) Description 02/24/2025 9:20 AM CDT Appointment [facility] [address] [place] [address] Rosie Espinal DO [address] [place], [place] [id number] 04/28/2025 11:30 AM CDT Appointment Rheumatology at [facility] [id number] [place] [address] [place], [place] [address] Zaria Le MD [address] [place], [place] [id number] Health Maintenance Due Date Last Done Comments Pneumococcal Vaccine 50+ Yrs (2 of 2 - PCV) 12/29/2015 12/28/2014 Medicare Annual Wellness Visit 02/07/2021 02/08/2020, 01/13/2018, 01/08/2016 Dexa 07/07/2021 07/07/2019, 07/07/2019 Colonoscopy 02/23/2022 02/23/2017, 11/15 (Completed), 12/07/2006 RSV Vaccine (1 - 1-dose 75+ series) 2023 Prediabetes: HGBA1C 10/05/2025 10/05/2024, 01/25/2019, 01/07/2018, Additional history exists Mammogram 11/10/2025 11/10/2024, 10/15, 09/15/2022, Additional history exists DTaP/Tdap/Td Vaccine (5 - Tdap) 12/31/2031 12/30/2021, 12/04/2011, 01/22/2004, Additional history exists Cholesterol Discontinued 01/07/2018, 12/16, 01/08/2016, Additional history exists Hep C Screening (Preventive Services) Completed 01/07/2018 Zoster/Shingles Vaccine Completed 10/12/19, 05/03/2019, 11/22/2009 Influenza Vaccine Completed 06/24/2024, , 04/30/2022, Additional history exists COVID-19 Vaccine Completed 10/21/2024, 02/2024, 11/03/2023, Additional history exists HepA Vaccine Aged Out No longer eligi ble based on patient's age to complete this topic HepB Vaccine Aged Out No longer eligi ble based on patient's age to complete this topic Hib Vaccine Aged Out No longer eligi ble based on patient's age to complete this topic MCV4 Vaccine Aged Out No longer eligi ble based on patient's age to complete this topic Meningococcal B Vaccine Aged Out No l onger eligible based on patient's age to complete this topic Procedures Procedure Name Priority Date/Time Associated Diagnosis Comments PELVIS WO IV CONT Routine 01/04/2025 5:03 PM CDT Pain of left hip MAMMOGRAM SC 03/16/2020 DXA BONE DENSITY SPINE/HIP Routine 07/07/2019 2:43 PM SHOT PACKER Post-menopause HGB A1C Routine 01/25/2019 3:07 PM [...] Recently Relevant to Health Maintenance Results * MR Pelvis WO IV Cont [...] Espinal DO RAD MRI Final Resul t * DEXA Bone Density Spine/Hip (07/07/2019 2:43 PM SHOT PACKER) Anatomical Region Laterality Modality Lower Extremity, Spine, Hip, L-Spine Radiographic Imaging Narrative 07/08/2019 6:35 AM [facility] DXA REPORT Patient Name: Bianca Titus [place]: Maximiliano Hargrove MD Densitometer: LeCab P3800 Bone Density Tech P3800 BONE3 OSTEOPOROSIS RISK FACTORS FROM PATIENT QUESTIONNAIRE: The patient is a 69 y.o.female: Calcium [...] or absence of other risk factors. RECOMMENDATIONS: 1. Optimize calcium and vitamin D intake [...] trabecular bone, and is derived from the [id number] changes of bone density embedded in the [...] FRAX scores. Mandi Bullard MD RAD DEXA Final Result * Hgb A1C (01/25/2019 3:07 PM CDT) [facility] Hemoglobin A1C 5.5 <=5.6 % 01/26/2019 12:10 AM CDT [facility] Blood Venipuncture / Unknown 01/25/2019 3:07 PM CDT 01/25/2019 3:08 PM CDT Mandi Bullard MD LAB_1 Final Result [facility] [address] * Hepatitis C PCR Quantitative (01/07/2018 9:06 AM CDT) HCV Quant Interp Not Detected Not Detected PN SOFT Comment: Test Performed by Real Time PCR This result has been reported to the [facility] Department of Health. CLIA Number [id number] HCV Quant iu/ml <12 IU/ml PN SOFT Comment:CLIA Number [id number] HCV Quant Log iu/ml <1.08 Log IU/ml PN SOFT Comment: Performed at [facility], [address] [place] [address] CLIA Number [id number] 01/07/2018 9:06 AM CDT 01/07/2018 12:08 PM CDT Narrative PN SOFT - 01/12/2018 1:41 PM CDT .Results faxed to [phone], 01/08/2018,14:34, by PL.Results faxed to [phone] Dr. Truman Wills C:, 01/08/2018,14:04, by PL.Results faxed to [phone] Dr. Truman Wills, 01/07/2018,14:09, by VREONICA.Results faxed to [phone] Dr. Truman Wills, 01/07/2018,13:12, by VERONICA us Parminder Jackson MD LAB_1 Final Result PN SOFT [address] [place] [address] * (ABNORMAL) Lipid Panel and Direct LDL(If [...] AM CDT 01/07/2018 9:05 AM CDT Narrative ALEXANDRA LOVE - 01/07/2018 9:40 AM CDT Performed at [facility], [address] [place] [address] CLIA number [id number] us Mandi Bullard MD LAB_1 Final Result ALEXANDR[facility] LOVE [address] [place] [address] * Endoscopy, colon, diagnostic (02/23/2017 3:12 PM [...] and oxygen saturations were monitored continuously. The [id number] was introduced through the anus and advanced [...] pathology results. Procedure Code(s): --- Professional --- 81945, Colonoscopy, flexible; with biopsy, single or multiple Diagnosis Code(s): --- Professional --- D12.3, Benign neoplasm of transverse colon (hepatic flexure or splenic flexure) Z86.010, Personal history of colonic polyps CPT copyright 2016 [employer]. All rights reserved. The codes documented in this report are preliminary and upon salvage cutter review may be revised to meet current compliance requirements. Erick Wise MD 02/23/2017 4:28:55 PM This document has been electronically signed. Number of Addenda: 0 Note Initiated On: 02/23/2017 3:12 PM Endoscopy Report Procedure Note Erick Wise MD [...] and oxygen saturations were monitored continuously. The [id number] was introduced through the anus and advanced [...] pathology results. Procedure Code(s): --- Professional --- 79937, Colonoscopy, flexible; with biopsy, single or multiple Diagnosis Code(s): --- Professional --- D12.3, Benign neoplasm of transverse colon (hepatic flexure or splenic flexure) Z86.010, Personal history of colonic polyps CPT copyright 2016 [employer]. All rights reserved. The codes documented in this report are preliminary and upon salvage cutter review may be revised to meet current compliance requirements. Erick Wise MD 02/23/2017 4:28:55 PM This document has been electronically signed. 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 [address] PCP - General 04/07/22
--- OUTSIDE RECORDS SUMMARY | 2025-02-06 10:22 | XMS_ITS | Clinical Summary ---
Author Organization [facility] Address [address] [place] [id number] Care Team Providers Care Fence Making Machine Operator Name Role Phone Meka Perez MD Primary [...] needed 01/06/2017 Midazolam 05/11/2009 Paradoxical agitation Medications aspirin (ECOTRIN) 81 mg enteric coated tablet Take 1 tablet by mouth once daily with a meal. 0 10/05/19 20 Active triamcinolone (ARISTOCORT) 0.1 % ointment Apply topically to affected area(s) 3 times daily. 0 11/17/19 21 Active cholecalciferol, Vitamin D3, 5,000 unit tab tablet 1 capsule by mouth 4 times weekly 0 03/06/20 21 Active inhalational spacing deviceIndications: Moderate persistent asthma with exacerbation (HC) Antistatic valved holding chamber by deb 1 Each 10/18/19 22 Active acetaminophen (Tylenol Extra Strength) 500 mg tablet 01/21/20 22 Active albuterol HFA (PRO-AIR; VENTOLIN; PROVENTIL) 90 mcg/actuation inhalerIndications :Rosie-Danlos disease (HC) Inhale 1-2 Puffs by mouth every 4 hours if needed for Shortness of Breath 1st choice or Wheezing 1st choice. 1 Each 3 06/12/20 23 Active SF 5000 Plus 1.1 % crea 01/23/20 23 Active enoxaparin (LOVENOX) 60 mg/0.6 mL injectionIndicatio ns:Lupus anticoagulant positive As needed for DVT prophylaxis with presence of lupus anticoagulant when she is in situation when she needs prolong bed rest or on the airplane/car long thern 2 hour nonstop. 3 Each 09/16/19 24 Active metoclopramide HCl (REGLAN) 5 mg tabletIndications: H/O motion sickness Take 1 Tablet (5 mg) by mouth once daily if needed for Nausea/Vomiting. 5 Tablet 01/26/20 24 Active levothyroxine (SYNTHROID) 112 mcg tabletIndications: Hypothyroidism (acquired) Take 1 Tablet (112 mcg) by mouth before breakfast. 90 Tablet 3 03/01/20 24 Active cyanocobalamin (Vitamin B-12) 1,000 mcg tabletIndications: Vitamin B 12 deficiency Take 1 Tablet (1,000 mcg) by mouth once daily. 90 Tablet 3 03/01/20 24 Active polyethylene glycoL (MIRALAX) 17 gram/scoop powderIndications: Chronic constipation Mix 1 scoop (17 g) in liquid then take by mouth once daily. 1700 g 3 03/01/20 24 Active predniSONE (DELTASONE) 10 mg tablet As needed for a pseudgout attack: 30 mg all at once once a day x 7 days then stop. 04/19/20 24 Active naproxen (NAPROSYN) 250 mg tablet Take 1 Tablet (250 mg) by mouth every 6 hours if needed for Pain. Take only for pain unrelieved by other pain methods such as Tylenol, ice/cold compresses, Diclofenac (Voltaren) topical ointment, etc. Max 1000 mg daily. 07/12/20 24 Active Emgality Pen 120 mg/mL pen MONTH 1: INJECT 2 PEN INJECTORS SUBCUTANEOUSLY ON THE SAME DAY, MONTH 2 ONWARD: INJECT 1 PEN INJECTOR SUBCUTANEOUSLY ONCE A MONTH 11/05/19 25 Active rimegepant 75 mg orally disintegrating tablet Place 75 mg on the tongue once daily if needed for Headache. Active rosuvastatin 10 mg tabletIndications: Mild hyperlipidemia Take 1 Tablet (10 mg) by mouth at bedtime. Due for cardiology appt in Jun 2025 90 Tablet 2 01/03/20 Active Active Problems Problem Noted Date Diagnosed Date Lipedema of lower extremity 10/05/2024 Impaired fasting glucose 10/05/2024 NAVYA 11/05/2021 AHI- 6.5 02/24/2024 Paroxysmal SVT [...] syndrome 05/28/2017 History of Tamia fundoplication 02/24/2017 [place] hump 02/27/2015 Varicose veins of lower extremity 09/16/2010 Overview (11/30/2020): Overview: LW Modifier: surgery ; Varicose Veins w Pain LW Modifier: surgery ; Varicose Veins w Pain Added automatically from request for surgery [id number] Hypovitaminosis D 05/11/2009 Chronic back pain 05/11/2009 [...] Encounters Date Type Department Care Team Description 02/06/2025 Nurse Triage [address] [place] [address] Meka Perez MD Abdominal Pain/problem 02/06/2025 Telephone [facility] [address] [place] [address] Meka Perez MD Error-please disregard 01/10/2025 Telephone [facility] [address] [place] [address] Kian Bañuelos MD Appointment 01/04/2025 Nurse Triage [facility] [address] [place] [address] Meka Perez MD Derm Problem 01/03/[address] [address] Meka Perez MD Form (11/18 Notes) 12/31/[address] [address] Jacob Galo MD Refill Request (Rosuvastatin) 12/28/[address] [address] Meka Perez MD Form (refax with date 12/21/2024) 12/21/[address] [address] Meka Perez MD Questions 12/14/[address] [address] Meka Perez MD Questions (lymphedema) 11/10/2024 1:20 PM CDT Ancillary Procedure [facility] [address] [place] [address] 11/10/2024 Travel 11/08/2024 4:00 PM CDT Office Visit [facility] [address] [place] [address] Kian Bañuelos MD CV Vascular New (Consult; venous insufficiency, s/p vein closure procedure, Raynaud's. new lower extremity swelling.) 11/08/2024 2:28 PM CDT - 11/08/2024 11:59 PM CDT Hospital Encounter [facility] [address] [place] [address] Zain Paniagua PA Leistner, Joseph S, R.T. ([facility]) PVD (peripheral vascular disease) 11/08/2024 Travel from Last 3 Months Immunizations Immunization Administration Dates Next Due COVID-19 VACCINE SPIKEVAX (M ODERNA 50MCG/0.5ML) 12YO+ PFS 11/03/2023 COVID-19 vaccine (Moderna 100mcg/0.5mL) PF, MDV 11/20/2021 COVID-19 vaccine (Moderna 50 mcg/0.5mL) 12YO+ BIVALENT PF, MDV 12/12/2022 COVID-19 vaccine (CentaurBio NTech 30mcg/0.3mL) PF, MDV 10/26/2020,10/04/2020 DT (Age < 7 years) 02/14/1985 Influenza Virus, Unspecified 04/28/2012, 05/15/2010,05/01/2009,06/26,06/24/2007,07/06/2006,05/28/2005 ,05/09/2004,06/09/2003,05/27/2002,01/2001,08/03/2000,07/08/1999 Influenza, High-dose Inactivated 024,06/01/2018,05/02/2017,04/17 Influenza, IIV3 (Age 6-35 mos) 04/21/2014,2012 Influenza, [...] oz pure alcohol) rare or very infrequent alcohol; once or twice yearly. 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 Gender Identity Not on file Sexual Orientation Not on file Obstetrics History Last Filed Vital Signs Vital Sign Reading Time Taken Comments Blood Pressure 134/76 11/08/2024 3:26 PM CDT Pulse 76 11/08/2024 3:26 PM CDT Temperature 36.8 C (98.2 F) 06/11/2024 11:36 AM CDT Respiratory Rate 16 11/08/2024 3:26 PM CDT Oxygen Saturation 97% 11/08/2024 3:26 PM CDT Inhaled Oxygen Concentration - - Weight 96.6 kg (213 lb) 09/08/2024 10:57 AM CLUBHOUSE MANAGER Height 162.6 cm (5' 4.02) 07/12/2024 10:[address] Body Mass Index 36.54 07/12/2024 10:58 AM CLUBHOUSE MANAGER Plan of Treatment Upcoming Encounters Date Type Department Care Team (Late st Contact Info) Description 02/21/2025 4:30 PM CDT Office Visit [facility] [address] [place] [address] Kian Bañuelos MD [address] Internal zip: [address] [place] [address] Health Maintenance Due Date Last Done Comments Depression screening for age 12+ 1960 Pneumococcal series for age 50+ (2 of 2 - PPSV23) 02/22/2015 12/28/2014 Medicare Wellness for age 65+ 12/20/2022 12/19/2021 BMI (ht and wt on same day) for age 18+ 07/12/2025 07/12/2024, 07/17/2023, 01/27/2023, Additional history exists Tetanus booster 12/31/2031 12/30/2021, [...] RSV vaccine for adults or Completed 05/18/2023 Influenza Vaccine Completed 06/24/2024, , 04/30/2022, Additional history exists COVID-19 vaccine series Completed 10/22/19, 04/23/2024, 11/03/2023, Additional history exists Hepatitis B series for 19+ Aged Out N o longer eligible based on patient's age to complete this topic Procedures Procedure Name Priority Date/Time Associated Diagnosis Comments XR MAMMO BRAYDEN BILAT SCREEN Routine 11/10/2024 1:26 PM CDT Visit for screening mammogram US ANKLE BRACHIAL INDEX BILATERAL Routine 11/08/2024 3:34 PM CDT PVD (peripheral vascular disease) US VENOUS INSUFFICIENCY LOWER EXTREMITY RIGHT Routine 11/08/2024 3:34 PM CDT PVD (peripheral vascular disease) from Last 3 Months Results * XR MAMMO BRAYDEN BILAT SCREEN (11/10/2024 1:26 PM CDT) Anatomical Region Laterality Modality BREASTS, Breast Left, Breast Right Bilateral Mammography Impressions 11/14/2024 2:14 PM CDT There is no radiographic evidence for malignancy. Recommend annual mammograms. MAMMOGRAM ASSESSMENT: ACR 1 Negative PATIENTS: You will also receive a letter with your examination results in an easy to read format. If you have questions about your results, please contact your referring provider. Narrative 11/14/2024 2:14 PM CDT For Patients: As a result of the 21st Century Cures Act, medical imaging exams and procedure reports are released immediately into your electronic medical record. You may view this report before your referring provider. If you have questions, please contact your health care provider. XR MAMMO BRAYDEN BILAT SCREEN [[id number]] CLINICAL HISTORY: This is an asymptomatic 74 y.o. patient. INDICATION FOR EXAM: Mammogram Screening. TECHNIQUE: CC and MLO views were obtained. This study was evaluated with the assistance of Computer-Aided Detection. Breast Tomosynthesis was used in interpretation. COMPARISON FILM: Yes 10/29/23 [facility] 09/15/22 [facility] FINDINGS: There are scattered areas of fibroglandular density. There are no dominant masses, suspicious micro calcifications or areas of architectural distortion. us Meka Perez MD MAMMO Final Resul t * US ANKLE BRACHIAL INDEX BILATERAL (11/08/2024 3:34 PM CDT) Anatomical Region Laterality Modality ANKLES, ANKLE L, ANKLE R Ultraso und 11/08/2024 2:44 PM CDT Narrative 11/08/2024 4:37 PM CDT VASCULAR ULTRASOUND REPORT PAOLA TITUS : 1950 Study Date: 11/08/2024 2:44:20 PM Age: 74 years Tech: GAIL Gender: F Referring MD: ZAIN PANIAGUA Site: [facility] Study performed: Lower extremity (bilateral), resting LEE ANN. Indication for study: Follow-up known PAD Study Quality: Good TECHNIQUE: Lower/upper extremity arteries were examined per exam protocol by duplex ultrasound, color-flow and spectral Doppler. Peak systolic velocities (PSV), Doppler waveform quality, velocity ratios and vessel size in cm, were documented at protocol specific sites. Physiologic data including segmental pressures, ankle/brachial index (LEE ANN), digit PPG recordings, laser Doppler flowmetry, transcutaneous oximetry, and digit temperatures were documented at sites per exam protocol and test requirements. IMPRESSION: 1. Resting ankle-brachial index is normal on the right at 1.03 and is normal on the left at 1.05. 2. Toe-brachial index is normal on the right at 0.74 and toe-brachial index is mildly reduced on the left at 0.60. COMPARISON: No prior study available for comparison. FINDINGS: Normal bilateral ABIs. Normal right TBI and Mild left TBI. Right toe/brachial index indicates normal range. Left toe/brachial index indicates mild range. Pressures +-----+ +--------+ +-----+ RIGHT (mmHg) LEFT (mmHg) +-----+ +--------+ +-----+ Index 168 Brachial 156 Index +-----+ +--------+ +-----+ 1.03 173 PETROLEUM BLENDING PLANT OPERATOR 177 1.05 +-----+ +--------+ +-----+ 0.93 156 DPA 163 0.97 +-----+ +--------+ +-----+ 0.74 125 Digit 1 100 0.60 +-----+ +--------+ +-----+ Abebe Zimmer MD. Electronically signed on 11/08/2024 4:37:56 PM This study was performed and interpreted by a service accredited by the Intersocietal Accreditation Commission (IAC/Vascular), [email or web address] Report generated by [employer]. Final Procedure Note Abebe Zimmer MD - 11/08/2024 VASCULAR ULTRASOUND REPORT PAOLA TITUS : 1950 Study Date: 11/08/2024 2:44:20 PM Age: 74 years Tech: GAIL Gender: F Referring MD: ZAIN PANIAGUA Site: [facility] Study performed: Lower extremity (bilateral), resting LEE ANN. Indication for study: Follow-up known PAD Study Quality: Good TECHNIQUE: Lower/upper extremity arteries were examined per exam protocol by duplexultrasound, color-flow and spectral Doppler. Peak systolic velocities(PSV), Doppler waveform quality, velocity ratios and vessel size in cm,were documented at protocol specific sites. Physiologic data includingsegmental pressures, ankle/brachial index (LEE ANN), digit PPG recordings,laser Doppler flowmetry, transcutaneous oximetry, and digit temperatureswere documented at sites per exam protocol and test requirements. IMPRESSION: 1. Resting ankle-brachial index is normal on the right at 1.03 and isnormal on the left at 1.05. 2. Toe-brachial index is normal on the right at 0.74 and toe-brachialindex is mildly reduced on the left at 0.60. COMPARISON: No prior study available for comparison. FINDINGS: Normal bilateral ABIs. Normal right TBI and Mild left TBI. Right toe/brachial index indicates normal range. Left toe/brachial index indicates mild range. Pressures +-----+ +--------+ +-----+ RIGHT (mmHg) LEFT (mmHg) +-----+ +--------+ +-----+ Index 168 Brachial 156 Index +-----+ +--------+ +-----+ 1.03 173 PETROLEUM BLENDING PLANT OPERATOR 177 1.05 +-----+ +--------+ +-----+ 0.93 156 DPA 163 0.97 +-----+ +--------+ +-----+ 0.74 125 Digit 1 100 0.60 +-----+ +--------+ +-----+ Abebe Zimmer MD. Electronically signed on 11/08/2024 4:37:56 PM This study was performed and interpreted by a service accredited by theIntersocietal Accreditation Commission (IAC/Vascular),[email or web address] Report generated by Med[employer]. Final us Zain PINZON US Final Result * US VENOUS INSUFFICIENCY LOWER EXTREMITY RIGHT (11/08/2024 3:34 PM CDT) Anatomical Region Laterality Modality LEGS Ultrasound 11/08/2024 2:56 PM CDT Narrative 11/08/2024 4:40 PM CDT VASCULAR ULTRASOUND REPORT PAOLA TITUS : 1950 Study Date: 11/08/2024 2:56:46 PM Age: 74 years Tech: GAIL Gender: F Referring MD: ZAIN PANIAGUA Site: [facility] Study performed: (right), duplex US venous insufficiency. Indication for study: LE pain/edema and PVD Study Quality: Good TECHNIQUE: Lower/upper extremity veins were examined with duplex ultrasound, color-flow and spectral Doppler per exam protocol. Vein compressibility by transducer pressure was used to evaluate presence/absence of DVT/SVT. Venous flow and competence was evaluated by flow augmentation maneuvers per exam protocol. Insufficiency studies were performed with the patient in upright position, with vein diameters measured in mm, and reflux. IMPRESSION: 1. Deep vein insufficiency noted in the right common femoral vein. 2. No evidence of DVT or superficial thrombophlebitis in the right leg. 3. Deep vein insufficiency noted in the left common femoral vein. 4. The greater saphenous vein is not visualized in the proximal and distal thigh. This is compatible with history of venous procedures. 5. Superficial venous insufficiency was noted in the right greater saphenous vein at knee. 6. Incompetent varicose and/or cleater veins as listed below. COMPARISON: Compared to prior study 05/01/2022, there is no significant change. FINDINGS: Negative for DVT/SVT in the right leg. The patient states venous procedure history in the right leg. The right deep and superifical reflux is noted below. Right Lower Extremity: Varicose vein at knee, 1.3 mm diameter, 0.8 sec reflux. Varicose vein at prx calf, 2.7 mm diameter, 0.9 sec reflux. Varicose vein at post mid calf, 3.7 mm diameter, 3.1 sec reflux. MEASUREMENTS: + +--------+----+--------+------+ RIGHT Compress SVT Diameter Reflux (mm) (secs) + +--------+----+--------+------+ SFJ yes None 8.2 0.0 + +--------+----+--------+------+ GSV THIGH PRX + +--------+----+--------+------+ GSV THIGH MID yes None 2.1 0.0 + +--------+----+--------+------+ GSV THIGH DST + +--------+----+--------+------+ GSV KNEE yes None 2.1 0.6 + +--------+----+--------+------+ GSV CALF UPPER yes None 1.9 0.0 + +--------+----+--------+------+ GSV CALF MID yes None 1.9 0.0 + +--------+----+--------+------+ GSV CALF LOW yes None 1.9 0.0 + +--------+----+--------+------+ SSV KNEE/SPJ yes None 2.3 0.0 + +--------+----+--------+------+ SSV CALF PRX yes None 2.1 0.0 + +--------+----+--------+------+ SSV CALF MID yes None 1.3 0.0 + +--------+----+--------+------+ SSV CALF DST yes None 1.6 0.0 + +--------+----+--------+------+ Varicose Veins + + + + RIGHT Location Diameter (mm) Reflux (secs) + + + + knee 1.3 0.8 + + + + prx calf 2.7 0.9 + + + + post mid calf 3.7 3.1 + + + + DEEP SYSTEM +----+--------+-----+ +--------+----+ + RIGHT RIGHT RIGHT LEFT LEFT LEFT Compress DVT Reflux (secs) Compress DVT Reflux (secs) +----+--------+-----+ +--------+----+ + CFV yes None 1.1 yes None 1.4 +----+--------+-----+ +--------+----+ + PFV yes None 0.0 +----+--------+-----+ +--------+----+ + FV yes None 0.0 +----+--------+-----+ +--------+----+ + POPV yes None 0.0 +----+--------+-----+ +--------+----+ + can't evaluate Abebe Zimmer MD. Electronically signed on 11/08/2024 4:40:04 PM This study was performed and interpreted by a service accredited by the Intersocietal Accreditation Commission (IAC/Vascular), [email or web address] Report generated by [employer]. Final Procedure Note Abebe Zimmer MD - 11/08/2024 VASCULAR ULTRASOUND REPORT PAOLA TITUS : 1950 Study Date: 11/08/2024 2:56:46 PM Age: 74 years Tech: GAIL Gender: F Referring MD: ZAIN PANIAGUA Site: [facility] Study performed: (right), duplex US venous insufficiency. Indication for study: LE pain/edema and PVD Study Quality: Good TECHNIQUE: Lower/upper extremity veins were examined with duplex ultrasound,color-flow and spectral Doppler per exam protocol. Vein compressibility bytransducer pressure was used to evaluate presence/absence of DVT/SVT.Venous flow and competence was evaluated by flow augmentation maneuversper exam protocol. Insufficiency studies were performed with the patientin upright position, with vein diameters measured in mm, and reflux. IMPRESSION: 1. Deep vein insufficiency noted in the right common femoral vein. 2. No evidence of DVT or superficial thrombophlebitis in the right leg. 3. Deep vein insufficiency noted in the left common femoral vein. 4. The greater saphenous vein is not visualized in the proximal anddistal thigh. This is compatible with history of venous procedures. 5. Superficial venous insufficiency was noted in the right greatersaphenous vein at knee. 6. Incompetent varicose and/or cleater veins as listed below. COMPARISON: Compared to prior study 05/01/2022, there is no significant change. FINDINGS: Negative for DVT/SVT in the right leg. The patient states venous procedure history in the right leg. The right deep and superifical reflux is noted below. Right Lower Extremity: Varicose vein at knee, 1.3 mm diameter, 0.8 sec reflux. Varicose vein atprx calf, 2.7 mm diameter, 0.9 sec reflux. Varicose vein at post mid calf,3.7 mm diameter, 3.1 sec reflux. MEASUREMENTS: + +--------+----+--------+------+ RIGHT Compress SVT Diameter Reflux (mm) (secs) + +--------+----+--------+------+ SFJ yes None 8.2 0.0 + +--------+----+--------+------+ GSV THIGH PRX + +--------+----+--------+------+ GSV THIGH MID yes None 2.1 0.0 + +--------+----+--------+------+ GSV THIGH DST + +--------+----+--------+------+ GSV KNEE yes None 2.1 0.6 + +--------+----+--------+------+ GSV CALF UPPER yes None 1.9 0.0 + +--------+----+--------+------+ GSV CALF MID yes None 1.9 0.0 + +--------+----+--------+------+ GSV CALF LOW yes None 1.9 0.0 + +--------+----+--------+------+ SSV KNEE/SPJ yes None 2.3 0.0 + +--------+----+--------+------+ SSV CALF PRX yes None 2.1 0.0 + +--------+----+--------+------+ SSV CALF MID yes None 1.3 0.0 + +--------+----+--------+------+ SSV CALF DST yes None 1.6 0.0 + +--------+----+--------+------+ Varicose Veins + + + + RIGHT Location Diameter (mm) Reflux (secs) + + + + knee 1.3 0.8 + + + + prx calf 2.7 0.9 + + + + post mid calf 3.7 3.1 + + + + DEEP SYSTEM +----+--------+-----+ +--------+----+ + RIGHT RIGHT RIGHT LEFT LEFT LEFT Compress DVT Reflux (secs) Compress DVT Reflux (secs) +----+--------+-----+ +--------+----+ + CFV yes None 1.1 yes None 1.4 +----+--------+-----+ +--------+----+ + PFV yes None 0.0 +----+--------+-----+ +--------+----+ + FV yes None 0.0 +----+--------+-----+ +--------+----+ + POPV yes None 0.0 +----+--------+-----+ +--------+----+ + can't evaluate Abebe Zimmer MD. Electronically signed on 11/08/2024 4:40:04 PM This study was performed and interpreted by a service accredited by theIntersocietal Accreditation Commission (IAC/Vascular),[email or web address] Report generated by Med[employer]. Final Zain PINZON Final Result from Last 3 Months Insurance MEDICARE PB ONLY [facility] PB ONLY MEDICARE PART B HB ONLY AAR HB ONLY MEDICARE PART A HB ONLY Care Teams Fence Making Machine Operator Relationship Specialty Start Date End Date Meka Perez MD [address] [place] [address] PCP - General Family Practice 11/30/20
--- OUTSIDE RECORDS SUMMARY | 2025-02-06 10:22 | XMS_ITS | Encounter Summary ---
Author Organization [facility] Address [address] [place] [address] Care Team Providers Care Metal Treater Name Role Phone Mandi Bullard MD Primary Care Provider Mallory Cuadra MD Unavailable [phone] Encounter Details Date Type Department Care Team (Late st Contact Info) Description 02/27/2020 [facility] Medical Advice [facility] Neurology [address] [place] [id number] Roxy Mahan RN Social History Tobacco Use Types Packs/Day Years Used Date Smoking Tobacco: Never Smokeless Tobacco: Never Alcohol Use Standard Drinks/Week Comments Yes 0 (1 standard drink = 0.6 oz pur e alcohol) rare PHQ-2 Answer Date Recorded PHQ-2 Score 5 10/03/2019 Comments No Sex and Gender Information Value Date Recorded Sex Assigned at Female 09/30/2019 12:38 PM SALES FLOOR TEAM MEMBER Legal Sex Female 5:04 AM SALES FLOOR TEAM MEMBER Gender Identity Female 09/30/2019 12:38 PM SALES FLOOR TEAM MEMBER Sexual Orientation Straight 09/30/2019 12 :38 PM SALES FLOOR TEAM MEMBER documented as of this encounter Plan of Treatment Not on file documented as of this encounter Visit Diagnoses Not on filedocumented in this encounter Additional Health Concerns Assessment Noted Time PHQ-9 Depression Total Score: 14 020 12:18 PM SALES FLOOR TEAM MEMBER documented as of this encounter Care Teams Metal Treater Relationship Specialty Start Date End Date Mandi Bullard MD PCP - General Internal Medicine 10/30/17 Mallory Cuadra MD [address] [place] [id number] Assigned Neuroscience Provider 06/08/20 02/21/22 documented as of this encounter
--- OUTSIDE RECORDS SUMMARY | 2025-02-06 10:22 | XMS_ITS | Encounter Summary ---
Author Organization [facility] [employer] Address [address] [address] Care Team Providers Care Alumni Relations Manager Name Role Phone Found, No Pcp MD Primary Care Provider Unavailab le Reason for Visit * Reason Comments Follow-up MRI results Encounter Details Date Type Department Care Team (Late st Contact Info) Description 01/17/2025 Telephone [facility] [facility] [address] [facility] [place], [place] [id number] Rosie Espinal, [address] [place] [address] Follow-up (MRI results ) Social History Tobacco Use Types Packs/Day [...] as of this encounter Nursing Notes * Prabha Cantu RN - 01/18/2025 4:46 PM CDT Updated patient. No further questions or concerns at this time. * Rosie Espinal DO - 01/18/2025 3:38 PM CDT MRI does not show fracture or other acute injury to the muscles or bones. There is some evidence ofbursitis that can affect the side of the hips. We could consider trying injections to the side of the hip if she is interested in the future. Plan to first start with physical therapy. * Elisha Charles RN - 01/17/2025 2:35 PM CDT Gregory had pelvic MRI on 01/04. Please review results and provide recommendations. documented in this encounter Plan of Treatment Upcoming Encounters Date Type Department Care Team (Late st Contact Info) Description 02/24/2025 9:20 AM CDT Appointment [facility] [address] [place] [address] Rosie Espinal DO [address] [place] [address] 04/28/2025 11:30 AM CDT Appointment Rheumatology at [facility] [id number] [place] [address] [place] [address] Zaria Le MD [address] [place] [address] documented as of this encounter Visit Diagnoses Not on filedocumented in this encounter Care Teams Alumni Relations Manager Relationship Specialty Start Date End Date Found, No Pcp, [address] [facility] [place] [address] PCP - General 04/07/22 documented as of this encounter
--- OUTSIDE RECORDS SUMMARY | 2025-02-06 10:22 | XMS_ITS | Encounter Summary ---
Author Organization [facility] Address [address] [place] [address] Care Team Providers Care Shank Sander Name Role Phone Mandi Bullard MD Primary Care Provider Mallory Cuadra MD Unavailable [phone] Encounter Details Date Type Department Care Team (Late st Contact Info) Description 03/30/2020 [facility] Medical Advice [facility] Neurology [address] [place] [address] [address] [place] [address] Mallory Cuadra MD [address] [place] [address] Social History Tobacco Use Types Packs/Day Years Used Date Smoking Tobacco: Never Smokeless Tobacco: Never Alcohol Use Standard Drinks/Week Comments Yes 0 (1 standard drink = 0.6 oz pur e alcohol) rare PHQ-2 Answer Date Recorded PHQ-2 Score 5 10/03/2019 Comments No Sex and Gender Information Value Date Recorded Sex Assigned at Female 09/30/2019 12:38 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 Legal Sex Female 5:04 AM COATING M[employer]ER Gender Identity Female 09/30/2019 12:38 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 Sexual Orientation Straight 09/30/2019 12 :38 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 documented as of this encounter Plan of Treatment Not on file documented as of this encounter Visit Diagnoses Not on filedocumented in this encounter Additional Health Concerns Assessment Noted Time PHQ-9 Depression Total Score: 14 020 12:18 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
[2025-02-06 10:26] VITALS: BP 162/77; PULSE 74; RESP 18; TEMP 36.6; O2SAT 99; BMI 37.8
--- NOTE | 2025-02-06 10:50 | CRLHL7_ITS ---
For Patients: As a result of the Century Cures Act, medical imaging exams and procedure reports are released immediately into your electronic medical record. You may view this report before your referring provider. If you have questions, please contact your health care provider. Indication: Constipation Technique: Supine views of the abdomen/pelvis, 2 images Comparison: CT abdomen/pelvis and abdominal radiograph on November 09, 2022 Findings/Impression: No evidence of bowel obstruction. Mild stool burden throughout the colon. Pelvic phleboliths. The lung bases are clear. No acute osseous abnormality. Dictated by Abdifatah Deutsch MD @ 02/06/2025 11:48:49 AM (Electronically Signed)
--- NOTE | 2025-02-06 10:54 | ED.GENADULT ---
HPI - General Adult General Chief complaint: Abdominal Pain Stated complaint: Abdominal pain Time Seen by Provider: 02/06/25 10:34 Source: patient Mode of arrival: ambulatory Limitations: no limitations History of Present Illness HPI narrative: 74-year-old female presenting today with abdominal pain. Pain is located in the mid right abdomen and radiates into the lower right abdomen. Pain started yesterday. Patient complains of nausea going on for many months, no vomiting. No weight changes. Patient states that she has constipation on and off and was on MiraLax but that caused her to feel bloated so she switched to Mag citrate. She increased her Mag citrate dose and had large bowel movements 2 days ago and the day before. She is passing gas normally. No urinary symptoms. No changes in her appetite. The car ride did not make her symptoms worse. She is currently pain free as the pain does come and go. No fevers, no chills. No blood in her stool, no dark stools. Related Data Home Medications ?Medication ?Instructions ?Recorded ?Confirmed albuterol sulfate 90 mcg/actuation 2 inh inhalation Q4H PRN 02/11/22 01/04/25 breath activated powder inhaler aspirin 81 mg tablet,delayed 81 mg PO QDAY 02/11/22 01/04/25 release (Adult Low Dose Aspirin) cholecalciferol (vitamin D3) 125 125 mcg PO QDAY 02/11/22 01/04/25 mcg (5,000 unit) capsule rosuvastatin 10 mg tablet (Crestor) 10 mg PO QDAY 02/11/22 01/04/25 enoxaparin 60 mg/0.6 mL 60 mg subcut Q24H PRN 09/27/22 01/04/25 subcutaneous syringe levothyroxine 100 mcg tablet 112 mcg PO DAILY 05/25/24 01/04/25 (Synthroid) galcanezumab-gnlm 120 mg/mL mg subcut 01/04/25 01/04/25 subcutaneous pen injector (Emgality Pen) Previous Rx's ?Medication ?Instructions ?Recorded cyclobenzaprine 10 mg tablet 10 mg PO TID PRN muscle spasm #15 03/21/24 Held on 05/25/24. tabs Instructions: no longer needed triamcinolone acetonide 0.1 % 1 applic topical TID #30 grams 10/18/24 topical ointment Allergies Allergy/AdvReac Type Severity Reaction Status Date / Time galcanezumab-gnlm Allergy Severe Palpitation Verified 01/04/25 09:40 s tramadol Allergy Severe migraines Verified 01/04/25 09:40 butterbur Allergy Intermediate gi upset Verified 01/04/25 09:40 midazolam Allergy Intermediate paradoxial Verified 01/04/25 09:40 agitation cephalexin Allergy Mild Rash Verified 01/04/25 09:40 latex Allergy Mild dermatitis Verified 01/04/25 09:40 erythromycin base Allergy Unknown Verified 01/04/25 09:40 Penicillins Allergy Unknown Verified 01/04/25 09:40 timolol Allergy Unknown Verified 01/04/25 09:40 chlorhexidine Allergy Verified 01/04/25 09:40 gabapentin Allergy Verified 01/04/25 09:40 propranolol Allergy Verified 01/04/25 09:40 silicone Allergy Verified 01/04/25 09:40 topiramate Allergy Verified 01/04/25 09:40 trazodone Allergy Verified 01/04/25 09:40 Common paper wasp venom Allergy Uncoded 01/04/25 09:40 protein Review of Systems Status of ROS: Reports: 10 or more systems reviewed and unremarkable except as noted in History and below PFSH PFS Medical History Hypertension ?I10 - Essential (primary) hypertension (ICD-10) Encounter for follow-up ?Z09 - Encounter for follow-up examination after completed treatment for conditions other than malignant neoplasm (ICD-10) Surgical History Status post hysterectomy ?Z90.710 - Acquired absence of both cervix and uterus (ICD-10) History of total bilateral knee replacement ?Z96.653 - Presence of artificial knee joint, bilateral (ICD-10) History of tonsillectomy ?Z90.89 - Acquired absence of other organs (ICD-10) History of sinus surgery ?Z98.890 - Other specified postprocedural states (ICD-10) History of repair of hiatal hernia ?Z98.890 - Other specified postprocedural states (ICD-10) ?Z87.19 - Personal history of other diseases of the digestive system (ICD-10) History of hysterectomy ?Z90.710 - Acquired absence of both cervix and uterus (ICD-10) History of bunionectomy of both great toes ?Z98.890 - Other specified postprocedural states (ICD-10) Family History Father Stroke Other Cardiovascular disease Diabetes Psychiatric disorder Social History Narrative: Non-smoker Smoking Status: Never smoker Do you use any of these nicotine containing products: None How often do you have a drink containing alcohol: monthly or less How often do you have six or more drinks on one occasion: Never AUDIT-C Alcohol total score: 1 Non-prescribed substance use: denies use service: No Exam Narrative: Exam Narrative: Well-nourished well-developed patient in no acute distress. Alert and oriented. Answers questions appropriately. Mood and affect are appropriate. Thoughts are goal oriented and rational. No tangential or magical thinking noted. Patient speaks in full sentences without needing to catch her breath. HEENT: Normocephalic atraumatic. Pupils are equally round reactive to light. Extraocular muscles are intact. Conjunctivae are moist without any icterus noted. Moist mucous membranes. Cardiovascular: Heart is regular rate and rhythm S1 and S2 are present with a very soft 1/6 systolic murmur. Lungs: Clear to auscultation bilaterally no wheezes rhonchi or rales are appreciated. Patient takes deep breaths without any discomfort. Abdomen: Soft and nontender nondistended with normal bowel sounds. No guarding or rebound. No masses or organomegaly appreciated. Skin: Well perfused. Const: Vital Signs, click to edit/add: Vital Signs - 24 hr 02/06/25 10:26 Temperature 97.8 F Pulse Rate [Pulse Oximeter] 74 Respiratory Rate 18 Blood Pressure [Ri ght Upper Arm] 162/77 H Pulse Oximetry 99 Oxygen Delivery Me thod Room Air Course Course ED Course: Blood work unremarkable. X-ray showing some stool throughout. Vital Signs Vital signs: Initial Vital Signs Temperature 97.8 F 02/06/25 10:26 Temperature Source Temporal Artery Scan 02/06/25 10:26 Pulse Rate 74 02/06/25 10:26 Respiratory Rate 18 02/06/25 10:26 Blood Pressure 162/77 H 02/06/25 10:26 Blood Pressure Mean 105 02/06/25 10:26 Blood Pressure Position Sitting 02/06/25 10:26 Pulse Oximetry 99 02/06/25 10:26 Oxygen Delivery Method Room Air 02/06/25 10:26 Vital Signs Temperature 97.8 F 02/06/25 10:26 Pulse Rate 74 02/06/25 10:26 Respiratory Rate 18 02/06/25 10:26 Blood Pressure 162/77 H 02/06/25 10:26 Pulse Oximetry 99 02/06/25 10:26 Oxygen Delivery Method Room Air 02/06/25 10:26 Temperature 97.8 F 02/06/25 10:26 Pulse Rate 74 02/06/25 10:26 Respiratory Rate 18 02/06/25 10:26 Blood Pressure 162/77 H 02/06/25 10:26 Pulse Oximetry 99 02/06/25 10:26 Oxygen Delivery Method Room Air 02/06/25 10:26 Medical Decision Making MDM Narrative Medical decision making narrative: 74-year-old female with abdominal discomfort that comes and goes, certainly could be related to her on and off constipation. Discuss having a more steady bowel regimen as her regimen seems to change quite a bit on a daily basis. I do not see any evidence of infection or inflammation that could explain her pain. Urine culture pending, no obvious evidence of UTI on UA. Lab Data Lab results reviewed: Yes I reviewed the patient's lab results Labs: Lab Results 02/06/25 02/06/25 Range/Units 11:02 11:30 WBC 5.14 (4.50-11.00) K/uL RBC 3.99 L (4.00-5.20) m/uL Hgb 12.6 (12.0-16.0) gm/dL Hct 39.0 (33.0-51.0) % MCV 98 (80-100) fL MCH 32 (26-34) pg MCHC 32 (32-36) gm/dL RDW Coeff of Boaz 12.2 (11.5-15.5) % Plt Count 190 (140-440) K/uL Neut % (Auto) 61.9 (42.0-72.0) % Lymph % (Auto) 26.1 (20-44) % [place] % (Auto) 9.1 (0.0-11.0) % Eos % (Auto) 2.1 (0.0-7.0) % Baso % (Auto) 0.6 (0.0-3.0) % Neut # (Auto) 3.18 (1.7-7.0) K/uL Lymph # (Auto) 1.34 (0.90-2.90) K/uL [place] # (Auto) 0.50 (0.00-0.90) K/UL Eos # (Auto) 0.11 (0.00-0.50) K/uL Baso # (Auto) 0.03 (0.00-0.30) K/uL Abs Immat Gran (auto) 0.01 (0.00-0.30) K/uL Imm/Tot Granulo (auto) 0.2 % Sodium 138 (135-149) mmol/L Potassium 4.1 (3.6-5.1) mmol/L Chloride 105 (96-114) mmol/L Carbon Dioxide 26 (20-32) mmol/L Anion Gap 7 (7-15) mEq/L BUN 19 (7-30) mg/dL Creatinine 0.6 (0.5-1.5) mg/dL Estimated Creat Clear 39.59 Estimated GFR 93 ml/min Glucose 96 (60-115) mg/dL Calcium 9.9 (8.4-10.6) mg/dL Total Bilirubin 0.7 (0.1-1.5) mg/dL Direct Bilirubin 0.1 (0.0-0.5) mg/dL AST 26 (12-35) U/L ALT 18 (4-35) U/L Alkaline Phosphatase 79 (40-150) U/L C-Reactive Protein < 0.5 L (0.5-1.0) mg/dL Total Protein 7.1 (6.0-8.3) g/dL Albumin 4.4 (3.3-5.0) g/dL Lipase 68 (23-300) U/L Urine Color Yellow (Yellow) Urine Appearance Clear (Clear) Urine pH 6.0 (5.0-8.5) Ur Specific Cook 1.015 (1.000-1.030) Urine Protein Negative (Negative) Urine Glucose (UA) Negative (Negative) Urine Ketones Trace A (Negative) Urine Blood Trace-intact A (Negative) Urine Nitrite Negative (Negative) Urine Bilirubin Negative (Negative) Urine Urobilinogen 0.2 (0.2-1.0) Ur Leukocyte Esterase Trace A (Negative) Urine RBC 2-5 A (0-2) Urine WBC 2-5 (0-5) Ur Squamous Epith Cells None (None-Few) Urine Bacteria None (None) Imaging Data Abdominal x-ray: Attestation: I have reviewed the pertinent imaging results. Radiologist's impression: Technique: Supine views of the abdomen/pelvis, 2 images Comparison: CT abdomen/pelvis and abdominal radiograph on November 09, 2022 Findings/Impression: No evidence of bowel obstruction. Mild stool burden throughout the colon. Pelvic phleboliths. The lung bases are clear. No acute osseous abnormality. Discharge Plan Discharge Clinical Impression: Abdominal pain, Constipation Patient Disposition: Home, Self-Care Condition: Stable Additional Instructions: Follow-up with primary care provider as needed. Recommend one daily Colace tablet in the evening. Recommend Magnesium citrate 1.745g/30mL, 300 mL daily in the morning. Prescriptions: No Action rosuvastatin [Crestor] 10 mg tablet 10 mg PO QDAY albuterol sulfate 90 mcg/actuation aerosol powdr breath activated 2 inh inhalation Q4H PRN cholecalciferol (vitamin D3) 125 mcg (5,000 unit) capsule 125 mcg PO QDAY aspirin [Adult Low Dose Aspirin] 81 mg tablet,delayed release (DR/EC) 81 mg PO QDAY enoxaparin 60 mg/0.6 mL syringe 60 mg subcut Q24H PRN triamcinolone acetonide 0.1 % ointment 1 applic topical TID Qty: 30 2RF Emgality Pen 120 mg/mL pen injector subcut Patient Comments: MONTH 1: INJECT 2 PEN INJECTORS SUBCUTANEOUSLY ON THE SAME DAY, MONTH 2 ONWARD: INJECT 1 PEN INJECTOR SUBCUTANEOUSLY ONCE A MONTH cyclobenzaprine 10 mg tablet 10 mg PO TID PRN (Reason: muscle spasm) Qty: 15 0RF levothyroxine [Synthroid] 100 mcg tablet 112 mcg PO DAILY Follow Up/Referrals: Meka Perez MD [Primary Care Provider, Family Practice] Stand Alone Forms: [facility] Info Instructions
--- OUTSIDE RECORDS SUMMARY | 2025-02-06 10:57 | XMS_ITS | Clinical Summary ---
Author Organization [facility] Address [address] , [address] [place] [address] Phone Care Team Providers Care Category Planner Name Role Phone Inesucheril PA-C, Magali Weber Unavailable Conditions or Problems Problem Name Problem Code Onset Date Status Entry Date Provider Comment Standard Description Annotate Low back pain (LBP) 886427448 (SNOMED CT) Active 10/28 Magali Tia Maciejil PA-C Low back pain Gait imbalance 684494119 (SNOMED CT) Active 10/28 Magali Tia Cherucheril PA-C Abnormal gait due to impairment of balance Myelopathy 59500019 (SNOMED CT) Active 09/14 Truman Wills MD Spinal cord disease Neck pain 18345367 (SNOMED CT) Active 09/14 Truman Wills MD Neck pain Benign essential tremor 084380797 (SNOMED CT) Active 04/27 Truman Wills MD Essential tremor Peripheral neuropathy, idiopathic 76741542 (SNOMED CT) Active 04/24 Truman Wills MD Idiopathic peripheral neuropathy Paresthesia of bilateral legs 37116066 (SNOMED CT) Active 01/06 Truman Wills MD Paresthesia Memory loss 04863662 (SNOMED CT) Active 01/03 Maria T Deal PhD Amnesia CHRONIC MIGRAINE W/O AURA W/O INTRACTABLE W/O SM G43.709 (ICD-10-CM) Active 03/14 Truman Wills MD Chronic migraine without aura, not intractable, without status migrainosus Medications Medication Instructions Start Date Stop Date Generic Name [facility] Provider SYNTHROID 112 MCG TABS tablet by mouth once a day levothyroxine 29085848743 aMgali Sullivan PA-C ASPIRIN 325 MG TABS 81 mg daily 10/28 aspirin 48302580412 Magali Sullivan PA-C ASPIRIN LOW DOSE 81 MG TBEC aspirin 74419455010 Magali Sullivan PA-C ASPIRIN 325 MG TABS 81 mg daily 10/28 aspirin 31937316805 Magali Sullivan PA-C Flovent HFA (fluticasone propionate) 44 mcg/actuation HFA aerosol inhaler 09/07 fluticasone propionate Magali Sullivan PA-C RA FISH OIL 1000 MG CAPS 09/07 docosahexaenoic acid-epa 31944696075 Magali Sullivan PA-C NURTEC 75 MG TBDP take 1 pill at ZAPATA onset. May combine with 1 Reglan. No more than 1 Nurtec in 24 hrs 09/07 rimegepant 08668008648 Magali Sullivan PA-C SYNTHROID 125 MCG TABS tablet by mouth once a day 10/28 levothyroxine 36151140929 Magali Sullivan PA-C TRIAMCINOLONE ACETONIDE 0.1 % CREA 09/07 triamcinolone acetonide 21221993602 Magali Sullivan PA-C D-5000 125 MCG (5000 UT) TABS 1 tab four days per week cholecalciferol (vitamin d3) 73340435713 Magali Sullivan PA-C OMEPRAZOLE 20 MG CPDR capsule by mouth once a day 09/07 omeprazole 78186661272 Magali ANDRADEC CLOTRIMAZOLE 10 MG TROC 09/07 clotrimazole 53345415594 Magali Weber Laurie MASSEY ROSUVASTATIN CALCIUM 10 MG TABS rosuvastatin 60604418862 Magalimaria teresa Weber Laurie MASSEY ONDANSETRON HCL 4 MG TABS Take 1-2 tablet by mouth every eight hours as needed 09/07 ondansetron hcl 93760452023 Magali Weber Laurie MASSEY LUTEIN 6 MG TABS lutein 02159017035 Magali Weber Laurie MASSEY MIRALAX 17 GM/SCOOP POWD once daily polyethylene glycol 3350 [id number] Magali Sullivan PA-C UBIQUINOL 100 MG CAPS coq10 (ubiquinol) 07027867627 Magali Tiaamber Sullivan PA-C VITAMIN B-12 1000 MCG TABS cyanocobalamin (vitamin b-12) 89015071525 Magali Tiaamber Sullivan PA-C TYLENOL 325 MG TABS as needed acetaminophen 80679869728 Magali Tiaamber Sullivan PA-C ALEVE 220 MG TABS occasionally naproxen sodium 98915355682 Magali Tia Laurie MASSEY QULIPTA 30 MG TABS take 1 pill daily 09/07 atogepant 15072785733 Magali Weber Laurie MASSEY EMGALITY 120 MG/ML SOAJ month 1: inject 2 pen injectors subcutaneously on the same day, month 2 onward: inject 1 pen injector subcutaneously once a month galcanezumab-gnlm 01363712953 Magalimaria teresa Weber Laurie MASSEY QULIPTA 30 MG TABS take 1 pill daily 09/07 atogepant 57890736086 Truman Wills MD NURTEC 75 MG TBDP 09/25 rimegepant 94082322796 Magali Sullivan PA-C NURTEC 75 MG TBDP take 1 pill at ZAPATA onset. May combine with 1 Reglan. No more than 1 Nurtec in 24 hrs 09/07 rimegepant 42250781362 Truman Wills MD REGLAN 10 MG TABS take1 pill every 12 hrs as needed for nausea metoclopramide hcl 82507960749 Truman Wills MD UBRELVY 100 MG TABS Take 1 tab po at migraine onset. May repeat dose after 2 hours if needed. Maximum dose: 200 mg per 24 hours. ubrogepant 34078575032 Magali Sullivan PA-C Flovent HFA 44 mcg/actuation HFA aerosol inhaler 09/07 fluticasone propionate 38742737709 Truman Wills MD SYNTHROID 150 MCG TABS tablet by mouth once a day 09/07 levothyroxine 50242884601 Truman Wills MD Proventil HFA 90 mcg/actuation HFA aerosol inhaler 2 puff every six hours as needed albuterol sulfate 64563346749 Truman Wills MD OMEPRAZOLE 20 MG CPDR capsule by mouth once a day 01/20 omeprazole 48323059772 Truman Wills MD ONDANSETRON HCL 4 MG TABS Take 1-2 tablet by mouth every eight hours as needed 01/20 ondansetron hcl 49211049106 Estefani Thomas RN DAVIE ASPIRIN 325 MG TABS 09/07 aspirin 28278797211 Magali Sullivan PA-C RA FISH OIL 1000 MG CAPS 09/07 docosahexaenoic acid-epa 76641388638 Magali Sullivan PA-C D-5000 125 MCG (5000 UT) TABS 09/07 cholecalciferol (vitamin d3) 60042880266 Magali Sullivan PA-C UBRELVY 100 MG TABS Take 1 tab po at migraine onset. May repeat dose after 2 hours if needed. Maximum dose: 200 mg per 24 hours. 09/22 ubrogepant 67833633470 Magali Sullivan BRYSON NURTEC 75 MG TBDP 09/25 rimegepant 02437236085 Magali Wingaramis MASSEY ROSUVASTATIN CALCIUM 20 MG TABS 01/20 rosuvastatin 25592933241 Magali Wingaramis MASSEY enoxaparin 60 mg/0.6 mL syringe NEEDED FOR DEEP VEIN CLOT PROPHYLAXIS WITH PRESENCE OF LUPUS ANICOAGULANT WHEN IN SITUATION OF PROLONGED BED REST OR AIRPLANE/CAR LONGER enoxaparin 64787316864 Magali Wingaramis MASSEY TRIAMCINOLONE ACETONIDE 0.1 % OINT APPLY TO AFFECTED AREA TWICE DAILY triamcinolone acetonide 31007349981 Magali Wingaramis MASSEY TRIAMCINOLONE ACETONIDE 0.1 % CREA 09/07 triamcinolone acetonide 19776203448 Magali Wingaramis MASSEY CLOTRIMAZOLE 10 MG TROC 09/07 clotrimazole 29209314896 Magali Wingaramis ANDRADE SUMATRIPTAN SUCCINATE 100 MG TABS TAKE ONE-HALF TO 1 TABLET BY MOUTH NEEDED 05/16 SUMATRIPTAN SUCCINATE 06019092174 Truman Wills MD ONDANSETRON HCL 4 MG TABS TAKE 1 TO 2 TABLETS BY MOUTH EVERY 8 HOURS NEEDED FOR NAUSEA 01/20 ONDANSETRON HCL 39381869875 Truman Wills MD SHIRAZ ALLERGY TABS 05/16 66393910395 Truman Wills MD FLOVENT HFA INHALER 60766446080 Truman Wills MD VERAPAMIL HCL 40 MG TABS 1 pill twice daily 04/04 VERAPAMIL HCL 74832940027 Truman Wills MD ZOFRAN 4 MG ORAL TABLET 1 - 2 pills every 8 hours as needed for nausea 08/28 ONDANSETRON HCL 14865768181 Truman Wills MD IMITREX STATDOSE SYSTEM 6 MG/0.5ML SOAJ 1 injection at the onset of a migraine. May repeat dose after 2hrs if headache persists. Max of 2 injections per 24hrs. 11/29 SUMATRIPTAN SUCCINATE 68701869276 Truman Wills MD VERAPAMIL HCL 40 MG TABS 1 pill twice daily 04/04 VERAPAMIL HCL 05771733094 Truman Wills MD PROVENTIL HFA 108 (90 Base) MCG/ACT INHALATION AEROSOL SOLUTION 2 puffs every 6 hours as needed ALBUTEROL SULFATE 60851673021 Truman Wills MD OMEPRAZOLE 20 MG CPDR 1 daily 01/20 OMEPRAZOLE 98617203522 Truman Wills MD IMITREX STATDOSE SYSTEM 6 MG/0.5ML SOAJ as needed 11/29 SUMATRIPTAN SUCCINATE 08249122265 Truman Wills MD SYNTHROID 150 MCG TABS 1 daily 11/29 LEVOTHYROXINE SODIUM 85636322766 Truman Wills MD SYNTHROID 175 MCG TABS 3 days a week 03/05 LEVOTHYROXINE SODIUM 72082767293 Truman Wills MD AMITRIPTYLINE HCL 10 MG TABS 1 at bedtime 03/05 AMITRIPTYLINE HCL 45690623406 Truman Wills MD TIMOLOL MALEATE 5 MG TABS 1 pill daily 03/05 TIMOLOL MALEATE 47743363484 Truman Wills MD AMITRIPTYLINE HCL 10 MG TABS 1 at bedtime 03/05 AMITRIPTYLINE HCL 22078549858 Leann Crowley RN AMITRIPTYLINE HCL 10 MG TABS 2 at bedtime 12/15 AMITRIPTYLINE HCL 19498145642 Truman Wills MD IMITREX 100 MG TABS 1/2 - 1 as needed SUMATRIPTAN SUCCINATE 07753262076 Truman Wills MD SYNTHROID 175 MCG TABS 3 days a week 11/29 LEVOTHYROXINE SODIUM 27906761822 Truman Wills MD SYNTHROID 150 MCG TABS 4 days a week 11/29 LEVOTHYROXINE SODIUM 19175830160 Truman Wills MD TIMOLOL MALEATE 5 MG TABS 1 pill daily 03/05 TIMOLOL MALEATE 10181810219 Truman Wills MD Medications Administered No information available. Allergies, Adverse Reactions, Alerts Allergy Name Reaction Description Start Date Severity Statu s Provider BUTTERBUR Moderate Active Magali Stuart bermanabeamber Cherucheril PA-C TOPIRAMATE Moderate Active Magali Savanah olmstead Cherucheril PA-C TIMOLOL fatigue, shortness o f breath, heart pounding with exertion Severe Active Magalimaria teresa Weber Cherucheril PA-C CHLORHEXIDINE Moderate Active Roshn maria teresa Weber Cherucheril PA-C CEPHALEXIN Critical Active Truman Wills MD TRAZODONE HCL Critical Active Vickie Wills MD TRAMADOL HCL Critical Active Truman Wills MD PROPRANOLOL HCL Critical Active Yves Wills MD GABAPENTIN Critical Active Truman Wills MD PENICILLIN Critical Active Truman Wills MD ERYTHROMYCIN Critical Active Truman Wills MD Results Date Name Value Unit Range Flag Description Internal Other: Authorizatio n - OBS PTSTAUTHDT 1 N PT Startin g Authorization Date Clinical Lists Update: Metho d of Contact METHCONTACT secmsg Patient's prefered method of contact Internal Other: Verbal Autho rization/Emergency Contact - OBS VERBAL_EMER DONE Verbal au thorization and emergency contact Internal Other: Authorizatio n - OBS [id number] Yes GE use only - for LinkLogic import when terms are not otherwise specified Internal Other: Observation data from Authorization.pdf HIECONSENT Y Consent To Release information to the Health Information Exchange ([facility]) Office Visit: Office Visit C shepard note MEDS REVIEW Done Documenta tion of current medications (procedure) Plan of Care Type Date Detail Appointment 12:00 PM Kevin Perez MD , [address], [address], [place], [address], Pending order Physical Therapy Pending order Patient Instruct ions Pending order Follow up RODRIGO Pending order Follow up Pending order Patient Instruct ions Pending order Instructions for Staff Pending order Follow up Pending Order exclud ed from report: Pending order Follow up RODRIGO Pending Order exclud ed from report: Pending order Follow up Pending order EMG bilateral up per ext Pending order MRI-Cervical W/O Pending order Follow up Pending order EEG Routine Pending order MRI-Cervical W/O Pending order Anti ds DNA (Nic ble Strand) Pending order Anti Extract Nuc lear Agn (Anti RUI Thacker [employer] SPACELIFT) Pending order MRI-Lumbar W/O Pending order FRANK Pending order Hemoglobin A1C Pending order Hepatitis C Ab ( HCV) Pending order Immunofixation S alexia Pending order Lyme Total Ab w/ Reflex (reflex to Western Blot) Pending order Sjogren's Ab - S SA/SSB (ANTI-Ro/ANTI-La) Pending order t-Transglutamina se (tTG) IgA Pending order TSH Pending order Vitamin B1 (Thia mine) Pending order Vitamin B12 Pending order Vitamin B2 (Ribo flavin) Pending order Vitamin B6 (Pyri doxine) Pending order Vitamin D 25 Hyd chuck Procedures Code Procedure Name Date Entry Date ORDERS Follow up ORDERS Patient Instructions ORDERS Instructions for Staff 09/07 ORDERS Follow up RODRIGO ORDERS Follow up ORDERS EMG bilateral upper ext 2021 CPT-63136 Nerve Conduction 9-10 studies CPT-33482 EMG with NCS (5+ muscles) - 2 limbs 09/11 [id number] MRI-Cervical W/O CPT-J0585 Botox 1 vial CPT-63649 Chem - Face/Neck - Migraine or Headache 2 CPT-J0585 Botox 1 vial CPT-68957 Chem - Face/Neck - Migraine or Headache 2 CPT-J0585 Botox 1 vial CPT-43685 Chem - Face/Neck - Migraine or Headache 2 ORDERS Follow up CPT-J0585 Botox 1 vial CPT-51243 Chem - Face/Neck - Migraine or Headache 2 CPT-J0585 Botox 1 vial CPT-27712 Chem - Face/Neck - Migraine or Headache 2 CPT-J0585 Botox 1 vial CPT-98591 Chem - Face/Neck - Migraine or Headache 2 CPT-80996 EEG EXTENDED (<= 1 HOUR) (END) ORDERS EEG Routine CPT-J0585 Botox 1 vial CPT-18275 Chem - Face/Neck - Migraine or Headache 2 CPT-86628 Nerve Conduction 9-10 studies CPT-65526 EMG with NCS (5+ muscles) - 2 limbs 04/24 [id number] MRI-Cervical W/O ORDERS Anti ds DNA (Double Strand) ORDERS Anti Extract Nuclear Agn (Anti RUI Thacker [employer] SPACELIFT) [id number] MRI-Lumbar W/O CPT-06225 MRI Lumbar W/O ORDERS TSH ORDERS Vitamin B1 (Thiamine) 01/06 ORDERS Vitamin B12 ORDERS Vitamin B2 (Riboflavin) 2017 ORDERS Vitamin B6 (Pyridoxine) 2017 ORDERS Vitamin D 25 Hydroxy ORDERS FRANK ORDERS Hemoglobin A1C ORDERS Hepatitis C Ab (HCV) ORDERS Immunofixation Serum ORDERS Lyme Total Ab w/Reflex (reflex to Western Blot) ORDERS Sjogren's Ab - SSA/SSB (ANTI-Ro/ANTI-La) ORDERS t-Transglutaminase (tTG) IgA CPT-J0585 Botox 1 vial CPT-05747 Chem - Face/Neck - Migraine or Headache 2 CPT-J0585 Botox 1 vial CPT-06307 Chem - Face/Neck - Migraine or Headache 2 CPT-J0585 Botox 2 vials CPT-13835 Chem - Face/Neck - Migraine or Headache 2 CPT-J0585 Botox 2 vials CPT-43584 Chem - Face/Neck - Migraine or Headache 2 CPT-J0585 Botox 2 vials CPT-92963 Chem - Face/Neck - Migraine or Headache 2 CPT-J0585 Botox 2 vials CPT-56295 Chem - Face/Neck - Migraine or Headache 2 CPT-J0585 Botox 2 vials CPT-47755 Chem - Face/Neck - Migraine or Headache 2 CPT-73128 Neuropsych assmnt w/ prov 3 hr CPT-6833023 Neuropsych assmnt w/ tech 1 hr CPT-92730 MRI Brain W/O CPT-J0585 Botox 2 vials CPT-76179 Chem - Face/Neck - Migraine or Headache 2 CPT-J0585 Botox 2 vials CPT-06363 Chem-Face and Neck (migraine) CPT-J0585 Botox 2 vials CPT-14916 Chem-Face and Neck (migraine) Vital Signs No information available. Immunizations No information available. Advance Directives No information available.
[2025-02-06 11:11] LABS: Basophils Absolute Auto 0.03 K/uL (0.00-0.30); Basophils Percent Auto 0.6 % (0.0-3.0); Eosinophils Absolute Auto 0.11 K/uL (0.00-0.50); Eosinophils Percent Auto 2.1 % (0.0-7.0); Hemoglobin* 12.6 gm/dL (12.0-16.0); Immature Granulocytes Abs Auto 0.01 K/uL (0.00-0.30); Immature Granulocytes Pct Auto 0.2 %; Lymphocytes Absolute Auto 1.34 K/uL (0.90-2.90); Lymphocytes Percent Auto 26.1 % (20-44); Mean Corpuscular HGB Conc 32 gm/dL (32-36); Mean Corpuscular Hemoglobin 32 pg (26-34); Mean Corpuscular Volume 98 fL (80-100); Monocytes Percent Auto 9.1 % (0.0-11.0); Neutrophils Absolute Auto 3.18 K/uL (1.7-7.0); Neutrophils Percent Auto 61.9 % (42.0-72.0); Platelet Count* 190 K/uL (140-440); RDW Coefficient of Variation % 12.2 % (11.5-15.5); Red Blood Count 3.99 m/uL (4.00-5.20); White Blood Count* 5.14 K/uL (4.50-11.00)
[2025-02-06 11:15] LABS: Slide Review Reflex No
[2025-02-06 11:25] LABS: Albumin* 4.4 g/dL (3.3-5.0); Chloride* 105 mmol/L (96-114); Potassium* 4.1 mmol/L (3.6-5.1); Sodium* 138 mmol/L (135-149)
[2025-02-06 11:27] LABS: Blood Urea Nitrogen* 19 mg/dL (7-30); Creatinine* 0.6 mg/dL (0.5-1.5); Est. Creatinine Clearance* 39.59; Estimated Glomerular Filt Rate 93 ml/min
[2025-02-06 11:28] LABS: Alanine Aminotransferase* 18 U/L (4-35); Alkaline Phosphatase* 79 U/L (40-150); Anion Gap 7 mEq/L (7-15); Aspartate Amino Transferase* 26 U/L (12-35); Bilirubin Direct* 0.1 mg/dL (0.0-0.5); Bilirubin Total* 0.7 mg/dL (0.1-1.5); Calcium* 9.9 mg/dL (8.4-10.6); Carbon Dioxide* 26 mmol/L (20-32); Glucose* 96 mg/dL (60-115); Lipase* 68 U/L (23-300); Total Protein* 7.1 g/dL (6.0-8.3)
[2025-02-06 11:31] LABS: C Reactive Protein* < 0.5 mg/dL (0.5-1.0)
[2025-02-06 11:44] LABS: Appearance Urine Clear (Clear); Bilirubin Urine Negative (Negative); Blood Urine Trace-intact (Negative); Color Urine Yellow (Yellow); Glucose Urine Negative (Negative); Ketones Urine Trace (Negative); Leukocyte Esterase Urine Trace (Negative); Nitrite Urine Negative (Negative); Protein Urine Negative (Negative); Specific Gravity Urine 1.015 (1.000-1.030); Urobilinogen Urine 0.2 (0.2-1.0)
== END 2025-02-06 12:37 | disposition home or self-care (01) ==
PROVIDERS: Emergency Provider Family Medicine; PCP Family Medicine
DX: K59.00 Constipation, unspecified (principal); R10.9 Unspecified abdominal pain; R11.0 Nausea
CPT/HCPCS: 36415; 74018; 80048; 80076; 81001; 83690; 85025; 86140; 87086; 99284

== ENCOUNTER 2025-02-10 14:01 | Emergency (ER) | payer MEDICARE, SELFPAY ==
--- OUTSIDE RECORDS SUMMARY | 2024-12-30 13:00 | XMS_ITS | Encounter Summary ---
[facility] Address [address], [place] [address] Care Team Providers Care Microbiological Lab Technician Name Role Phone Found, No Pcp MD Primary Care Provider Unavailab le Reason for Referral * Procedure/Equipment (Routine) - Incomplete Specialty Diagnoses / Procedures Referred By Contac t Referred To Contact Diagnoses Pain of left hip Procedures MR Pelvis WO IV Cont MR Pelvis W/WO IV Cont Rosie Espinal DO [address] [place] [address] Phone: tel: fax: Referral ID Status Reason Start Date Expiration Date V isits Requested Visits Authorized [id number] Incomplete 12/30/2024 03/31/2026 1 1 Reason for Visit * Reason Comments CONSULT * Consult/Transfer Care (Routine) - New Request Specialty Diagnoses / Procedures Referred By Contac t Referred To Contact Pain Management Diagnoses Greater [place]chanter[place] [address] [place] [address] Phone: tel: fax: [facility] [address] [place] [address] Phone: tel: Referral ID Status Reason Start Date Expiration Date V isits Requested Visits Authorized [id number] New Request 11/22/2024 02/21/2026 1 1 Encounter Details Date Type Department Care Team (Late st Contact Info) Description 12/30/2024 1:00 PM CDT Office Visit [facility] [address] [place] [address] Rosie Espinal DO [address] [place] [address] Pain of left hip (Primary Dx); EDS (Rosie-Danlos syndrome); Antalgic gait; Impaired mobility; Other chronic pain Social History Tobacco Use Types Packs/Day Years Used Date Smoking Tobacco: Never Smokeless Tobacco: Never Alcohol Use Standard Drinks/Week Comments Not Currently 0 (1 standard drink = 0.6 oz pur e alcohol) Rare if ever PHQ-2 Answer Date Recorded PHQ-2 Score 3 06/04/2023 Comments No Sex and Gender Information Value Date Recorded Sex Assigned at Not on file Legal Sex Female 4:43 AM CDT Gender Identity Not on file Sexual Orientation Not on file 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 She locates the area of pain to the left low back, upper buttock, lateral hip area. Symptoms have been present for approximately one year. She describes extreme tenderness to palpation of the left lateral hip. She endorses difficulty riding in a car due to vibrations. She endorses bringing a cooler full of ice packs to allow for car rides. She does have an antalgic gait and uses a Rollator for mobility. Pain can vary based off activity. It can be a 3/10 to as high as an 8/10. She always has a low-grade constant pain but more frequently intermittent spasms and flares of pain. She does find her symptoms were better than a year ago Pain Medicine History/Chart Review: Reason for referral: Comprehensive Pain Assessment. Left greater trochanteric pain syndrome. Greater trochanteric pain syndrome. Patient requested pain clinic referral and referral to pain psychologist. Recent visits related to pain: [facility] 11/22, 09/15, 07/07, 06/29. Rheumatology 04/19. PMR 05/2018. [facility] 10/05. [facility] 07/2022. Medical history and workup: Medications the patient has tried: None Rehabilitation (PT/OT/Medx)? Yes; date 2023- (PT at [facility] - notes in [facility]), 2020 (PT at [facility]), and Pool Therapy (date unknown). Behavioral health? Yes; date (Therapy) Other treatment modalities tried: day care home mother; date 2007 and Injection; date 03/2018, tete PANG (unknown date). H/O anterior C4-5 C5-6 diskectomy and spinal cord decompression and foraminal decompression with fusion and plating 01/2022 at [facility]. H/O knee replacement x2. Imaging (MRI within the past 2 years for cervical thoracic, 5 years for lumbar): Lumbar 06/2024. Any red flags present? None Other information: Controlled substance agreement on file? n/a Patient???s insurance: Medicare [place] TOP LIFTER: Reviewed 12/30/2024 Review of Systems: A 10-point review of systems was completed. Significant symptoms were noted in the above HPI. Social History: Reviewed Past Medical History: Reviewed Family History: Reviewed. Medications: Reviewed Allergies: Reviewed Exam: There were no vitals filed for this visit. Constitutional: No acute distress, sitting comfortably ENT: Hearing intact to conversation Respiratory: Respirations are non-labored, patient is breathing comfortably on room air Musculoskeletal: Gait: Antalgic. Uses a rollator for balance and support Inspection: +Lymphedema/Lipedema Palpation: severe tenderness to the left lateral hip, sacrum and gluteal muscles ROM: decreased range of motion to the left hip Strength: Right 5/5 during seated HF, KE/KF, ankle DF/PF. Left 3/5 during seated HF, 5/5 KE/KF, ankle DF/PF Special tests:Negative: bilateral SLR, hip scour, FADIR, ROLANDO, SI distraction, sacral thrust,[place] Skin: Sensation intact to light touch b/l along L3, L4, L5, S1 in the lower extremities. No allodynia. Neurological: Speech clear and fluent Psychiatric: Pleasant, Good eye contact, no abnormal movements or pain behaviors ASSESSMENT: Encounter Diagnoses Name Primary? Pain of left hip Yes EDS (Rosie-Danlos syndrome) Antalgic gait Impaired mobility Other chronic pain PLAN: Additional Work-up: Recommend pelvic MRI to further evaluate for left pelvic fracture versus hip fracture verses muscle strain or tear. She has extreme tenderness to the left lateral hip which while it can be seen with greater trochanteric bursitis. Her other clinical symptoms of severe pain with riding in a car requiring ice packs is unusual. Would want to further evaluate this area prior to considering additional injections in the future. Therapy/Exercise: Would recommend the patient continue with physical therapy exercises. She has done physical therapy for her hip in the past. Medications: TOP LIFTER reviewed the patient is reluctant to start medications. She can not take NSAIDs per her banking officer. She reports sensitivities to medications. Would recommend taking acetaminophen 1000 mg 3 times per day. She is currently using this once per day. Interventions: Hold for now Follow-up: 6-8 weeks or on an as-needed basis Billing based on: Time I spent a total of 75 minutes with the patient [id number] as well as time spent reviewing the patient???s medical chart on the day of this encounter. This includes reviewing and documenting available and pertinent imaging, labs, TOP LIFTER and notes. Time was also spent counseling the patient on recommendations and options of treatment, which could include lifestyle modification, healthy weight status, physical exercise, modalities, medications, injections, and referrals to other specialties. Pleasesee above discussion. If applicable, time did not include performing procedures during this encounter. Please note that the above medical documentation was created with voice recognition software and may contain typographic errors. Rosie Espinal DO 12/30/2024, 12:59 PM Pain Management Physical Medicine and Rehabilitation documented in this encounter Plan of Treatment Upcoming Encounters Date Type Department Care Team (Late st Contact Info) Description 02/24/2025 9:20 AM CDT Appointment [facility] [address] [place] [address] Rosie Espinal DO [address] [place], [place] [address] 04/28/2025 11:30 AM CDT Appointment Rhe[facility]ology at [facility] [address] [address] [address] [place] [address] Zaria Le MD [address] [place] [address] documented as of this encounter Results * MR Pelvis WO IV Cont (01/04/2025 5:03 PM CDT) Anatomical Region Laterality Modality Pelvis, Hip, Lower Extremity, MSK Magnetic Resonance 01/04/2025 4:28 PM CDT Impressions 01/05/2025 7:50 AM CDT 1. No acute fracture, stress reaction, or avascular necrosis. 2. Mild bilateral trochanteric bursitis, left greater than right. Narrative 01/05/2025 7:50 AM CDT COMPARISON: Bilateral hip x-rays 12/23/2022, CT chest abdomen and pelvis 09/12/2019 TECHNIQUE: Multiplanar, multisequence MRI of the pelvis without IV contrast. FINDINGS: Normal bone marrow signal without acute fracture, stress reaction, or avascular necrosis. Mild degenerative changes of the hips, right worse than left. Mild degenerative spurring of the sacroiliac joints. Small amount of fluid in the bilateral trochanteric bursal spaces, left greater than right. The bilateral gluteal tendons, distal iliopsoas tendons, and proximal hamstring tendons are intact. 2.9 cm T2 hyperintense simple appearing right ovarian cyst, which appears grossly unchanged from the comparison CT in 2019. Otherwise the visualized intrapelvic soft tissues are unremarkable. Procedure Note Denver Long MD - 01/05/2025 COMPARISON: Bilateral hip x-rays 12/23/2022, CT chest abdomen and pelvis09/12/2019 TECHNIQUE: Multiplanar, multisequence MRI of the pelvis without IVcontrast. FINDINGS: Normal bone marrow signal without acute fracture, stress reaction, oravascular necrosis. Mild degenerative changes of the hips, right worsethan left. Mild degenerative spurring of the sacroiliac joints. Smallamount of fluid in the bilateral trochanteric bursal spaces, left greaterthan right. The bilateral gluteal tendons, distal iliopsoas tendons, andproximal hamstring tendons are intact. 2.9 cm T2 hyperintense simpleappearing right ovarian cyst, which appears grossly unchanged from thecomparison CT in 2019. Otherwise the visualized intrapelvic soft tissuesare unremarkable. IMPRESSION 1. No acute fracture, stress reaction, or avascular necrosis. 2. Mild bilateral trochanteric bursitis, left greater than right. us Rosie Espinal DO RAD MRI Final Resul t documented in this encounter Visit Diagnoses Diagnosis Pain of left hip- Primary EDS (Rosie-Danlos syndrome) Rosie-Danlos syndrome Antalgic gait Abnormality of gait Impaired mobility Other ill-defined conditions Other chronic pain Pain of left hip documented in this encounter Care Teams Microbiological Lab Technician Relationship Specialty Start Date End Date Found, No Pcp, [address] [place] [address] PCP - General 04/07/22 documented as of this encounter
--- OUTSIDE RECORDS SUMMARY | 2025-01-04 15:29 | XMS_ITS | Encounter Summary ---
[facility] Address [address], [place] [address] Care Team Providers Care Global Position System Technician Name Role Phone Found, No Pcp MD Primary Care Provider Unavailab le Reason for Referral * Procedure/Equipment (Routine) - Incomplete Specialty Diagnoses / Procedures Referred By Contac t Referred To Contact Diagnoses Pain of left hip Procedures MR Pelvis WO IV Cont MR Pelvis W/WO IV Cont Rosie Espinal DO [address] [place] [address] Phone: tel: fax: Referral ID Status Reason Start Date Expiration Date V isits Requested Visits Authorized [id number] Incomplete 12/30/2024 03/31/2026 1 1 Reason for Visit * Procedure/Equipment (Routine) - Incomplete Specialty Diagnoses / Procedures Referred By Contac t Referred To Contact Diagnoses Pain of left hip Procedures MR Pelvis WO IV Cont MR Pelvis W/WO IV Cont Rosie Espinal DO [address] [place] [address] Phone: tel: fax: Referral ID Status Reason Start Date Expiration Date V isits Requested Visits Authorized [id number] Incomplete 12/30/2024 03/31/2026 1 1 Encounter Details Date Type Department Care Team (Late st Contact Info) Description 01/04/2025 3:29 PM CDT - 01/04/2025 11:59 PM CDT Hospital Encounter [facility] [address] [place] [address] Rosie Espinal, DO [address] [place] [address] Pain of left hip Discharge Disposition: Home [...] Info) Description 02/24/2025 9:20 AM CDT Appointment [facility] [address] [place] [address] Rosie Espinal DO [address] [place] [address] 04/28/2025 11:30 AM CDT Appointment Rheumatology at [facility] [place] [address] [address] [address] [place] [address] Zaria Le MD [address] [place], [place] [id number] documented as of this encounter Procedures Procedure [...] hip documented in this encounter Care Teams Global Position System Technician Relationship Specialty Start Date End Date Found, No Pcp, [address] [place] [address] PCP - General 04/07/22 documented as of this encounter
[2025-02-10 14:17] VITALS: BP 169/88; PULSE 72; RESP 16; TEMP 36.7; O2SAT 97
--- NOTE | 2025-02-10 14:28 | ED.GENADULT ---
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 She was switched to MiraLax, which apparently she has not had good luck with in the past, she says she is taking for cap fulls twice a day and has not had significant results. She called her clinic today because she was not sure what to do going into the weekend since she had not had significant results. She says that that is why she is here today because she did not know how she was going to manage this weekend. She says her clinic told her to increase her MiraLax but she was not sure that that was going to work. She has had some nausea but no vomiting, some crampy abdominal pain. No fevers. She says she has had fecal impaction multiple times in the past, says she felt that way earlier in the week but does feel like that is resolved. Related Data Home Medications ?Medication ?Instructions ?Recorded ?Confirmed albuterol sulfate 90 mcg/actuation 2 inh inhalation Q4H PRN 02/11/22 01/04/25 breath activated powder inhaler aspirin 81 mg tablet,delayed 81 mg PO QDAY 02/11/22 01/04/25 release (Adult Low Dose Aspirin) cholecalciferol (vitamin D3) 125 125 mcg PO QDAY 02/11/22 01/04/25 mcg (5,000 unit) capsule rosuvastatin 10 mg tablet (Crestor) 10 mg PO QDAY 02/11/22 01/04/25 enoxaparin 60 mg/0.6 mL 60 mg subcut Q24H PRN 09/27/22 01/04/25 subcutaneous syringe levothyroxine 100 mcg tablet 112 mcg PO DAILY 05/25/24 01/04/25 (Synthroid) galcanezumab-gnlm 120 mg/mL mg subcut 01/04/25 01/04/25 subcutaneous pen injector (Emgality Pen) Previous Rx's ?Medication ?Instructions ?Recorded cyclobenzaprine 10 mg tablet 10 mg PO TID PRN muscle spasm #15 03/21/24 Held on 05/25/24. tabs Instructions: no longer needed triamcinolone acetonide 0.1 % 1 applic topical TID #30 grams 10/18/24 topical ointment Allergies Allergy/AdvReac Type Severity Reaction Status Date / Time galcanezumab-gnlm Allergy Severe Palpitation Verified 01/04/25 09:40 s tramadol Allergy Severe migraines Verified 01/04/25 09:40 butterbur Allergy Intermediate gi upset Verified 01/04/25 09:40 midazolam Allergy Intermediate paradoxial Verified 01/04/25 09:40 agitation cephalexin Allergy Mild Rash Verified 01/04/25 09:40 latex Allergy Mild dermatitis Verified 01/04/25 09:40 erythromycin base Allergy Unknown Verified 01/04/25 09:40 Penicillins Allergy Unknown Verified 01/04/25 09:40 timolol Allergy Unknown Verified 01/04/25 09:40 chlorhexidine Allergy Verified 01/04/25 09:40 gabapentin Allergy Verified 01/04/25 09:40 propranolol Allergy Verified 01/04/25 09:40 silicone Allergy Verified 01/04/25 09:40 topiramate Allergy Verified 01/04/25 09:40 trazodone Allergy Verified 01/04/25 09:40 Common paper wasp venom Allergy Uncoded 01/04/25 09:40 protein Review of Systems Status of ROS: Reports: 10 or more systems reviewed and unremarkable except as noted in History and below [facility] Medical History Hypertension ?I10 - Essential (primary) hypertension (ICD-10) Encounter for follow-up ?Z09 - Encounter for follow-up examination after completed treatment for conditions other than malignant neoplasm (ICD-10) Surgical History Status post hysterectomy ?Z90.710 - Acquired absence of both cervix and uterus (ICD-10) History of total bilateral knee replacement ?Z96.653 - Presence of artificial knee joint, bilateral (ICD-10) History of tonsillectomy ?Z90.89 - Acquired absence of other organs (ICD-10) History of sinus surgery ?Z98.890 - Other specified postprocedural states (ICD-10) History of repair of hiatal hernia ?Z98.890 - Other specified postprocedural states (ICD-10) ?Z87.19 - Personal history of other diseases of the digestive system (ICD-10) History of hysterectomy ?Z90.710 - Acquired absence of both cervix and uterus (ICD-10) History of bunionectomy of both great toes ?Z98.890 - Other specified postprocedural states (ICD-10) Family History Father Stroke Other Cardiovascular disease Diabetes Psychiatric disorder Social History Narrative: Non-smoker Smoking Status: Never smoker Do you use any of these nicotine containing products: None How often do you have a drink containing alcohol: monthly or less How often do you have six or more drinks on one occasion: Never AUDIT-C Alcohol total score: 1 Non-prescribed substance use: denies use service: No Exam Narrative: Exam Narrative: Vital signs reviewed In general, alert, nontoxic elderly woman. Head: Normocephalic, atraumatic. Eyes: Sclera clear. Pupils equal and reactive. ENT: Mucous membranes moist. Neck: Supple without adenopathy. Heart: Regular rate and rhythm without murmur. Lungs: Clear. No increased work of breathing, crackles or wheezes. Abdomen: Soft, nontender to palpation. Nondistended. Bowel sounds are quiet. Extremities: Well perfused, pulses intact. No significant edema. Neurologic: Alert, conversant. Speech fluent, face symmetric. Moves all extremities equally. Gait is slow moving but stable. Skin: Warm, dry well perfused. Affect: Normal. Const: Vital Signs, click to edit/add: Vital Signs - 24 hr 02/10/25 14:17 02/10/25 16:49 Temperature 98.1 F Pulse Rate [Pulse Oximeter] 72 81 Respiratory Rate 16 16 Blood Pressure [Ri ght Upper Arm] 169/88 H 154/74 H Pulse Oximetry 97 Oxygen Delivery Me thod Room Air Course Course ED Course: I reviewed her records from earlier this week. At that time all labs including a UA were negative. CT scan was done a couple of days ago and it sounds like there were no significant findings. Therefore, I do not think we need to do significant workup today, she does not have any abdominal tenderness in is here primarily because she has not had results yet with the MiraLax. She has needed enemas in the past and I think that is a good starting point for her. Will try a pink lady enema and see if we can improve her symptoms. She did have a pink lady enema, did not have significant results with that. Again does not have significant abdominal pain, no vomiting, no abdominal tenderness. Overall I do not see the need for admission here, we discussed options and I think right now I would recommend a trial of the bowel prep regimen using MiraLax and Dulcolax at home. I gave her instructions for that, would recommend trying that tomorrow. I think that will effectively clean her out, but if she does not have results with that, certainly discuss further with primary care. She has been thinking about requesting a referral to GI which I think might be a good idea as well. Discussed that if she does develop severe focal abdominal pain, vomiting, fevers other worsening, she should come back to the ER. She is comfortable with this plan. Vital Signs Vital signs: Initial Vital Signs Temperature 98.1 F 02/10/25 14:17 Temperature Source Temporal Artery Scan 02/10/25 14:17 Pulse Rate 72 02/10/25 14:17 Respiratory Rate 16 02/10/25 14:17 Blood Pressure 169/88 H 02/10/25 14:17 Blood Pressure Mean 115 H 02/10/25 14:17 Blood Pressure Position Sitting 02/10/25 14:17 Pulse Oximetry 97 02/10/25 14:17 Oxygen Delivery Method Room Air 02/10/25 14:17 Vital Signs Temperature 98.1 F 02/10/25 14:17 Pulse Rate 72 02/10/25 14:17 Respiratory Rate 16 02/10/25 14:17 Blood Pressure 169/88 H 02/10/25 14:17 Pulse Oximetry 97 02/10/25 14:17 Oxygen Delivery Method Room Air 02/10/25 14:17 Temperature 98.1 F 02/10/25 14:17 Pulse Rate 81 02/10/25 16:49 Respiratory Rate 16 02/10/25 16:49 Blood Pressure 154/74 H 02/10/25 16:49 Pulse Oximetry 97 02/10/25 14:17 Oxygen Delivery Method Room Air 02/10/25 14:17 Discharge Plan Discharge Clinical Impression: Constipation, Rosie-Danlos syndrome Patient Disposition: Home, Self-Care Condition: Stable Instructions: Constipation (DC) Additional Instructions: MiraLax/Dulcolax as outlined in the colonoscopy prep packet. Return as needed for severe focal abdominal pain, vomiting, fevers, or other worsening. Follow-up with primary care for further difficulties. Prescriptions: No Action rosuvastatin [Crestor] 10 mg tablet 10 mg PO QDAY albuterol sulfate 90 mcg/actuation aerosol powdr breath activated 2 inh inhalation Q4H PRN cholecalciferol (vitamin D3) 125 mcg (5,000 unit) capsule 125 mcg PO QDAY aspirin [Adult Low Dose Aspirin] 81 mg tablet,delayed release (DR/EC) 81 mg PO QDAY enoxaparin 60 mg/0.6 mL syringe 60 mg subcut Q24H PRN triamcinolone acetonide 0.1 % ointment 1 applic topical TID Qty: 30 2RF Emgality Pen 120 mg/mL pen injector subcut Patient Comments: MONTH 1: INJECT 2 PEN INJECTORS SUBCUTANEOUSLY ON THE SAME DAY, MONTH 2 ONWARD: INJECT 1 PEN INJECTOR SUBCUTANEOUSLY ONCE A MONTH cyclobenzaprine 10 mg tablet 10 mg PO TID PRN (Reason: muscle spasm) Qty: 15 0RF levothyroxine [Synthroid] 100 mcg tablet 112 mcg PO DAILY Follow Up/Referrals: Meka Perez MD [Primary Care Provider, Family Practice] Stand Alone Forms: MyHealth Info Instructions
--- OUTSIDE RECORDS SUMMARY | 2025-02-10 14:33 | XMS_ITS | Clinical Summary ---
Author Organization [facility] Address [address] , [address] [place] [address] Phone Care Team Providers Care Rn Oncology Research Name Role Phone Inesucheril PA-C, Magali Weber Unavailable Conditions or Problems Problem Name Problem Code Onset Date Status Entry Date Provider Comment Standard Description Annotate Low back pain (LBP) 102732891 (SNOMED CT) Active 10/28 Magali Tia Wingil PA-C Low back pain Gait imbalance 380484867 (SNOMED CT) Active 10/28 Magali Tia Cherucheril PA-C Abnormal gait due to impairment of balance Myelopathy 24389522 (SNOMED CT) Active 09/14 Truman Wills MD Spinal cord disease Neck pain 51098860 (SNOMED CT) Active 09/14 Truman Wills MD Neck pain Benign essential tremor 181698937 (SNOMED CT) Active 04/27 Truman Wills MD Essential tremor Peripheral neuropathy, idiopathic 61517904 (SNOMED CT) Active 04/24 Truman Wills MD Idiopathic peripheral neuropathy Paresthesia of bilateral legs 83760384 (SNOMED CT) Active 01/06 Truman Wills MD Paresthesia Memory loss 37089946 (SNOMED CT) Active 01/03 Maria T Deal PhD Amnesia CHRONIC MIGRAINE W/O AURA W/O INTRACTABLE W/O SM G43.709 (ICD-10-CM) Active 03/14 Truman Wills MD Chronic migraine without aura, not intractable, without status migrainosus Medications Medication Instructions Start Date Stop Date Generic Name [facility] Provider SYNTHROID 112 MCG TABS tablet by mouth once a day levothyroxine 85306062803 Magali Sullivan PA-C ASPIRIN 325 MG TABS 81 mg daily 10/28 aspirin 89434785031 Magali Sullivan PA-C ASPIRIN LOW DOSE 81 MG TBEC aspirin 78228845628 Magali Sullivan PA-C ASPIRIN 325 MG TABS 81 mg daily 10/28 aspirin 03994641105 Magali Sullivan PA-C Flovent HFA (fluticasone propionate) 44 mcg/actuation HFA aerosol inhaler 09/07 fluticasone propionate Magali Sullivan PA-C RA FISH OIL 1000 MG CAPS 09/07 docosahexaenoic acid-epa 38578492570 Magali Sullivan PA-C NURTEC 75 MG TBDP take 1 pill at ZAPATA onset. May combine with 1 Reglan. No more than 1 Nurtec in 24 hrs 09/07 rimegepant 85107434606 Magali Sullivan PA-C SYNTHROID 125 MCG TABS tablet by mouth once a day 10/28 levothyroxine 96996871046 Magali Sullivan PA-C TRIAMCINOLONE ACETONIDE 0.1 % CREA 09/07 triamcinolone acetonide 63095631029 Magali Sullivan PA-C D-5000 125 MCG (5000 UT) TABS 1 tab four days per week cholecalciferol (vitamin d3) 02525618797 Magali Sullivan PA-C OMEPRAZOLE 20 MG CPDR capsule by mouth once a day 09/07 omeprazole 72084378577 Magali ANDRADEC CLOTRIMAZOLE 10 MG TROC 09/07 clotrimazole 14109820439 Magali Weber Laurie MASSEY ROSUVASTATIN CALCIUM 10 MG TABS rosuvastatin 12420906604 Magalimaria teresa Weber Laurie MASSEY ONDANSETRON HCL 4 MG TABS Take 1-2 tablet by mouth every eight hours as needed 09/07 ondansetron hcl 50536502092 Magali Weber Laurie MASSEY LUTEIN 6 MG TABS lutein 06534891787 Magali Weber Laurie MASSEY MIRALAX 17 GM/SCOOP POWD once daily polyethylene glycol 3350 67496129040 Magali Sullivan PA-C UBIQUINOL 100 MG CAPS coq10 (ubiquinol) 87288698620 Magali Tiaamber Sullivan PA-C VITAMIN B-12 1000 MCG TABS cyanocobalamin (vitamin b-12) 44667936519 Magali Tiaamber Sullivan PA-C TYLENOL 325 MG TABS as needed acetaminophen 70014750976 Magali Tiaamber Sullivan PA-C ALEVE 220 MG TABS occasionally naproxen sodium 65972123062 Magali Tia Laurie MASSEY QULIPTA 30 MG TABS take 1 pill daily 09/07 atogepant 15309269166 Magali Weber Laurie MASSEY EMGALITY 120 MG/ML SOAJ month 1: inject 2 pen injectors subcutaneously on the same day, month 2 onward: inject 1 pen injector subcutaneously once a month galcanezumab-gnlm 77633285595 Magalimaria teresa Weber Laurie MASSEY QULIPTA 30 MG TABS take 1 pill daily 09/07 atogepant 63770096166 Truman Wills MD NURTEC 75 MG TBDP 09/25 rimegepant 44817215211 Magali Sullivan PA-C NURTEC 75 MG TBDP take 1 pill at ZAPATA onset. May combine with 1 Reglan. No more than 1 Nurtec in 24 hrs 09/07 rimegepant 84241825494 Truman Wills MD REGLAN 10 MG TABS take1 pill every 12 hrs as needed for nausea metoclopramide hcl 04520269084 Truman Wills MD UBRELVY 100 MG TABS Take 1 tab po at migraine onset. May repeat dose after 2 hours if needed. Maximum dose: 200 mg per 24 hours. ubrogepant 82777678656 Magali Sullivan PA-C Flovent HFA 44 mcg/actuation HFA aerosol inhaler 09/07 fluticasone propionate 47686849894 Truman Wills MD SYNTHROID 150 MCG TABS tablet by mouth once a day 09/07 levothyroxine 11085261755 Truman Wills MD Proventil HFA 90 mcg/actuation HFA aerosol inhaler 2 puff every six hours as needed albuterol sulfate 66848892140 Truman Wills MD OMEPRAZOLE 20 MG CPDR capsule by mouth once a day 01/20 omeprazole 63281622499 Truman Wills MD ONDANSETRON HCL 4 MG TABS Take 1-2 tablet by mouth every eight hours as needed 01/20 ondansetron hcl 41035754077 Estefani Thomas RN DAVIE ASPIRIN 325 MG TABS 09/07 aspirin 79449876447 Magali Sullivan PA-C RA FISH OIL 1000 MG CAPS 09/07 docosahexaenoic acid-epa 75322530800 Magali Sullivan PA-C D-5000 125 MCG (5000 UT) TABS 09/07 cholecalciferol (vitamin d3) 04660454978 Magali Sullivan PA-C UBRELVY 100 MG TABS Take 1 tab po at migraine onset. May repeat dose after 2 hours if needed. Maximum dose: 200 mg per 24 hours. 09/22 ubrogepant 55880439623 Magali Sullivan BRYSON NURTEC 75 MG TBDP 09/25 rimegepant 34309183055 Magali Wingaramis MASSEY ROSUVASTATIN CALCIUM 20 MG TABS 01/20 rosuvastatin 44136600607 Magali Wingaramis MASSEY enoxaparin 60 mg/0.6 mL syringe NEEDED FOR DEEP VEIN CLOT PROPHYLAXIS WITH PRESENCE OF LUPUS ANICOAGULANT WHEN IN SITUATION OF PROLONGED BED REST OR AIRPLANE/CAR LONGER enoxaparin 88304978350 Magali Wingaramis MASSEY TRIAMCINOLONE ACETONIDE 0.1 % OINT APPLY TO AFFECTED AREA TWICE DAILY triamcinolone acetonide 57188329991 Magali Wingaramis MASSEY TRIAMCINOLONE ACETONIDE 0.1 % CREA 09/07 triamcinolone acetonide 11735207670 Magali Wingaramis MASSEY CLOTRIMAZOLE 10 MG TROC 09/07 clotrimazole 15973681039 Magali Wingaramis ANDRADE SUMATRIPTAN SUCCINATE 100 MG TABS TAKE ONE-HALF TO 1 TABLET BY MOUTH NEEDED 05/16 SUMATRIPTAN SUCCINATE 32273101112 Truman Wills MD ONDANSETRON HCL 4 MG TABS TAKE 1 TO 2 TABLETS BY MOUTH EVERY 8 HOURS NEEDED FOR NAUSEA 01/20 ONDANSETRON HCL 54289434626 Truman Wills MD SHIRAZ ALLERGY TABS 05/16 72444408115 Truman Wills MD FLOVENT HFA INHALER 25029053328 Truman Wills MD VERAPAMIL HCL 40 MG TABS 1 pill twice daily 04/04 VERAPAMIL HCL 02519266073 Truman Wills MD ZOFRAN 4 MG ORAL TABLET 1 - 2 pills every 8 hours as needed for nausea 08/28 ONDANSETRON HCL 25552314234 Truman Wills MD IMITREX STATDOSE SYSTEM 6 MG/0.5ML SOAJ 1 injection at the onset of a migraine. May repeat dose after 2hrs if headache persists. Max of 2 injections per 24hrs. 11/29 SUMATRIPTAN SUCCINATE 60649340566 Truman Wills MD VERAPAMIL HCL 40 MG TABS 1 pill twice daily 04/04 VERAPAMIL HCL 88768901679 Truman Wills MD PROVENTIL HFA 108 (90 Base) MCG/ACT INHALATION AEROSOL SOLUTION 2 puffs every 6 hours as needed ALBUTEROL SULFATE 44708319004 Truman Wills MD OMEPRAZOLE 20 MG CPDR 1 daily 01/20 OMEPRAZOLE 54445588319 Truman Wills MD IMITREX STATDOSE SYSTEM 6 MG/0.5ML SOAJ as needed 11/29 SUMATRIPTAN SUCCINATE 32202519391 Truman Wills MD SYNTHROID 150 MCG TABS 1 daily 11/29 LEVOTHYROXINE SODIUM 51039221212 Truman Wills MD SYNTHROID 175 MCG TABS 3 days a week 03/05 LEVOTHYROXINE SODIUM 77471594083 Truman Wills MD AMITRIPTYLINE HCL 10 MG TABS 1 at bedtime 03/05 AMITRIPTYLINE HCL 04530282816 Truman Wills MD TIMOLOL MALEATE 5 MG TABS 1 pill daily 03/05 TIMOLOL MALEATE 39849518229 Truman Wills MD AMITRIPTYLINE HCL 10 MG TABS 1 at bedtime 03/05 AMITRIPTYLINE HCL 17091551439 Leann Crowley RN AMITRIPTYLINE HCL 10 MG TABS 2 at bedtime 12/15 AMITRIPTYLINE HCL 01529403309 Truman Wills MD IMITREX 100 MG TABS 1/2 - 1 as needed SUMATRIPTAN SUCCINATE 42933258843 Truman Wills MD SYNTHROID 175 MCG TABS 3 days a week 11/29 LEVOTHYROXINE SODIUM 06923574958 Truman Wills MD SYNTHROID 150 MCG TABS 4 days a week 11/29 LEVOTHYROXINE SODIUM 95529506459 Truman Wills MD TIMOLOL MALEATE 5 MG TABS 1 pill daily 03/05 TIMOLOL MALEATE 59190594779 Truman Wills MD Medications Administered No information [...] Release information to the Health Information Exchange ([employer]) Office Visit: Office Visit C shepard note MEDS REVIEW Done Documenta tion of current medications (procedure) Plan of Care Type Date Detail Appointment 12:00 PM Kevin Perez MD , [address], [address], [place], [address], Pending order Physical Therapy Pending order Patient Instruct ions Pending order Follow up RDORIGO Pending order Follow up Pending order Patient [...] Extract Nuc lear Agn (Anti RUI Thacker COOLER ROOM WORKER) Pending order MRI-Lumbar W/O Pending order FRANK [...] up ORDERS EMG bilateral upper ext 2021 CPT-29540 Nerve Conduction 9-10 studies CPT-86164 EMG with NCS (5+ muscles) - 2 limbs 09/11 [id number] MRI-Cervical W/O CPT-J0585 Botox 1 vial CPT-92576 Chem - Face/Neck - Migraine or Headache 2 CPT-J0585 Botox 1 vial CPT-97451 Chem - Face/Neck - Migraine or Headache 2 CPT-J0585 Botox 1 vial CPT-49201 Chem - Face/Neck - Migraine or Headache 2 ORDERS Follow up CPT-J0585 Botox 1 vial CPT-61854 Chem - Face/Neck - Migraine or Headache 2 CPT-J0585 Botox 1 vial CPT-59987 Chem - Face/Neck - Migraine or Headache 2 CPT-J0585 Botox 1 vial CPT-31041 Chem - Face/Neck - Migraine or Headache 2 CPT-30220 EEG EXTENDED (<= 1 HOUR) (END) ORDERS EEG Routine CPT-J0585 Botox 1 vial CPT-85605 Chem - Face/Neck - Migraine or Headache 2 CPT-49998 Nerve Conduction 9-10 studies CPT-96102 EMG with NCS (5+ muscles) - 2 limbs 04/24 [id number] MRI-Cervical W/O ORDERS Anti ds DNA (Double Strand) ORDERS Anti Extract Nuclear Agn (Anti RUI Thacker COOLER ROOM WORKER) [id number] MRI-Lumbar W/O CPT-52743 MRI Lumbar W/O ORDERS TSH ORDERS Vitamin [...] t-Transglutaminase (tTG) IgA CPT-J0585 Botox 1 vial CPT-71681 Chem - Face/Neck - Migraine or Headache 2 CPT-J0585 Botox 1 vial CPT-02773 Chem - Face/Neck - Migraine or Headache 2 CPT-J0585 Botox 2 vials CPT-06844 Chem - Face/Neck - Migraine or Headache 2 CPT-J0585 Botox 2 vials CPT-38442 Chem - Face/Neck - Migraine or Headache 2 CPT-J0585 Botox 2 vials CPT-20808 Chem - Face/Neck - Migraine or Headache 2 CPT-J0585 Botox 2 vials CPT-10277 Chem - Face/Neck - Migraine or Headache 2 CPT-J0585 Botox 2 vials CPT-99458 Chem - Face/Neck - Migraine or Headache 2 CPT-80840 Neuropsych assmnt w/ prov 3 hr CPT-5665370 Neuropsych assmnt w/ tech 1 hr CPT-71940 MRI Brain W/O CPT-J0585 Botox 2 vials CPT-94822 Chem - Face/Neck - Migraine or Headache 2 CPT-J0585 Botox 2 vials CPT-39144 Chem-Face and Neck (migraine) CPT-J0585 Botox 2 vials CPT-66962 Chem-Face and Neck (migraine) Vital Signs No information available. Immunizations No information available. Advance Directives No information available.
--- OUTSIDE RECORDS SUMMARY | 2025-02-10 14:34 | XMS_ITS | Encounter Summary ---
Author Organization [facility] Address [address], [place] [address] Care Team Providers Care Coating Operator Name Role Phone Found, No Pcp MD Primary Care Provider Unavailab le Reason for Visit * Reason Comments COVID Questions Encounter Details Date Type Department Care Team (Late st Contact Info) Description 10/28/2019 Nurse Triage [facility] [address] [place], [place] [address] Mandi Bullard MD [address] [place] [address] COVID Questions Social History Tobacco [...] read message, patient has no questions. * aMndi Bullard MD - 10/29/2019 9:12 AM CDT Yes, I do recommend that she increase her Flovent. I recommend that she talk to vascular surgery regarding the question about delaying surgery * Anna Mendieta, RN - 10/28/2019 4:20 PM CDT Clinician Action: Input needed regarding Medication- Flovent. OK for PCP Thursday10/31/2019 Clinician Next Step: Route to [place] Nurse yale to follow up and Patient IS expecting [...] Info) Description 02/24/2025 9:20 AM CDT Appointment [facility] [address] [place] [address] Rosie Espinal DO [address] [place], [place] [address] 04/28/2025 11:30 AM CDT Appointment Rheumatology at [facility] [address] [address] [place] [address] Zaria Le MD [address] [place] [address] documented as of this encounter Visit Diagnoses Not on filedocumented in this encounter Care Teams Coating Operator Relationship Specialty Start Date End Date Found, No Pcp, [address] [place] [address] PCP - General 04/07/22 documented as of this encounter
--- OUTSIDE RECORDS SUMMARY | 2025-02-10 14:34 | XMS_ITS | Encounter Summary ---
Author Organization [facility] Address [address] [place] [address] Care Team Providers Care Care Transition Manager Name Role Phone Mandi Bullard MD Primary Care Provider [phone] Mallory Cuadra MD Unavailable [phone] Encounter Details Date Type Department Care Team (Late st Contact Info) Description 02/27/2020 [facility] [facility] [address] [place] [address] Roxy Mahan RN Social History Tobacco Use Types Packs/Day Years Used Date Smoking Tobacco: Never Smokeless Tobacco: Never Alcohol Use Standard Drinks/Week Comments Yes 0 (1 standard drink = 0.6 oz pur e alcohol) rare PHQ-2 Answer Date Recorded PHQ-2 Score 5 10/03/2019 Comments No Sex and Gender Information Value Date Recorded Sex Assigned at Female 09/30/2019 12:38 PM MEAT PICKLER Legal Sex Female 5:04 AM MEAT PICKLER Gender Identity Female 09/30/2019 12:38 PM MEAT PICKLER Sexual Orientation Straight 09/30/2019 12 :38 PM MEAT PICKLER documented as of this encounter Plan of Treatment Not on file documented as of this encounter Visit Diagnoses Not on filedocumented in this encounter Additional Health Concerns Assessment Noted Time PHQ-9 Depression Total Score: 14 020 12:18 PM MEAT PICKLER documented as of this encounter Care Teams Care Transition Manager Relationship Specialty Start Date End Date Mandi Bullard MD PCP - General Internal Medicine 10/30/17 Mallory Cuadra MD [address] [place] [address] Assigned Neuroscience Provider 06/08/20 02/21/22 documented as of this encounter
--- OUTSIDE RECORDS SUMMARY | 2025-02-10 14:34 | XMS_ITS | Encounter Summary ---
Author Organization [facility] Address [address] [place] [address] Care Team Providers Care Environmental Maintenance Worker Name Role Phone Mandi Bullard MD Primary Care Provider Mallory Cuadra MD Unavailable [phone] Encounter Details Date Type Department Care Team (Late st Contact Info) Description 03/01/2020 [facility] [place] [facility] Neurology [address] [place] [address] [address] [place] [address] Mallory Cuadra MD [address] [place] [address] Social History Tobacco Use Types Packs/Day Years Used Date Smoking Tobacco: Never Smokeless Tobacco: Never Alcohol Use Standard Drinks/Week Comments Yes 0 (1 standard drink = 0.6 oz pur e alcohol) rare PHQ-2 Answer Date Recorded PHQ-2 Score 5 10/03/2019 Comments No Sex and Gender Information Value Date Recorded Sex Assigned at Female 09/30/2019 12:38 PM BAR TACKER Legal Sex Female 5:04 AM BAR TACKER Gender Identity Female 09/30/2019 12:38 PM BAR TACKER Sexual Orientation Straight 09/30/2019 12 :38 PM BAR TACKER documented as of this encounter Plan of Treatment Not on file documented as of this encounter Visit Diagnoses Not on filedocumented in this encounter Additional Health Concerns Assessment Noted Time PHQ-9 Depression Total Score: 14 020 12:18 PM BAR TACKER documented as of this encounter Care Teams Environmental Maintenance Worker Relationship Specialty Start Date End Date Mandi Bullard MD PCP - General Internal Medicine 10/30/17 Mallory Cuadra MD [address] [place] [address] Assigned Neuroscience Provider 06/08/20 02/21/22 documented as of this encounter
--- OUTSIDE RECORDS SUMMARY | 2025-02-10 14:34 | XMS_ITS | Encounter Summary ---
Author Organization [facility] Address [address], [place] [address] Care Team Providers Care Cad Developer Name Role Phone Found, No Pcp Primary Care Provider Unavailab le Reason for Visit * Reason Comments QUESTIONS, GENERAL Office Visit Notes Encounter Details Date Type Department Care Team (Late st Contact Info) Description 09/16/2024 Telephone [facility] at [address] [address] Kash Chopra MD [address] [place] [address] QUESTIONS, GENERAL (Office Visit Notes) Social [...] CST MICHAEL note faxed to Mallory [facility] [phone]. COLORER * Evon [place] - 09/16/2024 10:52 AM CST GENERAL QUESTIONS How may we help you today? Mallory is calling from [facility]. Patient is scheduled to see them on Thursday and they are requesting the last office visit note. Please fax to ([phone]. Describe your symptoms/concerns: Left wrist When did the issue start: NA Have you been seen for this recently?: Yes: Date: 09/15/2024 Provider: Kash Chopra MD If we are unable to reach you can we leave a detailed message on your voicemail? Yes If we are unable to reach you can we send you a message in eLama? No [Senior Energy Market Coordinator/Supervisor Contingents: Relay to patient; We make every effort to get back to you sameday, however it may take 1-2 business days depending on the nature of the communication.] COLORER documented in this encounter Plan of Treatment Upcoming Encounters Date Type Department Care Team (Late st Contact Info) Description 02/24/2025 9:20 AM CDT Appointment [facility] [address] [place] [address] Rosie Espinal DO [address] [place] [address] 04/28/2025 11:30 AM CDT Appointment Rheumatology at [facility] [address] [address] [place] [address] Zaria Le MD [address] [place] [address] documented as of this encounter Visit Diagnoses Not on filedocumented in this encounter Care Teams Cad Developer Relationship Specialty Start Date End Date Found, No Pcp, [address] [place] [address] PCP - General 04/07/22 documented as of this encounter
--- OUTSIDE RECORDS SUMMARY | 2025-02-10 14:34 | XMS_ITS | Clinical Summary ---
Author Organization [facility] Address [address] [place] [address] Care Team Providers Care International Sales Representative Name Role Phone Mandi Bullard MD Primary Care Provider [phone] Allergies Active Allergy Reactions Criticality Noted Date [...] Sex Assigned at Female 09/30/2019 12:38 PM GUIDE TOUR Legal Sex Female 5:04 AM GUIDE TOUR Gender Identity Female 09/30/2019 12:38 PM GUIDE TOUR Sexual Orientation Straight 09/30/2019 12 :38 PM GUIDE TOUR Last Filed Vital Signs Vital Sign Reading Time Taken Comments Blood Pressure 148/85 10/03/2019 12:13 PM GUIDE TOUR Pulse 86 10/03/2019 12:13 PM GUIDE TOUR Temperature 36.7 C (98 F) 10/30/2017 4:15 PM CDT Respiratory Rate 18 10/30/2017 10:1 5 PM CDT Oxygen Saturation 96% 10/03/2019 12: 13 PM GUIDE TOUR Inhaled Oxygen Concentration - - Weight 113.4 kg (250 lb 1.6 oz) 020 12:13 PM GUIDE TOUR Height - - Body Mass Index - [...] 133 - 144 mmol/L 10/30/2017 4:52 PM [facility] Potassium 4.2 3.4 - 5.3 mmol/L 10/30/2017 4:52 PM [facility] Chloride 108 94 - 109 mmol/L 10/30/2017 4:52 PM [facility] Carbon Dioxide 28 20 - 32 mmol/L 10/30/2017 4:52 PM [facility] Anion Gap 4 3 - 14 mmol/L 10/30/2017 4:52 PM [facility] Glucose 91 70 - 99 mg/dL 10/30/2017 4:52 PM [facility] Urea Nitrogen 22 7 - 30 mg/dL 10/30/2017 4:52 PM [facility] Creatinine 0.66 0.52 - 1.04 mg/dL 10/30/2017 4:52 PM [facility] GFR Estimate 88 >60 mL/min/1.7 m2 10/30/2017 4:52 PM [facility] Comment:Non GFR Calc GFR Estimate If Black >90 >60 mL/min/1.7 m2 10/30/2017 4:52 PM [facility] Comment: GFR Calc Calcium 9.3 8.5 - 10.1 mg/dL 10/30/2017 4:52 PM [facility] Bilirubin Total 0.4 0.2 - 1.3 mg/dL 10/30/2017 4:52 PM [facility] Albumin 3.9 3.4 - 5.0 g/dL 10/30/2017 4:52 PM [facility] Protein Total 7.4 6.8 - 8.8 g/dL 10/30/2017 4:52 PM [facility] Alkaline Phosphatase 74 40 - 150 U/L 10/30/2017 4:52 PM [facility] ALT 26 0 - 50 U/L 10/30/2017 4:52 PM [facility] AST 22 0 - 45 U/L 10/30/2017 4:52 PM CDT [facility] Blood specimen (specimen) 10/30/2017 4:16 PM CDT 10/30/2017 4:24 PM CDT us Sarah Luque MD LAB - BLOOD ORDERABLES Final R esult [facility] Gumaro Newby [address] [phone] * - HIM Screen Colonoscopy Scan (02/23/2017) Narrative Chelle Baltazar, WOOD POLISHER - 02/23/2017 Result Narrative Patient Name: Bianca [...] and oxygen saturations were monitored continuously. The [id number] was introduced through the anus and advanced [...] pathology results. 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 All rights reserved. The codes documented in this report are preliminary and upon activity coordinator review may be revised to meet current compliance requirements. Erick Wsie MD 02/23/2017 4:28:55 PM This document has [...] and oxygen saturations were monitored continuously. The [id number] was introduced through the anus and advanced [...] pathology results. Procedure Code(s): --- Professional --- 90623, Colonoscopy, flexible; with biopsy, single or multiple Diagnosis Code(s): --- Professional --- D12.3, Benign neoplasm of transverse colon (hepatic flexure or splenic flexure) Z86.010, Personal history of colonic polyps CPT copyright 2016 [employer]. All rights reserved. The codes documented in this report are preliminary and upon activity coordinator review may be revised to meet current compliance requirements. Erick Wise MD 02/23/2017 4:28:55 PM This document has been electronically signed. Number of Addenda: 0 Note Initiated On: 02/23/2017 3:12 PM Endoscopy Report us Provider Outside PROCEDURES Final Result from Last 3 Months or Most Recently Relevant to Health Maintenance Insurance MEDICARE [facility] MEDICARE [facility] Care Teams International Sales Representative Relationship Specialty Start Date End Date Mandi Bullard MD PCP - General Internal Medicine 10/30/17
--- OUTSIDE RECORDS SUMMARY | 2025-02-10 14:34 | XMS_ITS | Encounter Summary ---
Author Organization [facility] Address [address], [place] [address] Care Team Providers Care Internet Specialist Name Role Phone Found, No Pcp MD Primary Care Provider Unavailab le Reason for Visit * Reason Comments Follow-up MRI results Encounter Details Date Type Department Care Team (Late st Contact Info) Description 01/17/2025 Telephone [facility] [address] [facility] [place], [place] [id number] Rosie Espinal, [address] [place] [address] Follow-up (MRI results ) Social [...] Info) Description 02/24/2025 9:20 AM CDT Appointment [facility] [address] [place] [address] Rosie Espinal DO [address] [place] [address] 04/28/2025 11:30 AM CDT Appointment Rheumatology at [facility] [address] [place] [address] [place] [address] Zaria Le MD [address] [place] [address] documented as of this encounter Visit Diagnoses Not on filedocumented in this encounter Care Teams Internet Specialist Relationship Specialty Start Date End Date Found, No Pcp, [address] [facility] [place] [address] PCP - General 04/07/22 documented as of this encounter
--- OUTSIDE RECORDS SUMMARY | 2025-02-10 14:34 | XMS_ITS | Encounter Summary ---
Author Organization [facility] Address [address] [place] [address] Care Team Providers Care Shipper And Receiving Name Role Phone Mandi Bullard MD Primary Care Provider [phone] Mallory Cuadra MD Unavailable [phone] Encounter Details Date Type Department Care Team (Late st Contact Info) Description 03/30/2020 [facility] [place] Neurology [address] [place] [address] [address] [place] [address] Mallory Cuadra MD [address] [place] [address] Social History Tobacco Use Types Packs/Day Years Used Date Smoking Tobacco: Never Smokeless Tobacco: Never Alcohol Use Standard Drinks/Week Comments Yes 0 (1 standard drink = 0.6 oz pur e alcohol) rare PHQ-2 Answer Date Recorded PHQ-2 Score 5 10/03/2019 Comments No Sex and Gender Information Value Date Recorded Sex Assigned at Female 09/30/2019 12:38 PM ENVIRONMENTAL COMPLIANCE SPECIALIST Legal Sex Female 5:04 AM ENVIRONMENTAL COMPLIANCE SPECIALIST Gender Identity Female 09/30/2019 12:38 PM ENVIRONMENTAL COMPLIANCE SPECIALIST Sexual Orientation Straight 09/30/2019 12 :38 PM ENVIRONMENTAL COMPLIANCE SPECIALIST documented as of this encounter Plan of Treatment Not on file documented as of this encounter Visit Diagnoses Not on filedocumented in this encounter Additional Health Concerns Assessment Noted Time PHQ-9 Depression Total Score: 14 020 12:18 PM ENVIRONMENTAL COMPLIANCE SPECIALIST documented as of this encounter Care Teams Shipper And Receiving Relationship Specialty Start Date End Date Mandi Bullard MD PCP - General Internal Medicine 10/30/17 Mallory Cuadra MD [address] [place] [address] Assigned Neuroscience Provider 06/08/20 02/21/22 documented as of this encounter
--- OUTSIDE RECORDS SUMMARY | 2025-02-10 14:34 | XMS_ITS | Clinical Summary ---
Author Organization [facility] Address [address] [place] [address] Care Team Providers Care Coffee Bar Attendant Name Role Phone Meka Perez MD Primary [...] weekly 0 03/06/20 21 Active inhalational spacing deviceIndications :Moderate persistent asthma with exacerbation (HC) Antistatic valved holding chamber by deb 1 Each 10/18/19 22 Active acetaminophen (Tylenol Extra Strength) 500 mg tablet 01/21/20 22 Active albuterol HFA (PRO-AIR; VENTOLIN; PROVENTIL) 90 mcg/actuation inhalerIndication s:Rosie-Danlos disease (HC) Inhale 1-2 Puffs by mouth every 4 hours if needed for Shortness of Breath 1st choice or Wheezing 1st choice. 1 Each 3 06/12/20 23 Active SF 5000 Plus 1.1 % crea 01/23/20 23 Active enoxaparin (LOVENOX) 60 mg/0.6 mL injectionIndicati ons:Lupus anticoagulant positive As needed for DVT prophylaxis with presence of lupus anticoagulant when she is in situation when she needs prolong bed rest or on the airplane/car long thern 2 hour nonstop. 3 Each 09/16/19 24 Active metoclopramide HCl (REGLAN) 5 mg tabletIndications :H/O motion sickness Take 1 Tablet (5 mg) by mouth once daily if needed for Nausea/Vomiting. 5 Tablet 01/26/20 24 Active levothyroxine (SYNTHROID) 112 mcg tabletIndications :Hypothyroidism (acquired) Take 1 Tablet (112 mcg) by mouth before breakfast. 90 Tablet 3 03/01/20 24 Active cyanocobalamin (Vitamin B-12) 1,000 mcg tabletIndications :Vitamin B 12 deficiency Take 1 Tablet (1,000 mcg) by mouth once daily. 90 Tablet 3 03/01/20 24 Active polyethylene glycoL (MIRALAX) 17 gram/scoop powderIndications :Chronic constipation Mix 1 scoop (17 g) in [...] SUBCUTANEOUSLY ONCE A MONTH 11/05/19 25 Active rosuvastatin 10 mg tabletIndications :Mild hyperlipidemia Take 1 Tablet (10 mg) by mouth at bedtime. Due for cardiology appt in Jun 2025 90 Tablet 2 01/03/20 25 Active rimegepant 75 mg orally disintegrating tablet Place 75 mg on the tongue once daily if needed for Headache. 025 Disconti nued(*Pa tient states no longer taking) Active Problems Problem [...] syndrome 05/28/2017 History of Tamia fundoplication 02/24/2017 Pall Mall hump 02/27/2015 Varicose veins of lower extremity 09/16/2010 Overview (11/30/2020): Overview: LW Modifier: surgery ; Varicose Veins w Pain LW Modifier: surgery ; Varicose Veins w Pain Added automatically from request for surgery [id number] Hypovitaminosis D 05/11/2009 Chronic back pain 05/11/2009 [...] Encounters Date Type Department Care Team Description 02/10/2025 Nurse Triage [facility] [address] [place] [address] Meka Perez MD Abdominal Pain; Chest Pain 02/08/2025 3:30 PM CDT Ancillary Procedure [facility] [address] [place] [address] Arrived 02/08/2025 2:25 PM CDT Office Visit [facility] [address] [place] [address] Meka Perez MD ER Follow up ([facility], 02/06/2025) 02/07/2025 Travel 02/06/2025 Orders Only [facility] Scanner 1 scan: (1-Ord) [facility], XR ABDOMEN 1V, 02/06/2025 02/06/2025 Nurse Triage [facility] [address] [place] [address] Meka Perez MD Abdominal Pain/problem 02/06/2025 Telephone [facility] [address] [place] [address] Meka Perez MD Error-please disregard 01/10/2025 Telephone [facility] [address] [place] [address] Kian Bañuelos MD Appointment 01/04/2025 Nurse Triage [facility] [address] [place] [address] Meka Perez MD Derm Problem 01/03/2025 Telephone [facility] [address] [place] [address] Meka Perez MD Form (11/18 Notes) 12/31/[address] [place] [place] [address] Jacob Galo MD Refill Request (Rosuvastatin) 12/28/2024 Telephone [facility] [address] [place] [address] Meka Perez MD Form (refax with date 12/21/2024) 12/21/2024 Telephone [facility] [address] [place] [address] Meka Perez MD Questions 12/14/2024 Telephone [facility] [address] [place] [address] Meka Perez MD Questions (lymphedema) 11/10/2024 1:20 PM CDT Ancillary Procedure [facility] [address] [place] [address] 11/10/2024 Travel from Last 3 Months Immunizations Immunization Administration Dates Next Due COVID-19 VACCINE SPIKEVAX (M ODERNA 50MCG/0.5ML) 12YO+ PFS 11/03/2023 COVID-19 vaccine (Moderna 100mcg/0.5mL) PF, MDV 11/20/2021 COVID-19 vaccine (Moderna 50 mcg/0.5mL) 12YO+ BIVALENT PF, MDV 12/12/2022 COVID-19 vaccine (Healthonomy-Bio NTech 30mcg/0.3mL) PF, MDV 10/26/2020,10/04/2020 DT (Age < 7 years) 02/14/1985 Influenza Virus, Unspecified 04/28/2012, 05/15/2010,05/01/2009,06/26,06/24/2007,07/06/2006,05/28/2005 ,05/09/2004,06/09/2003,05/27/2002,1101/2001,08/03/2000,07/08/1999 Influenza, High-dose Inactivated 024,06/01/2018,05/02/2017,04/17 Influenza, IIV3 (Age [...] on file Legal Sex Female 7:39 AM STEREO OPERATOR Gender Identity Not on file Sexual Orientation Not on file Obstetrics History Last Filed Vital Signs Vital Sign Reading Time Taken Comments Blood Pressure 159/70 02/08/2025 2:45 PM CDT Pulse 70 02/08/2025 2:45 PM CDT Temperature 36.8 C (98.2 F) 06/11/2024 11:36 AM CDT Respiratory Rate 16 11/08/2024 3:26 PM CDT Oxygen Saturation 100% 02/08/2025 2:45 PM CDT Inhaled Oxygen Concentration - - Weight 96.6 kg (213 lb) 09/08/2024 10:57 AM STEREO OPERATOR Height 162.6 cm (5' 4.02) 07/12/2024 10:[address] Body Mass Index 36.54 07/12/2024 10:58 AM STEREO OPERATOR Plan of Treatment Upcoming Encounters Date Type Department Care Team (Late st Contact Info) Description 02/21/2025 4:30 PM CDT Office Visit [facility] [address] [place] [address] Kian Bañuelos MD [address] Internal zip: [address] [place] [address] Health Maintenance Due Date Last Done Comments [...] Procedure Name Priority Date/Time Associated Diagnosis Comments CT ABDOMEN PELVIS W STAT 02/08/2025 4 :33 PM CDT Continuous severe abdominal pain SCAN-RADIOLOGY REPORT 02/06/2025 12:00 AM CDT XR MAMMO BRAYDEN BILAT SCREEN Routine 11/10/2024 1:26 PM CDT Visit for screening mammogram from Last 3 Months Results * CT ABDOMEN PELVIS W (02/08/2025 4:33 PM CDT) Anatomical Region Laterality Modality Abdomen, Pelvis, AORTA, LIVER, SPLEEN Computed Tomography 02/08/2025 5:05 PM CDT Narrative 02/08/2025 5:05 PM CDT For Patients: As a result of the Century Cures Act, medical imaging exams and procedure reports are released immediately into your electronic medical record. You may view this report before your referring provider. If you have questions, please contact your health care provider. Indication: Continuous severe abdominal pain Technique: Volumetric multidetector CT images of the abdomen and pelvis were obtained after the administration of intravenous contrast. 100 cc Omnipaque 350 low osmolar intravenous contrast Comparison: CT abdomen pelvis contrast February 21, 2021 Findings: The lung bases are clear. The liver is normal in attenuation without intrahepatic biliary ductal dilatation. The portal vein is patent. The gallbladder is unremarkable without evidence of radiopaque calculus. There is no significant common biliary ductal dilatation or abrupt cut off. The spleen is normal in enhancement and size. There is likely prior fundoplication change of the stomach and gastroesophageal junction. The pancreas is normal in enhancement without significant atrophy. The adrenal glands are unremarkable. Cystic changes of the kidneys are appreciated with otherwise preserved corticomedullary differentiation and nonobstructive calculi in the bilateral collecting systems. There is a moderate to severe of stool seen throughout the colon. There is mild distal colonic diverticulosis. Minimal nonspecific fluid is seen within loops of central small bowel. The appendix is unremarkable. There is no significant mesenteric, retroperitoneal, or pelvic sidewall lymph nodes. The aorta is nonaneurysmal. There is no significant atherosclerotic disease appreciated. There is prior hysterectomy. The pelvic viscera are otherwise grossly within normal limits. There is a small fat containing umbilical hernia. Otherwise, the anterior abdominal wall is grossly intact. No intra-abdominal free air or free fluid. The lumbar vertebral body heights are grossly maintained with moderate degenerative changes of the lumbar spine. Mild facet arthrosis. No evidence of displaced fracture. Subchondral cystic changes and loss of joint space within the frudz-mxrgaew-ykpn-left hips are appreciated. Impression: 1. Moderate to severe stool seen throughout the colon with minimal nonspecific fluid-filled central small bowel which may represent mild enteritis change. No other acute intra-abdominal abnormalities are identified. Please note that all CT scans at this facility use dose modulation, iterative reconstruction, and/or weight-based dosing when appropriate to reduce radiation dose to as low as reasonably achievable. Dictated by Geoff Ferrell MD @ 02/08/2025 5:05:16 PM (Electronically Signed) Procedure Note Geoff Ferrell MD - 02/08/2025 For Patients: As a result of the 21st Century Cures Act, medical imagingexams and procedure reports are released immediately into your electronicmedical record. You may view this report before your referring provider.If you have questions, please contact your health care provider. Indication: Continuous severe abdominal pain Technique: Volumetric multidetector CT images of the abdomen and pelvis were obtainedafter the administration of intravenous contrast. 100 cc Omnipaque 350 low osmolar intravenous contrast Comparison: CT abdomen pelvis contrast February 21, 2021 Findings: The lung bases are clear. The liver is normal in attenuation without intrahepatic biliary ductaldilatation. The portal vein is patent. The gallbladder is unremarkable without evidence of radiopaque calculus. There is no significant common biliary ductal dilatation or abrupt cutoff. The spleen is normal in enhancement and size. There is likely prior fundoplication change of the stomach andgastroesophageal junction. The pancreas is normal in enhancement without significant atrophy. The adrenal glands are unremarkable. Cystic changes of the kidneys are appreciated with otherwise preservedcorticomedullary differentiation and nonobstructive calculi in thebilateral collecting systems. There is a moderate to severe of stool seen throughout the colon. There ismild distal colonic diverticulosis. Minimal nonspecific fluid is seenwithin loops of central small bowel. The appendix is unremarkable. There is no significant mesenteric, retroperitoneal, or pelvic sidewalllymph nodes. The aorta is nonaneurysmal. There is no significant atheroscleroticdisease appreciated. There is prior hysterectomy. The pelvic viscera are otherwise grosslywithin normal limits. There is a small fat containing umbilical hernia. Otherwise, the anteriorabdominal wall is grossly intact. No intra-abdominal free air or free fluid. The lumbar vertebral body heights are grossly maintained with moderatedegenerative changes of the lumbar spine. Mild facet arthrosis. Noevidence of displaced fracture. Subchondral cystic changes and loss ofjoint space within the ebiqi-hxlwwtz-gpdu-left hips are appreciated. Impression: 1. Moderate to severe stool seen throughout the colon with minimalnonspecific fluid-filled central small bowel which may represent mildenteritis change. No other acute intra-abdominal abnormalities areidentified. Please note that all CT scans at this facility use dose modulation,iterative reconstruction, and/or weight-based dosing when appropriate toreduce radiation dose to as low as reasonably achievable. Dictated by Geoff Ferrell MD @ 02/08/2025 5:05:16 PM (Electronically Signed) us Meka Perez MD CT Final Resul t * SCAN-RADIOLOGY REPORT (02/06/2025 12:00 AM CDT) Anatomical Region Laterality Modality Other us Scanner OTHER Final Result * XR MAMMO BRAYDEN BILAT SCREEN (11/10/2024 [...] For Patients: As a result of the Century Cures Act, medical imaging exams and procedure reports are released immediately into your electronic medical record. You may view this report before your referring provider. If you have questions, please contact your health care provider. XR MAMMO BRAYDEN BILAT SCREEN [[id number]] CLINICAL HISTORY: This is an asymptomatic 74 [...] of architectural distortion. Meka Perez MD MAMMO Final Resul t from Last [address] [place] [address] MEDICARE PB ONLY [facility] PB ONLY MEDICARE PART B HB ONLY AAR HB ONLY MEDICARE PART A HB ONLY Care Teams Coffee Bar Attendant Relationship Specialty Start Date End Date Meka Perez MD [address] [place] [address] PCP - General Family Practice 11/30/20
--- OUTSIDE RECORDS SUMMARY | 2025-02-10 14:34 | XMS_ITS | Encounter Summary ---
Author Organization [facility] Address [address], [place] [address] Care Team Providers Care District Administrator Name Role Phone Found, No Pcp MD Primary Care Provider Unavailab le Reason for Visit * Reason Comments CONSTIPATION Encounter Details Date Type Department Care Team (Late st Contact Info) Description 02/24/2019 Nurse Triage [facility] [address] [place], [place] [phone] Mandi Bullard MD [address] [place] [address] CONSTIPATION Social History Tobacco Use [...] ongoing symptoms Clinician Next Step: Route to [facility] to follow up and Patient IS [...] 11 days in a remote area of [facility], wanted to make sure [...] Info) Description 02/24/2025 9:20 AM CDT Appointment [facility] [address] [place] [address] Rosie Espinal DO [address] [place] [address] 04/28/2025 11:30 AM CDT Appointment Rheumatology at [facility] [address] [address] [place] [address] Zaria Le MD [address] [place] [address] documented as of this encounter Visit Diagnoses Not on filedocumented in this encounter Care Teams District Administrator Relationship Specialty Start Date End Date Found, No PcpMD [address] [place] [address] PCP - General 04/07/22 documented as of this encounter
--- OUTSIDE RECORDS SUMMARY | 2025-02-10 14:34 | XMS_ITS | Clinical Summary ---
Author Organization [facility] Address [address] [facility] [place] [address] Care Team Providers Care Tree Tapping Laborer Name Role Phone Found, No Pcp MD [...] for each transition of care or referral. [facility] Allergies Active Allergy Reactions Criticality Noted Date [...] (11/16/2020): Added automatically from request for surgery [id number] Chronic migraine w/o aura, not intractable, w/o [...] Type Department Care Team Description 01/17/2025 Telephone [place] [address] [facility] [address] [place] [address] Rosie Espinal DO Follow-up (MRI results ) 01/04/2025 3:29 PM CDT - 01/04/2025 11:59 PM CDT Hospital Encounter [facility] [address] [facility] [place] [address] Rosie Espinal DO Pain of left hip Discharge Disposition: Home 12/30/2024 1:00 PM CDT Office Visit [facility] [address] [place] [address] Rosie Espinal DO Pain of left hip (Primary Dx); EDS (Rosie-Danlos syndrome); Antalgic gait; Impaired mobility; Other chronic pain 11/23/2024 Notes/Orders [place] [address] [facility] [address] [facility] [place] [address] Soheila Palacios RN 11/22/2024 8:50 AM CDT Office Visit [facility] [address] [place] [address] Jered Bailey MD Greater trochanteric pain syndrome (Primary Dx) 11/11/2024 Telephone [facility] [address] [place] [address] Jered Bailey MD QUESTIONS, GENERAL from Last 3 Months Immunizations Immunization Administration Dates Next Due DT Ped 02/14/1985 Flu Vac Preserv Free (3+yrs) 04/21/2014, 05/04/2013,04/28/2012,2009,05/01/2009,06/26/2008,06/24/2007,1 09/05/2005,05/28/2005,05/09/2004 H1n1 Miv Sanofi 3+ Yr (Injected) 07/20/2009 Influenza IIV3 (Trivalent) F rowena Highdose, 65+ Yrs (23748) 06/01/2018,05/02/2017,04/17/2016 Influenza IIV4 (Quadrivalent ) Fluad, 65+ [...] 36.8 C (98.3 F) 09/15/2024 3:04 PM PEARL DIGGER Respiratory Rate 20 10/13/2020 11:09 AM PEARL DIGGER Oxygen Saturation 98% 10/13/2020 11:09 AM PEARL DIGGER Inhaled Oxygen Concentration - - Weight 100.7 kg (222 lb) 09/15/2024 3:04 PM PEARL DIGGER Height 162.6 cm (5' 4) 08/24/2022 2:54 PM PEARL DIGGER Body Mass Index 38.11 08/24/2022 2:54 PM PEARL DIGGER Plan of Treatment Upcoming Encounters Date Type Department Care Team (Late st Contact Info) Description 02/24/2025 9:20 AM CDT Appointment [facility] [address] [place] [address] Rosie Espinal DO [address] [place], [place] [address] 04/28/2025 11:30 AM CDT Appointment Rheumatology at [facility] [place] [address] [place] [address] [place], [place] [address] Zaria Le MD [address] [place], [place] [id number] Health Maintenance Due Date Last Done Comments [...] BONE DENSITY SPINE/HIP Routine 07/07/2019 2:43 PM PEARL DIGGER Post-menopause HGB A1C Routine 01/25/2019 3:07 PM [...] DEXA Bone Density Spine/Hip (07/07/2019 2:43 PM PEARL DIGGER) Anatomical Region Laterality Modality Lower Extremity, Spine, Hip, L-Spine Radiographic Imaging Narrative 07/08/2019 6:35 AM [facility] DXA REPORT Patient Name: Bianca Titus [place]: Maximiliano Hargrove MD Densitometer: [employer] P3800 Bone Density Tech P3800 BONE3 OSTEOPOROSIS [...] trabecular bone, and is derived from the lxhde-fp-obgut changes of bone density embedded in the [...] * Hgb A1C (01/25/2019 3:07 PM CDT) [facility] Hemoglobin A1C 5.5 <=5.6 % 01/26/2019 12:10 AM CDT [facility] Blood Venipuncture / Unknown 01/25/2019 3:07 PM CDT 01/25/2019 3:08 PM CDT Manid Bullard MD LAB_1 Final Result [facility] [address] * Hepatitis C PCR Quantitative (01/07/2018 9:06 AM CDT) HCV Quant Interp Not Detected Not Detected PN SOFT Comment: Test Performed by Real Time PCR This result has been reported to the [facility] Department of Health. CLIA Number [id number] HCV Quant iu/ml <12 IU/ml PN SOFT Comment:CLIA Number [id number] HCV Quant Log iu/ml <1.08 Log IU/ml PN SOFT Comment: Performed at [facility], [address] [place] [address] CLIA Number [id number] 01/07/2018 9:06 AM CDT 01/07/2018 12:08 PM CDT Narrative PN SOFT - 01/12/2018 1:41 PM CDT .Results faxed to [phone], 01/08/2018,14:34, by PL.Results faxed to [phone] Dr. Truman Wills C:, 01/08/2018,14:04, by PL.Results faxed to [phone] Dr. Truman Wills, 01/07/2018,14:09, by VERONICA.Results faxed to [phone] Dr. Truman Wills, 01/07/2018,13:12, by VERONICA us Parminder Jackson MD LAB_1 Final Result [facility] [address] [place] [address] * (ABNORMAL) Lipid Panel and Direct LDL(If [...] - 01/07/2018 9:40 AM CDT Performed at [facility], [address] [place] [address] CLIA number [id number] us Mandi Bullard MD LAB_1 Final Result [facility] [address] [place] [address] * Endoscopy, colon, diagnostic (02/23/2017 3:12 PM [...] and oxygen saturations were monitored continuously. The [id number] was introduced through the anus and advanced [...] pathology results. Procedure Code(s): --- Professional --- 34492, Colonoscopy, flexible; with biopsy, single or multiple Diagnosis Code(s): --- Professional --- D12.3, Benign neoplasm of transverse colon (hepatic flexure or splenic flexure) Z86.010, Personal history of colonic polyps CPT copyright 2016 [employer]. All rights reserved. The codes documented in this report are preliminary and upon no experience review may be revised to meet current [...] and oxygen saturations were monitored continuously. The [id number] was introduced through the anus and advanced [...] pathology results. Procedure Code(s): --- Professional --- 46743, Colonoscopy, flexible; with biopsy, single or multiple Diagnosis Code(s): --- Professional --- D12.3, Benign neoplasm of transverse colon (hepatic flexure or splenic flexure) Z86.010, Personal history of colonic polyps CPT copyright 2016 [employer]. All rights reserved. The codes documented in this report are preliminary and upon no experience review may be revised to meet current compliance requirements. Erick Wise MD 02/23/2017 4:28:55 PM This document has been electronically signed. Number of Addenda: 0 Note Initiated On: 02/23/2017 3:12 PM Endoscopy Report Erick Wise MD ET GI PROCEDURE ORDERABLES Fin al Result from Last 3 Months or Most Recently Relevant to Health Maintenance Insurance [facility] MEDICARE SUPPLEMENT MEDICARE [facility] MEDICARE SUPPLEMENT [facility] MEDICARE SUPPLEMENT Advance Directives * Full Code (Latest Code Status on File) Date Activated Date Inactivated Comments 07/28/2013 9:52 AM 07/29/2013 12:22 PM Care Teams Tree Tapping Laborer Relationship Specialty Start Date End Date Found, No Pcp, [address] [place] [address] PCP - General 04/07/22
[2025-02-10 16:49] VITALS: BP 154/74; PULSE 81; RESP 16
== END 2025-02-10 16:51 | disposition home or self-care (01) ==
PROVIDERS: Emergency Provider Emergency Medicine; PCP Family Medicine
DX: K59.00 Constipation, unspecified (principal); R11.0 Nausea; R10.9 Unspecified abdominal pain; Q79.60 Ehlers-Danlos syndrome, unspecified
CPT/HCPCS: 99283; 99284

== ENCOUNTER 2025-02-12 07:59 | Emergency (ER) | payer MEDICARE, SELFPAY ==
--- OUTSIDE RECORDS SUMMARY | 2024-12-30 13:00 | XMS_ITS | Encounter Summary ---
Author Organization [facility] Address [address] [place] [address] Care Team Providers Care Legal Document Assistant Name Role Phone Found, No Pcp MD Primary Care Provider Unavailab le Reason for Referral * Procedure/Equipment (Routine) - Incomplete Specialty Diagnoses / Procedures Referred By Contac t Referred To Contact Diagnoses Pain of left hip Procedures MR Pelvis WO IV Cont MR Pelvis W/WO IV Cont Rosie Espinal DO [address] [place] [address] Phone: tel: fax: Referral ID Status Reason Start Date Expiration Date V isits Requested Visits Authorized [id number] Incomplete 12/30/2024 03/31/2026 1 1 Reason for Visit * Reason Comments CONSULT * Consult/Transfer Care (Routine) - New Request Specialty Diagnoses / Procedures Referred By Contac t Referred To Contact Pain Management Diagnoses Greater trochanter[place] [address] [place] [address] Phone: tel: fax: [facility] [address] [facility] [place] [address] Phone: tel: Referral ID Status Reason Start Date Expiration Date V isits Requested Visits Authorized [id number] New Request 11/22/2024 02/21/2026 1 1 Encounter Details Date Type Department Care Team (Late st Contact Info) Description 12/30/2024 1:00 PM CDT Office Visit [facility] [address] [place] [address] Rosie Espinal DO [address] [place] [address] Pain of left hip (Primary Dx); EDS [...] Consult Note Referred by: [place] [address] [place] [address] Chief Complaint: Chief Complaint Patient presents with [...] 09/15, 07/07, 06/29. Rheumatology 04/19. PMR 05/2018. [facility] Primary Care 10/05. [facility] Neurosurgery 07/2022. Medical history and workup: Medications the patient has tried: None Rehabilitation (PT/OT/Medx)? Yes; date 2023- (PT at [facility] - notes in Media), 2020 (PT at [facility]), and Pool Therapy (date unknown). Behavioral health? Yes; date (Therapy) Other treatment modalities tried: home health aide caregiver; date 2007 and Injection; date 03/2018, tete PANG (unknown date). H/O anterior C4-5 C5-6 diskectomy and spinal cord decompression and foraminal decompression with fusion and plating 01/2022 at [facility]. H/O knee replacement x2. Imaging (MRI within the past 2 years for cervical thoracic, 5 years for lumbar): Lumbar 06/2024. Any red flags present? None Other information: Controlled substance agreement on file? n/a Patient???s insurance: Medicare [place] PURCHASE PRICE ANALYST: Reviewed 12/30/2024 Review of Systems: A 10-point [...] for her hip in the past. Medications: PURCHASE PRICE ANALYST reviewed the patient is reluctant to start medications. She can not take NSAIDs per her buckle inspector. She reports sensitivities to medications. Would recommend taking acetaminophen 1000 mg 3 times per day. She is currently using this once per day. Interventions: Hold for now Follow-up: 6-8 weeks or on an as-needed basis Billing based on: Time I spent a total of 75 minutes with the patient [id number] as well as time spent reviewing the patient???s medical chart on the day of this encounter. This includes reviewing and documenting available and pertinent imaging, labs, PURCHASE PRICE ANALYST and notes. Time was also spent counseling [...] Info) Description 02/24/2025 9:20 AM CDT Appointment [facility] [address] [place] [address] Rosie Espinal DO [address] [place], [place] [address] 04/28/2025 11:30 AM CDT Appointment Rheumatology at [facility] [address] [address] [place] [address] Zaria Le MD [address] [place] [address] documented as of this encounter Results * [...] hip documented in this encounter Care Teams Legal Document Assistant Relationship Specialty Start Date End Date Found, No Pcp, [address] [place] [address] PCP - General 04/07/22 documented as of this encounter
--- OUTSIDE RECORDS SUMMARY | 2025-01-04 15:29 | XMS_ITS | Encounter Summary ---
Author Organization [facility] Address [address], [place] [address] Care Team Providers Care Store Assistant Name Role Phone Found, No Pcp MD Primary Care Provider Unavailab le Reason for Referral * Procedure/Equipment (Routine) - Incomplete Specialty Diagnoses / Procedures Referred By Contac t Referred To Contact Diagnoses Pain of left hip Procedures MR Pelvis WO IV Cont MR Pelvis W/WO IV Cont Rosie Espinal DO [address] [place] [address] Phone: tel: fax: Referral ID Status Reason Start Date Expiration Date V isits Requested Visits Authorized [id number] Incomplete 12/30/2024 03/31/2026 1 1 Reason for Visit * Procedure/Equipment (Routine) - Incomplete Specialty Diagnoses / Procedures Referred By Contac t Referred To Contact Diagnoses Pain of left hip Procedures MR Pelvis WO IV Cont MR Pelvis W/WO IV Cont Rosie Espinal DO [address] [place] [address] Phone: tel: fax: Referral ID Status Reason Start Date Expiration Date V isits Requested Visits Authorized [id number] Incomplete 12/30/2024 03/31/2026 1 1 Encounter Details Date Type Department Care Team (Late st Contact Info) Description 01/04/2025 3:29 PM CDT - 01/04/2025 11:59 PM CDT Hospital Encounter [facility] [address] [facility] [place] [address] Rosie Espinal, DO [address] [place] [address] Pain of left hip Discharge Disposition: Home Social History Tobacco Use Types Packs/Day Years [...] on file documented as of this encounter Medications at Time of Discharge ALBUterol sulfate HFA 108 (90 Base) MCG/ACT inhaler Inhale 1-2 Puffs as needed. 11/16/2020 aspirin 81 MG tablet Take 1 Tablet (81 mg) by mouth daily. cholecalciferol (VITAMIN D3) 125 MCG (5000 UT) capsule Take 1 Capsule (5,000 Units) by mouth daily. Thursday through enoxaparin (LOVENOX) 60 MG/0.6ML prefilled syringe As needed for DVT prophylaxis with presence of lupus anticoagulant: 60 mg subcut when she is in situation when she needs prolong bed rest or on the airplane/car long thern 2 hour nonstop. 1 Each 3 04/19/2024 predniSONE (DELTASONE) 10 MG tablet As needed for a pseudgout attack: 30 mg all at once once a day x 7 days then stop. 21 Tablet 2 04/19/2024 triamcinolone acetonide (KENALOG) 0.1 % ointment APPLY TO RASH ON HANDS ONCE DAILY TO TWICE DAILY NEEDED 80 g 1 04/13/2023 documented as of this encounter Plan of Treatment Upcoming Encounters Date Type Department Care Team (Late st Contact Info) Description 02/24/2025 9:20 AM CDT Appointment [facility] [address] [place] [address] Rosie Espinal DO [address] [place] [address] 04/28/2025 11:30 AM CDT Appointment Rheumatology at [facility] [address] [address] [address] [place] [address] Zaria Le MD [address] [place], [place] [address] documented as of this encounter Procedures Procedure Name Priority Date/Time Associated Diagnosis Comments MR PELVIS WO IV CONT Routine 01/04/2025 5:03 PM CDT Pain of left hip documented in this encounter Results * MR Pelvis WO [...] encounter Visit Diagnoses Diagnosis Pain of left hip documented in this encounter Care Teams Store Assistant Relationship Specialty Start Date End Date Found, No Pcp, [address] [place] [address] PCP - General 04/07/22 documented as of this encounter
[2025-02-12 08:02] VITALS: BP 184/78; PULSE 88; RESP 16; TEMP 36.9; O2SAT 99; BMI 38.4
--- OUTSIDE RECORDS SUMMARY | 2025-02-12 08:02 | XMS_ITS | Clinical Summary ---
Author Organization [facility] Address [address] , [address] [place] [address] Phone Care Team Providers Care Temple Meat Cutter Name Role Phone Inesucheril PA-C, Magali Weber Unavailable Conditions or Problems Problem Name Problem Code Onset Date Status Entry Date Provider Comment Standard Description Annotate Low back pain (LBP) 720651172 (SNOMED CT) Active 10/28 Magali Tia Maciejil PA-C Low back pain Gait imbalance 302515765 (SNOMED CT) Active 10/28 Magali Tia Cherucheril PA-C Abnormal gait due to impairment of balance Myelopathy 85974538 (SNOMED CT) Active 09/14 Truman Wills MD Spinal cord disease Neck pain 09621542 (SNOMED CT) Active 09/14 Truman Wills MD Neck pain Benign essential tremor 611216168 (SNOMED CT) Active 04/27 Truman Wills MD Essential tremor Peripheral neuropathy, idiopathic 84652978 (SNOMED CT) Active 04/24 Truman Wills MD Idiopathic peripheral neuropathy Paresthesia of bilateral legs 50425206 (SNOMED CT) Active 01/06 Truman Wills MD Paresthesia Memory loss 94038877 (SNOMED CT) Active 01/03 Mraia T Deal PhD Amnesia CHRONIC MIGRAINE W/O AURA W/O INTRACTABLE W/O SM G43.709 (ICD-10-CM) Active 03/14 Truman Wills MD Chronic migraine without aura, not intractable, without status migrainosus Medications Medication Instructions Start Date Stop Date Generic Name [facility] Provider SYNTHROID 112 MCG TABS tablet by mouth once a day levothyroxine 47964103878 Magali Sullivan PA-C ASPIRIN 325 MG TABS 81 mg daily 10/28 aspirin 30679414548 Magali Sullivan PA-C ASPIRIN LOW DOSE 81 MG TBEC aspirin 40867656476 Magali Sullivan PA-C ASPIRIN 325 MG TABS 81 mg daily 10/28 aspirin 10594788973 Magali Sullivan PA-C Flovent HFA (fluticasone propionate) 44 mcg/actuation HFA aerosol inhaler 09/07 fluticasone propionate Magali Sullivan PA-C RA FISH OIL 1000 MG CAPS 09/07 docosahexaenoic acid-epa 28235687303 Magali Sullivan PA-C NURTEC 75 MG TBDP take 1 pill at ZAPATA onset. May combine with 1 Reglan. No more than 1 Nurtec in 24 hrs 09/07 rimegepant 07428276421 Magali Sullivan PA-C SYNTHROID 125 MCG TABS tablet by mouth once a day 10/28 levothyroxine 02453220497 Magali Sullivan PA-C TRIAMCINOLONE ACETONIDE 0.1 % CREA 09/07 triamcinolone acetonide 37929784817 Magali Sullivan PA-C D-5000 125 MCG (5000 UT) TABS 1 tab four days per week cholecalciferol (vitamin d3) 57817845776 Magali Sullivan PA-C OMEPRAZOLE 20 MG CPDR capsule by mouth once a day 09/07 omeprazole 67168681508 Magali ANDRADEC CLOTRIMAZOLE 10 MG TROC 09/07 clotrimazole 26451781881 Magali Weber Laurie MASSEY ROSUVASTATIN CALCIUM 10 MG TABS rosuvastatin 12685735651 Magalimaria teresa Weber Laurie MASSEY ONDANSETRON HCL 4 MG TABS Take 1-2 tablet by mouth every eight hours as needed 09/07 ondansetron hcl 98482611202 Magali Weber Laurie MASSEY LUTEIN 6 MG TABS lutein 96622277252 Magali Weber Laurie MASSEY MIRALAX 17 GM/SCOOP POWD once daily polyethylene glycol 3350 03864422571 Magali Sullivan PA-C UBIQUINOL 100 MG CAPS coq10 (ubiquinol) 45763398874 Magali Tiaamber Sullivan PA-C VITAMIN B-12 1000 MCG TABS cyanocobalamin (vitamin b-12) 45398891214 Magali Tiaamber Sullivan PA-C TYLENOL 325 MG TABS as needed acetaminophen 00131499652 Magali Tiaamber Sullivan PA-C ALEVE 220 MG TABS occasionally naproxen sodium 85044804599 Magali Tia Laurie MASSEY QULIPTA 30 MG TABS take 1 pill daily 09/07 atogepant 31630044279 Magali Weber Laurie MASSEY EMGALITY 120 MG/ML SOAJ month 1: inject 2 pen injectors subcutaneously on the same day, month 2 onward: inject 1 pen injector subcutaneously once a month galcanezumab-gnlm 83584314920 Magalimaria teresa Weber Laurie MASSEY QULIPTA 30 MG TABS take 1 pill daily 09/07 atogepant 88556479258 Truman Wills MD NURTEC 75 MG TBDP 09/25 rimegepant 44756335018 Magali Sullivan PA-C NURTEC 75 MG TBDP take 1 pill at ZAPATA onset. May combine with 1 Reglan. No more than 1 Nurtec in 24 hrs 09/07 rimegepant 24016778079 Truman Wills MD REGLAN 10 MG TABS take1 pill every 12 hrs as needed for nausea metoclopramide hcl 48821691513 Truman Wills MD UBRELVY 100 MG TABS Take 1 tab po at migraine onset. May repeat dose after 2 hours if needed. Maximum dose: 200 mg per 24 hours. ubrogepant 30588294386 Magali Sullivan PA-C Flovent HFA 44 mcg/actuation HFA aerosol inhaler 09/07 fluticasone propionate 72000391405 Truman Wills MD SYNTHROID 150 MCG TABS tablet by mouth once a day 09/07 levothyroxine 41243657535 Truman Wills MD Proventil HFA 90 mcg/actuation HFA aerosol inhaler 2 puff every six hours as needed albuterol sulfate 67247871613 Truman Wills MD OMEPRAZOLE 20 MG CPDR capsule by mouth once a day 01/20 omeprazole 56701294936 Truman Wills MD ONDANSETRON HCL 4 MG TABS Take 1-2 tablet by mouth every eight hours as needed 01/20 ondansetron hcl 33150257957 Estefani Thomas RN DAVIE ASPIRIN 325 MG TABS 09/07 aspirin 96714524683 Magali Sullivan PA-C RA FISH OIL 1000 MG CAPS 09/07 docosahexaenoic acid-epa 17402808769 Magali Sullivan PA-C D-5000 125 MCG (5000 UT) TABS 09/07 cholecalciferol (vitamin d3) 08149942410 Magali Sullivan PA-C UBRELVY 100 MG TABS Take 1 tab po at migraine onset. May repeat dose after 2 hours if needed. Maximum dose: 200 mg per 24 hours. 09/22 ubrogepant 63512387416 Magali Sullivan BRYSON NURTEC 75 MG TBDP 09/25 rimegepant 14110108429 Magali Wingaramis MASSEY ROSUVASTATIN CALCIUM 20 MG TABS 01/20 rosuvastatin 48421503140 Magali Wingaramis MASSEY enoxaparin 60 mg/0.6 mL syringe NEEDED FOR DEEP VEIN CLOT PROPHYLAXIS WITH PRESENCE OF LUPUS ANICOAGULANT WHEN IN SITUATION OF PROLONGED BED REST OR AIRPLANE/CAR LONGER enoxaparin 82679340634 Magali Wingaramis MASSEY TRIAMCINOLONE ACETONIDE 0.1 % OINT APPLY TO AFFECTED AREA TWICE DAILY triamcinolone acetonide 10571434595 Magali Wingaramis MASSEY TRIAMCINOLONE ACETONIDE 0.1 % CREA 09/07 triamcinolone acetonide 96851396262 Magali Wingaramis MASSEY CLOTRIMAZOLE 10 MG TROC 09/07 clotrimazole 55931055016 Magali Wingaramis ANDRADE SUMATRIPTAN SUCCINATE 100 MG TABS TAKE ONE-HALF TO 1 TABLET BY MOUTH NEEDED 05/16 SUMATRIPTAN SUCCINATE 74157509084 Truman Wills MD ONDANSETRON HCL 4 MG TABS TAKE 1 TO 2 TABLETS BY MOUTH EVERY 8 HOURS NEEDED FOR NAUSEA 01/20 ONDANSETRON HCL 98301606032 Truman Wills MD SHIRAZ ALLERGY TABS 05/16 52956068514 Truman Wills MD FLOVENT HFA INHALER 20543771893 Truman Wills MD VERAPAMIL HCL 40 MG TABS 1 pill twice daily 04/04 VERAPAMIL HCL 54137298837 Truman Wills MD ZOFRAN 4 MG ORAL TABLET 1 - 2 pills every 8 hours as needed for nausea 08/28 ONDANSETRON HCL 69137745318 Truman Wills MD IMITREX STATDOSE SYSTEM 6 MG/0.5ML SOAJ 1 injection at the onset of a migraine. May repeat dose after 2hrs if headache persists. Max of 2 injections per 24hrs. 11/29 SUMATRIPTAN SUCCINATE 23711230934 Truman Wills MD VERAPAMIL HCL 40 MG TABS 1 pill twice daily 04/04 VERAPAMIL HCL 18387604522 Truman Wills MD PROVENTIL HFA 108 (90 Base) MCG/ACT INHALATION AEROSOL SOLUTION 2 puffs every 6 hours as needed ALBUTEROL SULFATE 90068662863 Truman Wills MD OMEPRAZOLE 20 MG CPDR 1 daily 01/20 OMEPRAZOLE 31668390603 Truman Wills MD IMITREX STATDOSE SYSTEM 6 MG/0.5ML SOAJ as needed 11/29 SUMATRIPTAN SUCCINATE 15882346434 Truman Wills MD SYNTHROID 150 MCG TABS 1 daily 11/29 LEVOTHYROXINE SODIUM 32105968084 Truman Wills MD SYNTHROID 175 MCG TABS 3 days a week 03/05 LEVOTHYROXINE SODIUM 16959543380 Truman Wills MD AMITRIPTYLINE HCL 10 MG TABS 1 at bedtime 03/05 AMITRIPTYLINE HCL 01276019963 Truman Wills MD TIMOLOL MALEATE 5 MG TABS 1 pill daily 03/05 TIMOLOL MALEATE 52349352474 Truman Wills MD AMITRIPTYLINE HCL 10 MG TABS 1 at bedtime 03/05 AMITRIPTYLINE HCL 09898190080 Leann Crowley RN AMITRIPTYLINE HCL 10 MG TABS 2 at bedtime 12/15 AMITRIPTYLINE HCL 68850688677 Truman Wills MD IMITREX 100 MG TABS 1/2 - 1 as needed SUMATRIPTAN SUCCINATE 94340892479 Truman Wills MD SYNTHROID 175 MCG TABS 3 days a week 11/29 LEVOTHYROXINE SODIUM 81461575708 Truman Wills MD SYNTHROID 150 MCG TABS 4 days a week 11/29 LEVOTHYROXINE SODIUM 73031620958 Truman Wills MD TIMOLOL MALEATE 5 MG TABS 1 pill daily 03/05 TIMOLOL MALEATE 61473853355 Truman Wills MD Medications Administered No information [...] Release information to the Health Information Exchange ([employer]) Office Visit: Office Visit C shepard note MEDS REVIEW Done Documenta tion of current medications (procedure) Plan of Care Type Date Detail Appointment 12:00 PM Kevin Perez MD , [address], [address], [place], [address], Pending order Physical Therapy Pending order Patient [...] Extract Nuc lear Agn (Anti RUI Thacker CORPORATE CONTROLLER) Pending order MRI-Lumbar W/O Pending order FRANK [...] up ORDERS EMG bilateral upper ext 2021 CPT-23399 Nerve Conduction 9-10 studies CPT-22437 EMG with NCS (5+ muscles) - 2 limbs 09/11 [id number] MRI-Cervical W/O CPT-J0585 Botox 1 vial CPT-30299 Chem - Face/Neck - Migraine or Headache 2 CPT-J0585 Botox 1 vial CPT-67980 Chem - Face/Neck - Migraine or Headache 2 CPT-J0585 Botox 1 vial CPT-01477 Chem - Face/Neck - Migraine or Headache 2 ORDERS Follow up CPT-J0585 Botox 1 vial CPT-92442 Chem - Face/Neck - Migraine or Headache 2 CPT-J0585 Botox 1 vial CPT-27184 Chem - Face/Neck - Migraine or Headache 2 CPT-J0585 Botox 1 vial CPT-11632 Chem - Face/Neck - Migraine or Headache 2 CPT-87386 EEG EXTENDED (<= 1 HOUR) (END) ORDERS EEG Routine CPT-J0585 Botox 1 vial CPT-18397 Chem - Face/Neck - Migraine or Headache 2 CPT-99862 Nerve Conduction 9-10 studies CPT-48497 EMG with NCS (5+ muscles) - 2 limbs 04/24 [id number] MRI-Cervical W/O ORDERS Anti ds DNA (Double Strand) ORDERS Anti Extract Nuclear Agn (Anti RUI Thacker [employer]PORATE CONTROLLER) [id number] MRI-Lumbar W/O CPT-52731 MRI Lumbar W/O ORDERS TSH ORDERS Vitamin [...] t-Transglutaminase (tTG) IgA CPT-J0585 Botox 1 vial CPT-19896 Chem - Face/Neck - Migraine or Headache 2 CPT-J0585 Botox 1 vial CPT-23080 Chem - Face/Neck - Migraine or Headache 2 CPT-J0585 Botox 2 vials CPT-68388 Chem - Face/Neck - Migraine or Headache 2 CPT-J0585 Botox 2 vials CPT-41427 Chem - Face/Neck - Migraine or Headache 2 CPT-J0585 Botox 2 vials CPT-43886 Chem - Face/Neck - Migraine or Headache 2 CPT-J0585 Botox 2 vials CPT-88002 Chem - Face/Neck - Migraine or Headache 2 CPT-J0585 Botox 2 vials CPT-40937 Chem - Face/Neck - Migraine or Headache 2 CPT-46466 Neuropsych assmnt w/ prov 3 hr CPT-8311167 Neuropsych assmnt w/ tech 1 hr CPT-63910 MRI Brain W/O CPT-J0585 Botox 2 vials CPT-15669 Chem - Face/Neck - Migraine or Headache 2 CPT-J0585 Botox 2 vials CPT-87095 Chem-Face and Neck (migraine) CPT-J0585 Botox 2 vials CPT-16207 Chem-Face and Neck (migraine) Vital Signs No information available. Immunizations No information available. Advance Directives No information available.
--- OUTSIDE RECORDS SUMMARY | 2025-02-12 08:02 | XMS_ITS | Encounter Summary ---
Author Organization [facility] Address [address], [place] [address] Care Team Providers Care C Application Developer Name Role Phone Found, No Pcp MD Primary Care Provider Unavailab le Reason for Visit * Reason Comments Follow-up MRI results Encounter Details Date Type Department Care Team (Late st Contact Info) Description 01/17/2025 Telephone [facility] [address] [facility] [place], [place] [id number] Rosie Espinal, [address] [place] [address] Follow-up (MRI results ) Social [...] Info) Description 02/24/2025 9:20 AM CDT Appointment [facility] [address] [place] [address] Rosie Espinal DO [address] [place] [address] 04/28/2025 11:30 AM CDT Appointment Rheumatology at [facility] [place] [address] [place] [address] [place] [address] Zaria Le MD [address] [place] [address] documented as of this encounter Visit Diagnoses Not on filedocumented in this encounter Care Teams C Application Developer Relationship Specialty Start Date End Date Found, No Pcp, [address] [facility] [place] [address] PCP - General 04/07/22 documented as of this encounter
--- OUTSIDE RECORDS SUMMARY | 2025-02-12 08:02 | XMS_ITS | Encounter Summary ---
Author Organization [facility] Address [address] [address] Care Team Providers Care Fabricator Industrial Furnace Name Role Phone Found, No Pcp MD Primary Care Provider Unavailab le Reason for Visit * Reason Comments CONSTIPATION Encounter Details Date Type Department Care Team (Late st Contact Info) Description 02/24/2019 Nurse Triage [facility] [address] [place], [place] [id number] Mandi Bullard MD [address] [place] [address] CONSTIPATION Social History Tobacco Use [...] 11 days in a remote area of [facility], wanted to make sure she had this [...] Info) Description 02/24/2025 9:20 AM CDT Appointment [facility] [address] [place] [address] Rosie Espinal DO [address] [place] [address] 04/28/2025 11:30 AM CDT Appointment Rheumatology at [facility] [address] [address] [place] [address] Zaria Le MD [address] [place] [address] documented as of this encounter Visit Diagnoses Not on filedocumented in this encounter Care Teams Fabricator Industrial Furnace Relationship Specialty Start Date End Date Found, No PcpMD [address] [place] [address] PCP - General 04/07/22 documented as of this encounter
--- OUTSIDE RECORDS SUMMARY | 2025-02-12 08:02 | XMS_ITS | Encounter Summary ---
Author Organization [facility] Address [address], [place] [address] Care Team Providers Care Inspector Precision Name Role Phone Found, No Pcp Primary Care Provider Unavailab le Reason for Visit * Reason Comments QUESTIONS, GENERAL Office Visit Notes Encounter Details Date Type Department Care Team (Late st Contact Info) Description 09/16/2024 Telephone [facility] at [address] [address] Kash Chopra MD [address] [place] [address] QUESTIONS, GENERAL (Office Visit Notes) Social [...] CST MICHAEL note faxed to Mallory Barney [facility] [phone]. L CARRIER ASSOCIATE * Evon Buchanan - 09/16/2024 10:52 AM CST GENERAL QUESTIONS How may we help you today? Mallory is calling from [facility]. Patient is scheduled to see them on Thursday and they are requesting the last office visit note. Please fax to ([phone]. Describe your symptoms/concerns: Left wrist When did the issue start: NA Have you been seen for this recently?: Yes: Date: 09/15/2024 Provider: Kash Chopra MD If we are unable to reach you can we leave a detailed message on your voicemail? Yes If we are unable to reach you can we send you a message in [employer]? No [Magistrate Assistant/Clinical Education Academic Coordinator: Relay to patient; We make every effort to get back to you sameday, however it may take 1-2 business days depending on the nature of the communication.] L CARRIER ASSOCIATE documented in this encounter Plan of Treatment Upcoming Encounters Date Type Department Care Team (Late st Contact Info) Description 02/24/2025 9:20 AM CDT Appointment [facility] [address] [place] [address] Rosie Espinal DO [address] [place] [address] 04/28/2025 11:30 AM CDT Appointment Rheumatology at [facility] [address] [address] [place] [address] Zaria Le MD [address] [place] [address] documented as of this encounter Visit Diagnoses Not on filedocumented in this encounter Care Teams Inspector Precision Relationship Specialty Start Date End Date Found, No Pcp, [address] [place] [address] PCP - General 04/07/22 documented as of this encounter
--- OUTSIDE RECORDS SUMMARY | 2025-02-12 08:02 | XMS_ITS | Encounter Summary ---
Author Organization [facility] Address [address] [place] [address] Care Team Providers Care Senior Power Plant Operator Name Role Phone Mandi Bullard MD Primary Care Provider Mallory Cuadra MD Unavailable [phone] Encounter Details Date Type Department Care Team (Late st Contact Info) Description 02/27/2020 [facility] Medical Advice [facility] [address] [place] [address] Roxy Mahan RN Social History Tobacco Use Types Packs/Day Years Used Date Smoking Tobacco: Never Smokeless Tobacco: Never Alcohol Use Standard Drinks/Week Comments Yes 0 (1 standard drink = 0.6 oz pur e alcohol) rare PHQ-2 Answer Date Recorded PHQ-2 Score 5 10/03/2019 Comments No Sex and Gender Information Value Date Recorded Sex Assigned at Female 09/30/2019 12:38 PM TECHNICAL ASSOCIATE Legal Sex Female 5:04 AM TECHNICAL ASSOCIATE Gender Identity Female 09/30/2019 12:38 PM TECHNICAL ASSOCIATE Sexual Orientation Straight 09/30/2019 12 :38 PM TECHNICAL ASSOCIATE documented as of this encounter Plan of Treatment Not on file documented as of this encounter Visit Diagnoses Not on filedocumented in this encounter Additional Health Concerns Assessment Noted Time PHQ-9 Depression Total Score: 14 020 12:18 PM TECHNICAL ASSOCIATE documented as of this encounter Care Teams Senior Power Plant Operator Relationship Specialty Start Date End Date Mandi Bullard MD PCP - General Internal Medicine 10/30/17 Mallory Cuadra MD [address] [place] [address] Assigned Neuroscience Provider 06/08/20 02/21/22 documented as of this encounter
--- OUTSIDE RECORDS SUMMARY | 2025-02-12 08:02 | XMS_ITS | Encounter Summary ---
Author Organization [facility] Address [address], [place] [address] Care Team Providers Care Farmer Vegetable Name Role Phone Found, No Pcp MD Primary Care Provider Unavailab le Reason for Visit * Reason Comments COVID Questions Encounter Details Date Type Department Care Team (Late st Contact Info) Description 10/28/2019 Nurse Triage [facility] [address] [place], [place] [address] Mandi Bullard MD [address] [place] [address] COVID Questions Social History Tobacco [...] PCP Thursday10/31/2019 Clinician Next Step: Route to [place] Nurse vinton to follow up and Patient IS expecting [...] Info) Description 02/24/2025 9:20 AM CDT Appointment [facility] [address] [place] [address] Rosie Espinal DO [address] [place], [place] [address] 04/28/2025 11:30 AM CDT Appointment Rheumatology at [facility] [address] [address] [place] [address] Zaria Le MD [address] [place] [address] documented as of this encounter Visit Diagnoses Not on filedocumented in this encounter Care Teams Farmer Vegetable Relationship Specialty Start Date End Date Found, No Pcp, [address] [place] [address] PCP - General 04/07/22 documented as of this encounter
--- OUTSIDE RECORDS SUMMARY | 2025-02-12 08:02 | XMS_ITS | Clinical Summary ---
Author Organization [facility] Address [address] [place] [address] Care Team Providers Care Podiatric Physician Name Role Phone Meka Perez MD Primary Care Provider [phone] Allergies Active Allergy Reactions Criticality Noted Date [...] syndrome 05/28/2017 History of Tamia fundoplication 02/24/2017 [facility] hump 02/27/2015 Varicose veins of lower extremity 09/16/2010 Overview (11/30/2020): Overview: LW Modifier: surgery ; Varicose Veins w Pain LW Modifier: surgery ; Varicose Veins w Pain Added automatically from request for surgery [id number] Hypovitaminosis D 05/11/2009 Chronic back pain 05/11/2009 [...] Encounters Date Type Department Care Team Description 02/11/2025 Nurse Triage [facility] [address] [place] [address] Meka Perez MD Medication Management 02/10/2025 Nurse Triage [facility] [address] [place] [address] Meka Perez MD Abdominal Pain; Chest Pain 02/08/2025 3:30 PM CDT Ancillary Procedure [facility] [address] [place] [address] Arrived 02/08/2025 2:25 PM CDT Office Visit [address] [address] Meka Perez MD ER Follow up ([facility], 02/06/2025) 02/07/2025 Travel 02/06/2025 Orders Only [facility] Scanner 1 scan: (1-Ord) [facility], XR ABDOMEN 1V, 02/06/2025 02/06/2025 Nurse Triage [facility] [address] [place] [address] Meka Perez MD Abdominal Pain/problem 02/06/2025 Telephone [facility] [address] [place] [address] Meka Perez MD Error-please disregard 01/10/2025 Telephone [facility] [address] [place] [address] Kian Bañuelos MD Appointment 01/04/2025 Nurse Triage [facility] [address] [place] [address] Meka Perez MD Derm Problem 01/03/2025 Telephone [facility] [address] [place] [address] Meka Perez MD Form (11/18 Notes) 12/31/[address] Alves [address] [place] [address] Jacob Galo MD Refill Request (Rosuvastatin) 12/28/2024 Telephone [facility] [address] [place] [address] Meka Perez MD Form (refax with date 12/21/2024) 12/21/2024 Telephone [facility] [address] [place] [address] Meka Perez MD Questions 12/14/2024 Telephone [facility] [address] [place] [address] Meka Perez MD Questions (lymphedema) from Last 3 Months Immunizations Immunization Administration Dates Next Due COVID-19 VACCINE SPIKEVAX (M ODERNA 50MCG/0.5ML) 12YO+ PFS 11/03/2023 COVID-19 vaccine (Moderna 100mcg/0.5mL) PF, MDV 11/20/2021 COVID-19 vaccine (Moderna 50 mcg/0.5mL) 12YO+ BIVALENT PF, MDV 12/12/2022 COVID-19 vaccine ([employer] Solar-Bio NTech 30mcg/0.3mL) PF, MDV 10/26/2020,10/04/2020 DT (Age [...] on file Legal Sex Female 7:39 AM RED HAT LINUX ADMINISTRATOR Gender Identity Not on file Sexual Orientation [...] 96.6 kg (213 lb) 09/08/2024 10:57 AM RED HAT LINUX ADMINISTRATOR Height 162.6 cm (5' 4.02) 07/12/2024 10:[address] Body Mass Index 36.54 07/12/2024 10:58 AM RED HAT LINUX ADMINISTRATOR Plan of Treatment Upcoming Encounters Date Type Department Care Team (Late st Contact Info) Description 02/21/2025 4:30 PM CDT Office Visit [facility] [address] [place] [address] Kian Bañuelos MD [address] Internal zip: [address] [place] [address] Health Maintenance Due Date Last Done Comments [...] pain SCAN-RADIOLOGY REPORT 02/06/2025 12:00 AM CDT from Last 3 Months Results * CT [...] and loss of joint space within the imtrt-qizeynt-pctf-left hips are appreciated. Impression: 1. Moderate to [...] result of the Century Cures Act, medical imagingexams and procedure [...] changes and loss ofjoint space within the bcdjz-bxhkwzg-ffju-left hips are appreciated. Impression: 1. Moderate to [...] Modality Other us Scanner OTHER Final Result from Last 3 Months Insurance MEDICARE PB ONLY AAR PB ONLY MEDICARE PART B HB ONLY [facility] HB ONLY MEDICARE PART A HB ONLY Care Teams Podiatric Physician Relationship Specialty Start Date End Date Meka Perez MD [address] [place] [address] PCP - General Family Practice 11/30/20
--- OUTSIDE RECORDS SUMMARY | 2025-02-12 08:02 | XMS_ITS | Encounter Summary ---
Author Organization [place] Address [address] [place] [address] Care Team Providers Care Fisher Swordfish Name Role Phone Mandi Bullard MD Primary Care Provider Mallory Cuadra MD Unavailable [phone] Encounter Details Date Type Department Care Team (Late st Contact Info) Description 03/30/2020 [facility] Medical Advice [facility] Neurology [address] [place] [address] [address] [place] [address] Mallory Cuadra MD [address] [place] [address] Social History Tobacco Use Types Packs/Day Years Used Date Smoking Tobacco: Never Smokeless Tobacco: Never Alcohol Use Standard Drinks/Week Comments Yes 0 (1 standard drink = 0.6 oz pur e alcohol) rare PHQ-2 Answer Date Recorded PHQ-2 Score 5 10/03/2019 Comments No Sex and Gender Information Value Date Recorded Sex Assigned at Female 09/30/2019 12:38 PM CREAM CHEESE MAKER Legal Sex Female 5:04 AM CREAM CHEESE MAKER Gender Identity Female 09/30/2019 12:38 PM CREAM CHEESE MAKER Sexual Orientation Straight 09/30/2019 12 :38 PM CREAM CHEESE MAKER documented as of this encounter Plan of Treatment Not on file documented as of this encounter Visit Diagnoses Not on filedocumented in this encounter Additional Health Concerns Assessment Noted Time PHQ-9 Depression Total Score: 14 020 12:18 PM CREAM CHEESE MAKER documented as of this encounter Care Teams Fisher Swordfish Relationship Specialty Start Date End Date Mandi Bullard MD PCP - General Internal Medicine 10/30/17 Mallory Cuadra MD [address] [place] [address] Assigned Neuroscience Provider 06/08/20 02/21/22 documented as of this encounter
--- OUTSIDE RECORDS SUMMARY | 2025-02-12 08:02 | XMS_ITS | Clinical Summary ---
Author Organization [facility] Address [address] [facility] [place] [address] Care Team Providers Care Senior Account Executive Name Role Phone Found, No Pcp MD [...] for each transition of care or referral. [facility] Allergies Active Allergy Reactions Criticality Noted Date [...] (11/16/2020): Added automatically from request for surgery [id number] Chronic migraine w/o aura, not intractable, w/o [...] Type Department Care Team Description 01/17/2025 Telephone [place] [address] [facility] [address] [facility] [place] [address] Rosie Espinal DO Follow-up (MRI results ) 01/04/2025 3:29 PM CDT - 01/04/2025 11:59 PM CDT Hospital Encounter [facility] MRI [address] [facility] [place] [address] Rosie Espinal DO Pain of left hip Discharge Disposition: Home 12/30/2024 1:00 PM CDT Office Visit [facility] [address] [place] [address] Rosie Espinal DO Pain of left hip (Primary Dx); EDS (Rosie-Danlos syndrome); Antalgic gait; Impaired mobility; Other chronic pain 11/23/2024 Notes/Orders [place] [address] [facility] [address] [facility] [place] [address] Soheila Palacios RN 11/22/2024 8:50 AM CDT Office Visit [facility] Sports Medicine [address] [place] [address] Jered Bailey MD Greater trochanteric pain syndrome (Primary Dx) from Last 3 Months Immunizations Immunization Administration Dates Next Due DT Ped 02/14/1985 Flu Vac Preserv Free (3+yrs) 04/21/2014, 05/04/2013,04/28/2012,2009,05/01/2009,06/26/2008,06/24/2007,1 09/05/2005,05/28/2005,05/09/2004 H1n1 Miv Sanofi 3+ Yr (Injected) 07/20/2009 Influenza IIV3 (Trivalent) F rowena Highdose, 65+ Yrs (29940) 06/01/2018,05/02/2017,04/17/2016 Influenza IIV4 (Quadrivalent ) Fluad, 65+ [...] 36.8 C (98.3 F) 09/15/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 Respiratory Rate 20 10/13/2020 11:09 AM INTERMODAL TRUCK DRIVER Oxygen Saturation 98% 10/13/2020 11:09 AM INTERMODAL TRUCK DRIVER Inhaled Oxygen Concentration - - Weight 100.7 kg (222 lb) 09/15/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 Height 162.6 cm (5' 4) 08/24/2022 2:54 PM INTERMODAL TRUCK DRIVER Body Mass Index 38.11 08/24/2022 2:54 PM INTERMODAL TRUCK DRIVER Plan of Treatment Upcoming Encounters Date Type Department Care Team (Late st Contact Info) Description 02/24/2025 9:20 AM CDT [facility] [address] [place], [place] [id number] Rosie Espinal DO [address] [place] [address] 04/28/2025 11:30 AM CDT Appointment Rheumatology at [facility] [place] [address] [address] [address] [place] [address] [place] [address] [place] [address] Health Maintenance Due Date Last Done Comments [...] BONE DENSITY SPINE/HIP Routine 07/07/2019 2:43 PM INTERMODAL TRUCK DRIVER Post-menopause HGB A1C Routine 01/25/2019 3:07 PM [...] DO RAD MRI Final Resul t * MAMMOGRAM SC (03/16/2020) us Interface Provider DUMMY/OTHER/AR Final Resu lt * DEXA Bone Density Spine/Hip (07/07/2019 2:43 PM INTERMODAL TRUCK DRIVER) Anatomical Region Laterality Modality Lower Extremity, Spine, Hip, L-Spine Radiographic Imaging Narrative 07/08/2019 6:35 AM [facility] DXA REPORT Patient Name: Bianca Titus [place]: Maximiliano Hargrove MD Densitometer: [employer] P3800 Bone Density Tech P3800 BONE3 OSTEOPOROSIS [...] trabecular bone, and is derived from the owygl-ry-suqnc changes of bone density embedded in the [...] * Hgb A1C (01/25/2019 3:07 PM CDT) Pathologist [facility] Hemoglobin A1C 5.5 <=5.6 % 01/26/2019 12:10 AM CDT [facility] Blood Venipuncture / Unknown 01/25/2019 3:07 PM CDT 01/25/2019 3:08 PM CDT Mandi Bullard MD LAB_1 Final Result [facility] [address] [place], [place] [address] * Hepatitis C PCR Quantitative (01/07/2018 9:06 AM CDT) Pathologist [facility] HCV Quant Interp Not Detected Not Detected PN SOFT Comment: Test Performed by Real Time PCR This result has been reported to the [facility] Department of Health. CLIA Number [id number] HCV Quant iu/ml <12 IU/ml PN SOFT Comment:CLIA Number [id number] HCV Quant Log iu/ml <1.08 Log IU/ml PN SOFT Comment: Performed at [facility], [address] [place] [address] CLIA Number [id number] 01/07/2018 9:06 AM CDT 01/07/2018 12:08 PM CDT Narrative PN SOFT - 01/12/2018 1:41 PM CDT .Results faxed to ,[phone], 01/08/2018,14:34, by PL.Results faxed to ,[phone] Dr. Truman Wills C:, 01/08/2018,14:04, by PL.Results faxed to [phone] Dr. Truman Wills, 01/07/2018,14:09, by VERONICA.Results faxed to [phone] Dr. Truman Wills, 01/07/2018,13:12, by VERONICA us Parminder Jackson MD LAB_1 Final Result PN SOFT [address] [place] [address] * (ABNORMAL) Lipid Panel and Direct LDL(If [...] - 01/07/2018 9:40 AM CDT Performed at [facility], [address] [facility], [place] [address] CLIA number [id number] us Mandi Bullard MD LAB_1 Final Result [facility] [address] [place] [address] * Endoscopy, colon, diagnostic (02/23/2017 3:12 PM [...] and oxygen saturations were monitored continuously. The [id number] was introduced through the anus and advanced [...] pathology results. Procedure Code(s): --- Professional --- 73205, Colonoscopy, flexible; with biopsy, single or multiple Diagnosis Code(s): --- Professional --- D12.3, Benign neoplasm of transverse colon (hepatic flexure or splenic flexure) Z86.010, Personal history of colonic polyps CPT copyright 2016 [employer]. All rights reserved. The codes documented in this report are preliminary and upon medical insurance coder review may be revised to meet current [...] and oxygen saturations were monitored continuously. The [id number] was introduced through the anus and advanced [...] pathology results. Procedure Code(s): --- Professional --- 79149, Colonoscopy, flexible; with biopsy, single or multiple Diagnosis Code(s): --- Professional --- D12.3, Benign neoplasm of transverse colon (hepatic flexure or splenic flexure) Z86.010, Personal history of colonic polyps CPT copyright 2016 [employer]. All rights reserved. The codes documented in this report are preliminary and upon medical insurance coder review may be revised to meet current compliance requirements. Erick Wise MD 02/23/2017 4:28:55 PM This document has been electronically signed. Number of Addenda: 0 Note Initiated On: 02/23/2017 3:12 PM Endoscopy Report Erick Wise MD ET GI PROCEDURE ORDERABLES Fin al Result from Last 3 Months or Most Recently Relevant to Health Maintenance Insurance [facility] MEDICARE SUPPLEMENT MEDICARE [facility] MEDICARE SUPPLEMENT [facility] MEDICARE SUPPLEMENT Advance Directives * Full Code (Latest Code Status on File) Date Activated Date Inactivated Comments 07/28/2013 9:52 AM 07/29/2013 12:22 PM Care Teams Senior Account Executive Relationship Specialty Start Date End Date Found, No Pcp, [address] [place] [address] PCP - General 04/07/22
--- OUTSIDE RECORDS SUMMARY | 2025-02-12 08:02 | XMS_ITS | Clinical Summary ---
Author Organization [facility] Address [address] [place] [address] Care Team Providers Care Location Man Name Role Phone Mandi Bullard MD Primary Care Provider [phone] Allergies Active Allergy Reactions Criticality Noted Date [...] Sex Assigned at Female 09/30/2019 12:38 PM CAREER GUIDANCE TECHNICIAN Legal Sex Female 5:04 AM CAREER GUIDANCE TECHNICIAN Gender Identity Female 09/30/2019 12:38 PM CAREER GUIDANCE TECHNICIAN Sexual Orientation Straight 09/30/2019 12 :38 PM CAREER GUIDANCE TECHNICIAN Last Filed Vital Signs Vital Sign Reading Time Taken Comments Blood Pressure 148/85 10/03/2019 12:13 PM CAREER GUIDANCE TECHNICIAN Pulse 86 10/03/2019 12:13 PM CAREER GUIDANCE TECHNICIAN Temperature 36.7 C (98 F) 10/30/2017 4:15 PM CDT Respiratory Rate 18 10/30/2017 10:1 5 PM CDT Oxygen Saturation 96% 10/03/2019 12: 13 PM CAREER GUIDANCE TECHNICIAN Inhaled Oxygen Concentration - - Weight 113.4 kg (250 lb 1.6 oz) 020 12:13 PM CAREER GUIDANCE TECHNICIAN Height - - Body Mass Index - [...] 133 - 144 mmol/L 10/30/2017 4:52 PM [facility] Potassium 4.2 3.4 - 5.3 mmol/L 10/30/2017 4:52 PM [facility] Chloride 108 94 - 109 mmol/L 10/30/2017 4:52 PM [facility] Carbon Dioxide 28 20 - 32 mmol/L 10/30/2017 4:52 PM [facility] Anion Gap 4 3 - 14 mmol/L 10/30/2017 4:52 PM [facility] Glucose 91 70 - 99 mg/dL 10/30/2017 4:52 PM [facility] Urea Nitrogen 22 7 - 30 mg/dL 10/30/2017 4:52 PM [facility] Creatinine 0.66 0.52 - 1.04 mg/dL 10/30/2017 4:52 PM [facility] GFR Estimate 88 >60 mL/min/1.7 m2 10/30/2017 4:52 PM [facility] Comment:Non GFR Calc GFR Estimate If Black >90 >60 mL/min/1.7 m2 10/30/2017 4:52 PM [facility] Comment: GFR Calc Calcium 9.3 8.5 - 10.1 mg/dL 10/30/2017 4:52 PM [facility] Bilirubin Total 0.4 0.2 - 1.3 mg/dL 10/30/2017 4:52 PM [facility] Albumin 3.9 3.4 - 5.0 g/dL 10/30/2017 4:52 PM [facility] Protein Total 7.4 6.8 - 8.8 g/dL 10/30/2017 4:52 PM [facility] Alkaline Phosphatase 74 40 - 150 U/L 10/30/2017 4:52 PM [facility] ALT 26 0 - 50 U/L 10/30/2017 4:52 PM [facility] AST 22 0 - 45 U/L 10/30/2017 4:52 PM CDT [facility] Blood specimen (specimen) 10/30/2017 4:16 PM CDT 10/30/2017 4:24 PM CDT us Sarah Luque MD LAB - BLOOD ORDERABLES Final R esult [facility] Gumaro [place] [address] [phone] * - HIM Screen Colonoscopy Scan (02/23/2017) Narrative Chelle Baltazar, RAC SPECIALIST - 02/23/2017 Result Narrative Patient Name: Bianca Titus Procedure Date: 02/23/2017 3:12 PM Date of : 1950 Admit Type: Outpatient Age: 66 Gender: Female Note Status: Finalized Attending MD: Erick Wise MD Procedure: Colonoscopy Indications: Surveillance: Personal history of adenomatous polyps on last colonoscopy 5 years ago, Last colonoscopy: November 2011 Providers: Erick Wise MD, Rhiannon Platt RN Referring MD: Erick Wies MD Medicines: Midazolam 4 mg IV, Fentanyl 200 micrograms IV Complications: No immediate complications. Estimated blood loss: Minimal. Procedure: After I obtained informed consent, the scope was passed under direct vision. Throughout the procedure, the patient's blood pressure, pulse, and oxygen saturations were monitored continuously. The [id number] was introduced through the anus and advanced [...] pathology results. Procedure Code(s): --- Professional --- 04357, Colonoscopy, flexible; with biopsy, single or multiple Diagnosis Code(s): --- Professional --- D12.3, Benign neoplasm of transverse colon (hepatic flexure or splenic flexure) Z86.010, Personal history of colonic polyps CPT copyright 2016 [employer]. All rights reserved. The codes documented in this report are preliminary and upon door repairman review may be revised to meet current [...] and oxygen saturations were monitored continuously. The [id number] was introduced through the anus and advanced [...] pathology results. Procedure Code(s): --- Professional --- 84864, Colonoscopy, flexible; with biopsy, single or multiple Diagnosis Code(s): --- Professional --- D12.3, Benign neoplasm of transverse colon (hepatic flexure or splenic flexure) Z86.010, Personal history of colonic polyps CPT copyright 2016 [employer]. All rights reserved. The codes documented in this report are preliminary and upon door repairman review may be revised to meet current compliance requirements. Erick Wise MD 02/23/2017 4:28:55 PM This document has been electronically signed. Number of Addenda: 0 Note Initiated On: 02/23/2017 3:12 PM Endoscopy Report us Provider Outside PROCEDURES Final Result from Last 3 Months or Most Recently Relevant to Health Maintenance Insurance [place] [address] [place] [id number] [facility] MEDICARE [facility] Care Teams Location Man Relationship Specialty Start Date End Date Mandi Bullard MD PCP - General Internal Medicine 10/30/17
--- OUTSIDE RECORDS SUMMARY | 2025-02-12 08:02 | XMS_ITS | Encounter Summary ---
Author Organization [facility] Address [address] [place] [address] Care Team Providers Care Last Marker Name Role Phone Mandi Bullard MD Primary Care Provider Mallory Cuadra MD Unavailable [phone] Encounter Details Date Type Department Care Team (Late st Contact Info) Description 03/01/2020 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 Legal Sex Female 5:04 AM MACHINE SLAT BASKET MAKER Gender Identity Female 09/30/2019 12:38 PM MACHINE SLAT BASKET MAKER Sexual Orientation Straight 09/30/2019 12 :38 PM MACHINE SLAT BASKET MAKER documented as of this encounter Plan of Treatment Not on file documented as of this encounter Visit Diagnoses Not on filedocumented in this encounter Additional Health Concerns Assessment Noted Time PHQ-9 Depression Total Score: 14 020 12:18 PM MACHINE SLAT BASKET MAKER documented as of this encounter Care Teams Last Marker Relationship Specialty Start Date End Date Mandi Bullard MD PCP - General Internal Medicine 10/30/17 Mallory Cuadra MD [address] [place] [address] Assigned Neuroscience Provider 06/08/20 02/21/22 documented as of this encounter
--- NOTE | 2025-02-12 08:19 | CRLHL7_ITS ---
For Patients: As a result of the Century Cures Act, medical imaging exams and procedure reports are released immediately into your electronic medical record. You may view this report before your referring provider. If you have questions, please contact your health care provider. INDICATION: Right-sided abdominal pain. TECHNIQUE: CT abdomen and pelvis acquired with 106 cc Isovue 370 IV contrast. COMPARISON: 11/09/2022. FINDINGS: Lower chest: Subsolid 4 mm subpleural nodule lateral left lower lobe series 3 image 8 is of doubtful significance as an isolated finding. Liver: Unremarkable. Normal in size and attenuation. No suspicious masses. Gallbladder and bile ducts: Unremarkable. No stones or inflammation. No biliary dilatation. Pancreas: Unremarkable. No mass or inflammation. Spleen: Unremarkable. Normal in size. No masses. Adrenal glands: Unremarkable. No nodules. Kidneys: Tiny nonobstructive right renal stone. Otherwise unremarkable. GI tract: Unremarkable. Normal in caliber. No sign of mass or inflammation. Normal appendix. Vasculature: Abdominal aorta is normal in caliber. Mesenteric arteries are patent. Lymph nodes: No lymphadenopathy. Peritoneum/Abdominal Wall: Unremarkable. No sign of mass or infiltration. No free air or significant free fluid. Pelvis: Stable 2.2 cm benign-appearing right adnexal cyst. Bones: Unremarkable for age. IMPRESSION: No acute or specific finding to explain right-sided abdominal pain. No significant change compared to the recent prior exam. Please note that all CT scans at this facility use dose modulation, iterative reconstruction, and/or weight-based dosing when appropriate to reduce radiation dose to as low as reasonably achievable. Dictated by Arnoldo Hill MD @ 02/12/2025 10:06:31 AM (Electronically Signed)
--- NOTE | 2025-02-12 08:20 | ED.ABDPAIN ---
HPI - Abdominal Pain General Chief Complaint: Abdominal Pain Stated Complaint: abdominal/lower back pain Time Seen by Provider: 02/12/25 08:06 History of Present Illness HPI narrative: Patient is a 74-year-old woman with long history of constipation who has been having increased difficulty with constipation. She had a CT scan approximate week ago at the [facility] showing constipation. X-ray done earlier in the week here at the [facility] showed constipation. Patient has been on a number of stool softeners and laxatives and currently is trying to complete a colonoscopy prep. He is now only having liquid, which is clear. Patient has been eating and drinking normally. She has had no fevers no chills no reflux no chest pain no shortness a breath no dysuria. Patient is very frustrated as she cannot get her bowels to work. Related Data Home Medications ?Medication ?Instructions ?Recorded ?Confirmed albuterol sulfate 90 mcg/actuation 2 inh inhalation Q4H PRN 02/11/22 02/12/25 breath activated powder inhaler aspirin 81 mg tablet,delayed 81 mg PO QDAY 02/11/22 02/12/25 release (Adult Low Dose Aspirin) cholecalciferol (vitamin D3) 125 125 mcg PO QDAY 02/11/22 02/12/25 mcg (5,000 unit) capsule rosuvastatin 10 mg tablet (Crestor) 10 mg PO QDAY 02/11/22 02/12/25 enoxaparin 60 mg/0.6 mL 60 mg subcut Q24H PRN 09/27/22 02/12/25 subcutaneous syringe levothyroxine 100 mcg tablet 112 mcg PO DAILY 05/25/24 02/12/25 (Synthroid) galcanezumab-gnlm 120 mg/mL mg subcut 01/04/25 01/04/25 subcutaneous pen injector (Emgality Pen) Previous Rx's ?Medication ?Instructions ?Recorded cyclobenzaprine 10 mg tablet 10 mg PO TID PRN muscle spasm #15 03/21/24 Held on 05/25/24. tabs Instructions: no longer needed triamcinolone acetonide 0.1 % 1 applic topical TID #30 grams 10/18/24 topical ointment Allergies Allergy/AdvReac Type Severity Reaction Status Date / Time galcanezumab-gnlm Allergy Severe Palpitation Verified 02/12/25 09:44 s tramadol Allergy Severe migraines Verified 02/12/25 09:44 butterbur Allergy Intermediate gi upset Verified 02/12/25 09:44 midazolam Allergy Intermediate paradoxial Verified 02/12/25 09:44 agitation cephalexin Allergy Mild Rash Verified 02/12/25 09:44 latex Allergy Mild dermatitis Verified 02/12/25 09:44 erythromycin base Allergy Unknown Verified 02/12/25 09:44 Penicillins Allergy Unknown Verified 02/12/25 09:44 timolol Allergy Unknown Verified 02/12/25 09:44 chlorhexidine Allergy Verified 02/12/25 09:44 gabapentin Allergy Verified 02/12/25 09:44 propranolol Allergy Verified 02/12/25 09:44 silicone Allergy Verified 02/12/25 09:44 topiramate Allergy Verified 02/12/25 09:44 trazodone Allergy Verified 02/12/25 09:44 Common paper wasp venom Allergy Uncoded 02/12/25 09:44 protein Review of Systems Status of ROS Reports: 10 or more systems reviewed and unremarkable except as noted in History and below PFSH PFSH Medical History Hypertension ?I10 - Essential (primary) hypertension (ICD-10) Encounter for follow-up ?Z09 - Encounter for follow-up examination after completed treatment for conditions other than malignant neoplasm (ICD-10) Surgical History Status post hysterectomy ?Z90.710 - Acquired absence of both cervix and uterus (ICD-10) History of total bilateral knee replacement ?Z96.653 - Presence of artificial knee joint, bilateral (ICD-10) History of tonsillectomy ?Z90.89 - Acquired absence of other organs (ICD-10) History of sinus surgery ?Z98.890 - Other specified postprocedural states (ICD-10) History of repair of hiatal hernia ?Z98.890 - Other specified postprocedural states (ICD-10) ?Z87.19 - Personal history of other diseases of the digestive system (ICD-10) History of hysterectomy ?Z90.710 - Acquired absence of both cervix and uterus (ICD-10) History of bunionectomy of both great toes ?Z98.890 - Other specified postprocedural states (ICD-10) Family History Father Stroke Other Cardiovascular disease Diabetes Psychiatric disorder Social History Narrative: Non-smoker Smoking Status: Never smoker Do you use any of these nicotine containing products: None How often do you have a drink containing alcohol: monthly or less How often do you have six or more drinks on one occasion: Never AUDIT-C Alcohol total score: 1 Non-prescribed substance use: denies use service: No Exam Narrative: Exam Narrative: EXAM GENERAL: Patient appears comfortable and well. EYES: No scleral icterus. LYMPH: No supraclavicular or cervical lymphadenopathy. SKIN: Visible skin seen during exam normal or with benign process only. EXT: No dependent lower extremity pedal edema. HEART: Regular rate and rhythm with no murmurs, rubs, or gallops. LUNGS: Clear to auscultation bilaterally with no crackles or wheezes. ABD: Soft, non tender, non distended. PSYCH: Good eye contact, speech is not pressured. Const: Vital Signs, click to edit/add: Vital Signs - 24 hr 02/12/25 08:02 Temperature 98.5 F Pulse Rate [Right Pulse Oximeter] 88 Respiratory Rate 16 Blood Pressure [Ri ght Forearm] 184/78 H Pulse Oximetry 99 Oxygen Delivery Me thod Room Air Course Course ED Course: Patient seen examined repeat CT scan the abdomen pelvis CBC comprehensive metabolic panel lipase pending. Vital Signs Vital signs: Initial Vital Signs Temperature 98.5 F 02/12/25 08:02 Temperature Source Temporal Artery Scan 02/12/25 08:02 Pulse Rate 88 02/12/25 08:02 Pulse Rhythm Regular 02/12/25 08:02 Pulse Strength 3+ Normal 02/12/25 08:02 Respiratory Rate 16 02/12/25 08:02 Blood Pressure 184/78 H 02/12/25 08:02 Blood Pressure Mean 113 H 02/12/25 08:02 Blood Pressure Position Sitting 02/12/25 08:02 Pulse Oximetry 99 02/12/25 08:02 Oxygen Delivery Method Room Air 02/12/25 08:02 Vital Signs Temperature 98.5 F 02/12/25 08:02 Pulse Rate 88 02/12/25 08:02 Respiratory Rate 16 02/12/25 08:02 Blood Pressure 184/78 H 02/12/25 08:02 Pulse Oximetry 99 02/12/25 08:02 Oxygen Delivery Method Room Air 02/12/25 08:02 Temperature 98.5 F 02/12/25 08:02 Pulse Rate 88 02/12/25 08:02 Respiratory Rate 16 02/12/25 08:02 Blood Pressure 184/78 H 02/12/25 08:02 Pulse Oximetry 99 02/12/25 08:02 Oxygen Delivery Method Room Air 02/12/25 08:02 MDM - Abdominal Pain MDM Narrative Medical decision making narrative: Patient is a 74-year-old woman with chronic constipation is more constipated than normal. She is had been in and had a CT scan showing constipation plain film showing constipation in today has a some constipation noted on his CT scan which is otherwise unremarkable. Labs are reassuring. She is almost through a colonoscopy prep and still is having only liquid out put. I suspect that her diet is not as good as normal and that is leading to her having only liquid stool output. I did give her 30 mL of milk a magnesia. I would hold on any further intervention and re-evaluate in the clinic this week. Lab Data Labs: Lab Results 02/12/25 Range/Units 08:55 WBC 4.82 (4.50-11.00) K/uL RBC 3.82 L (4.00-5.20) m/uL Hgb 12.2 (12.0-16.0) gm/dL Hct 37.0 (33.0-51.0) % MCV 97 (80-100) fL MCH 32 (26-34) pg MCHC 33 (32-36) gm/dL RDW Coeff of Boaz 12.1 (11.5-15.5) % Plt Count 197 (140-440) K/uL Neut % (Auto) 67.2 (42.0-72.0) % Lymph % (Auto) 19.9 L (20-44) % [place] % (Auto) 10.2 (0.0-11.0) % Eos % (Auto) 2.3 (0.0-7.0) % Baso % (Auto) 0.4 (0.0-3.0) % Neut # (Auto) 3.24 (1.7-7.0) K/uL Lymph # (Auto) 1.00 (0.90-2.90) K/uL [place] # (Auto) 0.50 (0.00-0.90) K/UL Eos # (Auto) 0.11 (0.00-0.50) K/uL Baso # (Auto) 0.02 (0.00-0.30) K/uL Abs Immat Gran (auto) 0.00 (0.00-0.30) K/uL Imm/Tot Granulo (auto) 0.0 % Sodium 139 (135-149) mmol/L Potassium 3.6 (3.6-5.1) mmol/L Chloride 105 (96-114) mmol/L Carbon Dioxide 28 (20-32) mmol/L Anion Gap 6 L (7-15) mEq/L BUN 20 (7-30) mg/dL Creatinine 0.7 (0.5-1.5) mg/dL Estimated Creat Clear 39.59 Estimated GFR 90 ml/min Glucose 103 (60-115) mg/dL Calcium 9.8 (8.4-10.6) mg/dL Total Bilirubin 0.6 (0.1-1.5) mg/dL AST 31 (12-35) U/L ALT 21 (4-35) U/L Alkaline Phosphatase 69 (40-150) U/L Total Protein 7.0 (6.0-8.3) g/dL Albumin 4.3 (3.3-5.0) g/dL Lipase 70 (23-300) U/L Discharge Plan Discharge Clinical Impression: Constipation Patient Disposition: Home, Self-Care Condition: Stable Instructions: Constipation (ED) Additional Instructions: Continue current medication. Give the milk of melly she has to work today. Follow-up with your doctor by phone tomorrow. Activity Level: No Restrictions Discharge Diet: Regular Prescriptions: No Action rosuvastatin [Crestor] 10 mg tablet 10 mg PO QDAY albuterol sulfate 90 mcg/actuation aerosol powdr breath activated 2 inh inhalation Q4H PRN cholecalciferol (vitamin D3) 125 mcg (5,000 unit) capsule 125 mcg PO QDAY aspirin [Adult Low Dose Aspirin] 81 mg tablet,delayed release (DR/EC) 81 mg PO QDAY enoxaparin 60 mg/0.6 mL syringe 60 mg subcut Q24H PRN triamcinolone acetonide 0.1 % ointment 1 applic topical TID Qty: 30 2RF Emgality Pen 120 mg/mL pen injector subcut Patient Comments: MONTH 1: INJECT 2 PEN INJECTORS SUBCUTANEOUSLY ON THE SAME DAY, MONTH 2 ONWARD: INJECT 1 PEN INJECTOR SUBCUTANEOUSLY ONCE A MONTH cyclobenzaprine 10 mg tablet 10 mg PO TID PRN (Reason: muscle spasm) Qty: 15 0RF levothyroxine [Synthroid] 100 mcg tablet 112 mcg PO DAILY Follow Up/Referrals: Meka Preez MD [Primary Care Provider, Family Practice] Stand Alone Forms: [facility] Info Instructions
--- OUTSIDE RECORDS SUMMARY | 2025-02-12 08:40 | XMS_ITS | Clinical Summary ---
Author Organization [facility] Address [address] , [address] [place] [address] Phone Care Team Providers Care Coiler Name Role Phone Inesucheril PA-C, Magali Weber Unavailable Conditions or Problems Problem Name Problem Code Onset Date Status Entry Date Provider Comment Standard Description Annotate Low back pain (LBP) 817729683 (SNOMED CT) Active 10/28 Magali Tia Maciejil PA-C Low back pain Gait imbalance 299806604 (SNOMED CT) Active 10/28 Magali Tia Cherucheril PA-C Abnormal gait due to impairment of balance Myelopathy 68907006 (SNOMED CT) Active 09/14 Truman Wills MD Spinal cord disease Neck pain 74911462 (SNOMED CT) Active 09/14 Truman Wills MD Neck pain Benign essential tremor 512849145 (SNOMED CT) Active 04/27 Truman Wills MD Essential tremor Peripheral neuropathy, idiopathic 70679016 (SNOMED CT) Active 04/24 Truman Wills MD Idiopathic peripheral neuropathy Paresthesia of bilateral legs 98862172 (SNOMED CT) Active 01/06 Truman Wills MD Paresthesia Memory loss 69546265 (SNOMED CT) Active 01/03 Maria T Deal PhD Amnesia CHRONIC MIGRAINE W/O AURA W/O INTRACTABLE W/O SM G43.709 (ICD-10-CM) Active 03/14 Truman Wills MD Chronic migraine without aura, not intractable, without status migrainosus Medications Medication Instructions Start Date Stop Date Generic Name [facility] Provider SYNTHROID 112 MCG TABS tablet by mouth once a day levothyroxine 38363574180 Magali Sullivan PA-C ASPIRIN 325 MG TABS 81 mg daily 10/28 aspirin 27379478250 Magali Sullivan PA-C ASPIRIN LOW DOSE 81 MG TBEC aspirin 26726215264 Magali Sullivan PA-C ASPIRIN 325 MG TABS 81 mg daily 10/28 aspirin 74551626532 Magali Sullivan PA-C Flovent HFA (fluticasone propionate) 44 mcg/actuation HFA aerosol inhaler 09/07 fluticasone propionate Magali Sullivan PA-C RA FISH OIL 1000 MG CAPS 09/07 docosahexaenoic acid-epa 98316925645 Magali Sullivan PA-C NURTEC 75 MG TBDP take 1 pill at ZAPATA onset. May combine with 1 Reglan. No more than 1 Nurtec in 24 hrs 09/07 rimegepant 47274544727 Magali Sullivan PA-C SYNTHROID 125 MCG TABS tablet by mouth once a day 10/28 levothyroxine 44763769379 Magali Sullivan PA-C TRIAMCINOLONE ACETONIDE 0.1 % CREA 09/07 triamcinolone acetonide 19473479293 Magali Sullivan PA-C D-5000 125 MCG (5000 UT) TABS 1 tab four days per week cholecalciferol (vitamin d3) 31593745766 Magali Sullivan PA-C OMEPRAZOLE 20 MG CPDR capsule by mouth once a day 09/07 omeprazole 71062293481 Magali ANDRADEC CLOTRIMAZOLE 10 MG TROC 09/07 clotrimazole 43852861165 Magali Weber Laurie MASSEY ROSUVASTATIN CALCIUM 10 MG TABS rosuvastatin 26302279909 Magalimaria tersea Weber Laurie MASSEY ONDANSETRON HCL 4 MG TABS Take 1-2 tablet by mouth every eight hours as needed 09/07 ondansetron hcl 75789272133 Magali Weber Laurie MASSEY LUTEIN 6 MG TABS lutein 86744661232 Magali Weber Laurie MASSEY MIRALAX 17 GM/SCOOP POWD once daily polyethylene glycol 3350 51888531073 Maagli Sullivan PA-C UBIQUINOL 100 MG CAPS coq10 (ubiquinol) 38342686450 Magali Tiaamber Sullivan PA-C VITAMIN B-12 1000 MCG TABS cyanocobalamin (vitamin b-12) 99615126926 Magali Tiaamber Sullivan PA-C TYLENOL 325 MG TABS as needed acetaminophen 28600633020 Magali Tiaamber Sullivan PA-C ALEVE 220 MG TABS occasionally naproxen sodium 59852245072 Magali Tia Laurie MASSEY QULIPTA 30 MG TABS take 1 pill daily 09/07 atogepant 78993850271 Magali Weber Laurie MASSEY EMGALITY 120 MG/ML SOAJ month 1: inject 2 pen injectors subcutaneously on the same day, month 2 onward: inject 1 pen injector subcutaneously once a month galcanezumab-gnlm 91118443017 Magalimaria teresa Weber Laurie MASSEY QULIPTA 30 MG TABS take 1 pill daily 09/07 atogepant 26047795187 Truman Wills MD NURTEC 75 MG TBDP 09/25 rimegepant 97226293533 Magali Sullivan PA-C NURTEC 75 MG TBDP take 1 pill at ZAPATA onset. May combine with 1 Reglan. No more than 1 Nurtec in 24 hrs 09/07 rimegepant 93456389892 Truman Wills MD REGLAN 10 MG TABS take1 pill every 12 hrs as needed for nausea metoclopramide hcl 83855520452 Truman Wills MD UBRELVY 100 MG TABS Take 1 tab po at migraine onset. May repeat dose after 2 hours if needed. Maximum dose: 200 mg per 24 hours. ubrogepant 70913055012 Magali Sullivan PA-C Flovent HFA 44 mcg/actuation HFA aerosol inhaler 09/07 fluticasone propionate 62655116421 Truman Wills MD SYNTHROID 150 MCG TABS tablet by mouth once a day 09/07 levothyroxine 20807177819 Truman Wills MD Proventil HFA 90 mcg/actuation HFA aerosol inhaler 2 puff every six hours as needed albuterol sulfate 39732309485 Truman Wills MD OMEPRAZOLE 20 MG CPDR capsule by mouth once a day 01/20 omeprazole 23076217946 Truman Wills MD ONDANSETRON HCL 4 MG TABS Take 1-2 tablet by mouth every eight hours as needed 01/20 ondansetron hcl 93398051223 Estefani Thomas RN DAVIE ASPIRIN 325 MG TABS 09/07 aspirin 71420180468 Magali Sullivan PA-C RA FISH OIL 1000 MG CAPS 09/07 docosahexaenoic acid-epa 91476208170 Magali Sullivan PA-C D-5000 125 MCG (5000 UT) TABS 09/07 cholecalciferol (vitamin d3) 75702478496 Magali Sullivan PA-C UBRELVY 100 MG TABS Take 1 tab po at migraine onset. May repeat dose after 2 hours if needed. Maximum dose: 200 mg per 24 hours. 09/22 ubrogepant 00587893406 Magali Sullivan BRYSON NURTEC 75 MG TBDP 09/25 rimegepant 42101693225 Magali Wingaramis MASSEY ROSUVASTATIN CALCIUM 20 MG TABS 01/20 rosuvastatin 46828233977 Magali Wingaramis MASSEY enoxaparin 60 mg/0.6 mL syringe NEEDED FOR DEEP VEIN CLOT PROPHYLAXIS WITH PRESENCE OF LUPUS ANICOAGULANT WHEN IN SITUATION OF PROLONGED BED REST OR AIRPLANE/CAR LONGER enoxaparin 99983758710 Magali Wingaramis MASSEY TRIAMCINOLONE ACETONIDE 0.1 % OINT APPLY TO AFFECTED AREA TWICE DAILY triamcinolone acetonide 69044871735 Magali Wingaramis MASSEY TRIAMCINOLONE ACETONIDE 0.1 % CREA 09/07 triamcinolone acetonide 21530175835 Magali Wingaramis MASSEY CLOTRIMAZOLE 10 MG TROC 09/07 clotrimazole 28774869599 Magali Wingaramis ANDRADE SUMATRIPTAN SUCCINATE 100 MG TABS TAKE ONE-HALF TO 1 TABLET BY MOUTH NEEDED 05/16 SUMATRIPTAN SUCCINATE 00160961343 Truman Wills MD ONDANSETRON HCL 4 MG TABS TAKE 1 TO 2 TABLETS BY MOUTH EVERY 8 HOURS NEEDED FOR NAUSEA 01/20 ONDANSETRON HCL 06278272206 Truman Wills MD SHIRAZ ALLERGY TABS 05/16 78530521556 Truman Wills MD FLOVENT HFA INHALER 91258887707 Truman Wills MD VERAPAMIL HCL 40 MG TABS 1 pill twice daily 04/04 VERAPAMIL HCL 43670303014 Truman Wills MD ZOFRAN 4 MG ORAL TABLET 1 - 2 pills every 8 hours as needed for nausea 08/28 ONDANSETRON HCL 23765208849 Truman Wills MD IMITREX STATDOSE SYSTEM 6 MG/0.5ML SOAJ 1 injection at the onset of a migraine. May repeat dose after 2hrs if headache persists. Max of 2 injections per 24hrs. 11/29 SUMATRIPTAN SUCCINATE 72148201941 Truman Wills MD VERAPAMIL HCL 40 MG TABS 1 pill twice daily 04/04 VERAPAMIL HCL 67014120376 Truman Wills MD PROVENTIL HFA 108 (90 Base) MCG/ACT INHALATION AEROSOL SOLUTION 2 puffs every 6 hours as needed ALBUTEROL SULFATE 22717196974 Truman Wills MD OMEPRAZOLE 20 MG CPDR 1 daily 01/20 OMEPRAZOLE 89766424918 Truman Wills MD IMITREX STATDOSE SYSTEM 6 MG/0.5ML SOAJ as needed 11/29 SUMATRIPTAN SUCCINATE 07265385711 Truman Wills MD SYNTHROID 150 MCG TABS 1 daily 11/29 LEVOTHYROXINE SODIUM 99664836549 Truman iWlls MD SYNTHROID 175 MCG TABS 3 days a week 03/05 LEVOTHYROXINE SODIUM 75944461010 Truman Wills MD AMITRIPTYLINE HCL 10 MG TABS 1 at bedtime 03/05 AMITRIPTYLINE HCL 07399801506 Truman Wills MD TIMOLOL MALEATE 5 MG TABS 1 pill daily 03/05 TIMOLOL MALEATE 95250449767 Truman Wills MD AMITRIPTYLINE HCL 10 MG TABS 1 at bedtime 03/05 AMITRIPTYLINE HCL 10614482416 Leann Crowley RN AMITRIPTYLINE HCL 10 MG TABS 2 at bedtime 12/15 AMITRIPTYLINE HCL 52986028238 Truman Wills MD IMITREX 100 MG TABS 1/2 - 1 as needed SUMATRIPTAN SUCCINATE 90160273245 Truman Wills MD SYNTHROID 175 MCG TABS 3 days a week 11/29 LEVOTHYROXINE SODIUM 05660586219 Truman Wills MD SYNTHROID 150 MCG TABS 4 days a week 11/29 LEVOTHYROXINE SODIUM 20519304732 Truman Wills MD TIMOLOL MALEATE 5 MG TABS 1 pill daily 03/05 TIMOLOL MALEATE 42690864674 Truman Wills MD Medications Administered No information [...] Release information to the Health Information Exchange ([employer]) Office Visit: Office Visit C shepard note MEDS REVIEW Done Documenta tion of current medications (procedure) Plan of Care Type Date Detail Appointment 12:00 PM Kevin Perez MD , [address], [address], [place], [address], Pending order Physical Therapy Pending order Patient [...] Extract Nuc lear Agn (Anti RUI Thacker RADIO STATION OPERATOR) Pending order MRI-Lumbar W/O Pending order FRANK [...] up ORDERS EMG bilateral upper ext 2021 CPT-01898 Nerve Conduction 9-10 studies CPT-31322 EMG with NCS (5+ muscles) - 2 limbs 09/11 [id number] MRI-Cervical W/O CPT-J0585 Botox 1 vial CPT-11596 Chem - Face/Neck - Migraine or Headache 2 CPT-J0585 Botox 1 vial CPT-19515 Chem - Face/Neck - Migraine or Headache 2 CPT-J0585 Botox 1 vial CPT-89304 Chem - Face/Neck - Migraine or Headache 2 ORDERS Follow up CPT-J0585 Botox 1 vial CPT-29632 Chem - Face/Neck - Migraine or Headache 2 CPT-J0585 Botox 1 vial CPT-18298 Chem - Face/Neck - Migraine or Headache 2 CPT-J0585 Botox 1 vial CPT-72225 Chem - Face/Neck - Migraine or Headache 2 CPT-91169 EEG EXTENDED (<= 1 HOUR) (END) ORDERS EEG Routine CPT-J0585 Botox 1 vial CPT-51063 Chem - Face/Neck - Migraine or Headache 2 CPT-63392 Nerve Conduction 9-10 studies CPT-42215 EMG with NCS (5+ muscles) - 2 limbs 04/24 [id number] MRI-Cervical W/O ORDERS Anti ds DNA (Double Strand) ORDERS Anti Extract Nuclear Agn (Anti RUI Thacker RADIO STATION OPERATOR) [id number] MRI-Lumbar W/O CPT-78151 MRI Lumbar W/O ORDERS TSH ORDERS Vitamin [...] t-Transglutaminase (tTG) IgA CPT-J0585 Botox 1 vial CPT-50658 Chem - Face/Neck - Migraine or Headache 2 CPT-J0585 Botox 1 vial CPT-12552 Chem - Face/Neck - Migraine or Headache 2 CPT-J0585 Botox 2 vials CPT-95473 Chem - Face/Neck - Migraine or Headache 2 CPT-J0585 Botox 2 vials CPT-39583 Chem - Face/Neck - Migraine or Headache 2 CPT-J0585 Botox 2 vials CPT-94864 Chem - Face/Neck - Migraine or Headache 2 CPT-J0585 Botox 2 vials CPT-54520 Chem - Face/Neck - Migraine or Headache 2 CPT-J0585 Botox 2 vials CPT-08151 Chem - Face/Neck - Migraine or Headache 2 CPT-94458 Neuropsych assmnt w/ prov 3 hr CPT-5293616 Neuropsych assmnt w/ tech 1 hr CPT-78304 MRI Brain W/O CPT-J0585 Botox 2 vials CPT-97533 Chem - Face/Neck - Migraine or Headache 2 CPT-J0585 Botox 2 vials CPT-27966 Chem-Face and Neck (migraine) CPT-J0585 Botox 2 vials CPT-03524 Chem-Face and Neck (migraine) Vital Signs No information available. Immunizations No information available. Advance Directives No information available.
[2025-02-12 09:06] LABS: Basophils Absolute Auto 0.02 K/uL (0.00-0.30); Basophils Percent Auto 0.4 % (0.0-3.0); Eosinophils Absolute Auto 0.11 K/uL (0.00-0.50); Eosinophils Percent Auto 2.3 % (0.0-7.0); Hemoglobin* 12.2 gm/dL (12.0-16.0); Lymphocytes Percent Auto 19.9 % (20-44); Mean Corpuscular HGB Conc 33 gm/dL (32-36); Mean Corpuscular Hemoglobin 32 pg (26-34); Mean Corpuscular Volume 97 fL (80-100); Monocytes Percent Auto 10.2 % (0.0-11.0); Neutrophils Absolute Auto 3.24 K/uL (1.7-7.0); Neutrophils Percent Auto 67.2 % (42.0-72.0); Platelet Count* 197 K/uL (140-440); RDW Coefficient of Variation % 12.1 % (11.5-15.5); Red Blood Count 3.82 m/uL (4.00-5.20); White Blood Count* 4.82 K/uL (4.50-11.00)
[2025-02-12 09:11] LABS: Slide Review Reflex No
[2025-02-12 09:19] LABS: Albumin* 4.3 g/dL (3.3-5.0); Chloride* 105 mmol/L (96-114)
[2025-02-12 09:20] LABS: Potassium* 3.6 mmol/L (3.6-5.1); Sodium* 139 mmol/L (135-149)
[2025-02-12 09:22] LABS: Alanine Aminotransferase* 21 U/L (4-35); Alkaline Phosphatase* 69 U/L (40-150); Anion Gap 6 mEq/L (7-15); Aspartate Amino Transferase* 31 U/L (12-35); Bilirubin Total* 0.6 mg/dL (0.1-1.5); Blood Urea Nitrogen* 20 mg/dL (7-30); Carbon Dioxide* 28 mmol/L (20-32); Creatinine* 0.7 mg/dL (0.5-1.5); Est. Creatinine Clearance* 39.59; Estimated Glomerular Filt Rate 90 ml/min
[2025-02-12 09:23] LABS: Calcium* 9.8 mg/dL (8.4-10.6); Glucose* 103 mg/dL (60-115); Lipase* 70 U/L (23-300)
[2025-02-12 10:15] VITALS: BP 145/68; PULSE 74; RESP 16; O2SAT 74
[2025-02-12] MEDS: MAGNESIUM HYDROXIDE 30 ML ORAL.SUSP PO (10:41)
== END 2025-02-12 11:25 | disposition home or self-care (01) ==
PROVIDERS: Emergency Provider Internal Medicine; PCP Family Medicine
DX: K59.00 Constipation, unspecified (principal)
CPT/HCPCS: 36415; 74177; 80053; 83690; 85025; 99283; 99284; A9270; Q9967

== ENCOUNTER 2025-05-15 09:48 | Outpatient (CLI) | payer MEDICARE, SELFPAY ==
--- NOTE | 2025-05-15 12:05 | P.ANES_ITS ---
Anesthesia Charges Start Date/Time Anesthesia Start Date: 05/15/25 Anesthesia Start Time: 11:16 Stop Date/Time Anesthesia Stop Date: 05/15/25 Anesthesia Stop Time: 12:02 Summary Extremes of Age - Over 70 or under 1: BUILDING ENERGY CONSULTANT Coding CPT Codes CPT Codes: ANES UPR LWR GI NDSC PX - 18303 ([id number]) P3 - PATIENT W/SEVERE SYS DISEASE, QK - AUTO GLASS WORKER 2-4 CNCRNT ANES PROC, QX - BUILDING ENERGY CONSULTANT SVC W/ MD MED DIRECTION Additional Codes: Summary - Extremes of Age - Over 70 or under 1: BUILDING ENERGY CONSULTANT ([id number])
--- NOTE | 2025-05-15 12:05 | W.ANESCHARGE ---
Anesthesia Charges Start Date/Time Anesthesia Start Date: 05/15/25 Anesthesia Start Time: 11:16 Stop Date/Time Anesthesia Stop Date: 05/15/25 Anesthesia Stop Time: 12:02 Summary Extremes of Age - Over 70 or under 1: CLINICAL RESEARCH COORDINATOR Coding CPT Codes CPT Codes: ANES UPR LWR GI NDSC PX - 76471 ([id number]) P3 - PATIENT W/SEVERE SYS DISEASE, QK - PHOTOVOLTAIC TESTING TECHNICIAN 2-4 CNCRNT ANES PROC, QX - CLINICAL RESEARCH COORDINATOR SVC W/ MD MED DIRECTION Additional Codes: Summary - Extremes of Age - Over 70 or under 1: CLINICAL RESEARCH COORDINATOR ([id number])
--- NOTE | 2025-05-15 12:29 | W.ANESCHARGE ---
Anesthesia Charges Start Date/Time Anesthesia Start Date: 05/15/25 Anesthesia Start Time: 11:16 Stop Date/Time Anesthesia Stop Date: 05/15/25 Anesthesia Stop Time: 12:02 Summary Extremes of Age - Over 70 or under 1: MDA Coding CPT Codes CPT Codes: ANES UPR LWR GI NDSC PX - 62975 ([id number]) QK - ACCOUNTING MACHINE SERVICER 2-4 CNCRNT ANES PROC, QX - VENEER MATCHER SVC W/ MD MED DIRECTION, P3 - PATIENT W/SEVERE SYS DISEASE Additional Codes: Summary - Extremes of Age - Over 70 or under 1: MDA ([id number])
== END 2025-05-15 09:49 | disposition home or self-care (01) ==
LOC: OP CLINIC 09:48
PROVIDERS: PCP Family Medicine; Visit Provider Surgery
DX: Z12.11 Encounter for screening for malignant neoplasm of colon (principal); R63.4 Abnormal weight loss; Z86.0100 Personal history of colon polyps, unspecified; R68.81 Early satiety; Z98.890 Other specified postprocedural states
CPT/HCPCS: 00813; 43239; 45380; 88305; 99100; J2704; J3490

== ENCOUNTER 2025-07-10 15:31 | Emergency (ER) | payer MEDICARE, SELFPAY ==
[2025-07-10 15:37] VITALS: BP 172/85; PULSE 72; RESP 18; TEMP 36.3; O2SAT 99; BMI 35.8
--- NOTE | 2025-07-10 16:18 | CRLHL7_ITS ---
For Patients: As a result of the Century Cures Act, medical imaging exams and procedure reports are released immediately into your electronic medical record. You may view this report before your referring provider. If you have questions, please contact your health care provider. INDICATION: Fall and foot pain, injury fall, fall and injury TECHNIQUE: Foot radiograph 3 views left COMPARISON: None FINDINGS: Bone: There is an intra-articular fracture at the medial base of the 2nd proximal phalanx measuring 4 mm an intra-articular fracture along the medial base of the 1st proximal phalanx measuring 5 mm. Osteotomy of the 1st distal metatarsal is noted. Pes planus is suspected and can be confirmed by weightbearing views. There is a small plantar calcaneal spur present. Moderate diffuse osteopenia is present. Joint: The visualized hindfoot, midfoot, and forefoot joints are unremarkable in appearance. No significant ankle effusion is seen. Soft tissue: Unremarkable. No radiopaque foreign bodies are seen. IMPRESSION: 1. There is an intra-articular fracture at the medial base of the 2nd proximal phalanx measuring 4 mm an intra-articular fracture along the medial base of the 1st proximal phalanx measuring 5 mm. Dictated by Raghav Delaney MD @ 07/10/2025 6:19:49 PM Dictated by: Raghav Delaney MD @ 07/10/2025 18:19:53 (Electronically Signed)
--- NOTE | 2025-07-10 16:18 | CRLHL7_ITS ---
For Patients: As a result of the Century Cures Act, medical imaging exams and procedure reports are released immediately into your electronic medical record. You may view this report before your referring provider. If you have questions, please contact your health care provider. INDICATION: Fall and lumbar spine pain, injury fall TECHNIQUE: Lumbar spine radiograph 2 views COMPARISON: None FINDINGS: Bone: No acute fractures or aggressive bone lesions are identified. Alignment is normal. Severe diffuse osteopenia is present. Disc: Moderate degenerative disc disease is present at L1-2 at L5-S1. Mild degenerative disc disease is seen at the remaining levels. Bilateral severe facet osteoarthritis noted at L4-5 and L5-S1. Soft tissue: Unremarkable. No radiopaque foreign bodies are seen. Moderate gaseous distention of the small bowel loops are noted throughout the abdomen which is nonspecific but may be due to adynamic ileus. IMPRESSION: 1. No acute osseous injuries are noted. Dictated by Raghav Delaney MD @ 07/10/2025 6:18:42 PM Dictated by: Raghav Delaney MD @ 07/10/2025 18:18:45 (Electronically Signed)
--- NOTE | 2025-07-10 16:18 | CRLHL7_ITS ---
For Patients: As a result of the Cures Act, medical imaging exams and procedure reports are released immediately into your electronic medical record. You may view this report before your referring provider. If you have questions, please contact your health care provider. INDICATION: Fall and pelvic hip pain, injury fall, fall and injury TECHNIQUE: Pelvis radiograph, Hip radiograph 3 views left COMPARISON: 02/06/2025 FINDINGS: Bone: No acute fractures or aggressive bone lesions are identified. Moderate diffuse osteopenia is present. Joint: Mild bilateral hip osteoarthritis is present. The visualized sacroiliac joints are unremarkable in appearance. The pubic symphysis is normal in appearance. Soft tissue: Unremarkable. No radiopaque foreign bodies are seen. Nonspecific mild gaseous distention of small bowel loops and the right colon is noted. IMPRESSION: 1. No acute osseous injuries are noted. Dictated by Raghav Delaney MD @ 07/10/2025 6:20:26 PM Dictated by: Raghav Delaney MD @ 07/10/2025 18:20:27 (Electronically Signed)
[2025-07-10] MEDS: ACETAMINOPHEN 500 MG TABLET 1000 MG PO (16:56)
[2025-07-10] MEDS: CYCLOBENZAPRINE HCL 10 MG TABLET 5 MG PO (16:56)
[2025-07-10 18:08] VITALS: BP 162/78; PULSE 80; RESP 18; O2SAT 98
--- NOTE | 2025-07-10 19:19 | ED.FALL ---
HPI - Fall General Date Seen: 07/10/25 Chief Complaint: Fall/Minor Trauma Stated Complaint: Full body left side pain Time Seen by Provider: 07/10/25 15:42 Source: patient and family Mode of arrival: ambulatory Limitations: no limitations History of Present Illness HPI Narrative: Patient is a very nice 75-year-old lady, who comes in by EMS after she fell, she has a attempting to step on a curb and tripped, landing on her left side, she has a history of Rosie-Danlos syndrome, and weakness of her ankles, she was bilaterally a fulls. She did not strike her head she is not a blood noted thinners, she complains of pain in her left hip back region, and also her left foot. MD complaint: fall Onset (ago): minute(s) Fall from: standing Fall witnessed: yes, by family Place fall occurred: street Loss of consciousness: No Prolonged down time: no Symptoms prior to fall: none Context: tripped/slipped Related Data Home Medications ?Medication ?Instructions ?Recorded ?Confirmed albuterol sulfate 90 mcg/actuation 2 inh inhalation Q4H PRN 02/11/22 02/12/25 breath activated powder inhaler aspirin 81 mg tablet,delayed 81 mg PO QDAY 02/11/22 02/12/25 release (Adult Low Dose Aspirin) cholecalciferol (vitamin D3) 125 125 mcg PO QDAY 02/11/22 02/12/25 mcg (5,000 unit) capsule rosuvastatin 10 mg tablet (Crestor) 10 mg PO QDAY 02/11/22 02/12/25 enoxaparin 60 mg/0.6 mL 60 mg subcut Q24H PRN 09/27/22 02/12/25 subcutaneous syringe levothyroxine 100 mcg tablet 112 mcg PO DAILY 05/25/24 02/12/25 (Synthroid) galcanezumab-gnlm 120 mg/mL mg subcut 01/04/25 01/04/25 subcutaneous pen injector (Emgality Pen) Previous Rx's ?Medication ?Instructions ?Recorded cyclobenzaprine 10 mg tablet 10 mg PO TID PRN muscle spasm #15 03/21/24 Held on 05/25/24. tabs Instructions: no longer needed triamcinolone acetonide 0.1 % 1 applic topical TID #30 grams 10/18/24 topical ointment peg 3350-electrolytes 236 480 ml PO ONCE #2 btls 05/09/25 gram-22.74 gram-6.74 gram-5.86 gram solution (Golytely) Allergies Allergy/AdvReac Type Severity Reaction Status Date / Time galcanezumab-gnlm Allergy Severe Palpitation Verified 07/10/25 15:41 s tramadol Allergy Severe migraines Verified 07/10/25 15:41 butterbur Allergy Intermediate gi upset Verified 07/10/25 15:41 midazolam Allergy Intermediate paradoxial Verified 07/10/25 15:41 agitation cephalexin Allergy Mild Rash Verified 07/10/25 15:41 latex Allergy Mild dermatitis Verified 07/10/25 15:41 erythromycin base Allergy Unknown Verified 07/10/25 15:41 Penicillins Allergy Unknown Verified 07/10/25 15:41 timolol Allergy Unknown Verified 07/10/25 15:41 chlorhexidine Allergy Verified 07/10/25 15:41 gabapentin Allergy Verified 07/10/25 15:41 propranolol Allergy Verified 07/10/25 15:41 silicone Allergy Verified 07/10/25 15:41 topiramate Allergy Verified 07/10/25 15:41 trazodone Allergy Verified 07/10/25 15:41 Common paper wasp venom Allergy Uncoded 02/12/25 09:44 protein Review of Systems Status of ROS: Reports: 10 or more systems reviewed and unremarkable except as noted in History and below [facility] Medical History Hypertension ?I10 - Essential (primary) hypertension (ICD-10) Encounter for follow-up ?Z09 - Encounter for follow-up examination after completed treatment for conditions other than malignant neoplasm (ICD-10) Surgical History Status post hysterectomy ?Z90.710 - Acquired absence of both cervix and uterus (ICD-10) History of total bilateral knee replacement ?Z96.653 - Presence of artificial knee joint, bilateral (ICD-10) History of tonsillectomy ?Z90.89 - Acquired absence of other organs (ICD-10) History of sinus surgery ?Z98.890 - Other specified postprocedural states (ICD-10) History of repair of hiatal hernia ?Z98.890 - Other specified postprocedural states (ICD-10) ?Z87.19 - Personal history of other diseases of the digestive system (ICD-10) History of hysterectomy ?Z90.710 - Acquired absence of both cervix and uterus (ICD-10) History of bunionectomy of both great toes ?Z98.890 - Other specified postprocedural states (ICD-10) Family History Father Stroke Other Cardiovascular disease Diabetes Psychiatric disorder Social History Narrative: Non-smoker Smoking Status: Never smoker Do you use any of these nicotine containing products: None How often do you have a drink containing alcohol: monthly or less How often do you have six or more drinks on one occasion: Never AUDIT-C Alcohol total score: 1 Non-prescribed substance use: denies use service: No Exam Narrative: Exam Narrative: On examination she is in no apparent distress she is pleasant and alert. She is able sit up for me in the room her pupils equal round reactive to light there is no scleral icterus redness, her neck is supple, flexion extension lateral flexion rotation are normal no obvious pain on palpation over the head or neck region her chest is good air entry bilaterally no wheezing crackles noted heart sounds are normal no T-spine tenderness is noted along with C-spine tenderness is absent. Lumbar spine shows no tenderness she is somewhat sore over the muscles of her left buttocks, and over left hip, but she has full flexion extension of her left hip, and movement of her left knee, she is sore over the bottom of her foot. Once I take off her AFOs. She has these because of a her Rosie Danlos syndrome. Normal sensation, normal pulses noted. Const: Vital Signs, click to edit/add: Vital Signs - 24 hr 07/10/25 15:37 07/10/25 18:08 Temperature 97.3 F L Pulse Rate [Pulse Oximeter] 72 80 Respiratory Rate 18 18 Blood Pressure [Le ft Upper Arm] 172/85 H 162/78 H Pulse Oximetry 99 98 Oxygen Delivery Me thod Room Air Course Course ED Course: Patient seen we did go she did use of Tylenol along with Flexeril. This helped her pain, x-ray showed normal abnormality of her lumbar spine along with her left hip and pelvis, she did have some isolated phalangeal fractures notable of 1st and 2nd toe on the left foot. Vital Signs Vital signs: Initial Vital Signs Temperature 97.3 F L 07/10/25 15:37 Temperature Source Temporal Artery Scan 07/10/25 15:37 Pulse Rate 72 07/10/25 15:37 Pulse Rhythm Regular 07/10/25 15:37 Pulse Strength 3+ Normal 07/10/25 15:37 Respiratory Rate 18 07/10/25 15:37 Blood Pressure 172/85 H 07/10/25 15:37 Blood Pressure Mean 114 H 07/10/25 15:37 Blood Pressure Position Sitting 07/10/25 15:37 Pulse Oximetry 99 07/10/25 15:37 Oxygen Delivery Method Room Air 07/10/25 15:37 Vital Signs Temperature 97.3 F L 07/10/25 15:37 Pulse Rate 72 07/10/25 15:37 Respiratory Rate 18 07/10/25 15:37 Blood Pressure 172/85 H 07/10/25 15:37 Pulse Oximetry 99 07/10/25 15:37 Oxygen Delivery Method Room Air 07/10/25 15:37 Temperature 97.3 F L 07/10/25 15:37 Pulse Rate 80 07/10/25 18:08 Respiratory Rate 18 07/10/25 18:08 Blood Pressure 162/78 H 07/10/25 18:08 Pulse Oximetry 98 07/10/25 18:08 Oxygen Delivery Method Room Air 07/10/25 15:37 Medications Administered Medications: Discontinued Medications Generic Name Dose Route Start Last Admin Trade Name Freq PRN Reason Stop Dose Admin Acetaminophen 1,000 mg 07/10/25 16:18 07/10/25 16:56 Acetaminophen 500 Mg Tablet PO 07/10/25 16:19 1,000 mg ONCE ONE Administration Cyclobenzaprine HCl 5 mg 07/10/25 16:18 07/10/25 16:56 Cyclobenzaprine Hcl 10 Mg Tablet PO 07/10/25 16:19 5 mg ONCE ONE Administration MDM - Fall Medical Records Attestation: I reviewed the patient's medical records. Lab Data Attestation: I reviewed the patient's lab results. Imaging Data Foot fracture: Radiologist's impression: [address] [address] Diagnostic Imaging Report Patient: Bianca Titus MR#: [id number] : 1950 Acct:[id number] Loc: ED Service Date: 07/10/[address]: Ordering Physician: Octavio Vargas M.D. Date of Service: 07/10/25 Procedure(s): XR lumbar spine 2-3V Accession Number(s): [id number] cc: Octavio Vargas M.D.; Meka Perez M.D.~ For Patients: As a result of the Cures Act, medical imaging exams and procedure reports are released immediately into your electronic medical record. You may view this report before your referring provider. If you have questions, please contact your health care provider. INDICATION: Fall and lumbar spine pain, injury fall TECHNIQUE: Lumbar spine radiograph 2 views COMPARISON: None FINDINGS: Bone: No acute fractures or aggressive bone lesions are identified. Alignment is normal. Severe diffuse osteopenia is present. Disc: Moderate degenerative disc disease is present at L1-2 at L5-S1. Mild degenerative disc disease is seen at the remaining levels. Bilateral severe facet osteoarthritis noted at L4-5 and L5-S1. Soft tissue: Unremarkable. No radiopaque foreign bodies are seen. Moderate gaseous distention of the small bowel loops are noted throughout the abdomen which is nonspecific but may be due to adynamic ileus. IMPRESSION: 1. No acute osseous injuries are noted. Dictated by Raghav Delaney MD @ 07/10/2025 6:18:42 PM Dictated by: Raghav Delaney MD @ 07/10/2025 18:18:45[place] [address] Diagnostic Imaging Report Patient: Bianca Titus MR#: [id number] : 1950 Acct:[id number] Loc: ED Service Date: 07/10/[address]: Ordering Physician: Octavio Vargas M.D. Date of Service: 07/10/25 Procedure(s): XR hip LT min 2V Accession Number(s): [id number] cc: Octavio Vargas M.D.; Meka Perez M.D.~ For Patients: As a result of the Cures Act, medical imaging exams and procedure reports are released immediately into your electronic medical record. You may view this report before your referring provider. If you have questions, please contact your health care provider. INDICATION: Fall and pelvic hip pain, injury fall, fall and injury TECHNIQUE: Pelvis radiograph, Hip radiograph 3 views left COMPARISON: 02/06/2025 FINDINGS: Bone: No acute fractures or aggressive bone lesions are identified. Moderate diffuse osteopenia is present. Joint: Mild bilateral hip osteoarthritis is present. The visualized sacroiliac joints are unremarkable in appearance. The pubic symphysis is normal in appearance. Soft tissue: Unremarkable. No radiopaque foreign bodies are seen. Nonspecific mild gaseous distention of small bowel loops and the right colon is noted. IMPRESSION: 1. No acute osseous injuries are noted. Dictated by Raghav Delaney MD @ 07/10/2025 6:20:26 PM Dictated by: Raghav Delaney MD @ 07/10/2025 18:20:27 (Electronically Signed) [place] [address] Diagnostic Imaging Report Patient: Bianca Titus MR#: [id number] : 1950 Acct:[id number] Loc: ED Service Date: 07/10/[address]: Ordering Physician: Octavio Vargas M.D. Date of Service: 07/10/25 Procedure(s): XR foot LT min 3V Accession Number(s): [id number] cc: Octavio Vargas M.D.; Meka Perez M.D.~ For Patients: As a result of the Cures Act, medical imaging exams and procedure reports are released immediately into your electronic medical record. You may view this report before your referring provider. If you have questions, please contact your health care provider. INDICATION: Fall and foot pain, injury fall, fall and injury TECHNIQUE: Foot radiograph 3 views left COMPARISON: None FINDINGS: Bone: There is an intra-articular fracture at the medial base of the 2nd proximal phalanx measuring 4 mm an intra-articular fracture along the medial base of the 1st proximal phalanx measuring 5 mm. Osteotomy of the 1st distal metatarsal is noted. Pes planus is suspected and can be confirmed by weightbearing views. There is a small plantar calcaneal spur present. Moderate diffuse osteopenia is present. Joint: The visualized hindfoot, midfoot, and forefoot joints are unremarkable in appearance. No significant ankle effusion is seen. Soft tissue: Unremarkable. No radiopaque foreign bodies are seen. IMPRESSION: 1. There is an intra-articular fracture at the medial base of the 2nd proximal phalanx measuring 4 mm an intra-articular fracture along the medial base of the 1st proximal phalanx measuring 5 mm. Dictated by Raghav Delaney MD @ 07/10/2025 6:19:49 PM Dictated by: Raghav Delaney MD @ 07/10/2025 18:19:53 (Electronically Signed) Discharge Plan Discharge Clinical Impression: Closed fracture multiple phalanges, toe, Contusion Patient Disposition: Home w/ Parent or Adult Condition: Stable Instructions: Toe Fracture (ED), Walking Boot (ED) Additional Instructions: Home rest, use of cam walker, follow-up with Tylenol and/or no relaxant. Activity Level: Light activity Prescriptions: No Action rosuvastatin [Crestor] 10 mg tablet 10 mg PO QDAY albuterol sulfate 90 mcg/actuation aerosol powdr breath activated 2 inh inhalation Q4H PRN cholecalciferol (vitamin D3) 125 mcg (5,000 unit) capsule 125 mcg PO QDAY aspirin [Adult Low Dose Aspirin] 81 mg tablet,delayed release (DR/EC) 81 mg PO QDAY enoxaparin 60 mg/0.6 mL syringe 60 mg subcut Q24H PRN triamcinolone acetonide 0.1 % ointment 1 applic topical TID Qty: 30 2RF Emgality Pen 120 mg/mL pen injector subcut Patient Comments: MONTH 1: INJECT 2 PEN INJECTORS SUBCUTANEOUSLY ON THE SAME DAY, MONTH 2 ONWARD: INJECT 1 PEN INJECTOR SUBCUTANEOUSLY ONCE A MONTH cyclobenzaprine 10 mg tablet 10 mg PO TID PRN (Reason: muscle spasm) Qty: 15 0RF levothyroxine [Synthroid] 100 mcg tablet 112 mcg PO DAILY peg 3350-electrolytes [Golytely] 236-22.74-6.74 -5.86 gram recon soln 480 ml PO ONCE Qty: 2 0RF Rx Instructions: 4pm 2 days prior to procedure. Drink 8oz glass every 15 minutes until 1/2 of 1 bottle of solution is gone. 9am day prior to procedure. Drink 8oz glass every 15 minutes until remaining solution of first bottle is gone. 4pm day prior to procedure. Drink 8oz glass every 15 minutes until 1/2 of second bottle of solution is gone. 6 hours prior to procedure drink 8 oz glass every 15 minutes until remaining solution gone. Follow Up/Referrals: Meka Perez MD [Primary Care Provider, Family Practice] Stand Alone Forms: [facility] Info Instructions
== END 2025-07-10 19:25 | disposition home or self-care (01) ==
PROVIDERS: Emergency Provider Family Medicine; PCP Family Medicine
DX: S92.405A Nondisplaced unspecified fracture of left great toe, initial encounter for closed fracture (principal); S92.505A Nondisplaced unspecified fracture of left lesser toe(s), initial encounter for closed fracture; W01.0XXA Fall on same level from slipping, tripping and stumbling without subsequent striking against object, initial encounter; Y93.01 Activity, walking, marching and hiking; Y92.414 Local residential or business street as the place of occurrence of the external cause; M25.552 Pain in left hip; M54.50 Low back pain, unspecified
CPT/HCPCS: 72100; 73502; 73630; 99284; A9270